=== PATIENT | male | born 1950 | race Caucasian/White ===

== ENCOUNTER → 2019-09-05 10:44 | Outpatient (BNVA) | payer MEDICARE, MEDICAID, SELFPAY | PROVIDERS: Family Provider Family Medicine; PCP Family Medicine; Visit Provider Nurse Practitioner Psychiatric/Mental Health | DX: F41.1 Generalized anxiety disorder (principal); F12.20 Cannabis dependence, uncomplicated; F10.21 Alcohol dependence, in remission | CPT/HCPCS: 99213 ==

== ENCOUNTER → 2019-12-17 07:39 | Outpatient (BNVA) | payer MEDICARE, MEDICAID, SELFPAY | PROVIDERS: Family Provider Family Medicine; PCP Family Medicine; Visit Provider Nurse Practitioner Psychiatric/Mental Health | DX: F41.1 Generalized anxiety disorder (principal); F12.20 Cannabis dependence, uncomplicated; F10.21 Alcohol dependence, in remission | CPT/HCPCS: 99214 ==

== ENCOUNTER 2019-12-26 13:06 | Outpatient (CLI) | payer MEDICARE, MEDICAID, SELFPAY ==
--- NOTE | 2019-12-26 13:15 | US_ITS ---
WS: [id number] SCROTAL ULTRASOUND REASON FOR EXAM: PAIN, SWELLING COMPARISON: None available. TECHNIQUE: Grayscale and duplex color Doppler ultrasound examination of the scrotum. FINDINGS: RIGHT: Right testes measures 4.5 cm x 2.7 cm x 3.4 cm. Large hydrocele is seen on the right side. Right epididymis measures shows inflammatory changes. Increased blood flow in the right epididymis is seen. Dizziness measured 3.04 x 1.76 m. LEFT: Left testes measures 4.6 cm x 2.7 cm x 2.8 cm. Large hydrocele is seen. Left epididymis measures 1.7 cm normal appearance otherwise of the left epididymis. Small epididymal cysts. IMPRESSION: Bilateral hydroceles. Epididymitis on the right Epididymal cyst on the left.
== END 2019-12-26 13:07 | disposition home or self-care (01) ==
LOC: RAD 13:11
PROVIDERS: Visit Provider Nurse Practitioner Family
DX: N50.89 Other specified disorders of the male genital organs (principal); N43.2 Other hydrocele; N45.1 Epididymitis; N50.3 Cyst of epididymis
CPT/HCPCS: 76870

== ENCOUNTER → 2020-01-14 07:40 | Outpatient (BNVA) | payer MEDICARE, MEDICAID, SELFPAY | PROVIDERS: Visit Provider Nurse Practitioner Psychiatric/Mental Health | DX: F41.1 Generalized anxiety disorder (principal); F12.20 Cannabis dependence, uncomplicated; F10.21 Alcohol dependence, in remission | CPT/HCPCS: 99214 ==

== ENCOUNTER → 2020-02-11 07:30 | Outpatient (BNVA) | payer MEDICARE, MEDICAID, SELFPAY | PROVIDERS: Visit Provider Nurse Practitioner Psychiatric/Mental Health | DX: F41.1 Generalized anxiety disorder (principal); F12.20 Cannabis dependence, uncomplicated; F10.21 Alcohol dependence, in remission; F33.1 Major depressive disorder, recurrent, moderate | CPT/HCPCS: 99214 ==

== ENCOUNTER → 2020-03-10 07:40 | Outpatient (BNVA) | payer MEDICARE, MEDICAID, SELFPAY | PROVIDERS: Visit Provider Nurse Practitioner Psychiatric/Mental Health | DX: F41.1 Generalized anxiety disorder (principal); F12.20 Cannabis dependence, uncomplicated; F10.21 Alcohol dependence, in remission | CPT/HCPCS: 99214 ==

== ENCOUNTER → 2020-03-18 10:57 | Outpatient (BNVA) | payer OTHER, SELFPAY | PROVIDERS: Visit Provider Dermatology | DX: F41.1 Generalized anxiety disorder (principal) | CPT/HCPCS: 80061; 83036 ==

== ENCOUNTER → 2020-04-15 07:43 | Outpatient (BNVA) | payer OTHER, SELFPAY ==
[2020-03-19 12:54] VITALS: BP 152/79; BMI 44.8
== END ==
PROVIDERS: Visit Provider Nurse Practitioner Psychiatric/Mental Health
DX: F41.1 Generalized anxiety disorder (principal); F12.20 Cannabis dependence, uncomplicated; F10.21 Alcohol dependence, in remission
CPT/HCPCS: 99213

== ENCOUNTER → 2020-05-19 07:52 | Outpatient (BNVA) | payer MEDICARE, MEDICAID, OTHER, SELFPAY ==
[2020-03-19 12:54] VITALS: BP 152/79; BMI 44.8
== END ==
PROVIDERS: Visit Provider Nurse Practitioner Psychiatric/Mental Health
DX: F41.1 Generalized anxiety disorder (principal); F12.20 Cannabis dependence, uncomplicated; F10.21 Alcohol dependence, in remission
CPT/HCPCS: 99213

== ENCOUNTER → 2020-07-07 08:14 | Outpatient (BNVA) | payer MEDICARE, MEDICAID, SELFPAY ==
[2020-03-19 12:54] VITALS: BP 152/79; BMI 44.8
== END ==
PROVIDERS: Visit Provider Nurse Practitioner Psychiatric/Mental Health
DX: F41.1 Generalized anxiety disorder (principal); F12.20 Cannabis dependence, uncomplicated; F10.21 Alcohol dependence, in remission
CPT/HCPCS: 99213

== ENCOUNTER → 2020-09-10 10:36 | Outpatient (BNVA) | payer MEDICARE, MEDICAID, SELFPAY ==
[2020-03-19 12:54] VITALS: BP 152/79; BMI 44.8
== END ==
PROVIDERS: Visit Provider Nurse Practitioner Psychiatric/Mental Health
DX: F41.1 Generalized anxiety disorder (principal); F12.20 Cannabis dependence, uncomplicated; F10.21 Alcohol dependence, in remission
CPT/HCPCS: 99214

== ENCOUNTER → 2021-01-05 08:34 | Outpatient (BNVA) | payer OTHER, MEDICAID, SELFPAY ==
[2020-03-19 12:54] VITALS: BP 152/79; BMI 44.8
== END ==
PROVIDERS: Visit Provider Nurse Practitioner Psychiatric/Mental Health
DX: F41.1 Generalized anxiety disorder (principal); F12.20 Cannabis dependence, uncomplicated; F10.21 Alcohol dependence, in remission
CPT/HCPCS: 99214

== ENCOUNTER → 2021-02-23 07:57 | Outpatient (BNVA) | payer MEDICARE, MEDICAID, SELFPAY ==
[2020-03-19 12:54] VITALS: BP 152/79; BMI 44.8
== END ==
PROVIDERS: Visit Provider Nurse Practitioner Psychiatric/Mental Health
DX: F41.1 Generalized anxiety disorder (principal); F12.20 Cannabis dependence, uncomplicated; F10.21 Alcohol dependence, in remission
CPT/HCPCS: 99214

== ENCOUNTER → 2021-04-19 07:46 | Outpatient (BNVA) | payer MEDICARE, MEDICAID, SELFPAY ==
[2020-03-19 12:54] VITALS: BP 152/79; BMI 44.8
== END ==
PROVIDERS: Visit Provider Nurse Practitioner Psychiatric/Mental Health
DX: F41.1 Generalized anxiety disorder (principal); F12.20 Cannabis dependence, uncomplicated; F10.21 Alcohol dependence, in remission
CPT/HCPCS: 99214

== ENCOUNTER → 2021-05-13 13:45 | Outpatient (BNVA) | payer OTHER, SELFPAY ==
[2020-03-19 12:54] VITALS: BP 152/79; BMI 44.8
== END ==
PROVIDERS: Visit Provider Nurse Practitioner Psychiatric/Mental Health
DX: F41.1 Generalized anxiety disorder (principal)
CPT/HCPCS: 80061; 83036

== ENCOUNTER → 2021-06-08 09:43 | Outpatient (BNVA) | payer MEDICARE, MEDICAID, SELFPAY ==
[2021-05-17 13:24] VITALS: BP 161/66; BMI 44.2
== END ==
PROVIDERS: Visit Provider Nurse Practitioner Psychiatric/Mental Health
DX: F41.1 Generalized anxiety disorder (principal); F12.20 Cannabis dependence, uncomplicated; F10.21 Alcohol dependence, in remission
CPT/HCPCS: 99214

== ENCOUNTER → 2021-08-10 14:42 | Outpatient (BNVA) | payer MEDICARE, MEDICAID, SELFPAY ==
[2021-05-17 13:24] VITALS: BP 161/66; BMI 44.2
== END ==
PROVIDERS: Visit Provider Nurse Practitioner Psychiatric/Mental Health
DX: F41.1 Generalized anxiety disorder (principal); F12.20 Cannabis dependence, uncomplicated; F10.21 Alcohol dependence, in remission
CPT/HCPCS: 99214

== ENCOUNTER → 2021-09-21 11:00 | Outpatient (BNVA) | payer MEDICARE, MEDICAID, SELFPAY ==
[2021-05-17 13:24] VITALS: BP 161/66; BMI 44.2
== END ==
PROVIDERS: Visit Provider Social Worker
DX: F41.1 Generalized anxiety disorder (principal)
CPT/HCPCS: 90834

== ENCOUNTER → 2021-10-20 14:00 | Outpatient (BNVA) | payer MEDICARE, MEDICAID, SELFPAY ==
[2021-05-17 13:24] VITALS: BP 161/66; BMI 44.2
== END ==
PROVIDERS: Visit Provider Social Worker
DX: F41.1 Generalized anxiety disorder (principal)
CPT/HCPCS: 90834

== ENCOUNTER → 2021-10-27 10:48 | Outpatient (BNVA) | payer MEDICARE, MEDICAID, SELFPAY ==
[2021-05-17 13:24] VITALS: BP 161/66; BMI 44.2
== END ==
PROVIDERS: Visit Provider Social Worker
DX: F41.1 Generalized anxiety disorder (principal)
CPT/HCPCS: 90834

== ENCOUNTER → 2021-11-03 10:46 | Outpatient (BNVA) | payer MEDICARE, MEDICAID, SELFPAY ==
[2021-05-17 13:24] VITALS: BP 161/66; BMI 44.2
== END ==
PROVIDERS: Visit Provider Social Worker
DX: F41.1 Generalized anxiety disorder (principal)
CPT/HCPCS: 90834

== ENCOUNTER → 2021-11-11 09:45 | Outpatient (BNVA) | payer MEDICARE, MEDICAID, SELFPAY ==
[2021-05-17 13:24] VITALS: BP 161/66; BMI 44.2
== END ==
PROVIDERS: Visit Provider Social Worker
DX: F41.1 Generalized anxiety disorder (principal)
CPT/HCPCS: 90834

== ENCOUNTER → 2021-11-17 09:49 | Outpatient (BNVA) | payer MEDICARE, MEDICAID, SELFPAY ==
[2021-05-17 13:24] VITALS: BP 161/66; BMI 44.2
== END ==
PROVIDERS: Visit Provider Social Worker
DX: F41.1 Generalized anxiety disorder (principal)
CPT/HCPCS: 90834

== ENCOUNTER → 2021-11-23 09:48 | Outpatient (BNVA) | payer MEDICARE, MEDICAID, SELFPAY ==
[2021-05-17 13:24] VITALS: BP 161/66; BMI 44.2
== END ==
PROVIDERS: Visit Provider Social Worker
DX: F41.1 Generalized anxiety disorder (principal)
CPT/HCPCS: 90834

== ENCOUNTER → 2021-11-30 09:45 | Outpatient (BNVA) | payer MEDICARE, MEDICAID, SELFPAY ==
[2021-05-17 13:24] VITALS: BP 161/66; BMI 44.2
== END ==
PROVIDERS: Visit Provider Social Worker
DX: F41.1 Generalized anxiety disorder (principal)
CPT/HCPCS: 90834

== ENCOUNTER → 2021-12-07 09:47 | Outpatient (BNVA) | payer MEDICARE, MEDICAID, SELFPAY ==
[2021-05-17 13:24] VITALS: BP 161/66; BMI 44.2
== END ==
PROVIDERS: Visit Provider Social Worker
DX: F41.1 Generalized anxiety disorder (principal)
CPT/HCPCS: 90834

== ENCOUNTER → 2021-12-14 10:46 | Outpatient (BNVA) | payer MEDICARE, MEDICAID, SELFPAY ==
[2021-05-17 13:24] VITALS: BP 161/66; BMI 44.2
== END ==
PROVIDERS: Visit Provider Social Worker
DX: F41.1 Generalized anxiety disorder (principal)
CPT/HCPCS: 90834

== ENCOUNTER → 2021-12-21 09:49 | Outpatient (BNVA) | payer MEDICARE, MEDICAID, SELFPAY ==
[2021-05-17 13:24] VITALS: BP 161/66; BMI 44.2
== END ==
PROVIDERS: Visit Provider Social Worker
DX: F41.1 Generalized anxiety disorder (principal)
CPT/HCPCS: 90834

== ENCOUNTER 2022-01-02 12:56 | Inpatient (IN) | payer MEDICARE, MEDICAID, SELFPAY ==
[2021-05-17 13:24] VITALS: BP 161/66; BMI 44.2
[2022-01-02] VITALS (9 sets, daily range): BP systolic 88–128; BP diastolic 51–77; PULSE 61–70; RESP 16–20; TEMP 36.6–36.8; O2SAT 94–95; BMI 44.6; BMI 40.8
--- NOTE | 2022-01-02 13:05 | ECG_ITS ---
[facility] Test Date: 2022-01-02 Pat Name: Franki Read Department: Room: 106 Gender: Male Biochemistry Technologist: : 1950 Requested By: Getachew Roberts Order Number: [id number] Driver MD: Jenni Hsu M.D. Measurements Intervals [place] Rate: 62 P: 66 MA: 219 QRS: 64 QRSD: 146 T: 38 QT: 377 QTc: 384 Interpretive Statements SINUS RHYTHM WITH FIRST DEGREE AV BLOCK RIGHT BUNDLE BRANCH BLOCK [120+ ms QRS DURATION, UPRIGHT V1, 40+ ms S IN I/aVL/V4/V5/V6] Compared to ECG 01/04/2018 08:41:25 First degree AV block now present Ventricular premature complex(es) no longer present Indeterminate axis no longer present Electronically Signed On 01-03-2022 17:39:16 CDT by Jenni Hsu M.D. [email or web address].[email or web address]/store/OM/[id number]
--- NOTE | 2022-01-02 13:08 | W.ED.WEAKNES ---
HPI - Weakness General: Chief complaint: Altered Mental Status Stated complaint: WEAKNESS; HYPERGLYCEMIA Time Seen by Provider: 01/02/22 12:58 History of Present Illness: 71-year-old presents due to generalized weakness. Denies any focal numbness weakness or tingling. Denies any pain. He has history of diabetes. Denies any recent changes in medications and denies taking too many of his medications however on EMS arrival he had a blood sugar in the 40s. Improved to the 80s after dextrose. He reports significant improvement in symptoms now. Review of Systems Narrative: - CONSTITUTIONAL: Denies weight loss, fever and chills. - HEENT: Denies changes in vision and hearing. - RESPIRATORY: Denies SOB and cough. - CV: Denies palpitations and CP. - GI: Denies abdominal pain, nausea, vomiting and diarrhea. - : Denies dysuria and urinary frequency. - MSK: Denies myalgia and joint pain. - SKIN: Denies rash and pruritus. - NEUROLOGICAL: As above - PSYCHIATRIC: Denies suicidal ideation PFSH ED PFSH: Medical History Alcohol use disorder, moderate, in sustained remission Arthritis Cannabis dependence, continuous -History of 51 years of daily use -recently obtained marijuana card Cannabis dependence, episodic use Diabetes mellitus Generalized anxiety disorder History of fibromyalgia History of gastroesophageal reflux (GERD) History of hypertension Hyperlipidemia Psychiatric care Sleep apnea Surgical History History of colonoscopy Hx of brain surgery Family History Other Cancer Diabetes Hypertension Social History (Updated 05/13/21 @ 12:20 by Precious Lopez LPN) Smoking and tobacco status: former smoker Quit status (tobacco): has quit using tobacco Year quit tobacco: 2004 Second hand smoke exposure: No Alcohol intake: current Alcohol intake frequency: holidays/special occasions only Alcohol type: beer Desire information about alcohol rehabilitation?: No Desire information about substance/drug rehabilitation?: No Adopted: No Caregiver/support person: No Lives independently: Yes Household members: none Housing: Manufactured/Mobile home Marital status: Number of children: 1 Number of grandchildren: 1 Highest education level completed: 11th Grade service: No Current occupational status: retired Current occupational exposures/hazards: No 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 No acute distress. Well-nourished. - EYES: EOMI. Anicteric. - HENT: Atraumatic, no C-spine tenderness. Moist mucous membranes. No scleral icterus. No cervical lymphadenopathy. - LUNGS: Clear to auscultation bilaterally. No accessory muscle use. Equal lung sounds bilaterally. No respiratory distress. - CARDIOVASCULAR: Regular rate and rhythm. No murmur. No JVD. - ABDOMEN: Soft, non-tender and non-distended. Negative CVA tenderness bilaterally, no rebound or guarding, negative Gonzalez sign. No palpable masses. - EXTREMITIES: No edema. Non-tender. - SKIN: No rashes or lesions. Warm. - NEUROLOGIC: No meningismus or focal neurological deficits. CN II-XII grossly intact. - PSYCHIATRIC: Cooperative. Appropriate mood and affect. Course Vital Signs: Vital signs: Vital Signs Temperature 98.0 F 01/02/22 13:22 Pulse Rate 65 01/02/22 13:22 Respiratory Rate 16 01/02/22 13:22 Blood Pressure 128/51 01/02/22 13:22 Pulse Oximetry 95 01/02/22 13:22 MDM - Weakness Medical Decision Making 71-year-old presents due to lightheadedness and generalized weakness. Reportedly had hypoglycemia at the scene improved glucose. Nonfocal neurologic exam. Denies any falls or head injury. However lab work does reveal hyperkalemia with potassium of 5.9 and ROXANN with creatinine to 3.3. No EKG changes. Calcium Kayexalate and fluids provided. Remainder of lab work and imaging reviewed. Discussed with hospitalist and they agreed patient would benefit from admission. Patient admitted in stable condition. Further evaluation management per hospitalist team. Lab Data : 01/02/22 13:32 01/02/22 13:32 Laboratory Results WBC 12.6 10^3/uL (4.0-10.0) H 01/02/22 13: RBC 4.32 10^6/uL (4.1-5.3) 01/02/22 13: Hgb 12.5 g/dL (11.7-16.6) 01/02/22 13: Hct 40.8 % (42.0-52.0) L 01/02/22 13: MCV 94.4 fl (80-94) H 01/02/22 13: MCH 28.9 pg (28.0-34.0) 01/02/22 13: MCHC 30.6 g/dL (30.0-36.0) 01/02/22: RDW 15.2 % (12.1-15.1) H 01/02/22: Plt Count 269 10^3/cmm (130-400) 01/02/22 13: MPV 10.6 fL (7.4-10.4) H 01/02/22 13: Neut % (Auto) 70.9 % 01/02/22 13:32 Lymph % (Auto) 15.4 % 01/02/22 13:32 [place] % (Auto) 10.4 % 01/02/22 13: Eos % (Auto) 1.1 % 01/02/22: Baso % (Auto) 0.7 % 01/02/22: Neut # (Auto) 8.90 10^3/uL (1.8-7.7) H 01/02/22 13: Lymph # (Auto) 1.9 10^3/uL (0.8-4.8) 01/02/22 13:32 [place] # (Auto) 1.3 10^3/uL (0.2-0.9) H 01/02/22: Eos # (Auto) 0.1 10^3/uL (0.0-0.8) 01/02/22: Baso # (Auto) 0.1 10^3/uL (0.0-0.1) 01/02/22: Nucleated RBC % (auto) 0 % 01/02/22: Nucleated RBCs # 0.0 /100WBC 01/02/22 13:32 Sodium 136 mmol/L (136-145) 01/02/22 13:32 Potassium 5.9 mmol/L (3.5-5.1) H 01/02/22 13:32 Chloride 102 mmol/L (98-107) 01/02/22 13:32 Carbon Dioxide 20 mmol/L (22-29) L 01/02/22 13:32 Anion Gap 19.9 (5-19) H 01/02/22 13:32 BUN 65 mg/dL (8-23) H 01/02/22 13:32 Creatinine 3.3 mg/dL (0.7-1.2) H 01/02/22 13:32 GFR Calculation Not Reportable 01/02/22 13:32 Glucose 50 mg/dL (65-115) L 01/02/22 13:32 Calculated Osmolality 298 mOsm/kg (285-295) H 01/02/22 13:32 Calcium 9.8 mg/dL (8.5-10.5) 01/02/22 13:32 Total Bilirubin 0.3 mg/dL (0.15-1.2) 01/02/22 13:32 AST 27 U/L (0-40) 01/02/22 13:32 ALT 33 U/L (0-41) 01/02/22 13:32 Alkaline Phosphatase 73 IU/L (40-130) 01/02/22 13:32 Total Protein 7.4 g/dL (6.6-8.7) 01/02/22 13:32 Albumin 4.2 g/dL (3.5-5.2) 01/02/22 13:32 Globulin 3.2 g/dL (1.3-4.6) 01/02/22 13:32 Urine Color Yellow (Yellow) 01/02/22 14:35 Urine Appearance Clear (CLEAR) 01/02/22 14:35 Urine pH 5 (5-7) 01/02/22 14:35 Ur Specific [place] 1.010 (1.005-1.030) 01/02/22 14:35 Urine Protein Neg (Negative) 01/02/22 14:35 Urine Glucose (UA) 2+ (Normal) H 01/02/22 14:35 Urine Ketones Negative (Negative) 01/02/22 14:35 Urine Blood Neg (Negative) 01/02/22 14:35 Urine Nitrate Negative (Negative) 01/02/22 14:35 Urine Bilirubin Neg (Negative) 01/02/22 14:35 Urine Urobilinogen Norm mg/dL (Negative) 01/02/22 14:35 Ur Leukocyte Esterase Negative (Negative) 01/02/22 14:35 Urine RBC None /hpf (0-2) 01/02/22 14:35 Urine WBC None /hpf (0-5) 01/02/22 14:35 Ur Squamous Epith Cells Rare /hpf (0-5) 01/02/22 14:35 Amorphous Sediment Not Reportable 01/02/22 14:35 Urine Bacteria None /hpf (NONE) 01/02/22 14:35 Urine Mucus Trace /hpf 01/02/22 14:35 EKG Data EKG 1: Other EKG comments: Normal sinus rhythm with first-degree AV block, right bundle branch block is present. No sign of acute ischemia or other acute abnormality. Discharge Plan Discharge Condition: Stable Prescriptions: No Action spironolactone 25 mg/5 mL suspension 25 mg PO DAILY 0RF glipizide 10 mg tablet extended release 24hr 10 mg PO DAILY 0RF metoprolol succinate 25 mg capsule,sprinkle,ER 24hr 25 mg PO DAILY 0RF aspirin [Ericka Chewable Aspirin] 81 mg tablet,chewable 81 mg PO DAILY 0RF prenat.vits,sharon,ydf-vyih-mnasp Tablet 1 tab PO DAILY 0RF omega-3 fatty acids [Fish Oil Concentrate] 1,000 mg capsule 1,000 mg PO DAILY 0RF furosemide 20 mg tablet 20 mg PO DAILY 0RF potassium chloride 10 mEq tablet extended release 10 meq PO DAILY 0RF baclofen 20 mg tablet 20 mg PO QID 0RF omeprazole 20 mg capsule,delayed release(DR/EC) 20 mg PO BID 0RF memantine 10 mg tablet 10 mg PO DAILY 0RF tamsulosin 0.4 mg capsule 0.4 mg PO DAILY 0RF donepezil 5 mg tablet 5 mg PO DAILY 0RF amlodipine 5 mg Tablet 5 mg PO DAILY 0RF colchicine 0.6 mg Tablet 0.6 mg PO BID 0RF irbesartan 300 mg Tablet 300 mg PO DAILY 0RF Crestor 40 mg Tablet 40 mg PO DAILY 0RF Jardiance 10 mg Tablet 10 mg PO DAILY 0RF trazodone 50 mg tablet 50 mg PO BEDTIME PRN (Reason: sleep) 0RF Rx Instructions: Take half to one tablet one hour prior to bedtime as needed gabapentin 300 mg capsule 300 mg PO BEDTIME 0RF Rx Instructions: Take one capsule at bedtime Coding Level of Care Code ED Correctional Cook for Stepan Noel
[2022-01-02 13:48] LABS: Basophils # 0.1 10^3/uL (0.0-0.1); Basophils % 0.7 %; Eosinophils # 0.1 10^3/uL (0.0-0.8); Eosinophils % 1.1 %; Hematocrit 40.8 % (42.0-52.0); Hemoglobin 12.5 g/dL (11.7-16.6); Lymphocytes # 1.9 10^3/uL (0.8-4.8); Lymphocytes % 15.4 %; Mean Corpuscular HGB Conc 30.6 g/dL (30.0-36.0); Mean Corpuscular Hemoglobin 28.9 pg (28.0-34.0); Mean Corpuscular Volume 94.4 fl (80-94); Mean Platelet Volume 10.6 fL (7.4-10.4); Monocytes # 1.3 10^3/uL (0.2-0.9); Monocytes % 10.4 %; Neutrophils % 70.9 %; Nucleated Red Blood Cells % 0 %; Platelet Count 269 10^3/cmm (130-400); Red Blood Count 4.32 10^6/uL (4.1-5.3); Red Cell Distribution Width 15.2 % (12.1-15.1); White Blood Count 12.6 10^3/uL (4.0-10.0)
[2022-01-02 14:05] LABS: Alanine Aminotransferase 33 U/L (0-41); Albumin Level 4.2 g/dL (3.5-5.2); Alkaline Phosphatase 73 IU/L (40-130); Anion Gap 19.9 (5-19); Aspartate Amino Transferase 27 U/L (0-40); Blood Urea Nitrogen 65 mg/dL (8-23); Calcium 9.8 mg/dL (8.5-10.5); Carbon Dioxide 20 mmol/L (22-29); Chloride 102 mmol/L (98-107); Globulin 3.2 g/dL (1.3-4.6); Glucose 50 mg/dL (65-115); Osmolality Calculated 298 mOsm/kg (285-295); Potassium 5.9 mmol/L (3.5-5.1); Sodium 136 mmol/L (136-145); Total Bilirubin 0.3 mg/dL (0.15-1.2); Total Protein 7.4 g/dL (6.6-8.7)
[2022-01-02 15:09] LABS: Protein Urine Neg (Negative); Urine Appearance Clear (CLEAR); Urine Color Yellow (Yellow); pH Urine 5 (5-7)
[2022-01-02 15:10] LABS: Bilirubin Urine Neg (Negative); Blood Urine Neg (Negative); Glucose Urine UA 2+ (Normal); Ketones Urine Negative (Negative); Leukocyte Esterase Urine Negative (Negative); Nitrate Urine Negative (Negative); Urobilinogen Urine Norm (Negative)
[2022-01-02 15:11] LABS: Mucus Urine TRACE /hpf; Squamous Epithelial Cell Urine RARE /hpf (0-5)
[2022-01-02 15:12] LABS: Add Urine Culture? No
--- NOTE | 2022-01-02 15:34 | ECG_ITS ---
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 Measurements Intervals [place] Rate: 60 P: 90 VT: 207 QRS: 80 QRSD: 141 T: 45 QT: 390 QTc: 391 Interpretive Statements SINUS RHYTHM RIGHT BUNDLE BRANCH BLOCK [120+ ms QRS DURATION, UPRIGHT V1, 40+ ms S IN I/aVL/V4/V5/V6] Compared to ECG 01/02/2022 16:19:54 First degree AV block no longer present Electronically Signed On 01-03-2022 17:43:51 CDT by Jenni Hsu M.D. [email or web address]/[id number]
--- NOTE | 2022-01-02 15:44 | PM.HP ---
Providers/Chief Complaint Chief Complaint: WEAKNESS; HYPERGLYCEMIA History of Present Illness Franki Read is a 71 year old male with past medical history of alcohol use disorder in remission, arthritis, marijuana dependence, diabetes mellitus, anxiety, hypertension, GERD, hyperlipidemia, sleep apnea presented to the hospital today via EMS for complaints of not feeling well. He states he has been feeling unwell for the last couple of days and has not been eating very much either. He also states he has been drinking a lot of water. He usually goes to the bathroom every day but has not gone for the last few days for bowel movement. He does not report urinating less than usual. Patient does seem slightly confused when being asked all his questions. He is a poor historian. He states he has been having a cough but other than that has no other complaints. Review of systems asked very extensively and negative for all except that he said he is feeling hot in his room and would like to be assigned a bed soon. He is a former smoker but quit years ago. He states he does not drink alcohol at this time. He says he has been taking his medications as directed. Denies any chest pain, shortness of breath at this time. Denies being on any inhalers at home. ED course: Blood pressure on arrival 128/51, pulse 65, temperature 98, respiratory 16, pulse ox 95% on room air. Patient's blood sugar glucose on arrival was 40s and he received dextrose with repeat blood sugar in 80s as per ER physician. Labs revealed hyperkalemia potassium 5.9, ROXANN with creatinine 3.3. No EKG changes. Calcium gluconate, Kayexalate and fluids given. X-ray ordered. Hospitalist called for admission. Medications/Allergies Home Medications Medication Instructions Recorded Confirmed Last Taken Type baclofen 20 mg tablet 20 mg PO QID 08/26/19 01/02/22 01/02/22 History memantine 10 mg tablet 10 mg PO DAILY 08/26/19 01/02/22 01/02/22 History omeprazole 20 mg capsule,delayed 20 mg PO BID 08/26/19 01/02/22 01/02/22 History release tamsulosin 0.4 mg capsule 0.4 mg PO DAILY 08/26/19 01/02/22 01/02/22 History donepezil 5 mg tablet 5 mg PO DAILY 09/05/19 01/02/22 01/02/22 History aspirin 81 mg chewable tablet 81 mg PO DAILY 04/21/20 01/02/22 01/02/22 History (Ericka Chewable Low Dose Aspirin) furosemide 20 mg tablet 20 mg PO DAILY 04/21/20 01/02/22 01/02/22 History glipizide 10 mg tablet, extended 10 mg PO DAILY 04/21/20 01/02/22 01/02/22 History release 24 hr metoprolol succinate 25 mg capsule 25 mg PO DAILY 04/21/20 01/02/22 01/02/22 History sprinkle, ext. release 24 hr omega-3 fatty acids 1,000 mg 1,000 mg PO DAILY 04/21/20 01/02/22 01/02/22 History capsule (Fish Oil Concentrate) potassium chloride 10 mEq 10 meq PO DAILY 04/21/20 01/02/22 01/02/22 History tablet,extended release prenat.vits,sharon,tas-mdkx-mrzbf 1 tab PO DAILY 04/21/20 01/02/22 01/02/22 History spironolactone 25 mg/5 mL oral 25 mg PO DAILY 04/21/20 01/02/22 01/02/22 History suspension amlodipine 5 mg tablet 5 mg PO DAILY 01/02/22 01/02/22 01/02/22 History colchicine 0.6 mg tablet 0.6 mg PO BID 01/02/22 01/02/22 01/02/22 History empagliflozin 10 mg tablet 10 mg PO DAILY 01/02/22 01/02/22 01/02/22 History (Jardiance) gabapentin 300 mg capsule 300 mg PO BEDTIME 01/02/22 01/02/22 01/01/22 History irbesartan 300 mg tablet 300 mg PO DAILY 01/02/22 01/02/22 01/02/22 History rosuvastatin 40 mg tablet (Crestor) 40 mg PO DAILY 01/02/22 01/02/22 01/02/22 History trazodone 50 mg tablet 50 mg PO BEDTIME PRN 01/02/22 01/02/22 Unknown History Allergies Allergy/AdvReac Type Severity Reaction Status Date / Time No Known Allergies Allergy Verified 01/02/22 13:00 PFSH Acute PFSH: Medical History Alcohol use disorder, moderate, in sustained remission Arthritis Cannabis dependence, continuous -History of 51 years of daily use -recently obtained marijuana card Cannabis dependence, episodic use Diabetes mellitus Generalized anxiety disorder History of fibromyalgia History of gastroesophageal reflux (GERD) History of hypertension Hyperlipidemia Psychiatric care Sleep apnea Surgical History History of colonoscopy Hx of brain surgery Family History Other Cancer Diabetes Hypertension Social History (Updated 05/13/21 @ 12:20 by Precious Lopez LPN) Smoking and tobacco status: former smoker Quit status (tobacco): has quit using tobacco Year quit tobacco: 2004 Second hand smoke exposure: No Alcohol intake: current Alcohol intake frequency: holidays/special occasions only Alcohol type: beer Desire information about alcohol rehabilitation?: No Desire information about substance/drug rehabilitation?: No Adopted: No Caregiver/support person: No Lives independently: Yes Household members: none Housing: Manufactured/Mobile home Marital status: Number of children: 1 Number of grandchildren: 1 Highest education level completed: 11th Grade service: No Current occupational status: retired Current occupational exposures/hazards: No 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 Pets and animals: Yes Pets & animals: cat(s) and dog(s) History of recent travel: No Leisure activites: art and other Leisure activities details: 4 ruffin riding Sexually active: No Current gender identity: Male Teresa/Sabianist: None Special teresa needs: No Agree to transfusion: Yes Vitals/I&O/Wt Last Vital Signs Temp 98.0 F 01/02/22 13:22 Pulse 61 01/02/22 15:20 Resp 16 01/02/22 15:20 BP 120/77 01/02/22 15:20 Pulse Ox 95 01/02/22 15:20 Weight last 48 hrs Weight 117.934 kg Physical Exam Narrative: General: Alert oriented x3, patient seen sitting up in bed stating that it is hot and his room. He also wanted his bed to be adjusted so he could set up. No acute distress, normal respiratory effort. HEENT: Normocephalic, atraumatic, EOMI, breathing room air, large neck Cardio: Regular rate rhythm, normal S1-S2, no murmurs Respiratory: Gross expiratory rhonchi and diminished bilateral air entry present bilateral lung wolfe, no crackles. GI: Abdomen soft, nontender, obese rounded abdomen,, bowel sounds + Behavior: Appropriate and cooperative, however does appear slightly confused but is alert oriented x3. Extremities: no edema, no cyanosis, slight pedal edema noted. Data : 01/02/22 13:32 01/02/22 13:32 A&P Assessment and plan (1) ROXANN (acute kidney injury): Status: Acute (2) Hyperkalemia: Status: Acute (3) Hypoglycemia: Status: Acute (4) COPD (chronic obstructive pulmonary disease): Status: Acute (5) CARMEN (obstructive sleep apnea): Status: Acute (6) Dehydration: Status: Acute (7) Hypertension: Status: Acute (8) Marijuana dependence: Status: Acute (9) Dementia: Status: Acute Plan #Acute kidney injury, baseline unknown. Creatinine 3.3 today #Hyperkalemia 5.9 #COPD exacerbation #Diabetes mellitus type 2 #Hypertension #Marijuana use #History of alcohol abuse in remission. #Obstructive sleep apnea #Dementia ? Hold nephrotoxic medications. Hold irbesartan, spironolactone, Lasix at this time. Hold gabapentin ? Hold glipizide, Jardiance ? Continue memantine and donepezil ? Glucose checks before meals and bedtime. I will hold off on adding sliding scale at this time. Will monitor blood sugar before starting him on low-dose sliding scale insulin. -Kayexalate and calcium gluconate given in ER. I will recheck blood sugar and potassium. If still high will treat with insulin and dextrose ? There were no EKG changes present ? Continue metoprolol 25 twice daily ? Hold amlodipine ? Continue aspirin and atorvastatin ? Check CPK. Check urine lites and ct abd for hydronephrosis. Possibly patient is dehydrated. ? We will place Baxter catheter for accurate output ? Respiratory therapy to order CPAP at night ? DuoNeb every 4 hours as needed ? Prednisone 40 daily. Azithromycin daily for 5 days - Lacutlose for constipation Full code If patient unable to make his medical decisions he wants us to call his daughter Christina. He said he does not have her phone number at this time. Attestations Medical Necessity Statement*: Patient will most likely cross 2 midnights due to management of acute kidney injury, hyperkalemia. Coding Level of Care Code Acute Pharmacy Technician Trainee for Chg Fwd Diagnoses ROXANN (acute kidney injury) N17.9 Hyperkalemia E87.5 Hypoglycemia E16.2 COPD (chronic obstructive pulmonary disease) J44.9 CARMEN (obstructive sleep apnea) G47.33 Dehydration E86.0 Hypertension I10 Marijuana dependence F12.20 Dementia F03.90
[2022-01-02] MEDS: sodium chloride 0.9% 1,000 ML 999 ML IV (15:53)
[2022-01-02] MEDS: heparin 5,000 unit/mL INJ 1 mL 5000 UNIT SUBCUT (15:55)
[2022-01-02] MEDS: sodium polystyrene sulfonate 15 gm/60 mL Btl PO (15:57)
--- NOTE | 2022-01-02 16:18 | CTR_ITS ---
PROCEDURE INFORMATION: Exam: CT Abdomen And Pelvis Without Contrast Exam date and time: 01/02/2022 4:47 PM Age: 71 years old Clinical indication: Abnormal findings; Abnormal lab test; Abnormal kidney function lab tests; Patient HX: Elev bun/creat; Hydronephrosis? TECHNIQUE: Imaging protocol: Computed tomography of the abdomen and pelvis without contrast. Radiation optimization: All CT scans at this facility use at least one of these dose optimization techniques: automated exposure control; mA and/or kV adjustment per patient size (includes targeted exams where dose is matched to clinical indication); or iterative reconstruction. COMPARISON: US scrotum [id number] 12/26/2019 1:26 PM RADIATION DOSE METRICS: Total DLP (mGy-cm): 1763.37 FINDINGS: Liver: Normal. No mass. Gallbladder and bile ducts: Normal. No calcified stones. No ductal dilation. Pancreas: Normal. No ductal dilation. Spleen: Normal. No splenomegaly. Adrenal glands: Normal. No mass. Kidneys and ureters: There is a 16 mm exophytic hyperdense lesion off the anterior aspect of the right kidney measuring 28 Hounsfield units in density. Stomach and bowel: Unremarkable. No obstruction. No mucosal thickening. Appendix: A normal appendix is identified. Intraperitoneal space: Unremarkable. No free air. No significant fluid collection. Vasculature: Multi-vessel atherosclerotic disease. Lymph nodes: Unremarkable. No enlarged lymph nodes. Urinary bladder: Unremarkable as visualized. Reproductive: Unremarkable as visualized. Bones/joints: There are degenerative changes in the visualized spine. Chronic defects are present through the bilateral L5 pars interarticularis with resultant grade 1 spondylolisthesis at L5-S1. There is severe bilateral neural foraminal narrowing at L5-S1 with probable compression of the exiting nerve roots. Soft tissues: Unremarkable. CT/CT kidney stone [id number] IMPRESSION: 1. There is a 16 mm lesion of the anterior aspect of the right kidney measuring 28 Hounsfield units in density. This cannot be further characterized without IV contrast. Consider CT scan of the abdomen/pelvis with pre and postcontrast images, renal protocol, on a nonemergent basis for further evaluation as clinically warranted. 2. Chronic defects are present through the bilateral L5 pars interarticularis with resultant grade 1 spondylolisthesis at L5-S1. There is severe bilateral neural foraminal narrowing at L5-S1 with probable compression of the exiting nerve roots. COMMENTS: Consistent with the [employer]'s Incidental Findings Committee white paper (J Am Matthew Radiol 2018): Any incidental renal lesion less than 1 cm or classified as too small to characterize, or any incidental cystic renal lesion characterized as simple-appearing, is likely benign. No follow-up imaging is recommended for these lesions per consensus recommendations based on imaging criteria.
[2022-01-02 16:33] LABS: Phosphorus 4.8 mg/dL (2.5-4.5)
[2022-01-02 17:02] LABS: Estmated Average Glucose 140; Hemoglobin A1C 6.5 % (4.0-6.0)
[2022-01-02] MEDS: sodium chloride 0.9% 1,000 ML 75 ML IV (17:17)
[2022-01-02 17:21] LABS: Glucose Point of Care 84 mg/dL (70-110)
[2022-01-02 18:10] LABS: Anion Gap 19.5 (5-19); Blood Urea Nitrogen 61 mg/dL (8-23); Calcium 8.8 mg/dL (8.5-10.5); Carbon Dioxide 21 mmol/L (22-29); Chloride 102 mmol/L (98-107); Glucose 67 mg/dL (65-115); Osmolality Calculated 300 mOsm/kg (285-295); Potassium 5.5 mmol/L (3.5-5.1); Sodium 137 mmol/L (136-145)
--- NOTE | 2022-01-02 18:42 | PC.NURSE ---
received into room 106 at 1705 from er.report received.pt is alert and awake.oriented to room environment.sr on monitor.accu check upon arrival is 84.pt refused christopher cath placement.refused lactulose..states i just took some in the er ..and refused cpap.dr bill notified.instructed to notify staff for any sob,dizziness,cp,or for any concerns at all.also instructed to not get up with-out assist.pt vrb understanding of instructions.
--- NOTE | 2022-01-02 20:01 | PC.NURSE ---
Dr. Vaz notified of med rec being in, but patient does not have home medications ordered. Patient is specifically asking for Trazodone, Gabapentin, Bacolfen, and Omeprazole.
--- NOTE | 2022-01-02 20:18 | PC.NURSE ---
Patient refused christopher catheter for me as well as day shift nurse.
[2022-01-02] MEDS: trazodone 50 mg Tablet PO (20:36)
[2022-01-02] MEDS: baclofen 10 mg Tablet 20 MG PO (20:36)
[2022-01-02] MEDS: gabapentin 300 mg Capsule PO (20:36)
[2022-01-02 21:22] LABS: Potassium, Radom Urine 18 mmol/L; Urine Random Chloride 40 mmol/L; Urine Random Sodium 52 mmol/L
[2022-01-02 21:26] LABS: Glucose Point of Care 91 mg/dL (70-110)
--- NOTE | 2022-01-02 21:48 | PC.NURSE ---
Patient alert and oriented x3 at this time. Per patient's chart, patient has a history of dementia. Bed alarm is set. Patient educated to not get up without assistance and educated how to use call light. Patient verbalized understanding. Rounding will be done frequent and education will be reinforced upon rounds.
[2022-01-02] MEDS: calcium gluconate 0.9% NaCL 1 GM/50 ML PREMIX IV ×2 (22:03→22:06)
[2022-01-02 23:24] LABS: Glucose Point of Care 83 mg/dL (70-110)
[2022-01-03] VITALS (13 sets, daily range): BP systolic 89–125; BP diastolic 43–81; PULSE 58–75; RESP 16–23; TEMP 36.6–37.3; O2SAT 92–94
[2022-01-03] MEDS: heparin 5,000 unit/mL INJ 1 mL 5000 UNIT SUBCUT ×2 (03:27→14:51)
[2022-01-03 05:09] LABS: Basophils # 0.1 10^3/uL (0.0-0.1); Basophils % 0.8 %; Eosinophils # 0.2 10^3/uL (0.0-0.8); Eosinophils % 1.6 %; Hemoglobin 11.8 g/dL (11.7-16.6); Lymphocytes % 24.4 %; Mean Corpuscular HGB Conc 31.1 g/dL (30.0-36.0); Mean Corpuscular Hemoglobin 28.6 pg (28.0-34.0); Mean Platelet Volume 10.5 fL (7.4-10.4); Monocytes # 1.4 10^3/uL (0.2-0.9); Monocytes % 11.2 %; Neutrophils # 7.35 10^3/uL (1.8-7.7); Neutrophils % 60.4 %; Nucleated Red Blood Cells % 0 %; Platelet Count 243 10^3/cmm (130-400); Red Blood Count 4.13 10^6/uL (4.1-5.3); Red Cell Distribution Width 14.8 % (12.1-15.1); White Blood Count 12.2 10^3/uL (4.0-10.0)
[2022-01-03 05:26] LABS: Anion Gap 17.4 (5-19); Blood Urea Nitrogen 55 mg/dL (8-23); Calcium 8.7 mg/dL (8.5-10.5); Carbon Dioxide 21 mmol/L (22-29); Chloride 102 mmol/L (98-107); Glucose 91 mg/dL (65-115); Magnesium 2.2 mg/dL (1.7-2.3); Osmolality Calculated 295 mOsm/kg (285-295); Potassium 5.4 mmol/L (3.5-5.1); Sodium 135 mmol/L (136-145)
[2022-01-03 06:28] LABS: Glucose Point of Care 114 mg/dL (70-110)
--- NOTE | 2022-01-03 09:09 | USCV_ITS ---
Jacek Franki Age: 71 Gender: M : 1950 Exam Date: 01/03/2022 09:35 Ordering Phys: Lissy Chand MD Technologist: ZAHIDA Exam Location: [facility] [place] Indication: BLE PAIN AND SWELLING HISTORY: Lower extremity swelling. Lower extremity pain. PROCEDURES: Venous duplex imaging was performed in bilateral lower extremities. The following venous structures were evaluated: common femoral vein, profunda vein, proximal portion of the greater saphenous vein, superficial femoral vein, and the popliteal vein. In addition, the posterior tibial and peroneal trunk were evaluated. Serial compression, augmentation maneuvers, and spectral Doppler flow evaluation were performed. FINDINGS: No evidence of DVT seen in any vessel visualized at this time. CONCLUSIONS No evidence of right lower extremity DVT. No evidence of left lower extremity DVT. Barrie Negron MD (Electronically Signed) Final Date: 03 Jan 2022 09:58 S
[2022-01-03] MEDS: tamsulosin 0.4 mg Capsule PO (10:24)
[2022-01-03] MEDS: memantine 5 mg tablet 10 MG PO (10:24)
[2022-01-03] MEDS: pantoprazole DR 40 mg Tablet PO (10:24)
[2022-01-03] MEDS: atorvastatin 40 mg Tablet 80 MG PO (10:24)
[2022-01-03] MEDS: omega-3 fatty acids 1,000 mg Capsule 1000 MG PO (10:24)
[2022-01-03] MEDS: azithromycin 250 mg Tablet 500 MG PO (10:25)
[2022-01-03] MEDS: donepezil 5 MG Tablet PO (10:25)
[2022-01-03] MEDS: metoprolol succinate ER (24 HR) 25 mg Tablet PO (10:25)
[2022-01-03] MEDS: baclofen 10 mg Tablet 20 MG PO ×3 (10:26→18:36)
[2022-01-03] MEDS: aspirin 81 mg Chew Tablet PO (10:26)
[2022-01-03] MEDS: lactulose oral liq 20 gm/30 mL UDC PO (10:27)
[2022-01-03] MEDS: sodium polystyrene sulfonate 15 gm/60 mL Btl PO (10:27)
[2022-01-03 11:12] LABS: Glucose Point of Care 207 mg/dL (70-110)
--- NOTE | 2022-01-03 11:27 | P.PN_ITS ---
Subjective Subjective: Seen this morning. Patient feels a lot better compared to yesterday however is complaining of pain in his left toe. He does have a history of gout and says he was on colchicine at home which was not helping. Vitals/I&O/Wt Last Vital Signs Temp 98.2 F 01/03/22 11:05 Pulse 67 01/03/22 11:05 Resp 16 01/03/22 11:05 BP 121/44 01/03/22 11:05 Pulse Ox 93 01/03/22 11:05 01/02/22 01/03/22 01/03/22 22:59 06:59 14:59 Intake Total 1053.333 / 1053.333 400 / 1453.333 120 / 120 Output Total 880 / 880 600 / 1480 Balance 173.333 / 173.333 -200 / -26.667 120 / 120 Weight last 48 hrs Weight 108.097 kg Weight 117.934 kg Physical Exam Narrative: General: Alert oriented x3, patient seen sitting up in recliner appearing happy. HEENT: Normocephalic, atraumatic, EOMI, breathing room air, large neck Cardio: Regular rate rhythm, normal S1-S2, no murmurs Respiratory: Clear to auscultation bilaterally no wheezes no rhonchi appreciated. GI: Abdomen soft, nontender, obese rounded abdomen,, bowel sounds + Behavior: Appropriate and cooperative no longer confused. Extremities: no edema, no cyanosis, slight pedal edema noted. Left first and second toe appears erythematous and quite painful upon light touch. Right leg larger than left leg. Data : 01/03/22 04:41 01/03/22 04:41 Micro: Microbiology 01/03/22 03:30 Gram Stain - Final Sputum - Expectorated Sputum A&P Assessment and plan (1) Dementia: Status: Acute (2) Marijuana dependence: Status: Acute (3) Hypertension: Status: Acute (4) Dehydration: Status: Acute (5) CARMEN (obstructive sleep apnea): Status: Acute (6) COPD (chronic obstructive pulmonary disease): Status: Acute (7) Hyperkalemia: Status: Acute (8) ROXANN (acute kidney injury): Status: Acute (9) Generalized anxiety disorder: Status: Chronic Plan #Acute kidney injury, baseline unknown.? Creatinine 3.3 on admission. #Dehydration #Hyperkalemia 5.9 at admission #COPD exacerbation #Gout flareup #Diabetes mellitus type 2 #Hypertension #Marijuana use #History of alcohol abuse in remission. #Obstructive sleep apnea #Dementia ? Hold nephrotoxic medications.? Hold irbesartan, spironolactone, Lasix at this time.? ? Hold glipizide, Jardiance, amlodipine. ? Continue memantine and donepezil ? Continue metoprolol 25 twice daily ? Hold amlodipine ? CT abdomen ruled out hydronephrosis. ? Continue aspirin and atorvastatin ? Check CPK.? ? CPAP at night ? DuoNeb every 4 hours as needed ? Prednisone 40 daily.? Azithromycin daily for 5 days - Lacutlose for constipation - Steroid will help with gout flareup as well. We will hold off on colchicine. -Creatinine 2.6 today. We will continue IV fluids for today. Potassium 5.4. Will give another dose of Kayexalate. He got 1 dose yesterday. ? Bilateral Dopplers lower extremity to rule out DVT. ? Patient's baseline creatinine is unknown. Full code Daughter, Christina updated at bedside. Attestations Medical Necessity Statement*: Patient needs continued IV hydration and i npatient management of hyperkalemia and ROXANN. There is possibility of discharge in next 24 to 48 hours depending on clinical course and improvement. Coding Level of Care Code Acute Environmental Health Officer for g Fwd Diagnoses Dementia F03.90 Marijuana dependence F12.20 Hypertension I10 Dehydration E86.0 CARMEN (obstructive sleep apnea) G47.33 COPD (chronic obstructive pulmonary disease) J44.9 Hyperkalemia E87.5 ROXANN (acute kidney injury) N17.9 Generalized anxiety disorder F41.1
[2022-01-03] MEDS: sodium chloride 0.9% 1,000 ML 75 ML IV ×2 (11:37→23:07)
[2022-01-03 11:55] LABS: Creatine Phosphokinase 254 U/L (39-308)
[2022-01-03] MEDS: insulin lispro 100 unit/1 mL SUBCUT ×3 (12:33→21:09)
[2022-01-03] MEDS: trazodone 50 mg Tablet PO (18:37)
[2022-01-03] MEDS: gabapentin 300 mg Capsule PO (18:37)
[2022-01-03 18:42] LABS: Glucose Point of Care 334 mg/dL (70-110)
[2022-01-03 21:07] LABS: Glucose Point of Care 234 mg/dL (70-110)
[2022-01-04] VITALS (12 sets, daily range): BP systolic 120–162; BP diastolic 37–65; PULSE 58–79; RESP 16–23; TEMP 36.8–37.4; O2SAT 92–96
[2022-01-04] MEDS: heparin 5,000 unit/mL INJ 1 mL 5000 UNIT SUBCUT ×2 (03:19→15:31)
[2022-01-04 04:08] LABS: Basophils % 0.3 %; Eosinophils % 0.1 %; Hematocrit 35.7 % (42.0-52.0); Hemoglobin 10.9 g/dL (11.7-16.6); Lymphocytes # 1.9 10^3/uL (0.8-4.8); Lymphocytes % 15.3 %; Mean Corpuscular HGB Conc 30.5 g/dL (30.0-36.0); Mean Corpuscular Hemoglobin 28.3 pg (28.0-34.0); Mean Corpuscular Volume 92.7 fl (80-94); Mean Platelet Volume 10.6 fL (7.4-10.4); Monocytes # 1.2 10^3/uL (0.2-0.9); Monocytes % 9.7 %; Neutrophils # 9.14 10^3/uL (1.8-7.7); Neutrophils % 73.6 %; Nucleated Red Blood Cells % 0 %; Platelet Count 246 10^3/cmm (130-400); Red Blood Count 3.85 10^6/uL (4.1-5.3); Red Cell Distribution Width 14.9 % (12.1-15.1); White Blood Count 12.4 10^3/uL (4.0-10.0)
[2022-01-04 04:16] LABS: Anion Gap 15.9 (5-19); Blood Urea Nitrogen 42 mg/dL (8-23); Calcium 9.3 mg/dL (8.5-10.5); Carbon Dioxide 22 mmol/L (22-29); Chloride 106 mmol/L (98-107); Glucose 98 mg/dL (65-115); Magnesium 2.2 mg/dL (1.7-2.3); Osmolality Calculated 298 mOsm/kg (285-295); Potassium 4.9 mmol/L (3.5-5.1); Sodium 139 mmol/L (136-145)
[2022-01-04 06:23] LABS: Glucose Point of Care 106 mg/dL (70-110)
--- NOTE | 2022-01-04 07:59 | CT_ITS ---
WS: [id number] CT HEAD TECHNIQUE: Noncontrast CT of the head obtained from the skullbase to the vertex. CLINICAL INFORMATION: altered mental status COMPARISON: CT 5 17,018 DLP: 847.[address] scans at [facility] use at least one of these dose optimization techniques: automated e xposure control; mA and/or kV adjustment per patient size (includes targeted exams where dose is matc hed to clinical indication); or iterative reconstruction. FINDINGS: No evidence of intracranial hemorrhage or mass effect. Ventricular system and basal cisterns are arenas nt. Moderate small vessel changes with moderate parenchymal volume loss. Prior postoperative changes right parietal craniotomy with underlying encephalomalacia right parietal lobe near the vertex. Encep halomalacia in the right parietal lobe and parasagittal left parietal lobe. Paranasal sinuses and mastoid air cells are well aerated. .Normal visualized soft tissues. CT/CT head wo con* [id number] IMPRESSION: 1. No evidence of intracranial hemorrhage or mass effect. 2. Moderate small vessel changes. Moderate parenchymal volume loss. 3. Prior postoperative changes RIGHT parietal craniotomy with resection cavity in the RIGHT parietal lobe near the vertex. Chronic underlying encephalomalaci a unchanged. 4. No acute intracranial findings.
[2022-01-04] MEDS: baclofen 10 mg Tablet 20 MG PO ×4 (09:59→20:47)
[2022-01-04] MEDS: aspirin 81 mg Chew Tablet PO (09:59)
[2022-01-04] MEDS: donepezil 5 MG Tablet PO (09:59)
[2022-01-04] MEDS: memantine 5 mg tablet 10 MG PO (09:59)
[2022-01-04] MEDS: tamsulosin 0.4 mg Capsule PO (09:59)
[2022-01-04] MEDS: omega-3 fatty acids 1,000 mg Capsule 1000 MG PO (09:59)
[2022-01-04] MEDS: azithromycin 250 mg Tablet 500 MG PO (09:59)
[2022-01-04] MEDS: atorvastatin 40 mg Tablet 80 MG PO (09:59)
[2022-01-04] MEDS: pantoprazole DR 40 mg Tablet PO (09:59)
[2022-01-04] MEDS: metoprolol succinate ER (24 HR) 25 mg Tablet PO (10:00)
[2022-01-04 11:14] LABS: Glucose Point of Care 224 mg/dL (70-110)
--- NOTE | 2022-01-04 12:02 | PM.PN ---
Subjective Subjective: Seen this AM. He appears well today. He states he does not have any chest pain or shortness of breath. Patient also says his toes also feel better after he was given the medication yesterday. He says he can now move his leg and also does not hurt anymore when the sheets rubs against it. He says he would not like to go to a custodial. He has also signed a power of hand crocheter paperwork. When asked where he was he stated he was not sure and when I asked him who the president was he said it is Obama. And it is the year 2019. After reorienting him he said that I was trying to confuse him and that he knows where he is and he knows what is going on. He also states he does not drive anymore however the daughter told me he does drive and he also told the director of casework that he still drives. This morning I spoke to his daughter in quite detail and she is worried about him and his living conditions. She states she does not believe he is safe at home. She states he does not eat healthy and also he used to check his blood sugar and blood pressure very regularly but now the glucometer and the blood pressure cuff is nowhere to be found in the house. She states his medication organizer was also empty and she could not even find it at 1 point. She states there is food in the house which has a lot of mold on it and he does not eat at home anymore and goes out at times. She is not sure if he was even eating. She is also questioning whether he is telling the truth when we talk to him. She states that she was unaware that he was on medication for dementia and is unsure who prescribed to him. Patient is on donepezil 5 mg daily and memantine 10 mg daily. She stated that she would like him to go to a custodial. She says the living conditions are not good at his house. 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 However now the patient has signed another power of hand crocheter and her name which is not notarized yet. At admission the patient did tell me that he would like us to speak to his daughter for any medical decisions that are needed. Patient also wears CPAP at night for which he is noncompliant. Patient also said that he does not wear it because he cannot fall asleep with it. Labs reviewed: WBC 12.4, hemoglobin 10.9. Creatinine 1.9 today. Urine output 1150 overnight. Vitals/I&O/Wt Last Vital Signs Temp 99.3 F 01/04/22 11:30 Pulse 74 01/04/22 11:30 Resp 18 01/04/22 11:30 BP 120/65 01/04/22 11:30 Pulse Ox 94 01/04/22 11:30 01/03/22 01/04/22 01/04/22 22:59 06:59 14:59 Intake Total 1260 / 1440 862.5 / 2302.5 1018.75 / 1018.75 Output Total 450 / 450 700 / 1150 Balance 810 / 990 162.5 / 1152.5 1018.75 / 1018.75 Weight last 48 hrs Weight 108.097 kg Weight 117.934 kg Physical Exam Narrative: General: Alert orientedx1 and at times x3 patient seen sitting up in bed today appearing well no acute distress. HEENT: Normocephalic, atraumatic, EOMI, breathing room air, large neck Cardio: Regular rate rhythm, normal S1-S2, no murmurs Respiratory: Clear to auscultation bilaterally no wheezes no rhonchi appreciated. GI: Abdomen soft, nontender, obese rounded abdomen,, bowel sounds + Behavior: Appropriate and cooperative Extremities: no edema, no cyanosis,1+ pedal edema noted.? Left first and second toe appears erythematous and is tender to palpation but improved compared to yesterday. Right leg larger than left leg. Data : 01/04/22 03:15 01/04/22 03:15 Micro: Microbiology 01/03/22 03:30 Gram Stain - Final Sputum - Expectorated Sputum Sputum Culture - Preliminary 01/02/22 14:35 Urine Culture - Preliminary Urine,Voided A&P Assessment and plan (1) Dementia: Status: Acute (2) Marijuana dependence: Status: Acute (3) Hypertension: Status: Acute (4) Dehydration: Status: Acute (5) CARMEN (obstructive sleep apnea): Status: Acute (6) COPD (chronic obstructive pulmonary disease): Status: Acute (7) Hypoglycemia: Status: Acute (8) Hyperkalemia: Status: Acute (9) ROXANN (acute kidney injury): Status: Acute (10) Cannabis dependence, continuous: Status: Chronic (11) Alcohol use disorder, moderate, in sustained remission: Status: Chronic (12) Generalized anxiety disorder: Status: Chronic Plan #Acute kidney injury, baseline unknown.? Creatinine 3.3 on admission. #Dehydration?improving #Hyperkalemia 5.9 at admission?resolved #COPD exacerbation #Gout flareup #Diabetes mellitus type 2 #Hypertension #Marijuana use #History of alcohol abuse in remission. #Obstructive sleep apnea #Dementia ? Hold nephrotoxic medications.? Hold irbesartan, spironolactone, Lasix at this time.? ? Hold glipizide, Jardiance, amlodipine. ? Continue memantine and donepezil ? Continue metoprolol 25 twice daily ? Hold amlodipine ? CT abdomen ruled out hydronephrosis. ? Continue aspirin and atorvastatin ? CPK normal.? ? CPAP at night ? DuoNeb every 4 hours as needed ? Prednisone 40 daily.? Azithromycin daily for 5 days - Lacutlose for constipation - Steroid will help with gout flareup as well.? We will hold off on colchicine. -Creatinine 1.9 today.? We will continue IV fluids for today.? Potassium 4.9.? He is status post two doses of Kayexalate. ? Bilateral Dopplers lower extremity to rule out DVT. ? Patient's baseline creatinine is unknown. -Patient's daughter has concerns of him not being safe at home. She states his living conditions are very poor. Patient refuses to go to a custodial but daughter wants him to go there. I did talk to him today and I agree that he was confused at first but later was able to have a conversation with me. He does have issues with memory. Once his labs have normalized we will need to assess if he has capacity. So far from the time I have seen him I believe he possibly has capacity to make decisions. We may need to have another physician assess him as well. Full code Daughter, Christina updated over the phone. Attestations Medical Necessity Statement*: Creatinine still high. He will need to stay in the hospital for his acute kidney injury for another 24 hours. Possible discharge tomorrow home versus custodial. Placement to be decided after discussion with family. Coding Level of Care Code Acute Stud Dairy Cattle Farmer for g Fwd Diagnoses Dementia F03.90 Marijuana dependence F12.20 Hypertension I10 Dehydration E86.0 CARMEN (obstructive sleep apnea) G47.33 COPD (chronic obstructive pulmonary disease) J44.9 Hypoglycemia E16.2 Hyperkalemia E87.5 ROXANN (acute kidney injury) N17.9 Cannabis dependence, continuous F12.20 Alcohol use disorder, moderate, in sustained remission F10.21 Generalized anxiety disorder F41.1
[2022-01-04] MEDS: insulin lispro 100 unit/1 mL SUBCUT ×3 (13:06→20:47)
[2022-01-04] MEDS: sodium chloride 0.9% 1,000 ML 75 ML IV (15:32)
[2022-01-04 16:21] LABS: Glucose Point of Care 169 mg/dL (70-110)
[2022-01-04] MEDS: gabapentin 300 mg Capsule PO (20:47)
[2022-01-04] MEDS: trazodone 50 mg Tablet PO (20:47)
[2022-01-04 20:51] LABS: Glucose Point of Care 210 mg/dL (70-110)
[2022-01-05] VITALS (10 sets, daily range): BP systolic 108–148; BP diastolic 41–77; PULSE 57–76; RESP 16–25; TEMP 36.9–37.3; O2SAT 92–95
[2022-01-05] MEDS: sodium chloride 0.9% 1,000 ML 75 ML IV ×2 (03:01→16:57)
[2022-01-05] MEDS: heparin 5,000 unit/mL INJ 1 mL 5000 UNIT SUBCUT ×3 (03:02→17:37)
[2022-01-05 04:34] LABS: Anion Gap 15.7 (5-19); Blood Urea Nitrogen 29 mg/dL (8-23); Calcium 8.3 mg/dL (8.5-10.5); Carbon Dioxide 20 mmol/L (22-29); Chloride 111 mmol/L (98-107); Glucose 113 mg/dL (65-115); Magnesium 1.9 mg/dL (1.7-2.3); Osmolality Calculated 301 mOsm/kg (285-295); Potassium 4.7 mmol/L (3.5-5.1); Sodium 142 mmol/L (136-145)
[2022-01-05 07:26] LABS: Glucose Point of Care 106 mg/dL (70-110)
[2022-01-05] MEDS: aspirin 81 mg Chew Tablet PO (08:13)
[2022-01-05] MEDS: baclofen 10 mg Tablet 20 MG PO (08:13)
[2022-01-05] MEDS: memantine 5 mg tablet 10 MG PO (08:13)
[2022-01-05] MEDS: donepezil 5 MG Tablet PO (08:14)
[2022-01-05] MEDS: atorvastatin 40 mg Tablet 80 MG PO (08:14)
[2022-01-05] MEDS: tamsulosin 0.4 mg Capsule PO (08:14)
[2022-01-05] MEDS: azithromycin 250 mg Tablet 500 MG PO (08:14)
[2022-01-05] MEDS: metoprolol succinate ER (24 HR) 25 mg Tablet PO (08:14)
[2022-01-05] MEDS: omega-3 fatty acids 1,000 mg Capsule 1000 MG PO (08:14)
[2022-01-05] MEDS: pantoprazole DR 40 mg Tablet PO (08:15)
--- NOTE | 2022-01-05 09:19 | PC.SOCIAL ---
Pg 2 IMM Explained to pt Pg 2 IMM. No questions voiced. Provided pt a copy. Initialed, dated, & timed a copy & placed in chart.
--- NOTE | 2022-01-05 10:09 | USCV_ITS ---
Franki Read Age: 71 Gender: M : 1950 Exam Date: 01/05/2022 10:38 Ordering Phys: David Ashraf MD Technologist: GHISLAINE Exam Location: [facility] [place] Indication: c/o SOB x 1 week per patient. However, patient uses CPAP at home. No hx cardiac intervention per patient. BP: 138 / 77 HR: 70 Rhythm: Sinus Technical Quality: Adequate MEASUREMENTS (Male / Female) Normal Values 2D ECHO LV Diastolic Diameter PLAX 4.7 cm 4.2 - 5.9 / 3.9 - 5.3 cm LV Systolic Diameter PLAX 2.5 cm IVS Diastolic Thickness 1.2 cm 0.6 - 1.0 / 0.6 - 0.9 cm IVS Systolic Thickness 2.2 cm LVPW Diastolic Thickness 1.1 cm 0.6 - 1.0 / 0.6 - 0.9 cm LVPW Systolic Thickness 1.5 cm LVOT Diameter 2.0 cm LV Ejection Fraction 2D Teich 77.0 % LV Ejection Fraction MOD 2C 60.0 % LV Ejection Fraction 2C AL 58.9 % LA Diameter 3.9 cm LA Width 3.6 cm LA Height 5.1 cm RA Width 3.3 cm RA Height 4.7 cm Aorta at Sinotubular Diameter 2.8 cm IVC Diameter 2.0 cm M-MODE Aortic Annulus Diameter 3.3 cm LA Ao Ratio MM 1.2 MV E Point Septal Separation 0.2 cm DOPPLER AV Peak Velocity 154.0 cm/s LVOT Peak Velocity 98.0 cm/s AV Area Cont Eq vti 2.1 cm squared AV Area Cont Eq pk 2.0 cm squared MV Peak Velocity 139.0 cm/s MV Area PHT 4.3 cm squared Mitral E to A Ratio 1.4 MV E' Velocity 61.0 cm/s Mitral E to MV E' Ratio 8.7 Mitral E to LV E' Lateral Ratio 8.4 Mitral E to LV E' Septal Ratio 8.9 TR Peak Velocity 300.0 cm/s TR Peak Gradient 36.0 mmHg TV Peak E Velocity 34.0 cm/s Right Atrial Pressure 5.0 mmHg Pulmonary Artery Systolic Pressu 41.0 mmHg PV Peak Velocity 123.0 cm/s FINDINGS Left Ventricle Normal left ventricular size. LV systolic function is normal with EF of 55-60%. No regional wall motion abnormalities. Diastolic function is normal Right Ventricle The right ventricle is normal in size and function. Right Atrium The right atrium is normal in size. Left Atrium The left atrium is normal in size. Mitral Valve Structurally normal mitral valve without significant stenosis or prolapse. There is trace mitral regurgitation. Aortic Valve Structurally normal aortic valve without significant sclerosis or stenosis. There is no aortic regurgitation. Tricuspid Valve Structurally normal tricuspid valve without significant stenosis. Trace tricuspid regurgitation. Insufficient TR jet to calculate RVSP Pulmonic Valve Structurally normal pulmonic valve without significant stenosis. There is mild pulmonic regurgitation. Pericardium Normal pericardium without effusion. Aorta Normal ascending aorta dimension. IVC CONCLUSIONS LV systolic function is normal with EF of 55-60% Diastolic function is normal Trace mitral regurgitation Trace tricuspid regurgitation Mild pulmonic regurgitation No comparison studies are available Praveen Perla MD (Electronically Signed) Final Date: 05 Jan 2022 12:28 S
[2022-01-05] MEDS: amlodipine 5 mg Tablet PO (10:32)
[2022-01-05] MEDS: predniSONE 20 mg Tablet 40 MG PO (10:32)
[2022-01-05 11:59] LABS: Thyroid Stimulating Hormone 2.75 uIU/mL (0.27-4.20)
[2022-01-05 12:03] LABS: Glucose Point of Care 118 mg/dL (70-110)
[2022-01-05 12:13] LABS: Iron 99 ug/dL (59-158); Percent Saturation 41.2 % (20-50); Total Iron Binding Capacity 240 mcg/dl; Unsaturated Iron Binding 141 ug/dL (112-347)
[2022-01-05] MEDS: baclofen 10 mg Tablet PO ×3 (13:20→20:35)
--- NOTE | 2022-01-05 14:11 | PM.PN ---
Subjective Subjective: Hospital course, labs appreciated. On examination patient lying comfortably in bed. Alert and oriented. Denies any nausea, vomiting, headache. States feeling a lot better. Today he states he would want to go to halfway to get stronger if possible. Patient worked well with physical therapy today. Continues to remain on room air. Blood pressure slightly elevated Vitals/I&O/Wt Last Vital Signs Temp 99.1 F 01/05/22 12:00 Pulse 70 01/05/22 12:00 Resp 18 01/05/22 12:00 BP 108/41 01/05/22 12:00 Pulse Ox 95 01/05/22 12:00 01/04/22 01/05/22 01/05/22 22:59 06:59 14:59 Intake Total 442.5 / 1682.50 580 / 2262.50 298 / 298 Output Total 500 / 500 950 / 1450 600 / 600 Balance -57.5 / 1182.50 -370 / 812.50 -302 / -302 Physical Exam Narrative: General: Alert orientedx1 and at times x3 patient seen sitting up in bed today appearing well no acute distress. HEENT: Normocephalic, atraumatic, EOMI, breathing room air, large neck Cardio: Regular rate rhythm, normal S1-S2, no murmurs Respiratory: Clear to auscultation bilaterally no wheezes no rhonchi appreciated. GI: Abdomen soft, nontender, obese rounded abdomen,, bowel sounds + Behavior: Appropriate and cooperative Extremities: no edema, no cyanosis,1+ pedal edema noted.? Left first and second toe appears erythematous and tender to touch. Right leg larger than left leg. Data : 01/04/22 03:15 01/05/22 03:45 Micro: Microbiology 01/03/22 03:30 Gram Stain - Final Sputum - Expectorated Sputum Sputum Culture - Preliminary 01/02/22 14:35 Urine Culture - Final Urine,Voided A&P Assessment and plan (1) ROXANN (acute kidney injury): Medical reconciliation done for nephrotoxic drugs. At home patient is on irbesartan, spironolactone, Lasix. Continues to improve. Coming down from 3.3 on admission to 1.3 today. Baseline creatinine as high as 1.7-2.3 in 2018. Monitor urine output. Status: Acute (2) Dehydration: Resolved. Status: Acute (3) Dementia: At baseline. Continue with home oral dose of Namenda, trazodone, Aricept. Decrease dose of baclofen to 10 mg 4 times daily from 20 mg 4 times daily. Status: Acute (4) Hypertension: Goal blood pressure less than 140/90 mmHg. Blood pressure slightly elevated. Restart home dose of amlodipine. If needed will restart low-dose MARV/ARB. Status: Acute (5) CARMEN (obstructive sleep apnea): We will restart home dose auto CPAP. Status: Acute (6) COPD (chronic obstructive pulmonary disease): Currently not in acute exacerbation. Patient is on withheld Solu-Medrol for gout flareup. We will switch over to oral prednisone 40 mg oral daily. Status: Acute (7) Hypoglycemia: Resolved. A1c 6.5. Patient is on multiple oral hypoglycemics including glipizide. Most likely will continue home dose of Jardiance and decrease glipizide on discharge. Insulin sliding scale currently. Status: Acute (8) Hyperkalemia: Resolved. Monitor daily. Status: Acute (9) Cannabis dependence, continuous: Status: Chronic (10) Alcohol use disorder, moderate, in sustained remission: Status: Chronic (11) Generalized anxiety disorder: Status: Chronic (12) Marijuana dependence: Status: Acute Plan Full code. Heparin 5000 every 8 hourly for DVT prophylaxis. Protonix for PUD prophylaxis. Cardiac carb consistent diet. Discharge planning: SNF versus home health. Patient today agreeable for placement to SNF. As per previous conversation with the physician patient's daughter was concerned about safety at home and wanted him to be placed at SNF. Case management is alerted. As per physical therapy evaluation patient will be discharged from physical therapy on home exercise program. Given improvement in physical therapy evaluation patient might not qualify for SNF placement anymore. We will follow-up with patient's daughter. Attestations Medical Necessity Statement*: Requires further hospitalization for management of acute kidney injury while safe discharge planning is sought. Time Spent in Patient Care: Greater than 35 minutes Coding Level of Care Code Acute Telephone Order Supervisor for [place] Fwd Diagnoses Dementia F03.90 Marijuana dependence F12.20 Hypertension I10 Dehydration E86.0 CARMEN (obstructive sleep apnea) G47.33 COPD (chronic obstructive pulmonary disease) J44.9 Hypoglycemia E16.2 Hyperkalemia E87.5 ROXANN (acute kidney injury) N17.9 Cannabis dependence, continuous F12.20 Alcohol use disorder, moderate, in sustained remission F10.21 Generalized anxiety disorder F41.1
[2022-01-05 16:48] LABS: Glucose Point of Care 228 mg/dL (70-110)
[2022-01-05] MEDS: insulin lispro 100 unit/1 mL SUBCUT ×2 (17:23→20:35)
[2022-01-05] MEDS: colchicine 0.6 mg Tablet PO (17:23)
[2022-01-05] MEDS: ferrous gluconate 324 mg Tablet PO (17:23)
[2022-01-05 19:53] LABS: Glucose Point of Care 194 mg/dL (70-110)
[2022-01-05] MEDS: gabapentin 300 mg Capsule PO (20:35)
[2022-01-05] MEDS: trazodone 50 mg Tablet PO (20:35)
--- NOTE | 2022-01-05 20:54 | PC.NURSE ---
Patient states I have fibromyalgia and sciatica. I am always hurting.
--- NOTE | 2022-01-05 21:00 | PC.NURSE ---
Patient offered to be turned repositioned. Patient states I can move around in the bed okay by myself. Patient educated and encouraged to reposition/turn often to prevent/heal bed sores.
[2022-01-06] VITALS (7 sets, daily range): BP systolic 147–168; BP diastolic 64–85; PULSE 64–84; RESP 15–18; TEMP 36.7–37.4; O2SAT 92–94
[2022-01-06] MEDS: sodium chloride 0.9% 1,000 ML 75 ML IV (03:08)
[2022-01-06] MEDS: heparin 5,000 unit/mL INJ 1 mL 5000 UNIT SUBCUT (03:08)
[2022-01-06 05:01] LABS: Basophils # 0.1 10^3/uL (0.0-0.1); Basophils % 0.4 %; Eosinophils # 0.1 10^3/uL (0.0-0.8); Eosinophils % 0.4 %; Hematocrit 38.1 % (42.0-52.0); Hemoglobin 11.6 g/dL (11.7-16.6); Lymphocytes # 3.2 10^3/uL (0.8-4.8); Lymphocytes % 24.4 %; Mean Corpuscular HGB Conc 30.4 g/dL (30.0-36.0); Mean Corpuscular Hemoglobin 28.8 pg (28.0-34.0); Mean Corpuscular Volume 94.5 fl (80-94); Monocytes # 1.2 10^3/uL (0.2-0.9); Monocytes % 9.3 %; Neutrophils # 8.43 10^3/uL (1.8-7.7); Neutrophils % 64.6 %; Nucleated Red Blood Cells % 0 %; Platelet Count 254 10^3/cmm (130-400); Red Blood Count 4.03 10^6/uL (4.1-5.3); Red Cell Distribution Width 14.6 % (12.1-15.1); White Blood Count 13.1 10^3/uL (4.0-10.0)
[2022-01-06 05:27] LABS: Alanine Aminotransferase 30 U/L (0-41); Albumin Level 3.6 g/dL (3.5-5.2); Alkaline Phosphatase 68 IU/L (40-130); Anion Gap 16.3 (5-19); Aspartate Amino Transferase 21 U/L (0-40); Blood Urea Nitrogen 25 mg/dL (8-23); Calcium 8.7 mg/dL (8.5-10.5); Carbon Dioxide 20 mmol/L (22-29); Chloride 110 mmol/L (98-107); Chol HDL Ratio 2.58 mg/dL (1.0-5.00); Cholesterol 103 mg/dL (0-200); Glucose 107 mg/dL (65-115); HDL Cholesterol 40 mg/dL (60-100); LDL Cholesterol Calculated 43 mg/dL (50-129); Osmolality Calculated 299 mOsm/kg (285-295); Potassium 4.3 mmol/L (3.5-5.1); Sodium 142 mmol/L (136-145); Total Bilirubin 0.3 mg/dL (0.15-1.2); Total Protein 6.6 g/dL (6.6-8.7); Triglycerides 98 mg/dL (0-150); VLDL Cholestrol Calculation 20 mg/dL (0-30)
[2022-01-06 06:23] LABS: Glucose Point of Care 115 mg/dL (70-110)
[2022-01-06] MEDS: atorvastatin 40 mg Tablet 80 MG PO (08:00)
[2022-01-06] MEDS: memantine 5 mg tablet 10 MG PO (08:00)
[2022-01-06] MEDS: donepezil 5 MG Tablet PO (08:01)
[2022-01-06] MEDS: baclofen 10 mg Tablet PO ×2 (08:01→13:20)
[2022-01-06] MEDS: azithromycin 250 mg Tablet 500 MG PO (08:02)
[2022-01-06] MEDS: amlodipine 5 mg Tablet PO (08:02)
[2022-01-06] MEDS: aspirin 81 mg Chew Tablet PO (08:02)
[2022-01-06] MEDS: pantoprazole DR 40 mg Tablet PO (08:03)
[2022-01-06] MEDS: predniSONE 20 mg Tablet 40 MG PO (08:03)
[2022-01-06] MEDS: tamsulosin 0.4 mg Capsule PO (08:04)
[2022-01-06] MEDS: ferrous gluconate 324 mg Tablet PO (08:04)
[2022-01-06] MEDS: metoprolol succinate ER (24 HR) 25 mg Tablet PO (08:04)
[2022-01-06] MEDS: omega-3 fatty acids 1,000 mg Capsule 1000 MG PO (08:04)
[2022-01-06] MEDS: colchicine 0.6 mg Tablet PO (08:08)
[2022-01-06 11:39] LABS: Glucose Point of Care 183 mg/dL (70-110)
--- NOTE | 2022-01-06 11:48 | P.DS_ITS ---
Discharge Providers Date of Admission: 01/02/22 15:20 Date of Discharge: January 06, 2022 Attending Provider at Admission: Lissy Chand MD Attending Provider at Discharge: David Ashraf MD Diagnoses at Discharge Discharge Diagnosis (1) ROXANN (acute kidney injury): Status: Acute (2) Dehydration: Status: Acute (3) Dementia: Status: Acute (4) Hypertension: Status: Acute (5) CARMEN (obstructive sleep apnea): Status: Acute (6) COPD (chronic obstructive pulmonary disease): Status: Acute (7) Hypoglycemia: Status: Acute (8) Hyperkalemia: Status: Acute (9) Cannabis dependence, continuous: Status: Chronic Permanent problem details: Has marijuana card for glaucoma and back pain (10) Alcohol use disorder, moderate, in sustained remission: Status: Chronic (11) Generalized anxiety disorder: Status: Chronic (12) Marijuana dependence: Status: Acute Reason for Visit Reason for Visit: WEAKNESS; HYPERGLYCEMIA Brief History: History as per HPI: Franki Read is a 71 year old male with past medical history of alcohol use disorder in remission, arthritis, marijuana dependence, diabetes mellitus, anxiety, hypertension, GERD, hyperlipidemia, sleep apnea presented to the hospital today via EMS for complaints of not feeling well.? He states he has been feeling unwell for the last couple of days and has not been eating very much either.? He also states he has been drinking a lot of water.? He usually goes to the bathroom every day but has not gone for the last few days for bowel movement.? He does not report urinating less than usual.? Patient does seem slightly confused when being asked all his questions.? He is a poor historian.? He states he has been having a cough but other than that has no other complaints.? Review of systems asked very extensively and negative for all except that he said he is feeling hot in his room and would like to be assigned a bed soon.? He is a former smoker but quit years ago.? He states he does not drink alcohol at this time.? He says he has been taking his medications as directed.? Denies any chest pain, shortness of breath at this time.? Denies being on any inhalers at home. ED course: Blood pressure on arrival 128/51, pulse 65, temperature 98, respiratory 16, pulse ox 95% on room air.? Patient's blood sugar glucose on arrival was 40s and he received dextrose with repeat blood sugar in 80s as per ER physician.? Labs revealed hyperkalemia potassium 5.9, ROXANN with creatinine 3.3.? No EKG changes.? Calcium gluconate, Kayexalate and fluids given.? X-ray ordered.? Hospitalist called for admission. Hospital Course Hospital Course Patient was admitted to hospital for further evaluation and management of dehydration leading to acute kidney injury, hyperkalemia. He was treated with IV hydration. Medical reconciliation was performed and multiple medications which can cause acute kidney injury were discontinued. He responded well to the treatment and his renal functions improved back to baseline. His kidney function the day of discharge is 1.2. Some of his home medications were gradually restarted as per his blood pressures. On admission patient was also found to be hypoglycemic which was managed as per hypoglycemic protocols. Patient did not have any further episodes of hypoglycemia during hospitalization. On admission patient was found to have physical deconditioning for which physic al therapy evaluation was done and he continued to improve gradually with regular physical therapy. Safe discharge planning were discussed in detail with patient and patient's family. Initially patient was not agreeable to placement at SNF for further rehabitation but later he agreed. By the time discharge planning was finalized patient deconditioning improved significantly and has been discharged as per physical therapy evaluation. Due to significant improvement in physical deconditioning patient is no longer a candidate for placement to SNF hence is being discharged home with home health. Multiple medication changes have been done as per his creatinine clearance and vitals. Going forward he is to take amlodipine 5 mg daily, irbesartan 150 mg oral daily. He is not to take glipizide anymore. Spironolactone has been discontinued as well. Patient has been counseled in detail regarding abstinence of alcohol use. Physical Exam Narrative: General: Alert orientedx1 and at times x3 patient seen sitting up in bed today appearing well no acute distress. HEENT: Normocephalic, atraumatic, EOMI, breathing room air, large neck Cardio: Regular rate rhythm, normal S1-S2, no murmurs Respiratory: Clear to auscultation bilaterally no wheezes no rhonchi appreciated. GI: Abdomen soft, nontender, obese rounded abdomen,, bowel sounds + Behavior: Appropriate and cooperative Extremities: no edema, no cyanosis,1+ pedal edema noted.? Left first and second toe appears erythematous and tender to touch. Right leg larger than left leg. Discharge Data Studies Completed and Pending Completed Studies During Hospitalization Category Date Time Status CT head wo con* [id number] Routine Cat Scan 01/04/22 07:[address] kidney stone [id number] Routine Cat Scan 01/02/22 16:18 [place] [id number] Routine Ultrasound 01/03/22 09:09 Completed CV. echo complete* [id number] Routine Ultrasound 01/05/22 10:09 Completed Pending at discharge Category Date Time Status Sputum Culture and Gram Stain Stat Lab 01/02/22 16:19 Results Radiology Impressions Abdomen/Pelvis CT 01/02/22 16:18 IMPRESSION: 1. There is a 16 mm lesion of the anterior aspect of the right kidney measuring 28 Hounsfield units in density. This cannot be further characterized without IV contrast. Consider CT scan of the abdomen/pelvis with pre and postcontrast images, renal protocol, on a nonemergent basis for further evaluation as clinically warranted. 2. Chronic defects are present through the bilateral L5 pars interarticularis with resultant grade 1 spondylolisthesis at L5-S1. There is severe bilateral neural foraminal narrowing at L5-S1 with probable compression of the exiting nerve roots. COMMENTS: Consistent with the [employer]'s Incidental Findings Committee white paper (J Am Matthew Radiol 2018): Any incidental renal lesion less than 1 cm or classified as too small to characterize, or any incidental cystic renal lesion characterized as simple-appearing, is likely benign. No follow-up imaging is recommended for these lesions per consensus recommendations based on imaging criteria. Head CT 01/04/22 07:59 IMPRESSION: 1. No evidence of intracranial hemorrhage or mass effect. 2. Moderate small vessel changes. Moderate parenchymal volume loss. 3. Prior postoperative changes RIGHT parietal craniotomy with resection cavity in the RIGHT parietal lobe near the vertex. Chronic underlying encephalomalacia unchanged. 4. No acute intracranial findings. Echocardiogram: ?CONCLUSIONS ?LV systolic function is normal with EF of 55-60% ?Diastolic function is normal ?Trace mitral regurgitation ?Trace tricuspid regurgitation ?Mild pulmonic regurgitation ?No comparison studies are available ?Praveen Perla MD ?(Electronically Signed) ?Final Date:? ? ? 05 Jan 2022 12:28 S Laboratory Results WBC 13.1 10^3/uL (4.0-10.0) H 01/06/22 04:19 RBC 4.03 10^6/uL (4.1-5.3) L 01/06/22 04:19 Hgb 11.6 g/dL (11.7-16.6) L 01/06/22 04:19 Hct 38.1 % (42.0-52.0) L 01/06/22 04:19 MCV 94.5 fl (80-94) H 01/06/22 04:19 MCH 28.8 pg (28.0-34.0) 01/06/22 04:19 MCHC 30.4 g/dL (30.0-36.0) 01/06/22 04:19 RDW 14.6 % (12.1-15.1) 01/06/22 04:19 Plt Count 254 10^3/cmm (130-400) 01/06/22 04:19 MPV 10.0 fL (7.4-10.4) 01/06/22 04:19 Neut % (Auto) 64.6 % 01/06/22 04:19 Lymph % (Auto) 24.4 % 01/06/22 04:19 Tillman % (Auto) 9.3 % 01/06/22 04:19 Eos % (Auto) 0.4 % 01/06/22 04:19 Baso % (Auto) 0.4 % 01/06/22 04:19 Neut # (Auto) 8.43 10^3/uL (1.8-7.7) H 01/06/22 04:19 Lymph # (Auto) 3.2 10^3/uL (0.8-4.8) 01/06/22 04:19 Tillman # (Auto) 1.2 10^3/uL (0.2-0.9) H 01/06/22 04:19 Eos # (Auto) 0.1 10^3/uL (0.0-0.8) 01/06/22 04:19 Baso # (Auto) 0.1 10^3/uL (0.0-0.1) 01/06/22 04:19 Nucleated RBC % (auto) 0 % 01/06/22 04:19 Nucleated RBCs # 0.0 /100WBC 01/06/22 04:19 Sodium 142 mmol/L (136-145) 01/06/22 04:19 Potassium 4.3 mmol/L (3.5-5.1) 01/06/22 04:19 Chloride 110 mmol/L (98-107) H 01/06/22 04:19 Carbon Dioxide 20 mmol/L (22-29) L 01/06/22 04:19 Anion Gap 16.3 (5-19) 01/06/22 04:19 BUN 25 mg/dL (8-23) H 01/06/22 04:19 Creatinine 1.2 mg/dL (0.7-1.2) 01/06/22 04:19 GFR Calculation Not Reportable 01/06/22 04:19 Glucose 107 mg/dL (65-115) 01/06/22 04:19 POC Glucose 183 mg/dL (70-110) H 01/06/22 11:32 Estimat Average Glucose 140 01/02/22 13:32 Hemoglobin A1c 6.5 % (4.0-6.0) H 01/02/22 13:32 Calculated Osmolality 299 mOsm/kg (285-295) H 01/06/22 04:19 Calcium 8.7 mg/dL (8.5-10.5) 01/06/22 04:19 Phosphorus 4.8 mg/dL (2.5-4.5) H 01/02/22 13:32 Magnesium 2.0 mg/dL (1.7-2.3) 01/06/22 04:19 Iron 99 ug/dL (59-158) 01/05/22 03:45 TIBC 240 mcg/dl 01/05/22 03:45 % Saturation 41.2 % (20-50) 01/05/22 03:45 Unsat Iron Binding 141 ug/dL (112-347) 01/05/22 03:45 Total Bilirubin 0.3 mg/dL (0.15-1.2) 01/06/22 04:19 AST 21 U/L (0-40) 01/06/22 04:19 ALT 30 U/L (0-41) 01/06/22 04:19 Alkaline Phosphatase 68 IU/L (40-130) 01/06/22 04:19 Creatine Kinase 254 U/L (39-308) 01/03/22 04:41 Total Protein 6.6 g/dL (6.6-8.7) 01/06/22 04:19 Albumin 3.6 g/dL (3.5-5.2) 01/06/22 04:19 Globulin 3.0 g/dL (1.3-4.6) 01/06/22 04:19 Triglycerides 98 mg/dL (0-150) 01/06/22 04:19 Cholesterol 103 mg/dL (0-200) 01/06/22 04:19 LDL Cholesterol, Calc 43 mg/dL (50-129) L 01/06/22 04:19 Total VLDL Cholesterol 20 mg/dL (0-30) 01/06/22 04:19 HDL Cholesterol 40 mg/dL (60-100) L 01/06/22 04:19 Cholesterol/HDL Ratio 2.58 mg/dL (1.0-5.00) 01/06/22 04:19 TSH 2.75 uIU/mL (0.27-4.20) 01/05/22 03:45 Urine Color Yellow (Yellow) 01/02/22 14:35 Urine Appearance Clear (CLEAR) 01/02/22 14:35 Urine pH 5 (5-7) 01/02/22 14:35 Ur Specific Hurley 1.010 (1.005-1.030) 01/02/22 14:35 Urine Protein Neg (Negative) 01/02/22 14:35 Urine Glucose (UA) 2+ (Normal) H 01/02/22 14:35 Urine Ketones Negative (Negative) 01/02/22 14:35 Urine Blood Neg (Negative) 01/02/22 14:35 Urine Nitrate Negative (Negative) 01/02/22 14:35 Urine Bilirubin Neg (Negative) 01/02/22 14:35 Urine Urobilinogen Norm mg/dL (Negative) 01/02/22 14:35 Ur Leukocyte Esterase Negative (Negative) 01/02/22 14:35 Urine RBC None /hpf (0-2) 01/02/22 14:35 Urine WBC None /hpf (0-5) 01/02/22 14:35 Ur Squamous Epith Cells Rare /hpf (0-5) 01/02/22 14:35 Amorphous Sediment Not Reportable 01/02/22 14:35 Urine Bacteria None /hpf (NONE) 01/02/22 14:35 Urine Mucus Trace /hpf 01/02/22 14:35 Ur Random Sodium 52 mmol/L 01/02/22 14:35 Ur Random Potassium 18 mmol/L 01/02/22 14:35 Ur Random Chloride 40 mmol/L 01/02/22 14:35 Vitals Last Vital Signs Temp 99.3 F 01/06/22 07:24 Pulse 68 01/06/22 07:24 Resp 15 01/06/22 07:24 BP 149/64 01/06/22 07:24 Pulse Ox 93 01/06/22 07:24 Discharge Plan Discharge Patient Disposition: Home Health Service Condition: Stable Prescriptions: New irbesartan 150 mg tablet 150 mg PO DAILY Qty: 30 0RF prednisone 20 mg Tablet 40 mg PO DAILY Qty: 5 0RF ferrous gluconate 324 mg (37.5 mg iron) Tablet 324 mg PO BIDWM Qty: 60 0RF Januvia 100 mg tablet 100 mg PO DAILY Qty: 30 0RF Continued metoprolol succinate 25 mg capsule,sprinkle,ER 24hr 25 mg PO DAILY 0RF aspirin [Ericka Chewable Aspirin] 81 mg tablet,chewable 81 mg PO DAILY 0RF prenat.vits,sharon,bmj-onhz-yjkbx Tablet 1 tab PO DAILY 0RF omega-3 fatty acids [Fish Oil Concentrate] 1,000 mg capsule 1,000 mg PO DAILY 0RF furosemide 20 mg tablet 20 mg PO DAILY 0RF potassium chloride 10 mEq tablet extended release 10 meq PO DAILY 0RF omeprazole 20 mg capsule,delayed release(DR/EC) 20 mg PO BID 0RF memantine 10 mg tablet 10 mg PO DAILY 0RF tamsulosin 0.4 mg capsule 0.4 mg PO DAILY 0RF donepezil 5 mg tablet 5 mg PO DAILY 0RF amlodipine 5 mg Tablet 5 mg PO DAILY 0RF colchicine 0.6 mg Tablet 0.6 mg PO BID 0RF Crestor 40 mg Tablet 40 mg PO DAILY 0RF Jardiance 10 mg Tablet 10 mg PO DAILY 0RF trazodone 50 mg tablet 50 mg PO BEDTIME PRN (Reason: sleep) 0RF Rx Instructions: Take half to one tablet one hour prior to bedtime as needed gabapentin 300 mg capsule 300 mg PO BEDTIME 0RF Rx Instructions: Take one capsule at bedtime Changed baclofen 20 mg tablet 10 mg PO QID Qty: 0 0RF Discontinued spironolactone 25 mg/5 mL suspension 25 mg PO DAILY 0RF glipizide 10 mg tablet extended release 24hr 10 mg PO DAILY 0RF irbesartan 300 mg Tablet 300 mg PO DAILY 0RF Discharge Orders: Discharge Order (Routine); Ordered 01/06/22 Ordered By: David Ashraf Referrals: [facility] Setup [Other] (Call this number to get In Home Services setup. They will ask you questions & base off your answers, you are given points. You have to have so many points to qualify for In Home services. ) Discharge Diet: Cardiac and Diabetic Discharge Activity: Resume usual activity and Increase activity as tolerated Patient Instructions: Opioid Safety Activity Restrictions/Additional Instructions: Multiple medication changes have been done. Do not take glipizide, spironolactone anymore. Irbesartan dose has been changed from 300 mg to 150 mg daily. Continue taking amlodipine and metoprolol as before. Prednisone is a steroid you need to be on for next 5 days. Please follow-up with your primary care provider within next 1 week for repeat BMP. Discharge Attestations Time Spent in Discharge Care*: greater than 30 min Specific Discharge Activities: educating patient, educating and/or supporting family/caregiver, discussing with family service caseworker/social workers/dc planners, documenting/other paperwork and evaluating patient/reviewing data Status at Discharge: Cognitive status at discharge: cognitively intact , Behavioral status at discharge: cooperative , Functional status at discharge: independent ambulation , Overall status at discharge: patient is back to baseline Quality Metrics Clinical Quality Measures [ No reported AMI, CVA or VTE this stay] Coding Level of Care Code Acute Chg FW DC note Diagnoses ROXANN (acute kidney injury) N17.9 Dehydration E86.0 Dementia F03.90 Hypertension I10 CARMEN (obstructive sleep apnea) G47.33 COPD (chronic obstructive pulmonary disease) J44.9 Hypoglycemia E16.2 Hyperkalemia E87.5 Cannabis dependence, continuous F12.20 Alcohol use disorder, moderate, in sustained remission F10.21 Generalized anxiety disorder F41.1 Marijuana dependence F12.20
[2022-01-06] MEDS: insulin lispro 100 unit/1 mL SUBCUT (13:21)
== END 2022-01-06 14:15 | disposition home health service (06) | DRG 683 ==
LOC: ER 15:55 → CSU 16:15
PROVIDERS: Admitting Provider Internal Medicine; Emergency Provider Emergency Medicine; Visit Provider Student in an Organized Health Care Education/Training Program
DX: N17.9 Acute kidney failure, unspecified (principal); J44.1 Chronic obstructive pulmonary disease with (acute) exacerbation; E87.5 Hyperkalemia; F12.20 Cannabis dependence, uncomplicated; E11.649 Type 2 diabetes mellitus with hypoglycemia without coma; F41.1 Generalized anxiety disorder; I10 Essential (primary) hypertension; E78.5 Hyperlipidemia, unspecified; Z87.891 Personal history of nicotine dependence; F10.11 Alcohol abuse, in remission; M19.90 Unspecified osteoarthritis, unspecified site; G47.33 Obstructive sleep apnea (adult) (pediatric); M79.7 Fibromyalgia; E86.0 Dehydration; Z79.84 Long term (current) use of oral hypoglycemic drugs; Z79.82 Long term (current) use of aspirin; Z91.19 Patient's noncompliance with other medical treatment and regimen; M10.9 Gout, unspecified; F03.90 Unspecified dementia, unspecified severity, without behavioral disturbance, psychotic disturbance, mood disturbance, and anxiety
CPT/HCPCS: 36415; 36416; 70450; 74176; 80048; 80053; 80061; 81001; 82436; 82550; 82962; 83036; 83540; 83550; 83735; 84100; 84133; 84300; 84443; 85025; 87070; 87077; 87086; 87205; 93005; 93306; 93970; 96365; 96372; 97110; 97116; 97161; 97165; 97530; 99285; A9281; J0610; J1644; J1815; J2920; J7030; J7512; Q0144

== ENCOUNTER → 2022-01-31 07:20 | Outpatient (BNVA) | payer MEDICARE, MEDICAID, SELFPAY ==
[2021-05-17 13:24] VITALS: BP 161/66; BMI 44.2
== END ==
PROVIDERS: Visit Provider Nurse Practitioner Psychiatric/Mental Health
DX: F41.1 Generalized anxiety disorder (principal); F12.20 Cannabis dependence, uncomplicated; F10.21 Alcohol dependence, in remission
CPT/HCPCS: 99214

== ENCOUNTER → 2022-02-07 13:47 | Outpatient (BNVA) | payer MEDICARE, MEDICAID, SELFPAY ==
[2021-05-17 13:24] VITALS: BP 161/66; BMI 44.2
== END ==
PROVIDERS: Visit Provider Social Worker
DX: F41.1 Generalized anxiety disorder (principal)
CPT/HCPCS: 90834

== ENCOUNTER 2022-04-01 10:53 | Outpatient (CLI) | payer MEDICARE, MEDICAID, SELFPAY ==
[2022-02-28 10:18] VITALS: BP 161/66; BMI 44.2
--- NOTE | 2022-04-01 11:08 | XR_ITS ---
WS: [id number] XR knee LT 3V* [id number] REASON FOR EXAM: LEFT KNEE JOINT PAIN FINDINGS: No fracture or focal bone lesion. Mild narrowing of the medial knee joint space with subchondral sclerosis. Mild narrowing of the lateral knee joint space with mild subchondral sclerosis. Mild narrowing of the patellofemoral joint space with subchondral sclerosis and small marginal osteop hytes of the patella. XR/XR knee LT 3V* [id number] IMPRESSION: No acute abnormality. Mild osteoarthritis of the left knee as above.
== END 2022-04-01 10:54 | disposition home or self-care (01) ==
PROVIDERS: Visit Provider Family Medicine
DX: M17.12 Unilateral primary osteoarthritis, left knee (principal)
CPT/HCPCS: 73562

== ENCOUNTER → 2022-05-18 11:00 | Outpatient (BNVA) | payer MEDICARE, MEDICAID, OTHER, SELFPAY ==
[2022-02-28 10:18] VITALS: BP 161/66; BMI 44.2
== END ==
PROVIDERS: Visit Provider Nurse Practitioner Psychiatric/Mental Health
DX: F41.1 Generalized anxiety disorder (principal); Z79.899 Other long term (current) drug therapy
CPT/HCPCS: 80061; 83036

== ENCOUNTER 2022-05-25 06:00 | Outpatient (RCR) | payer MEDICARE, MEDICAID, SELFPAY ==
[2022-02-28 10:18] VITALS: BP 161/66; BMI 44.2
== END 2022-06-20 23:59 | disposition home or self-care (01) ==
LOC: SPT 06:00
PROVIDERS: Visit Provider Family Medicine
DX: M25.562 Pain in left knee (principal)
CPT/HCPCS: 97110; 97161

== ENCOUNTER 2022-06-21 06:00 | Outpatient (RCR) | payer MEDICARE, MEDICAID, SELFPAY ==
[2022-05-27 16:42] VITALS: BP 133/65; BMI 35.1
== END 2022-07-20 23:59 | disposition home or self-care (01) ==
LOC: SPT 06:00
PROVIDERS: Visit Provider Family Medicine
DX: M25.562 Pain in left knee (principal)
CPT/HCPCS: 97110

== ENCOUNTER 2022-07-21 06:00 | Outpatient (RCR) | payer MEDICARE, MEDICAID, SELFPAY ==
[2022-05-27 16:42] VITALS: BP 133/65; BMI 35.1
== END 2022-08-18 16:09 | disposition home or self-care (01) ==
LOC: SPT 06:00
PROVIDERS: Visit Provider Family Medicine
DX: M25.562 Pain in left knee (principal)
CPT/HCPCS: 97110

== ENCOUNTER 2022-08-26 08:02 | Outpatient (CLI) | payer MEDICARE, MEDICAID, SELFPAY ==
[2022-07-25 10:03] VITALS: BP 133/65; BMI 35.1
--- NOTE | 2022-08-26 08:15 | MR_ITS ---
WS: [id number] MRI LEFT KNEE NONCONTRAST TECHNIQUE: Axial PD, coronal PD fat sat, coronal PD, sagittal PD, and sagittal PD fat-sat images obta ined. CLINICAL INFORMATION: LEFT KNEE JOINT PAIN COMPARISON: None. FINDINGS: Limited examination due to patient motion. Distal quadriceps and patella tendons are intact. Normal ACL and PCL. Hypertrophic patella. Small cristel nt effusion. Chronic thinning of the medial and lateral meniscus worse involving the medial meniscus. No acute appearing meniscal tears. Moderate joint space narrowing involving the medial and lateral j oint compartments worse in the medial joint compartment. Moderate chondromalacia. Normal medial and l ateral collateral ligaments. Grade III to IV chondromalacia patella with a small amount of subchondral edema. Normal medial and la teral patellar retinaculum. Normal popliteal fossa. Normal medial and lateral collateral ligaments. MR/MR knee LT wo con* [id number] IMPRESSION: Limited examination due to patient motion. 1. Normal ACL and PCL. 2. Chronic thinning of the medial and lateral meniscus. No acute appearing men iscal tears. 3. Joint space narrowing worse medial joint compartment with grade III chondro malacia. 4. Grade 3-4 chondromalacia patella with subchondral edema. 5. Small suprapatellar effusion. 6. Hypertrophic patella. Outbridge grading: grade IV: full-thickness cartilage loss with underlying bone reactive changes
== END 2022-08-26 08:03 | disposition home or self-care (01) ==
LOC: RAD 08:03
PROVIDERS: Visit Provider Family Medicine
DX: M25.462 Effusion, left knee (principal); M22.42 Chondromalacia patellae, left knee; R60.0 Localized edema
CPT/HCPCS: 73721

== ENCOUNTER → 2023-01-17 09:44 | Outpatient (BNVA) | payer MEDICARE, MEDICAID, SELFPAY ==
[2022-07-25 10:03] VITALS: BP 133/65; BMI 35.1
== END ==
PROVIDERS: Referring Provider Family Medicine; Visit Provider Orthopaedic Surgery
DX: M17.12 Unilateral primary osteoarthritis, left knee (principal)
CPT/HCPCS: 99203

== ENCOUNTER → 2023-02-14 09:15 | Outpatient (BNVA) | payer MEDICARE, MEDICAID, SELFPAY ==
[2023-01-18 07:10] VITALS: BP 133/65; BMI 35.1
== END ==
PROVIDERS: Visit Provider Nurse Practitioner Family
DX: M17.12 Unilateral primary osteoarthritis, left knee (principal)
CPT/HCPCS: 99213

== ENCOUNTER 2023-02-14 14:44 | Outpatient (CLI) | payer MEDICARE, SELFPAY ==
[2023-02-14 10:45] VITALS: BP 133/65; BMI 35.1
== END 2023-02-14 14:45 | disposition home or self-care (01) ==
LOC: SPT 14:44
PROVIDERS: Visit Provider Nurse Practitioner Family
DX: M17.12 Unilateral primary osteoarthritis, left knee (principal)
CPT/HCPCS: 97760; L1812

== ENCOUNTER 2023-05-05 06:36 | Emergency (ER) | payer MEDICARE, MEDICAID, SELFPAY ==
[2023-05-05 06:48] VITALS: BP 148/76; PULSE 70; RESP 18; TEMP 36.9; O2SAT 96; BMI 34.3
--- NOTE | 2023-05-05 06:53 | ECG_ITS ---
[facility] Test Date: 2023-05-05 Pat Name: Franki Read Department: Room: Gender: Male Manager Commercial: : [id number] Requested By: Laurita Brennan Order Number: [id number] Driver MD: Jenni Hsu M.D. Measurements Intervals [place] Rate: 69 P: 89 TN: 223 QRS: 78 QRSD: 161 T: 17 QT: 403 QTc: 434 Interpretive Statements SINUS RHYTHM WITH FIRST DEGREE AV BLOCK WITH OCCASIONAL VENTRICULAR PREMATURE COMPLEXES RIGHT BUNDLE BRANCH BLOCK [120+ ms QRS DURATION, UPRIGHT V1, 40+ ms S IN I/aVL/V4/V5/V6] Compared to ECG 01/02/2022 16:52:19 First degree AV block now present Electronically Signed On 05-05-2023 18:59:13 CDT by Jenni Hsu M.D. [id number]
--- NOTE | 2023-05-05 06:53 | XRR_ITS ---
PROCEDURE INFORMATION: Exam: XR Chest Exam date and time: 05/05/2023 7:13 AM Age: 73 years old Clinical indication: Shortness of breath; Additional info: SOB TECHNIQUE: Imaging protocol: Radiologic exam of the chest. Views: 1 view. COMPARISON: 1. CT chest wo con [id number] 03/15/2018 3:20 PM 2. CR XR chest 2V* [id number] 01/04/2018 12:13 PM FINDINGS: Lungs: No consolidation. Stable calcific sequela of old granulomatous disease. Pleural spaces: Unremarkable. No pleural effusion. No pneumothorax. Heart/Mediastinum: No cardiomegaly. Stable calcific sequela of old granulomatous disease. Vasculature: Aortic arch atherosclerotic calcification. Bones/joints: Degenerative changes along the spine and shoulders. XR/XR chest 1V portable [id number] IMPRESSION: No acute findings.
--- NOTE | 2023-05-05 07:18 | ED_ITS ---
HPI - General Adult General: Chief complaint: General Medical Stated complaint: dizzy,sob Time Seen by Provider: 05/05/23 06:45 Source: patient Mode of arrival: ambulatory Limitations: no limitations History of Present Illness: 73-year-old male who states that he has been having difficulty sleeping. States he has sleep apnea and he supposed to wear CPAP at night states he has not been wearing it and he states he takes it off throughout the night. States he is feeling foggy and very tired. He states that he wants something to help him sleep. Denies any chest pain denies any fevers has no other complaints at this time. Associated symptoms: Reports malaise; Deny chest pain, dyspnea, headache(s), nausea, rash or vomiting Review of Systems Const: Reports: fatigue and malaise; Denies: fever(s), chills, body aches or change in appetite ENMT: Denies: throat pain or dental pain Card: Denies: chest pain Resp: Denies: dyspnea GI: Denies: abdominal pain, nausea, vomiting or diarrhea : Denies: dysuria Musc: Denies: neck pain or back pain Skin/Breast: Denies: rash Neuro: Denies: headache(s) PFSH ED PFSH: Medical History Alcohol use disorder, moderate, in sustained remission Arthritis Cannabis dependence, continuous Has marijuana card for glaucoma and back pain Cannabis dependence, episodic use COPD (chronic obstructive pulmonary disease) Dementia Diabetes mellitus Generalized anxiety disorder History of fibromyalgia History of gastroesophageal reflux (GERD) History of hypertension Hyperlipidemia Hypertension Marijuana dependence CARMEN (obstructive sleep apnea) Psychiatric care Sleep apnea Sprain of collateral ligament of left knee Surgical History History of colonoscopy Hx of brain surgery Family History Other Cancer Diabetes Hypertension Social History Smoking and tobacco status: former smoker Quit status (tobacco): has quit using tobacco Year quit tobacco: 2004 Second hand smoke exposure: No Alcohol intake: current Alcohol intake frequency: holidays/special occasions only Alcohol type: beer Desire information about alcohol rehabilitation?: No Substance/Drug Use: current Substance/Drug use frequency: daily Other substance/drug use details: helps with sleep, glaucoma, fibromyagia, back pain Desire information about substance/drug rehabilitation?: No Adopted: No Caregiver/support person: No Lives independently: Yes Household members: none Housing: Manufactured/Mobile home Marital status: Number of children: 1 Number of grandchildren: 1 Highest education level completed: 11th Grade service: No Current occupational status: retired Current occupational exposures/hazards: No 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 Pets and animals: Yes Pets & animals: cat(s) and dog(s) Leisure activites: art and other Leisure activities details: visiting with friends Sexually active: No Do you think of yourself as: Straight/Heterosexual Current gender identity: Male Teresa/Mandaeism: None Special teresa needs: No Agree to transfusion: Yes Financial difficulty paying for basics: Not Very Hard Physical Exam Const: COMMON NORMALS: no acute distress, patient oriented x3 and healthy appearing HENMT: COMMON NORMALS: normocephalic and atraumatic HEAD & SCALP: normocephalic and atraumatic Neck/C-Spine: COMMON NORMALS: full ROM and supple Chest: COMMONS NORMALS: normal inspection of the chest and normal palpation of entire chest wall Resp: COMMON NORMALS: normal respiratory effort, No retractions, No use of accessory muscles and clear to auscultation bilaterally AUSCULTATION: clear to auscultation bilaterally Cardio: COMMON NORMALS: regular rate, regular rhythm and No murmurs present (Cardio) RATE: regular rate RHYTHM: regular rhythm GI: COMMON NORMALS: Normal to inspection, nondistended, normoactive bowel sounds present, Soft to palpation, non-tender and no masses PALPATION: Yes Soft to palpation Extremity: COMMON NORMALS: normal to inspection and full ROM Neuro: COMMON NORMALS: patient oriented x3, moves all extremities and no focal motor deficits Psych: COMMON NORMALS: mental status grossly normal, Normal thought process present and cooperative THOUGHT PROCESS: Normal thought process present Skin: COMMON NORMALS: no rashes or lesions noted and no wounds GENERAL SKIN EXAM: no rashes or lesions noted Course Vital Signs: Vital signs: Vital Signs Temperature 98.4 F 05/05/23 06:48 Pulse Rate 66 05/05/23 07:52 Respiratory Rate 18 05/05/23 07:52 Blood Pressure 148/76 05/05/23 07:52 Pulse Oximetry 97 05/05/23 07:52 Oxygen Delivery Me thod Room Air 05/05/23 07:52 MDM - General Adult Medical Decision Making Patient presents here with insomnia we will prescribe him hydralazine informed patrick stack really needs to follow-up with his PCP that he needs to wear his CPAP at night blood work x-ray EKG here are all normal he has a little elevated creatinine but he has had that in the past as well. He is stable for discharge. Medical Records I reviewed the patient's medical records. Lab Data I reviewed the patient's lab results. 05/05/23 07:04 05/05/23 07:04 Laboratory Results WBC 8.79 10^3/uL (3.29-11.43) 05/05/23 07:04 RBC 5.16 10^6/uL (3.85-5.65) 05/05/23 07:04 Hgb 15.10 g/dL (11.27-16.99) 05/05/23 07:04 Hct 46.9 % (37-53) 05/05/23 07:04 MCV 90.9 fl (82-101) 05/05/23 07:04 MCH 29.3 pg (27-33) 05/05/23 07:04 MCHC 32.2 g/dL (30-55) 05/05/23 07:04 RDW 14.8 % (12.1-15.1) 05/05/23 07:04 Plt Count 173 10^3/cmm (157-399) 05/05/23 07:04 MPV 11.7 fL (7.4-10.4) H 05/05/23 07:04 Neut % (Auto) 78.9 % 05/05/23 07:04 Lymph % (Auto) 11.9 % 05/05/23 07:04 [place] % (Auto) 6.9 % 05/05/23 07:04 Eos % (Auto) 0.6 % 05/05/23 07:04 Baso % (Auto) 0.6 % 05/05/23 07:04 Neut # (Auto) 6.93 10^3/uL (1.8-7.7) 05/05/23 07:04 Lymph # (Auto) 1.1 10^3/uL (0.8-4.8) 05/05/23 07:04 [place] # (Auto) 0.6 10^3/uL (0.2-0.9) 05/05/23 07:04 Eos # (Auto) 0.1 10^3/uL (0.0-0.8) 05/05/23 07:04 Baso # (Auto) 0.1 10^3/uL (0.0-0.1) 05/05/23 07:04 Nucleated RBC % (auto) 0 % 05/05/23 07:04 Nucleated RBCs # 0.0 /100WBC 05/05/23 07:04 Sodium 135 mmol/L (136-145) L 05/05/23 07:04 Potassium 4.1 mmol/L (3.5-5.1) 05/05/23 07:04 Chloride 99 mmol/L (98-107) 05/05/23 07:04 Carbon Dioxide 22 mmol/L (22-29) 05/05/23 07:04 Anion Gap 18.1 (5-19) 05/05/23 07:04 BUN 61 mg/dL (8-23) H 05/05/23 07:04 Creatinine 2.2 mg/dL (0.7-1.2) H 05/05/23 07:04 GFR Calculation Not Reportable 05/05/23 07:04 Glucose 213 mg/dL (65-115) H 05/05/23 07:04 Calculated Osmolality 304 mOsm/kg (285-295) H 05/05/23 07:04 Calcium 9.0 mg/dL (8.5-10.5) 05/05/23 07:04 Total Bilirubin 0.5 mg/dL (0.15-1.2) 05/05/23 07:04 AST 22 U/L (0-40) 05/05/23 07:04 ALT 31 U/L (0-41) 05/05/23 07:04 Alkaline Phosphatase 90 U/L (40-130) 05/05/23 07:04 Total Protein 7.1 g/dL (6.6-8.7) 05/05/23 07:04 Albumin 4.6 g/dL (3.5-5.2) 05/05/23 07:04 Globulin 2.5 g/dL (1.3-4.6) 05/05/23 07:04 XR interpretation done by ED provider, pending radiology final review EKG Data EKG 1: I personally reviewed and interpreted this EKG as follows: EKG interpretation date: 05/05/23 EKG interpretation time: 06:52 Interpretation: nsr hr [address] elevation rbbb qrs 161 qtc 422 Discharge Plan Discharge Patient Disposition: Home Clinical Impression: Insomnia Condition: Stable Prescriptions: New hydralazine 25 mg tablet 25 mg PO .qhs Qty: 20 0RF No Action metoprolol succinate 25 mg capsule,sprinkle,ER 24hr 25 mg PO DAILY aspirin [Ericka Chewable Aspirin] 81 mg tablet,chewable 81 mg PO DAILY prenat.vits,sharon,swm-tsvn-pvjsr Tablet 1 tab PO DAILY omega-3 fatty acids [Fish Oil Concentrate] 1,000 mg capsule 1,000 mg PO DAILY furosemide 20 mg tablet 20 mg PO DAILY potassium chloride 10 mEq tablet extended release 10 meq PO DAILY (DME) hinged knee brace See Rx Instructions .Route .MEDSUPPLY Qty: 1 0RF Rx Instructions: As directed gabapentin 300 mg capsule 300 mg PO TID Rx Instructions: Three times per day meloxicam 15 mg tablet 15 mg PO DAILY Qty: 30 0RF omeprazole 20 mg capsule,delayed release(DR/EC) 20 mg PO BID memantine 10 mg tablet 10 mg PO DAILY tamsulosin 0.4 mg capsule 0.4 mg PO DAILY donepezil 5 mg tablet 5 mg PO DAILY amlodipine 5 mg Tablet 5 mg PO DAILY colchicine (gout) 0.6 mg Tablet 0.6 mg PO BID Crestor 40 mg Tablet 40 mg PO DAILY Jardiance 10 mg Tablet 10 mg PO DAILY irbesartan 150 mg tablet 150 mg PO DAILY Qty: 30 0RF ferrous gluconate 324 mg (37.5 mg iron) Tablet 324 mg PO BIDWM Qty: 60 0RF Januvia 100 mg tablet 100 mg PO DAILY Qty: 30 0RF baclofen 20 mg tablet 10 mg PO QID Qty: 0 0RF Discharge Orders: Discharge ED (Routine); Ordered 05/05/23 Ordered By: Laurita Brennan Referrals: Moody Moralez MD [Primary Care Provider] - 1-3 days Discharge Diet: Advance as tolerated Discharge Activity: Resume usual activity Patient Instructions: Insomnia (ED) Coding Level of Care Code ED Mixer Wet Pour for Stepan Noel
[2023-05-05 07:24] LABS: Basophils # 0.1 10^3/uL (0.0-0.1); Basophils % 0.6 %; Eosinophils # 0.1 10^3/uL (0.0-0.8); Eosinophils % 0.6 %; Hematocrit 46.9 % (37-53); Lymphocytes # 1.1 10^3/uL (0.8-4.8); Lymphocytes % 11.9 %; Mean Corpuscular HGB Conc 32.2 g/dL (30-55); Mean Corpuscular Hemoglobin 29.3 pg (27-33); Mean Corpuscular Volume 90.9 fl (82-101); Mean Platelet Volume 11.7 fL (7.4-10.4); Monocytes # 0.6 10^3/uL (0.2-0.9); Monocytes % 6.9 %; Neutrophils # 6.93 10^3/uL (1.8-7.7); Neutrophils % 78.9 %; Nucleated Red Blood Cells % 0 %; Platelet Count 173 10^3/cmm (157-399); Red Blood Count 5.16 10^6/uL (3.85-5.65); Red Cell Distribution Width 14.8 % (12.1-15.1); White Blood Count 8.79 10^3/uL (3.29-11.43)
[2023-05-05 07:40] LABS: Alanine Aminotransferase 31 U/L (0-41); Albumin Level 4.6 g/dL (3.5-5.2); Alkaline Phosphatase 90 U/L (40-130); Anion Gap 18.1 (5-19); Aspartate Amino Transferase 22 U/L (0-40); Blood Urea Nitrogen 61 mg/dL (8-23); Carbon Dioxide 22 mmol/L (22-29); Chloride 99 mmol/L (98-107); Globulin 2.5 g/dL (1.3-4.6); Glucose 213 mg/dL (65-115); Osmolality Calculated 304 mOsm/kg (285-295); Potassium 4.1 mmol/L (3.5-5.1); Sodium 135 mmol/L (136-145); Total Bilirubin 0.5 mg/dL (0.15-1.2); Total Protein 7.1 g/dL (6.6-8.7)
[2023-05-05 07:52] VITALS: BP 148/76; PULSE 66; RESP 18; O2SAT 97
== END 2023-05-05 08:17 | disposition home or self-care (01) ==
PROVIDERS: Emergency Provider Emergency Medicine; PCP Family Medicine
DX: G47.00 Insomnia, unspecified (principal); Z79.82 Long term (current) use of aspirin; Z87.891 Personal history of nicotine dependence; J44.9 Chronic obstructive pulmonary disease, unspecified; F03.90 Unspecified dementia, unspecified severity, without behavioral disturbance, psychotic disturbance, mood disturbance, and anxiety; E11.9 Type 2 diabetes mellitus without complications; I10 Essential (primary) hypertension; E78.5 Hyperlipidemia, unspecified
CPT/HCPCS: 36415; 71045; 80053; 85025; 93005; 99285

== ENCOUNTER → 2023-06-22 15:48 | Outpatient (BNVA) | payer MEDICAID, SELFPAY | PROVIDERS: PCP Family Medicine; Referring Provider Family Medicine; Visit Provider Specialist | DX: G57.93 Unspecified mononeuropathy of bilateral lower limbs (principal); M79.604 Pain in right leg; M79.605 Pain in left leg; R20.0 Anesthesia of skin; R20.2 Paresthesia of skin; G62.89 Other specified polyneuropathies | CPT/HCPCS: 95908; 95911 ==

== ENCOUNTER 2023-08-11 16:22 | Observation (INO) | payer MEDICARE, MEDICAID, SELFPAY ==
[2023-08-11] VITALS (9 sets, daily range): BP systolic 91–133; BP diastolic 37–72; PULSE 62–67; RESP 13–18; TEMP 36.8; O2SAT 94–100
--- NOTE | 2023-08-11 16:40 | XRR_ITS ---
PROCEDURE INFORMATION: Exam: XR Chest Exam date and time: 08/11/2023 5:05 PM Age: 73 years old Clinical indication: Cough and dyspnea; Additional info: Dyspnea/cough TECHNIQUE: Imaging protocol: Radiologic exam of the chest. Views: 1 view. COMPARISON: CR XR chest 1V portable [id number] 05/05/2023 7:13 AM FINDINGS: Lungs: Lungs are clear bilaterally. Pleural spaces: No pleural effusion. No pneumothorax. Heart/Mediastinum: Stable moderate enlargement of the cardiac silhouette. Mediastinal contours are unremarkable. Vasculature: Stable vascular calcifications in the aorta. Bones/joints: Unremarkable for age. XR/XR chest 1V portable [id number] IMPRESSION: 1. No acute cardiopulmonary process. 2. Incidental/nonacute findings are listed in the report.
--- NOTE | 2023-08-11 16:40 | ECG_ITS ---
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 Measurements Intervals [place] Rate: 63 P: 70 NV: 234 QRS: -16 QRSD: 146 T: 6 QT: 398 QTc: 409 Interpretive Statements SINUS RHYTHM WITH FIRST DEGREE AV BLOCK INDETERMINATE AXIS RIGHT BUNDLE BRANCH BLOCK [120+ ms QRS DURATION, UPRIGHT V1, 40+ ms S IN I/aVL/V4/V5/V6] Compared to ECG 05/05/2023 06:52:47 Indeterminate axis now present Electronically Signed On 08-11-2023 19:23:48 SENIOR POLICY ADVISOR by Faisal Ascencio M.D. [id number]
--- NOTE | 2023-08-11 17:00 | ED_ITS ---
Documented by User: Emmanuel Dick DO 08/14/23 06:25 HPI - GI Bleed 2 General: Chief complaint: GI Bleed Stated complaint: rectal bleed Time Seen by Provider: 08/11/23 16:39 Source: patient History of Present Illness: 73 yo male present to the ER with compla ints of rectal bleeding. He has had this for the last couple of days. Denies vomitting. no abdominal pain. He is not on any blood thinners. He has had colonoscopy in the past 5 yrss He states they had found some polyps - but did not require any interventions. MD complaint: gross hematochezia Onset (ago): day(s) Pain Consistency: intermittent Severity: mild Relieving factors: none Exacerbating factors: none Associated symptoms: Denies abdominal pain, chills, easy bruising, epistaxis, fever(s), headache(s), malaise, nausea, other bleeding, poor appetite, rash, syncope, vomiting or weakness Review of Systems 2 Const: Denies: fever(s), chills or malaise ENMT: Denies: epistaxis Card: Denies: chest pain or syncope Resp: Denies: dyspnea GI: Denies: abdominal pain, nausea or vomiting : Denies: dysuria, urinary frequency or urinary urgency Musc: Denies: neck pain or back pain Skin/Breast: Denies: rash Neuro: Denies: headache(s) Dante/Lymph: Denies: easy bruising PFSH ED 2 PFSH: Medical History Sprain of collateral ligament of left knee Dementia Hypertension COPD (chronic obstructive pulmonary disease) Psychiatric care History of hypertension Hyperlipidemia History of gastroesophageal reflux (GERD) Sleep apnea Arthritis Diabetes mellitus History of fibromyalgia Generalized anxiety disorder Surgical History History of colonoscopy Hx of brain surgery Family History Other Cancer Diabetes Hypertension Social History Smoking and tobacco/nicotine status: former use of tobacco/nicotine Quit status (tobacco/nicotine): has quit using Year quit tobacco: 2004 Second hand smoke exposure: No Alcohol intake: former Substance/Drug Use: former Date of last use: 2022 Adopted: No Caregiver/support person: No Lives independently: Yes Household members: none Housing: Manufactured/Mobile home Marital status: Number of children: 1 Number of grandchildren: 1 Highest education level completed: 11th Grade service: No Current occupational status: retired Current occupational exposures/hazards: No 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 Pets and animals: Yes (4) Pets & animals: cat(s) Leisure activites: art and other Leisure activities details: visiting with friends, work in shop Sexually active: No Do you think of yourself as: Straight/Heterosexual Current gender identity: Male Teresa/Holiness: None Special teresa needs: No Agree to transfusion: Yes Physical Exam 2 Const: GENERAL APPEARANCE: cooperative and comfortable O RIENTATION/CONSCIOUSNESS: Yes awake, Yes oriented to person, Yes oriented to place and Yes oriented to time HENMT: COMMON NORMALS: normocephalic, atraumatic and hearing grossly normal bilaterally HEAD & SCALP: normocephalic and atraumatic Resp: COMMON NORMALS: normal respiratory effort, No retractions, No use of accessory muscles and clear to auscultation bilaterally AUSCULTATION: clear to auscultation bilaterally Cardio: COMMON NORMALS: regular rate, regular rhythm and No murmurs present (Cardio) RATE: regular rate RHYTHM: regular rhythm GI: COMMON NORMALS: Soft to palpation and No hepatosplenomegaly present A USCULTATION: Yes normoactive bowel sounds PALPATION: Yes Soft to palpation, No Tenderness to palpation present (GI), No Guarding due to palpation present (GI) and Yes No hepatosplenomegaly present Extremity: COMMON NORMALS: normal to inspection, capillary refill normal and no calf tenderness GENERAL: Yes edema Neuro: SENSORIUM/ORIENTATION: Yes oriented to person, Yes oriented to place and Yes oriented to time Skin: COMMON NORMALS: no rashes or lesions noted GENERAL SKIN EXAM: no rashes or lesions noted Course 2 Vital Signs: Vital signs: Vital Signs Temperature 97.4 F L 08/13/23 12:36 Pulse Rate 79 08/13/23 12:36 Respiratory Rate 16 08/13/23 12:36 Blood Pressure 162/68 08/13/23 12:36 Pulse Oximetry 93 08/13/23 12:36 Oxygen Delivery Me thod Room Air 12/24/23 08:00 Oxygen Flow Rate 2 08/11/23 16:56 MDM - GI Bleed Medical Decision Making Care signed out to Dr. Eduardo at change of shift. See final notes for diagnosis and disposition. Medical Records I reviewed the patient's medical records. Lab Data I reviewed the patient's lab results. 08/13/23 04:15 08/13/23 04:15 Radiology Impressions Chest X-Ray 08/11/23 16:40 IMPRESSION: 1. No acute cardiopulmonary process. 2. Incidental/nonacute findings are listed in the report. Abdomen/Pelvis CT 08/11/23 17:38 IMPRESSION: 1. No acute abnormality in the abdomen or pelvis. 2. Stable indeterminate hyperdense focus in the right kidney. This could represent a hemorrhagic/proteinaceous cyst. 3. Stable moderate to severe atherosclerotic calcifications in the visualized arteries. Findings are most pronounced in the right and left common iliac arteries with greater than 90% stenosis bilaterally. 4. Incidental/nonacute findings are listed in the report. COMMENTS: Consistent with the [employer]'s Incidental Findings Committee white paper (J Am Matthew Radiol 2018): Any incidental renal lesion less than 1 cm or classified as too small to characterize, or any incidental cystic renal lesion characterized as simple-appearing, is likely benign. No follow-up imaging is recommended for these lesions per consensus recommendations based on imaging criteria. Venous Duplex 08/12/23 16:29 IMPRESSION: No evidence of deep vein thrombosis. Laboratory Results WBC 7.24 10^3/uL (3.29-11.43) 08/11/23 17:46 RBC 3.89 10^6/uL (3.85-5.65) 08/11/23 17:46 Hgb 11.70 g/dL (11.27-16.99) 08/11/23 17:46 Hct 37.1 % (37-53) 08/11/23 17:46 MCV 95.4 fl (82-101) 08/11/23 17:46 MCH 30.1 pg (27-33) 08/11/23 17:46 MCHC 31.5 g/dL (30-55) 08/11/23 17:46 RDW 14.7 % (12.1-15.1) 08/11/23 17:46 Plt Count 144 10^3/cmm (157-399) L 08/11/23 17:46 MPV 12.4 fL (7.4-10.4) H 08/11/23 17:46 Neut % (Auto) 62.2 % 08/11/23 17:46 Lymph % (Auto) 21.7 % 08/11/23 17:46 [place] % (Auto) 11.2 % 08/11/23 17:46 Eos % (Auto) 2.8 % 08/11/23 17:46 Baso % (Auto) 0.7 % 08/11/23 17:46 Neut # (Auto) 4.51 10^3/uL (1.8-7.7) 08/11/23 17:46 Lymph # (Auto) 1.6 10^3/uL (0.8-4.8) 08/11/23 17:46 [place] # (Auto) 0.8 10^3/uL (0.2-0.9) 08/11/23 17:46 Eos # (Auto) 0.2 10^3/uL (0.0-0.8) 08/11/23 17:46 Baso # (Auto) 0.1 10^3/uL (0.0-0.1) 08/11/23 17:46 Nucleated RBC % (auto) 0 % 08/11/23 17:46 Nucleated RBCs # 0.0 /100WBC 08/11/23 17:46 PT 12.60 SECONDS (12.1-14.9) 08/11/23 17:46 INR 0.92 (0.8-1.2) 08/11/23 17:46 APTT 30.3 SECONDS (23.9-36.7) 08/11/23 17:46 Sodium 138 mmol/L (136-145) 08/11/23 17:46 Potassium 5.0 mmol/L (3.5-5.1) 08/11/23 17:46 Chloride 106 mmol/L (98-107) 08/11/23 17:46 Carbon Dioxide 21 mmol/L (22-29) L 08/11/23 17:46 Anion Gap 16.0 (5-19) 08/11/23 17:46 BUN 103 mg/dL (8-23) H* D 08/11/23 17:46 Creatinine 3.1 mg/dL (0.7-1.2) H 08/11/23 17:46 GFR Calculation Not Reportable 08/11/23 17:46 Glucose 114 mg/dL (65-115) 08/11/23 17:46 Calculated Osmolality 319 mOsm/kg (285-295) H 08/11/23 17:46 Calcium 8.9 mg/dL (8.5-10.5) 08/11/23 17:46 Total Bilirubin 0.3 mg/dL (0.15-1.2) 08/11/23 17:46 AST 20 U/L (0-40) 08/11/23 17:46 ALT 23 U/L (0-41) 08/11/23 17:46 Alkaline Phosphatase 108 U/L (40-130) 08/11/23 17:46 Total Protein 6.6 g/dL (6.6-8.7) 08/11/23 17:46 Albumin 4.1 g/dL (3.5-5.2) 08/11/23 17:46 Globulin 2.5 g/dL (1.3-4.6) 08/11/23 17:46 Vitamin B12 479 pg/mL (232-1245) 08/11/23 17:46 TSH 4.81 uIU/mL (0.27-4.20) H 08/11/23 17:46 Urine Color Yellow (Yellow) 08/11/23 20:20 Urine Appearance Clear (CLEAR) 08/11/23 20:20 Urine pH 5 (5-7) 08/11/23 20:20 Ur Specific [place] 1.010 (1.005-1.030) 08/11/23 20:20 Urine Protein Neg (Negative) 08/11/23 20:20 Urine Glucose (UA) 2+ (Normal) H 08/11/23 20:20 Urine Ketones Negative (Negative) 08/11/23 20:20 Urine Blood Neg (Negative) 08/11/23 20:20 Urine Nitrate Negative (Negative) 08/11/23 20:20 Urine Bilirubin Neg (Negative) 08/11/23 20:20 Urine Urobilinogen Norm mg/dL (Negative) 08/11/23 20:20 Ur Leukocyte Esterase Negative (Negative) 08/11/23 20:20 Ur Random Microalbumin 2 ug/dL (0-20) 08/11/23 20:20 Ur Random Sodium 71 mmol/L 08/11/23 20:20 Urine Creatinine 41 mg/dL (39-259) 08/11/23 20:20 Microalb/Creat Ratio 49 mg/dL (0-20) H 08/11/23 20:20 Discharge Plan Discharge Patient Disposition: Admitted As Inpatient Admit Provider: Palmer Jimenes Clinical Impression: ROXANN (acute kidney injury), Acute GI bleeding Condition: Stable Discharge Diet: Cardiac and Diabetic Discharge Activity: Resume usual activity Coding Level of Care Code ED Marketing Support Specialist for Chg Fwd Documented by User: Vickey Eduardo DO 08/11/23 20:31 HPI - GI Bleed 2 General: Chief complaint: GI Bleed Stated complaint: rectal bleed Time Seen by Provider: 08/11/23 16:39 PFSH ED 2 PFSH: Medical History Sprain of collateral ligament of left knee Dementia Hypertension COPD (chronic obstructive pulmonary disease) Psychiatric care History of hypertension Hyperlipidemia History of gastroesophageal reflux (GERD) Sleep apnea Arthritis Diabetes mellitus History of fibromyalgia Generalized anxiety disorder Surgical History History of colonoscopy Hx of brain surgery Family History Other Cancer Diabetes Hypertension Social History Smoking and tobacco/nicotine status: former use of tobacco/nicotine Quit status (tobacco/nicotine): has quit using Year quit tobacco: 2004 Second hand smoke exposure: No Alcohol intake: former Substance/Drug Use: former Date of last use: 2022 Adopted: No Caregiver/support person: No Lives independently: Yes Household members: none Housing: Manufactured/Mobile home Marital status: Number of children: 1 Number of grandchildren: 1 Highest education level completed: 11th Grade service: No Current occupational status: retired Current occupational exposures/hazards: No 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 Pets and animals: Yes (4) Pets & animals: cat(s) Leisure activites: art and other Leisure activities details: visiting with friends, work in shop Sexually active: No Do you think of yourself as: Straight/Heterosexual Current gender identity: Male Teresa/Holiness: None Special teresa needs: No Agree to transfusion: Yes Course 2 Vital Signs: Vital signs: Vital Signs Temperature 97.4 F L 08/13/23 12:36 Pulse Rate 79 08/13/23 12:36 Respiratory Rate 16 08/13/23 12:36 Blood Pressure 162/68 08/13/23 12:36 Pulse Oximetry 93 08/13/23 12:36 Oxygen Delivery De thod Room Air 08/13/23 08:00 Oxygen Flow Rate 2 08/11/23 16:56 MDM - GI Bleed Medical Decision Making Care signed out to Dr. Eduardo at change of shift. See final notes for diagnosis and disposition. 73-year-old patient signed out to me at shift change. This patient had complained of rectal bleeding. His hemoglobin is 11.7. It was 15 in April. His blood pressure was initially mildly soft, but now improved. His BUN is significantly elevated at 103. Creatinine is 3. He does have a history of chronic kidney disease, but this renal function appears much worse. With critical BUN, significant ROXANN, he will be admitted. CT does not reveal a cause of his rectal bleeding. Will continue to check blood counts. It is concerning giving the elevation of his BUN and that it could be coming from an upper source. Lab Data 08/13/23 04:15 08/13/23 04:15 Radiology Impressions Chest X-Ray 08/11/23 16:40 IMPRESSION: 1. No acute cardiopulmonary process. 2. Incidental/nonacute findings are listed in the report. Abdomen/Pelvis CT 08/11/23 17:38 IMPRESSION: 1. No acute abnormality in the abdomen or pelvis. 2. Stable indeterminate hyperdense focus in the right kidney. This could represent a hemorrhagic/proteinaceous cyst. 3. Stable moderate to severe atherosclerotic calcifications in the visualized arteries. Findings are most pronounced in the right and left common iliac arteries with greater than 90% stenosis bilaterally. 4. Incidental/nonacute findings are listed in the report. COMMENTS: Consistent with the [employer]'s Incidental Findings Committee white paper (J Am Matthew Radiol 2018): Any incidental renal lesion less than 1 cm or classified as too small to characterize, or any incidental cystic renal lesion characterized as simple-appearing, is likely benign. No follow-up imaging is recommended for these lesions per consensus recommendations based on imaging criteria. Venous Duplex 08/12/23 16:29 IMPRESSION: No evidence of deep vein thrombosis. Laboratory Results WBC 7.24 10^3/uL (3.29-11.43) 08/11/23 17:46 RBC 3.89 10^6/uL (3.85-5.65) 08/11/23 17:46 Hgb 11.70 g/dL (11.27-16.99) 08/11/23 17:46 Hct 37.1 % (37-53) 08/11/23 17:46 MCV 95.4 fl (82-101) 08/11/23 17:46 MCH 30.1 pg (27-33) 08/11/23 17:46 MCHC 31.5 g/dL (30-55) 08/11/23 17:46 RDW 14.7 % (12.1-15.1) 08/11/23 17:46 Plt Count 144 10^3/cmm (157-399) L 08/11/23 17:46 MPV 12.4 fL (7.4-10.4) H 08/11/23 17:46 Neut % (Auto) 62.2 % 08/11/23 17:46 Lymph % (Auto) 21.7 % 08/11/23 17:46 [place] % (Auto) 11.2 % 08/11/23 17:46 Eos % (Auto) 2.8 % 08/11/23 17:46 Baso % (Auto) 0.7 % 08/11/23 17:46 Neut # (Auto) 4.51 10^3/uL (1.8-7.7) 08/11/23 17:46 Lymph # (Auto) 1.6 10^3/uL (0.8-4.8) 08/11/23 17:46 [place] # (Auto) 0.8 10^3/uL (0.2-0.9) 08/11/23 17:46 Eos # (Auto) 0.2 10^3/uL (0.0-0.8) 08/11/23 17:46 Baso # (Auto) 0.1 10^3/uL (0.0-0.1) 08/11/23 17:46 Nucleated RBC % (auto) 0 % 08/11/23 17:46 Nucleated RBCs # 0.0 /100WBC 08/11/23 17:46 PT 12.60 SECONDS (12.1-14.9) 08/11/23 17:46 INR 0.92 (0.8-1.2) 08/11/23 17:46 APTT 30.3 SECONDS (23.9-36.7) 08/11/23 17:46 Sodium 138 mmol/L (136-145) 08/11/23 17:46 Potassium 5.0 mmol/L (3.5-5.1) 08/11/23 17:46 Chloride 106 mmol/L (98-107) 08/11/23 17:46 Carbon Dioxide 21 mmol/L (22-29) L 08/11/23 17:46 Anion Gap 16.0 (5-19) 08/11/23 17:46 BUN 103 mg/dL (8-23) H* D 08/11/23 17:46 Creatinine 3.1 mg/dL (0.7-1.2) H 08/11/23 17:46 GFR Calculation Not Reportable 08/11/23 17:46 Glucose 114 mg/dL (65-115) 08/11/23 17:46 Calculated Osmolality 319 mOsm/kg (285-295) H 08/11/23 17:46 Calcium 8.9 mg/dL (8.5-10.5) 08/11/23 17:46 Total Bilirubin 0.3 mg/dL (0.15-1.2) 08/11/23 17:46 AST 20 U/L (0-40) 08/11/23 17:46 ALT 23 U/L (0-41) 08/11/23 17:46 Alkaline Phosphatase 108 U/L (40-130) 08/11/23 17:46 Total Protein 6.6 g/dL (6.6-8.7) 08/11/23 17:46 Albumin 4.1 g/dL (3.5-5.2) 08/11/23 17:46 Globulin 2.5 g/dL (1.3-4.6) 08/11/23 17:46 Vitamin B12 479 pg/mL (232-1245) 08/11/23 17:46 TSH 4.81 uIU/mL (0.27-4.20) H 08/11/23 17:46 Urine Color Yellow (Yellow) 08/11/23 20:20 Urine Appearance Clear (CLEAR) 08/11/23 20:20 Urine pH 5 (5-7) 08/11/23 20:20 Ur Specific [place] 1.010 (1.005-1.030) 08/11/23 20:20 Urine Protein Neg (Negative) 08/11/23 20:20 Urine Glucose (UA) 2+ (Normal) H 08/11/23 20:20 Urine Ketones Negative (Negative) 08/11/23 20:20 Urine Blood Neg (Negative) 08/11/23 20:20 Urine Nitrate Negative (Negative) 08/11/23 20:20 Urine Bilirubin Neg (Negative) 08/11/23 20:20 Urine Urobilinogen Norm mg/dL (Negative) 08/11/23 20:20 Ur Leukocyte Esterase Negative (Negative) 08/11/23 20:20 Ur Random Microalbumin 2 ug/dL (0-20) 08/11/23 20:20 Ur Random Sodium 71 mmol/L 08/11/23 20:20 Urine Creatinine 41 mg/dL (39-259) 08/11/23 20:20 Microalb/Creat Ratio 49 mg/dL (0-20) H 08/11/23 20:20 All radiology interpretation(s) finalized by discharge Discharge Plan Discharge Patient Disposition: Admitted As Inpatient Admit Provider: Palmer Jimenes Clinical Impression: ROXANN (acute kidney injury), Acute GI bleeding Condition: Stable Discharge Diet: Cardiac and Diabetic Discharge Activity: Resume usual activity Coding Level of Care Code ED Marketing Support Specialist for Stepan Noel
--- NOTE | 2023-08-11 17:38 | CTR_ITS ---
PROCEDURE INFORMATION: Exam: CT Abdomen And Pelvis With Contrast Exam date and time: 08/11/2023 6:50 PM Age: 73 years old Clinical indication: Abdominal pain; Generalized; Patient HX: C/O diffuse abd pain with rectal bleeding starting yesterday. ; Additional info: Abd pain/lower gi bleed TECHNIQUE: Imaging protocol: Computed tomography of the abdomen and pelvis with contrast. Radiation optimization: All CT scans at this facility use at least one of these dose optimization techniques: automated exposure control; mA and/or kV adjustment per patient size (includes targeted exams where dose is matched to clinical indication); or iterative reconstruction. Contrast material: OMNI 350; Contrast volume: 75 ml; Contrast route: INTRAVENOUS (IV); REPORTING DATA: Count of CT and Cardiac NM exams in prior 12 months: This patient has received 0 known CTs and 0 known cardiac nuclear medicine studies in the 12 months prior to the current study. COMPARISON: CT kidney stone [id number] 01/02/2022 4:47 PM RADIATION DOSE METRICS: Total DLP (mGy-cm): 936.2 FINDINGS: Lungs: Visualized lungs are clear. Pleural spaces: No pleural effusion. Heart: Stable moderate enlargement of the visualized portions of the heart. Coronary arteries: Mild atherosclerotic calcification in the visualized coronary arteries. Liver: The liver is unremarkable. Gallbladder and bile ducts: The gallbladder is unremarkable. No biliary ductal dilatation. Pancreas: The pancreas is unremarkable. No pancreatic ductal dilatation. Spleen: The spleen is unremarkable. Adrenal glands: The right and left adrenal glands are unremarkable. Kidneys and ureters: Stable indeterminate hyperdense focus in the right kidney. Hounsfield units show density greater than expected for simple fluid. This measures 1.8 x 1.9 cm (series 3, image 40). Subcentimeter hypodense foci in both right and left kidneys that are too small to characterize, however likely represent small cysts. Simple cyst in the left kidney measuring 1.8 cm. The right and left ureters are unremarkable. Stomach and bowel: No obstruction. No mucosal thickening. Appendix: The appendix is visualized and is unremarkable. No findings to suggest acute appendicitis. Intraperitoneal space: No free intraperitoneal air. No ascites. No loculated fluid collections to suggest an abscess. Vasculature: Stable moderate to severe atherosclerotic calcifications in the visualized arteries. Findings are most pronounced in the right and left common iliac arteries with greater than 90% stenosis bilaterally. No evidence for aortic aneurysm or aortic dissection. Hepatic veins, portal veins, splenic vein, and SMV are patent. Lymph nodes: No lymphadenopathy. Urinary bladder: The bladder is unremarkable. Reproductive: Unremarkable as visualized. 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 Degenerative changes in the spine, sacroiliac joints, and hips. Soft tissues: No acute abnormality in the extra-abdominal soft tissues. CT/CT abdomen pelvis w con* [id number] IMPRESSION: 1. No acute abnormality in the abdomen or pelvis. 2. Stable indeterminate hyperdense focus in the right kidney. This could represent a hemorrhagic/proteinaceous cyst. 3. Stable moderate to severe atherosclerotic calcifications in the visualized arteries. Findings are most pronounced in the right and left common iliac arteries with greater than 90% stenosis bilaterally. 4. Incidental/nonacute findings are listed in the report. COMMENTS: Consistent with the [employer]'s Incidental Findings Committee white paper (J Am Matthew Radiol 2018): Any incidental renal lesion less than 1 cm or classified as too small to characterize, or any incidental cystic renal lesion characterized as simple-appearing, is likely benign. No follow-up imaging is recommended for these lesions per consensus recommendations based on imaging criteria.
[2023-08-11 18:08] LABS: Basophils # 0.1 10^3/uL (0.0-0.1); Basophils % 0.7 %; Eosinophils # 0.2 10^3/uL (0.0-0.8); Eosinophils % 2.8 %; Hematocrit 37.1 % (37-53); Lymphocytes # 1.6 10^3/uL (0.8-4.8); Lymphocytes % 21.7 %; Mean Corpuscular HGB Conc 31.5 g/dL (30-55); Mean Corpuscular Hemoglobin 30.1 pg (27-33); Mean Corpuscular Volume 95.4 fl (82-101); Mean Platelet Volume 12.4 fL (7.4-10.4); Monocytes # 0.8 10^3/uL (0.2-0.9); Monocytes % 11.2 %; Neutrophils # 4.51 10^3/uL (1.8-7.7); Neutrophils % 62.2 %; Nucleated Red Blood Cells % 0 %; Platelet Count 144 10^3/cmm (157-399); Red Blood Count 3.89 10^6/uL (3.85-5.65); Red Cell Distribution Width 14.7 % (12.1-15.1); White Blood Count 7.24 10^3/uL (3.29-11.43)
[2023-08-11 18:16] LABS: INR 0.92 (0.8-1.2)
[2023-08-11 18:17] LABS: Partial Thromboplastin Time 30.3 SECONDS (23.9-36.7)
[2023-08-11 18:24] LABS: Alanine Aminotransferase 23 U/L (0-41); Albumin Level 4.1 g/dL (3.5-5.2); Alkaline Phosphatase 108 U/L (40-130); Aspartate Amino Transferase 20 U/L (0-40); Calcium 8.9 mg/dL (8.5-10.5); Carbon Dioxide 21 mmol/L (22-29); Chloride 106 mmol/L (98-107); Globulin 2.5 g/dL (1.3-4.6); Glucose 114 mg/dL (65-115); Osmolality Calculated 319 mOsm/kg (285-295); Sodium 138 mmol/L (136-145); Total Bilirubin 0.3 mg/dL (0.15-1.2); Total Protein 6.6 g/dL (6.6-8.7)
[2023-08-11 18:26] LABS: Blood Urea Nitrogen 103 mg/dL (8-23)
[2023-08-11] MEDS: iohexol 350 mg/mL 500 mL Btl (per mL) IV (18:53)
--- NOTE | 2023-08-11 19:55 | P.HP_ITS ---
Providers/Chief Complaint 2 Primary Care Provider: Moody Moralez MD Chief Complaint: rectal bleed History of Present Illness Franki Read is a 73 year old male with history of diabetes, chronic kidney disease, cognitive impairment, hypertension, history of hemorrhoids, neuropathy presenting with chief complaint of bright bleed per rectum. Patient stating that he started noticing bright bleed per rectum in last 2 days which made him anxious, he has been noticing bleeding especially when he wipes himself he has not noticed gush of blood, low blood pressure, shortness of breath or chest pain. Patient has had colonoscopies which were positive for hemorrhoids no history of malignancy. In the ER he was diagnosed with acute on chronic kidney disease, high BUN, patient is on room air hemodynamically stable hemoglobin is 11 Patient is stating that he does not smoke or drink anymore, he lives alone, he has not seen a wellness coordinator yet patient is stating that his PCP has not changed his medications he takes multiple nephrotoxic agents including colchicine, irbesartan, meloxicam, Review of Systems 2 Const: Denies: fever(s) Eyes: Denies: change in vision ENMT: Denies: throat pain Card: Denies: chest pain Resp: Denies: dyspnea GI: Denies: abdominal pain : Denies: flank pain Musc: Denies: neck pain Skin/Breast: Denies: rash Neuro: Denies: headache(s) Psych: Reports: anxiety Endo: Denies: polyuria Medications/Allergies Home Medications Medication Instructions Recorded Confirmed Last Taken Type memantine 10 mg tablet 10 mg PO DAILY 08/26/19 07/19/23 01/02/22 History omeprazole 20 mg capsule,delayed 20 mg PO BID 08/26/19 07/19/23 01/02/22 History release tamsulosin 0.4 mg capsule 0.4 mg PO DAILY 08/26/19 07/19/23 01/02/22 History donepezil 5 mg tablet 5 mg PO DAILY 09/05/19 07/19/23 01/02/22 History aspirin 81 mg chewable tablet 81 mg PO DAILY 04/21/20 07/19/23 01/02/22 History (Ericka Chewable Low Dose Aspirin) furosemide 20 mg tablet 20 mg PO DAILY 04/21/20 07/19/23 01/02/22 History metoprolol succinate 25 mg capsule 25 mg PO DAILY 04/21/20 07/19/23 01/02/22 History sprinkle, ext. release 24 hr omega-3 fatty acids 1,000 mg 1,000 mg PO DAILY 04/21/20 07/19/23 01/02/22 History capsule (Fish Oil Concentrate) potassium chloride 10 mEq 10 meq PO DAILY 04/21/20 07/19/23 01/02/22 History tablet,extended release prenat.vits,sharon,bdo-srun-xgusq 1 tab PO DAILY 04/21/20 07/19/23 01/02/22 History amlodipine 5 mg tablet 5 mg PO DAILY 01/02/22 07/19/23 01/02/22 History colchicine 0.6 mg tablet 0.6 mg PO BID 01/02/22 07/19/23 01/02/22 History empagliflozin 10 mg tablet 10 mg PO DAILY 01/02/22 07/19/23 01/02/22 History (Jardiance) rosuvastatin 40 mg tablet (Crestor) 40 mg PO DAILY 01/02/22 07/19/23 01/02/22 History baclofen 20 mg tablet 10 mg (1/2 x 20 mg) PO QID #0 tabs 01/06/22 07/19/23 01/02/22 Rx ferrous gluconate 324 mg (37.5 mg 324 mg PO BIDWM #60 tabs 01/06/22 07/19/23 Unknown Rx iron) tablet irbesartan 150 mg tablet 150 mg PO DAILY #30 tabs 01/06/22 07/19/23 Unknown Rx sitagliptin phosphate 100 mg 100 mg PO DAILY #30 tabs 01/06/22 07/19/23 Unknown Rx tablet (Januvia) meloxicam 15 mg tablet 15 mg PO DAILY #30 tabs 01/17/23 07/19/23 Unknown Rx gabapentin 300 mg capsule 300 mg PO TID 02/06/23 07/19/23 Unknown History hinged knee brace #1 ea 02/14/23 07/19/23 Unknown Rx hydralazine 25 mg tablet 25 mg PO .qhs #20 tabs 05/05/23 07/19/23 Unknown Rx Allergies Allergy/AdvReac Type Severity Reaction Status Date / Time No Known Allergies Allergy Verified 07/19/23 11:01 PFSH Acute 2 PFSH: Medical History Sprain of collateral ligament of left knee Dementia Hypertension COPD (chronic obstructive pulmonary disease) Psychiatric care History of hypertension Hyperlipidemia History of gastroesophageal reflux (GERD) Sleep apnea Arthritis Diabetes mellitus History of fibromyalgia Generalized anxiety disorder Surgical History History of colonoscopy Hx of brain surgery Family History Other Cancer Diabetes Hypertension Social History Smoking and tobacco/nicotine status: former use of tobacco/nicotine Quit status (tobacco/nicotine): has quit using Year quit tobacco: 2004 Second hand smoke exposure: No Alcohol intake: former Substance/Drug Use: former Date of last use: 2022 Adopted: No Caregiver/support person: No Lives independently: Yes Household members: none Housing: Manufactured/Mobile home Marital status: Number of children: 1 Number of grandchildren: 1 Highest education level completed: 11th Grade service: No Current occupational status: retired Current occupational exposures/hazards: No 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 Pets and animals: Yes (4) Pets & animals: cat(s) Leisure activites: art and other Leisure activities details: visiting with friends, work in shop Sexually active: No Do you think of yourself as: Straight/Heterosexual Current gender identity: Male Etresa/Orthodox: None Special teresa needs: No Agree to transfusion: Yes Vitals/I&O/Wt Last Vital Signs Temp 98.3 F 08/11/23 16:50 Pulse 63 08/11/23 18:34 Resp 18 08/11/23 18:34 BP 91/47 08/11/23 18:34 Pulse Ox 95 08/11/23 18:34 O2 Del Method Room Air 08/11/23 18:34 O2 Flow Rate 2 08/11/23 16:56 Physical Exam 2 Narrative: Patient is hemodynamically stable Awake and alert Signs of fluid overload GCS 15 Currently on room air Pleasant and cooperative Appears stated age Nonfocal neuroexam No active bleeding Abdomen soft however distended Data 08/11/23 17:46 08/11/23 17:46 A&P Assessment and plan (1) Acute GI bleeding: (2) ROXANN (acute kidney injury): (3) History of fibromyalgia: (4) Dementia: (5) Sleep apnea: (6) Acute kidney injury superimposed on chronic kidney disease: Plan Bright bleed per rectum History of hemorrhoids No hemodynamic instability H&H stable I will discontinue aspirin Avoid DVT prophylaxis with anticoagulating agent If endoscopy is needed patient can get it done outpatient because he is stable at this point Acute on chronic kidney disease Worsening BUN without active signs of uremia Creatinine is worsening currently 3.1 Patient has not seen a wellness coordinator Patient multiple nephrotoxic agents I will discontinue irbesartan, meloxicam, Lives alone, history of dementia continue donepezil BPH continue tamsulosin Clinically patient looks fluid overloaded Acute diastolic heart failure I will give him IV Lasix monitor output correlate with creatinine Consistent carb diet DVT prophylaxis SCDs Attestations 2 Medical Necessity Statement*: Anticipating discharge within 48 hours Diagnoses Acute GI bleeding K92.2 ROXANN (acute kidney injury) N17.9 History of fibromyalgia Z87.39 Dementia F03.90 Sleep apnea G47.30 Acute kidney injury superimposed on chronic kidney disease N17.9; N18.9
[2023-08-11] MEDS: sodium chloride 0.9% 1,000 ML 999 ML IV (20:05)
[2023-08-11 20:35] LABS: Add Urine Microscopic? NO; Charge for UA Resulting for Rev
[2023-08-11 20:40] LABS: Bilirubin Urine Neg (Negative); Blood Urine Neg (Negative); Glucose Urine UA 2+ (Normal); Ketones Urine Negative (Negative); Leukocyte Esterase Urine Negative (Negative); Nitrate Urine Negative (Negative); Protein Urine Neg (Negative); Urine Appearance Clear (CLEAR); Urine Color Yellow (Yellow); Urobilinogen Urine Norm (Negative); pH Urine 5 (5-7)
[2023-08-11 20:58] LABS: Thyroid Stimulating Hormone 4.81 uIU/mL (0.27-4.20); Vitamin B12 479 pg/mL (232-1245)
[2023-08-11 21:22] LABS: Urine Random Sodium 71 mmol/L
[2023-08-11 21:27] LABS: Creatinine Urine, Random 41 mg/dL (39-259); Microalbumin Random Urine 2 ug/dL (0-20)
[2023-08-11 21:28] LABS: Microalbum Creatinine Ratio Ur 49 mg/dL (0-20)
[2023-08-11 21:42] LABS: Glucose Point of Care 93 mg/dL (70-110)
[2023-08-11] MEDS: FUROsemide 10 mg/mL SDV 2mL 20 MG IVP (21:57)
[2023-08-12] VITALS (7 sets, daily range): BP systolic 118–159; BP diastolic 52–78; PULSE 61–94; RESP 16–18; TEMP 36.4–37.3; O2SAT 90–97
[2023-08-12 05:47] LABS: Basophils # 0.1 10^3/uL (0.0-0.1); Basophils % 0.7 %; Eosinophils # 0.3 10^3/uL (0.0-0.8); Eosinophils % 3.5 %; Hematocrit 36.5 % (37-53); Lymphocytes # 1.8 10^3/uL (0.8-4.8); Lymphocytes % 22.1 %; Mean Corpuscular HGB Conc 31.8 g/dL (30-55); Mean Corpuscular Hemoglobin 30.1 pg (27-33); Mean Corpuscular Volume 94.6 fl (82-101); Mean Platelet Volume 12.1 fL (7.4-10.4); Monocytes # 0.9 10^3/uL (0.2-0.9); Monocytes % 11.6 %; Neutrophils % 61.2 %; Nucleated Red Blood Cells % 0 %; Platelet Count 164 10^3/cmm (157-399); Red Blood Count 3.86 10^6/uL (3.85-5.65); Red Cell Distribution Width 14.7 % (12.1-15.1); White Blood Count 8.01 10^3/uL (3.29-11.43)
[2023-08-12 06:08] LABS: Anion Gap 18.5 (5-19); Calcium 8.5 mg/dL (8.5-10.5); Carbon Dioxide 20 mmol/L (22-29); Chloride 106 mmol/L (98-107); Glucose 116 mg/dL (65-115); Magnesium 2.5 mg/dL (1.7-2.3); Osmolality Calculated 320 mOsm/kg (285-295); Phosphorus 5.2 mg/dL (2.5-4.5); Potassium 4.5 mmol/L (3.5-5.1); Sodium 140 mmol/L (136-145)
[2023-08-12 06:19] LABS: Blood Urea Nitrogen 94 mg/dL (8-23)
[2023-08-12 06:25] LABS: Glucose Point of Care 108 mg/dL (70-110)
--- NOTE | 2023-08-12 08:25 | P.PN_ITS ---
Subjective 2 Subjective: seen today he states he is missing most of his meds and i explained to him that its due to his kidney function otherwise he feels ok, no complaints Vitals/I&O/Wt Last Vital Signs Temp 97.5 F L 08/12/23 07:54 Pulse 61 08/12/23 07:54 Resp 17 08/12/23 07:54 BP 124/52 08/12/23 07:54 Pulse Ox 93 08/12/23 07:54 O2 Del Method Room Air 08/12/23 07:54 O2 Flow Rate 2 08/11/23 16:56 08/11/23 08/12/23 08/12/23 22:59 06:59 14:59 Intake Total 1000 / 1000 Balance 1000 / 1000 Physical Exam 2 Narrative: Patient is hemodynamically stable Awake and alert GCS 15 Currently on room air Pleasant and cooperative Appears stated age Nonfocal neuroexam No active bleeding Abdomen soft however distended Data 08/12/23 05:01 08/12/23 05:01 A&P Assessment and plan (1) Acute GI bleeding: (2) ROXANN (acute kidney injury): (3) History of fibromyalgia: (4) Dementia: (5) Sleep apnea: (6) Acute kidney injury superimposed on chronic kidney disease: Plan Bright bleed per rectum History of hemorrhoids No hemodynamic instability H&H stable I will discontinue aspirin Avoid DVT prophylaxis with anticoagulating agent If endoscopy is needed patient can get it done outpatient because he is stable at this point - continue to monitor. probably this is a hemmorhoidal bleed Acute on chronic kidney disease Worsening BUN without active signs of uremia Creatinine is worsening currently 3.1 Patient has not seen a speed operator Patient multiple nephrotoxic agents I will discontinue irbesartan, meloxicam, consult nephrology. patient would like to see. Lives alone, history of dementia continue donepezil BPH continue tamsulosin Clinically patient looks fluid overloaded Acute diastolic heart failure Continue Lasix monitor output correlate with creatinine Consistent carb diet DVT prophylaxis SCDs Attestations 2 Medical Necessity Statement*: Requires hospitalization for ROXANN Diagnoses Acute GI bleeding K92.2 ROXANN (acute kidney injury) N17.9 History of fibromyalgia Z87.39 Dementia F03.90 Sleep apnea G47.30 Acute kidney injury superimposed on chronic kidney disease N17.9; N18.9
[2023-08-12] MEDS: donepezil 5 MG Tablet PO (08:33)
[2023-08-12] MEDS: tamsulosin 0.4 mg Capsule PO (08:33)
[2023-08-12] MEDS: amlodipine 5 mg Tablet PO (08:33)
[2023-08-12] MEDS: colchicine 0.6 mg Tablet PO (10:09)
--- NOTE | 2023-08-12 13:00 | P.CONIM_ITS ---
Providers/Reason For Consult 2 Consulting Physician/Specialty*: Sheila Chilel D.O. Reason for Consult*: Acute kidney injury. Attending Physician: Lissy Chand MD Primary Care Provider: Moody Moralez MD History of Present Illness History of Present Illness Franki Read is a 73 year old male presented to ER for evaluation. Reports BRBPR for a couple of days. Not feeling well for a few days: weakness, dizziness. Reports neuropathy and fibromyalgia. Has not had gout in at least 10 months. Does not check blood sugar at home. Does not know when jardiance was started. Review of Systems 2 Card: Denies: chest pain Resp: Denies: dyspnea GI: Reports: hematochezia; Denies: abdominal pain : Denies: difficulty urinating Medications/Allergies Home Medications Medication Instructions Recorded Confirmed Last Taken Type memantine 10 mg tablet 10 mg PO DAILY 08/26/19 08/12/23 01/02/22 History omeprazole 20 mg capsule,delayed 20 mg PO BID 08/26/19 08/12/23 01/02/22 History release tamsulosin 0.4 mg capsule 0.4 mg PO DAILY 08/26/19 08/12/23 01/02/22 History aspirin 81 mg chewable tablet 81 mg PO DAILY 04/21/20 08/12/23 01/02/22 History (Ericka Chewable Low Dose Aspirin) furosemide 20 mg tablet 20 mg PO DAILY 04/21/20 08/12/23 01/02/22 History metoprolol succinate 25 mg capsule 25 mg PO DAILY 04/21/20 08/12/23 01/02/22 History sprinkle, ext. release 24 hr potassium chloride 10 mEq 10 meq PO DAILY 04/21/20 08/12/23 01/02/22 History tablet,extended release amlodipine 5 mg tablet 5 mg PO DAILY 01/02/22 08/12/23 01/02/22 History colchicine 0.6 mg tablet 0.6 mg PO BID 01/02/22 08/12/23 01/02/22 History empagliflozin 10 mg tablet 10 mg PO DAILY 01/02/22 08/12/23 01/02/22 History (Jardiance) baclofen 20 mg tablet 10 mg (1/2 x 20 mg) PO QID #0 tabs 01/06/22 08/12/23 01/02/22 Rx sitagliptin phosphate 100 mg 100 mg PO DAILY #30 tabs 01/06/22 08/12/23 Unknown Rx tablet (Januvia) gabapentin 300 mg capsule 300 mg PO TID 02/06/23 08/12/23 Unknown History hinged knee brace #1 ea 02/14/23 08/12/23 Unknown Rx hydralazine 25 mg tablet 25 mg PO .qhs #20 tabs 05/05/23 08/12/23 Unknown Rx allopurinol 100 mg tablet 200 mg PO DAILY 08/12/23 08/12/23 Unknown History levofloxacin 500 mg tablet 500 mg PO DAILY 08/12/23 08/12/23 Unknown History lisinopril 2.5 mg tablet 2.5 mg PO DAILY 08/12/23 08/12/23 Unknown History omega 3-vgu-cbr-fish oil 1,000 mg 1 cap PO DAILY 08/12/23 08/12/23 Unknown History (120 mg-180 mg) capsule (Fish Oil) prazosin 1 mg capsule 1 mg PO BEDTIME 08/12/23 08/12/23 Unknown History pregabalin 75 mg capsule 75 mg PO TID 08/12/23 08/12/23 Unknown History rosuvastatin 40 mg tablet 40 mg PO DAILY 08/12/23 08/12/23 Unknown History spironolactone 50 mg tablet 50 mg PO DAILY 08/12/23 08/12/23 Unknown History topiramate 25 mg tablet 25 mg PO BID 08/12/23 08/12/23 Unknown History Allergies Allergy/AdvReac Type Severity Reaction Status Date / Time No Known Allergies Allergy Verified 08/12/23 08:58 Current Medications Generic Name Dose Route Start Last Admin Trade Name Sumeet PRN Reason Stop Dose Admin Amlodipine Besylate 5 mg 08/12/23 09:00 08/12/23 08:33 Amlodipine 5 Mg Tablet PO 5 mg DAILY COSTA Administration Colchicine 0.6 mg 08/12/23 09:00 08/12/23 10:09 Colchicine 0.6 Mg Tablet PO 0.6 mg BID COSTA Administration Donepezil HCl 5 mg 08/12/23 09:00 08/12/23 08:33 Donepezil 5 Mg Tablet PO 5 mg DAILY COSTA Administration Enoxaparin Sodium 30 mg 08/12/23 09:00 08/12/23 08:35 Enoxaparin 30 Mg/0.3 Ml Syringe SUBCUT Not Given Q24H [facility]STA Furosemide 20 mg 08/11/23 21:00 08/11/23 21:57 Furosemide 10 Mg/Ml Sdv 2ml IVP 20 mg Q24H COSTA Administration Insulin Human Lispro 0 unit 08/12/23 08:00 08/12/23 08:01 Insulin Lispro 100 Unit/1 Ml SUBCUT Not Given TIDWM [facility] Protocol Non-Formulary Medication 10 mg 08/12/23 09:00 08/12/23 08:35 Memantine PO Not Given DAILY COSTA Pantoprazole Sodium 40 mg 08/12/23 09:00 08/12/23 08:36 Pantoprazole 40 Mg Sdv IVP Not Given BID COSTA Tamsulosin HCl 0.4 mg 08/12/23 09:00 08/12/23 08:33 Tamsulosin 0.4 Mg Capsule PO 0.4 mg DAILY COSTA Administration PFSH Acute 2 PFSH: Medical History Sprain of collateral ligament of left knee Dementia Hypertension COPD (chronic obstructive pulmonary disease) Psychiatric care History of hypertension Hyperlipidemia History of gastroesophageal reflux (GERD) Sleep apnea Arthritis Diabetes mellitus History of fibromyalgia Generalized anxiety disorder Surgical History History of colonoscopy Hx of brain surgery Family History Other Cancer Diabetes Hypertension Social History Smoking and tobacco/nicotine status: former use of tobacco/nicotine Quit status (tobacco/nicotine): has quit using Year quit tobacco: 2004 Second hand smoke exposure: No Alcohol intake: former Substance/Drug Use: former Date of last use: 2022 Adopted: No Caregiver/support person: No Lives independently: Yes Household members: none Housing: Manufactured/Mobile home Marital status: Number of children: 1 Number of grandchildren: 1 Highest education level completed: 11th Grade service: No Current occupational status: retired Current occupational exposures/hazards: No 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 Pets and animals: Yes (4) Pets & animals: cat(s) Leisure activites: art and other Leisure activities details: visiting with friends, work in shop Sexually active: No Do you think of yourself as: Straight/Heterosexual Current gender identity: Male Teresa/Latter Day: None Special teresa needs: No Agree to transfusion: Yes Vitals/I&O/Wt Last Vital Signs Temp 97.8 F 08/12/23 11:38 Pulse 87 08/12/23 11:38 Resp 16 08/12/23 11:38 BP 159/66 08/12/23 11:38 Pulse Ox 97 08/12/23 11:38 O2 Del Method Room Air 08/12/23 11:38 O2 Flow Rate 2 08/11/23 16:56 08/11/23 08/12/23 08/12/23 22:59 06:59 14:59 Intake Total 1000 / 1000 Balance 1000 / 1000 Physical Exam 2 Const: COMMON NORMALS: no acute distress and alert Extremity: NARRATIVE EXTREMITY EXAM: 1+ right leg swelling, trace left Neuro: SENSORIUM/ORIENTATION: Yes alert Data 08/12/23 05:01 08/12/23 05:01 Other Labs: Ca 8.5, Phos 5.2, Mg 2.5 urine Na 71 (on loop diuretic) urine albumin/Cr ratio 49 urinalysis 2+ glucose, otherwise normal Serum Cr 2.[address] Abd/Pel: Radiologist's impression: Adrenal glands: The right and left adrenal glands are unremarkable. Kidneys and ureters: Stable indeterminate hyperdense focus in the right kidney. Hounsfield units show density greater than expected for simple fluid. This measures 1.8 x 1.9 cm (series 3, image 40). Subcentimeter hypodense foci in both right and left kidneys that are too small to characterize, however likely represent small cysts. Simple cyst in the left kidney measuring 1.8 cm. The right and left ureters are unremarkable. CXR: Radiologist's impression: Lungs: Lungs are clear bilaterally. Pleural spaces: No pleural effusion. No pneumothorax. Heart/Mediastinum: Stable moderate enlargement of the cardiac silhouette. Mediastinal contours are unremarkable. Vasculature: Stable vascular calcifications in the aorta. Bones/joints: Unremarkable for age. Echo: Radiologist's impression: 2021: LV systolic function is normal with EF of 55-60% Diastolic function is normal Trace mitral regurgitation Trace tricuspid regurgitation Mild pulmonic regurgitation Other data: seen via telemedicine with assistance of RN at bedside verbal consent obtained for telemedicine consult from Franki Read A&P Assessment and plan (1) Acute kidney injury superimposed on chronic kidney disease: Plan 1. Acute kidney injury, nonoliguric. Likely due to volume depletion and effects of ARB, SGLT2i, loop diuretic, COXi. 2. Chronic kidney disease 3. Hypertension 4. Asymmetric lower extremity edema, rule-out DVT 5. DM Recommend: discontinue furosemide, meloxicam, irbesartan, jardiance, colchicine. Venous doppler right lower extremity. Check CK, uric acid, K/L, SPEP. Consult Attestations 2 Medical Necessity Statement: see above Time Spent in Patient Care: 16 - 35 minutes Coding Level of Care Code Acute Code for Chg Fwd Diagnoses Acute kidney injury superimposed on chronic kidney disease N17.9; N18.9
[2023-08-12 14:05] LABS: Phosphorus 5.2 mg/dL (2.5-4.5); Uric Acid 5.9 mg/dL (3.4-7.0)
[2023-08-12 14:10] LABS: Creatine Phosphokinase 399 U/L (39-308)
[2023-08-12 14:49] LABS: CKMB 6.8 ng/mL (0-10.4); CKMB Relative Index 1.7 % (0.0-5.3)
--- NOTE | 2023-08-12 16:29 | USR_ITS ---
PROCEDURE INFORMATION: Exam: US Duplex Lower Extremity Veins, Bilateral Exam date and time: 08/12/2023 5:05 PM Age: 73 years old Clinical indication: Screening exam; Additional info: R/O dvt TECHNIQUE: Imaging protocol: Real-time duplex ultrasound of the bilateral extremities with 2-D huntley scale, color Doppler flow and spectral waveform analysis including responses to compression and other maneuvers (when performed) with image documentation. Complete exam focused on the lower extremity veins. COMPARISON: MR knee LT wo con* [id number] 08/26/2022 8:53 AM FINDINGS: Veins: patent without thrombus. Normal Doppler waveforms. Normal compressibility and/or augmentation response. US/[place] [id number] IMPRESSION: No evidence of deep vein thrombosis.
[2023-08-12 22:01] LABS: Glucose Point of Care 151 mg/dL (70-110)
[2023-08-13 04:00] VITALS: BP 150/73; PULSE 77; RESP 17; TEMP 37.8; O2SAT 92
[2023-08-13 04:42] LABS: Basophils % 0.6 %; Eosinophils # 0.1 10^3/uL (0.0-0.8); Eosinophils % 1.3 %; Hematocrit 38.3 % (37-53); Lymphocytes # 0.5 10^3/uL (0.8-4.8); Lymphocytes % 6.8 %; Mean Corpuscular HGB Conc 31.9 g/dL (30-55); Mean Corpuscular Hemoglobin 30.1 pg (27-33); Mean Corpuscular Volume 94.6 fl (82-101); Mean Platelet Volume 12.3 fL (7.4-10.4); Monocytes % 14.5 %; Neutrophils # 5.31 10^3/uL (1.8-7.7); Neutrophils % 76.2 %; Nucleated Red Blood Cells % 0 %; Platelet Count 143 10^3/cmm (157-399); Red Blood Count 4.05 10^6/uL (3.85-5.65); Red Cell Distribution Width 14.7 % (12.1-15.1); White Blood Count 6.96 10^3/uL (3.29-11.43)
[2023-08-13 05:03] LABS: Anion Gap 17.4 (5-19); Blood Urea Nitrogen 63 mg/dL (8-23); Calcium 8.9 mg/dL (8.5-10.5); Carbon Dioxide 22 mmol/L (22-29); Chloride 107 mmol/L (98-107); Glucose 120 mg/dL (65-115); Magnesium 2.2 mg/dL (1.7-2.3); Osmolality Calculated 313 mOsm/kg (285-295); Potassium 4.4 mmol/L (3.5-5.1); Sodium 142 mmol/L (136-145)
[2023-08-13 06:00] VITALS: BMI 37.5
[2023-08-13 07:15] LABS: Glucose Point of Care 117 mg/dL (70-110)
[2023-08-13 08:00] VITALS: BP 162/68; PULSE 79; PULSE 85; RESP 16; TEMP 36.3; O2SAT 93; O2SAT 94
[2023-08-13] MEDS: amlodipine 5 mg Tablet PO (08:13)
[2023-08-13] MEDS: donepezil 5 MG Tablet PO (08:13)
[2023-08-13] MEDS: tamsulosin 0.4 mg Capsule PO (08:13)
--- NOTE | 2023-08-13 09:08 | P.PN_ITS ---
Subjective 2 Subjective: wants to go home feels OK Medications: Reviewed: Yes Vitals/I&O/Wt Last Vital Signs Temp 97.4 F L 08/13/23 08:00 Pulse 79 08/13/23 08:00 Resp 16 08/13/23 08:00 BP 162/68 08/13/23 08:00 Pulse Ox 93 08/13/23 08:00 O2 Del Method Room Air 08/13/23 08:00 O2 Flow Rate 2 08/11/23 16:56 08/12/23 08/13/23 08/13/23 22:59 06:59 14:59 Intake Total 480 / 720 Output Total 800 / 800 Balance -320 / -80 Weight last 48 hrs Weight 99.155 kg Physical Exam 2 Const: COMMON NORMALS: no acute distress and alert Extremity: NARRATIVE EXTREMITY EXAM: 1+ right leg swelling, trace left Neuro: SENSORIUM/ORIENTATION: Yes alert Data 08/13/23 04:15 08/13/23 04:15 A&P Assessment and plan (1) Acute kidney injury superimposed on chronic kidney disease: Plan 1. Acute kidney injury, nonoliguric. Likely due to volume depletion and effects of ARB, SGLT2i, loop diuretic, COXi. 2. Chronic kidney disease 3. Hypertension 4. Asymmetric lower extremity edema, ruled out DVT 5. DM Recommed : arrange out pt Nephrology and Hematology f/u ( has elevated [place] levels ) can DC home , arrange follow up labs in 1 week Do not restart ACEI, Jardiance fUROSEMINDE ,Colchicine Attestations 2 Medical Necessity Statement*: per medicine Coding Level of Care Code Acute Code for Chg Fwd Diagnoses Acute kidney injury superimposed on chronic kidney disease N17.9; N18.9
--- NOTE | 2023-08-13 11:46 | PM.DCS ---
Discharge Providers Date of Admission: 08/11/23 20:38 Date of Discharge: August 13, 2023 Attending Provider at Admission: Palmer Jimenes MD Attending Provider at Discharge: Lissy Chand MD Primary Care Provider: Moody Moralez MD Diagnoses at Discharge Discharge Diagnosis (1) Acute kidney injury superimposed on chronic kidney disease: Status: Acute Reason for Visit Reason for Visit: rectal bleed Brief History: As per Dr. Jimenes Franki Read is a 73 year old male with history of diabetes, chronic kidney disease, cognitive impairment, hypertension, history of hemorrhoids, neuropathy presenting with chief complaint of bright bleed per rectum. Patient stating that he started noticing bright bleed per rectum in last 2 days which made him anxious, he has been noticing bleeding especially when he wipes himself he has not noticed gush of blood, low blood pressure, shortness of breath or chest pain. Patient has had colonoscopies which were positive for hemorrhoids no history of malignancy. In the ER he was diagnosed with acute on chronic kidney disease, high BUN, patient is on room air hemodynamically stable hemoglobin is 11 Patient is stating that he does not smoke or drink anymore, he lives alone, he has not seen a store team member yet patient is stating that his PCP has not changed his medications he takes multiple nephrotoxic agents including colchicine, irbesartan, meloxicam, Hospital Course Hospital Course Patient admitted for acute on chronic CKD. Nephrotoxic agents were held. Kidney function started to improve. He was also seen by store team member during hospital stay. Patient also experienced bright red blood per rectum. Has a history of hemorrhoids. Hemoglobin remained stable. Patient discharged home in stable condition. He does live alone and has a history of dementia. Continue donepezil. Patient says he would like to go home. Will follow-up with primary care physician. Physical Exam Narrative: Patient is hemodynamically stable Awake and alert GCS 15 Currently on room air Pleasant and cooperative Appears stated age Nonfocal neuroexam No active bleeding Abdomen soft however distended Discharge Data Studies Completed and Pending Completed Studies During Hospitalization Category Date Time Status CT abdomen pelvis w con* [id number] Stat Cat Scan 08/11/23 17:38 Completed XR chest 1V portable [id number] Stat Exams 08/11/23 16:40 Completed US venous duplex lower extremity bilat [CV venous Ultrasound 08/12/23 16:29 [place] [id number]] Routine Pending at discharge Category Date Time Status KAPPA/LAMBDA Light Free Serum Routine Lab 08/12/23 05:01 Received Total Protein Electrophoresis Routine Lab 08/12/23 05:01 Received Radiology Impressions Chest X-Ray 08/11/23 16:40 IMPRESSION: 1. No acute cardiopulmonary process. 2. Incidental/nonacute findings are listed in the report. Abdomen/Pelvis CT 08/11/23 17:38 IMPRESSION: 1. No acute abnormality in the abdomen or pelvis. 2. Stable indeterminate hyperdense focus in the right kidney. This could represent a hemorrhagic/proteinaceous cyst. 3. Stable moderate to severe atherosclerotic calcifications in the visualized arteries. Findings are most pronounced in the right and left common iliac arteries with greater than 90% stenosis bilaterally. 4. Incidental/nonacute findings are listed in the report. COMMENTS: Consistent with the [employer]'s Incidental Findings Committee white paper (J Am Matthew Radiol 2018): Any incidental renal lesion less than 1 cm or classified as too small to characterize, or any incidental cystic renal lesion characterized as simple-appearing, is likely benign. No follow-up imaging is recommended for these lesions per consensus recommendations based on imaging criteria. Venous Duplex 08/12/23 16:29 IMPRESSION: No evidence of deep vein thrombosis. Laboratory Results WBC 6.96 10^3/uL (3.29-11.43) 08/13/23 04:15 RBC 4.05 10^6/uL (3.85-5.65) 08/13/23 04:15 Hgb 12.20 g/dL (11.27-16.99) 08/13/23 04:15 Hct 38.3 % (37-53) 08/13/23 04:15 MCV 94.6 fl (82-101) 08/13/23 04:15 MCH 30.1 pg (27-33) 08/13/23 04:15 MCHC 31.9 g/dL (30-55) 08/13/23 04:15 RDW 14.7 % (12.1-15.1) 08/13/23 04:15 Plt Count 143 10^3/cmm (157-399) L 08/13/23 04:15 MPV 12.3 fL (7.4-10.4) H 08/13/23 04:15 Neut % (Auto) 76.2 % 08/13/23 04:15 Lymph % (Auto) 6.8 % 08/13/23 04:15 [place] % (Auto) 14.5 % 08/13/23 04:15 Eos % (Auto) 1.3 % 08/13/23 04:15 Baso % (Auto) 0.6 % 08/13/23 04:15 Neut # (Auto) 5.31 10^3/uL (1.8-7.7) 08/13/23 04:15 Lymph # (Auto) 0.5 10^3/uL (0.8-4.8) L 08/13/23 04:15 [place] # (Auto) 1.0 10^3/uL (0.2-0.9) H 08/13/23 04:15 Eos # (Auto) 0.1 10^3/uL (0.0-0.8) 08/13/23 04:15 Baso # (Auto) 0.0 10^3/uL (0.0-0.1) 08/13/23 04:15 Nucleated RBC % (auto) 0 % 08/13/23 04:15 Nucleated RBCs # 0.0 /100WBC 08/13/23 04:15 PT 12.60 SECONDS (12.1-14.9) 08/11/23 17:46 INR 0.92 (0.8-1.2) 08/11/23 17:46 APTT 30.3 SECONDS (23.9-36.7) 08/11/23 17:46 Sodium 142 mmol/L (136-145) 08/13/23 04:15 Potassium 4.4 mmol/L (3.5-5.1) 08/13/23 04:15 Chloride 107 mmol/L (98-107) 08/13/23 04:15 Carbon Dioxide 22 mmol/L (22-29) 08/13/23 04:15 Anion Gap 17.4 (5-19) 08/13/23 04:15 BUN 63 mg/dL (8-23) H 08/13/23 04:15 Creatinine 2.1 mg/dL (0.7-1.2) H 08/13/23 04:15 GFR Calculation Not Reportable 08/13/23 04:15 Glucose 120 mg/dL (65-115) H 08/13/23 04:15 POC Glucose 117 mg/dL (70-110) H 08/13/23 06:52 Calculated Osmolality 313 mOsm/kg (285-295) H 08/13/23 04:15 Uric Acid 5.9 mg/dL (3.4-7.0) 08/12/23 05:01 Calcium 8.9 mg/dL (8.5-10.5) 08/13/23 04:15 Phosphorus 5.2 mg/dL (2.5-4.5) H 08/12/23 05:01 Phosphorus 5.2 mg/dL (2.5-4.5) H 08/12/23 05:01 Magnesium 2.2 mg/dL (1.7-2.3) 08/13/23 04:15 Total Bilirubin 0.3 mg/dL (0.15-1.2) 08/11/23 17:46 AST 20 U/L (0-40) 08/11/23 17:46 ALT 23 U/L (0-41) 08/11/23 17:46 Alkaline Phosphatase 108 U/L (40-130) 08/11/23 17:46 Creatine Kinase 399 U/L (39-308) H* 08/12/23 05:01 CK-MB (CK-2) 6.8 ng/mL (0-10.4) 08/12/23 05:01 CK-MB (CK-2) Rel Index 1.7 % (0.0-5.3) 08/12/23 05:01 Total Protein 6.6 g/dL (6.6-8.7) 08/11/23 17:46 Albumin 4.1 g/dL (3.5-5.2) 08/11/23 17:46 Globulin 2.5 g/dL (1.3-4.6) 08/11/23 17:46 Vitamin B12 479 pg/mL (232-1245) 08/11/23 17:46 TSH 4.81 uIU/mL (0.27-4.20) H 08/11/23 17:46 Urine Color Yellow (Yellow) 08/11/23 20:20 Urine Appearance Clear (CLEAR) 08/11/23 20:20 Urine pH 5 (5-7) 08/11/23 20:20 Ur Specific [place] 1.010 (1.005-1.030) 08/11/23 20:20 Urine Protein Neg (Negative) 08/11/23 20:20 Urine Glucose (UA) 2+ (Normal) H 08/11/23 20:20 Urine Ketones Negative (Negative) 08/11/23 20:20 Urine Blood Neg (Negative) 08/11/23 20:20 Urine Nitrate Negative (Negative) 08/11/23 20:20 Urine Bilirubin Neg (Negative) 08/11/23 20:20 Urine Urobilinogen Norm mg/dL (Negative) 08/11/23 20:20 Ur Leukocyte Esterase Negative (Negative) 08/11/23 20:20 Ur Random Microalbumin 2 ug/dL (0-20) 08/11/23 20:20 Ur Random Sodium 71 mmol/L 08/11/23 20:20 Urine Creatinine 41 mg/dL (39-259) 08/11/23 20:20 Microalb/Creat Ratio 49 mg/dL (0-20) H 08/11/23 20:20 Vitals Last Vital Signs Temp 97.4 F L 08/13/23 08:00 Pulse 79 08/13/23 08:00 Resp 16 08/13/23 08:00 BP 162/68 08/13/23 08:00 Pulse Ox 93 08/13/23 08:00 O2 Del Method Room Air 08/13/23 08:00 O2 Flow Rate 2 08/11/23 16:56 Discharge Plan Discharge Patient Disposition: Home Condition: Stable Prescriptions: Continued metoprolol succinate 25 mg capsule,sprinkle,ER 24hr 25 mg PO DAILY aspirin [Ericka Chewable Aspirin] 81 mg tablet,chewable 81 mg PO DAILY (DME) hinged knee brace See Rx Instructions .Route .MEDSUPPLY Qty: 1 0RF Rx Instructions: As directed omeprazole 20 mg capsule,delayed release(DR/EC) 20 mg PO BID memantine 10 mg tablet 10 mg PO DAILY tamsulosin 0.4 mg capsule 0.4 mg PO DAILY baclofen 20 mg tablet 10 mg PO QID Qty: 0 0RF omega 2-lrg-wpp-fish oil [Fish Oil] 1,000 mg (120 mg-180 mg) Capsule 1 cap PO DAILY prazosin 1 mg capsule 1 mg PO BEDTIME topiramate 25 mg tablet 25 mg PO BID allopurinol 100 mg tablet 200 mg PO DAILY levofloxacin 500 mg tablet 500 mg PO DAILY rosuvastatin 40 mg tablet 40 mg PO DAILY pregabalin 75 mg capsule 75 mg PO TID Changed amlodipine 5 mg Tablet 10 mg PO DAILY Qty: 30 0RF Discontinued furosemide 20 mg tablet 20 mg PO DAILY potassium chloride 10 mEq tablet extended release 10 meq PO DAILY colchicine 0.6 mg Tablet 0.6 mg PO BID Jardiance 10 mg Tablet 10 mg PO DAILY hydralazine 25 mg tablet 25 mg PO .qhs Qty: 20 0RF lisinopril 2.5 mg tablet 2.5 mg PO DAILY spironolactone 50 mg tablet 50 mg PO DAILY No Action Anusol-HC 25 mg suppository 25 mg FL TID 28 Days Qty: 100 0RF colchicine 0.6 mg tablet 0.6 mg PO BID PRN (Reason: GOUT) lisinopril 2.5 mg tablet 2.5 mg PO DAILY spironolactone 50 mg tablet 25 mg PO DAILY Jardiance 25 mg tablet 25 mg PO DAILY Discharge Orders: Discharge Order (Routine); Ordered 08/13/23 Ordered By: Lissy Chand Other Ambulatory Orders: Basic Metabolic Panel (Q7D) Timeframe: 20230820 Facility: [facility] - Location: Lab - Main Lab Ordered By: Lissy Jagruti Basic Metabolic Panel (Q7D) Timeframe: 20230827 Facility: [facility] - Location: Lab - Main Lab Ordered By: Lissy Jagruti Basic Metabolic Panel (Q7D) Timeframe: 20230903 Facility: [facility] - Location: Lab - Main Lab Ordered By: Lissy Chand Referrals: Moody Moralez MD [Primary Care Provider] - 1-3 days (Please follow up within a week with . You will need to call [phone] Monday to set this appointment up. ) Yandel Flores MD [Hospitalist] - 7-10 days (Please call [phone] Monday to set up an appointment to see Dr Flores. Elevated kappa light chains) Discharge Diet: Cardiac and Diabetic Discharge Activity: Resume usual activity Patient Instructions: Gastrointestinal Bleeding (DC), Acute Kidney Injury (DC), Opioid Safety Activity Restrictions/Additional Instructions: Please recheck your blood pressure twice a day and see primary care physician as soon as possible for optimization of blood pressure medications and diabetes medications. You need to have your blood drawn again in 3 days and then again in one week. Discharge Attestations Time Spent in Discharge Care*: greater than 30 min Status at Discharge: Cognitive status at discharge: cognitively intact, Behavioral status at discharge: cooperative, Quality Metrics Clinical Quality Measures [ No reported AMI, CVA or VTE this stay] Coding Level of Care Code Acute Code for Chg Fwd Diagnoses Acute kidney injury superimposed on chronic kidney disease N17.9; N18.9
[2023-08-13 12:22] LABS: Estmated Average Glucose 131; Hemoglobin A1C 6.2 % (4.0-6.0)
[2023-08-13 12:36] VITALS: BP 162/68; PULSE 79; RESP 16; TEMP 36.3; O2SAT 93
[2023-08-15 14:54] LABS: KAPPA LIGHT CHAIN, FREE, SERUM 57.4 mg/L (3.3-19.4); KAPPA/LAMBDA LIGHT CHAINS FREE 2.02 (0.26-1.65); LAMBDA LIGHT CHAIN, FREE, SERU 28.4 mg/L (5.7-26.3)
[2023-08-15 16:23] LABS: PROTEIN, TOTAL 5.9 g/dL (6.1-8.1)
[2023-08-16 09:55] LABS: ALBUMIN 3.7 g/dL (3.8-4.8); ALPHA 1 GLOBULIN 0.2 g/dL (0.2-0.3); ALPHA 2 GLOBULIN 0.6 g/dL (0.5-0.9); BETA 1 GLOBULIN 0.4 g/dL (0.4-0.6); BETA 2 GLOBULIN 0.3 g/dL (0.2-0.5); GAMMA GLOBULIN 0.7 g/dL (0.8-1.7)
== END 2023-08-13 12:38 | disposition home or self-care (01) ==
LOC: ER 20:37 → MEDSURG 20:39
PROVIDERS: Family Medicine; Internal Medicine; Admitting Provider Internal Medicine; Emergency Provider Emergency Medicine; PCP Family Medicine; Visit Provider Internal Medicine
DX: N17.9 Acute kidney failure, unspecified (principal); E11.22 Type 2 diabetes mellitus with diabetic chronic kidney disease; I12.9 Hypertensive chronic kidney disease with stage 1 through stage 4 chronic kidney disease, or unspecified chronic kidney disease; N18.9 Chronic kidney disease, unspecified; K62.5 Hemorrhage of anus and rectum; R60.0 Localized edema; Z79.82 Long term (current) use of aspirin; J44.9 Chronic obstructive pulmonary disease, unspecified; M79.7 Fibromyalgia; F41.1 Generalized anxiety disorder; G47.30 Sleep apnea, unspecified; Z87.891 Personal history of nicotine dependence; F17.210 Nicotine dependence, cigarettes, uncomplicated; U07.1 COVID-19; R53.1 Weakness; E11.42 Type 2 diabetes mellitus with diabetic polyneuropathy; F12.20 Cannabis dependence, uncomplicated; F41.9 Anxiety disorder, unspecified; K21.9 Gastro-esophageal reflux disease without esophagitis; E78.5 Hyperlipidemia, unspecified
CPT/HCPCS: 36415; 36416; 71045; 74177; 80048; 80053; 81001; 81003; 82044; 82550; 82553; 82607; 82962; 83036; 83690; 83735; 83883; 84100; 84155; 84165; 84300; 84443; 84550; 85007; 85025; 85610; 85730; 86140; 87426; 87804; 93005; 93970; 94660; 96361; 96365; 96372; 96374; 96375; 97110; 97116; 97161; 97162; 97530; 99285; G0378; J0248; J1650; J1815; J1940; J2405; J7030; Q3014; Q9967

== ENCOUNTER 2023-08-14 15:03 | Observation (INO) | payer MEDICARE, MEDICAID, SELFPAY ==
[2023-08-14] VITALS (8 sets, daily range): BP systolic 122–169; BP diastolic 56–97; PULSE 64–116; RESP 16–18; TEMP 36.8–37.1; O2SAT 92–97; BMI 37.4; BMI 36.6
--- NOTE | 2023-08-14 15:52 | ED_ITS ---
HPI - GI Bleed 2 General: Chief complaint: GI Bleed Stated complaint: bleeding in stool,weakness,dizzy Time Seen by Provider: 08/14/23 15:39 Source: patient Mode of arrival: ambulatory History of Present Illness: 73-year-old male was seen 3 days ago adm itted for acute kidney injury and GI bleed. He was discharged home yesterday with a hemoglobin of 12.2. At the time of admission his hemoglobin was 11.7. Comes in today he is accompanied by a friend he states he has been more altered and is continue to have blood in the stool. Also reports feeling very weak and unable to get up and get around. Patient smells strongly of marijuana. MD complaint: gross hematochezia Onset (ago): day(s) Relieving factors: none Exacerbating factors: none Context: history of GI bleed Associated symptoms: Denies abdominal pain, chills, fever(s) or rash Review of Systems 2 Const: Denies: fever(s) or chills Card: Denies: chest pain Resp: Denies: dyspnea GI: Denies: abdominal pain : Denies: dysuria, urinary frequency or urinary urgency Musc: Denies: neck pain or back pain Skin/Breast: Denies: rash PFSH ED 2 PFSH: Medical History Sprain of collateral ligament of left knee Dementia Hypertension COPD (chronic obstructive pulmonary disease) Psychiatric care History of hypertension Hyperlipidemia History of gastroesophageal reflux (GERD) Sleep apnea Arthritis Diabetes mellitus History of fibromyalgia Generalized anxiety disorder Surgical History History of colonoscopy Hx of brain surgery Family History Other Cancer Diabetes Hypertension Social History Smoking and tobacco/nicotine status: former use of tobacco/nicotine Quit status (tobacco/nicotine): has quit using Year quit tobacco: 2004 Second hand smoke exposure: No Alcohol intake: former Substance/Drug Use: former Date of last use: 2022 Adopted: No Caregiver/support person: No Lives independently: Yes Household members: none Housing: Manufactured/Mobile home Marital status: Number of children: 1 Number of grandchildren: 1 Highest education level completed: 11th Grade service: No Current occupational status: retired Current occupational exposures/hazards: No 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 Pets and animals: Yes (4) Pets & animals: cat(s) Leisure activites: art and other Leisure activities details: visiting with friends, work in shop Sexually active: No Do you think of yourself as: Straight/Heterosexual Current gender identity: Male Teresa/Faith: None Special teresa needs: No Agree to transfusion: Yes Physical Exam 2 Const: COMMON NORMALS: no acute distress GENERAL APPEARANCE: cooperative and comfortable ORIENTATION/CONSCIOUSNESS: Yes awake, Yes oriented to person, Yes oriented to place and Yes oriented to time HENMT: COMMON NORMALS: normocephalic, atraumatic and hearing grossly normal bilaterally HEAD & SCALP: normocephalic and atraumatic Resp: COMMON NORMALS: normal respiratory effort, No retractions, No use of accessory muscles and clear to auscultation bilaterally AUSCULTATION: clear to auscultation bilaterally Cardio: COMMON NORMALS: regular rate, regular rhythm and No murmurs present (Cardio) RATE: regular rate RHYTHM: regular rhythm GI: COMMON NORMALS: Soft to palpation and No hepatosplenomegaly present A USCULTATION: Yes normoactive bowel sounds PALPATION: Yes Soft to palpation, No Tenderness to palpation present (GI), No Guarding due to palpation present (GI) and Yes No hepatosplenomegaly present Extremity: COMMON NORMALS: normal to inspection, capillary refill normal, no clubbing, cyanosis or edema, no calf tenderness and no pedal edema Neuro: SENSORIUM/ORIENTATION: Yes oriented to person, Yes oriented to place and Yes oriented to time Skin: COMMON NORMALS: no rashes or lesions noted GENERAL SKIN EXAM: no rashes or lesions noted Course 2 Vital Signs: Vital signs: Vital Signs Temperature 99.2 F 08/16/23 12:00 Pulse Rate 62 08/16/23 12:00 Respiratory Rate 16 08/16/23 12:00 Blood Pressure 113/60 08/16/23 12:00 Pulse Oximetry 93 08/16/23 12:00 Oxygen Delivery Me thod Room Air 08/16/23 08:00 MDM - GI Bleed Medical Decision Making Discussed with Dr. Chand with seen him in inpatient discharge him yesterday. His hemoglobin is stable. When he was admitted 3 days ago he had a mild acute on chronic kidney injury. His creatinine is stable today. He states he generally feels weak and feels weak. He has a history of bilateral peripheral neuropathy to lower extremities. He has no other symptoms that he is complaining of at this time. He states he wants to be admitted to the hospital. At this point I do not have a acute diagnosis. His hemoglobin has remained stable and his neuropathy is a chronic problem is rectal bleeding is likely from hemorrhoids source. Discussed possibility of long-term rehab placement as the patient states he is just generally been declining for some time now. Patient states he would not consider pursuing that course. Discharge home return if he has further problems. Follow-up with primary care Discharge had been planned at the end of my shift. When he returned the following day was told by Dr. Eduardo who had relieved me at the end of my shift that the patient changed his mind and stated he now would go to the residential. He was placed in observation by Dr. Lane Medical Records I reviewed the patient's medical records. Lab Data I reviewed the patient's lab results. 08/16/23 04:20 08/16/23 04:20 Radiology Impressions Chest X-Ray 08/15/23 06:51 IMPRESSION: No lobar consolidation is appreciated.No interval acute cardiopulmonary changes are appreciated. Laboratory Results WBC 8.44 10^3/uL (3.29-11.43) 08/14/23 10:05 RBC 3.94 10^6/uL (3.85-5.65) 08/14/23 10:05 Hgb 12.10 g/dL (11.27-16.99) 08/14/23 10:05 Hct 37.1 % (37-53) 08/14/23 10:05 MCV 94.2 fl (82-101) 08/14/23 10:05 MCH 30.7 pg (27-33) 08/14/23 10:05 MCHC 32.6 g/dL (30-55) 08/14/23 10:05 RDW 14.7 % (12.1-15.1) 08/14/23 10:05 Plt Count 132 10^3/cmm (157-399) L 08/14/23 10:05 MPV 11.6 fL (7.4-10.4) H 08/14/23 10:05 Neut % (Auto) 74.2 % 08/14/23 10:05 Lymph % (Auto) 8.6 % 08/14/23 10:05 [place] % (Auto) 16.2 % 08/14/23 10:05 Eos % (Auto) 0.0 % 08/14/23 10:05 Baso % (Auto) 0.4 % 08/14/23 10:05 Neut # (Auto) 6.26 10^3/uL (1.8-7.7) 08/14/23 10:05 Lymph # (Auto) 0.7 10^3/uL (0.8-4.8) L 08/14/23 10:05 [place] # (Auto) 1.4 10^3/uL (0.2-0.9) H 08/14/23 10:05 Eos # (Auto) 0.0 10^3/uL (0.0-0.8) 08/14/23 10:05 Baso # (Auto) 0.0 10^3/uL (0.0-0.1) 08/14/23 10:05 Nucleated RBC % (auto) 0 % 08/14/23 10:05 Nucleated RBCs # 0.0 /100WBC 08/14/23 10:05 Sodium 133 mmol/L (136-145) L 08/14/23 10:05 Potassium 4.7 mmol/L (3.5-5.1) 08/14/23 10:05 Chloride 101 mmol/L (98-107) 08/14/23 10:05 Carbon Dioxide 20 mmol/L (22-29) L 08/14/23 10:05 Anion Gap 16.7 (5-19) 08/14/23 10:05 BUN 38 mg/dL (8-23) H 08/14/23 10:05 Creatinine 1.5 mg/dL (0.7-1.2) H 08/14/23 10:05 GFR Calculation Not Reportable 08/14/23 10:05 Glucose 96 mg/dL (65-115) 08/14/23 10:05 Calculated Osmolality 285 mOsm/kg (285-295) 08/14/23 10:05 Calcium 8.8 mg/dL (8.5-10.5) 08/14/23 10:05 Magnesium 2.1 mg/dL (1.7-2.3) 08/14/23 10:05 Total Bilirubin 0.3 mg/dL (0.15-1.2) 08/14/23 10:05 AST 49 U/L (0-40) H 08/14/23 10:05 ALT 24 U/L (0-41) 08/14/23 10:05 Alkaline Phosphatase 64 U/L (40-130) 08/14/23 10:05 Total Protein 6.6 g/dL (6.6-8.7) 08/14/23 10:05 Albumin 3.9 g/dL (3.5-5.2) 08/14/23 10:05 Globulin 2.7 g/dL (1.3-4.6) 08/14/23 10:05 Lipase 33 U/L (13-60) 08/14/23 10:05 No radiology studies performed this visit Discharge Plan Discharge Patient Disposition: Placed in Observation Admit Provider: David Ashraf Clinical Impression: Hematochezia, Chronic kidney disease (CKD) Discharge Diet: Usual diet Discharge Activity: Increase activity as tolerated Coding Level of Care Code ED Floor Covering Printer Assistant for Stepan Noel
[2023-08-14] MEDS: sodium chloride 0.9% 1,000 ML 999 ML IV (16:02)
[2023-08-14] MEDS: ondansetron 2 mg/ML SDV 2 mL 4 MG IVP (16:02)
--- NOTE | 2023-08-14 16:03 | ECG_ITS ---
[facility] Test Date: 2023-08-14 Pat Name: Franki Read Department: Room: Gender: Male Registry Np: : 1950 Requested By: Emmanuel Juares Order Number: [id number] Villa MD: Praveen Perla M.D. Measurements Intervals [place] Rate: 70 P: 90 NM: 211 QRS: 107 QRSD: 149 T: 34 QT: 393 QTc: 425 Interpretive Statements SINUS RHYTHM WITH FIRST DEGREE AV BLOCK RIGHT AXIS DEVIATION [QRS AXIS > 100] RIGHT BUNDLE BRANCH BLOCK [120+ ms QRS DURATION, UPRIGHT V1, 40+ ms S IN I/aVL/V4/V5/V6] Compared to ECG 08/11/2023 05:01:03 Right-axis deviation now present Indeterminate axis no longer present Electronically Signed On 08-14-2023 22:59:18 DISPOSAL WORKER by Praveen Perla M.D. [email or web address]
[2023-08-14 16:15] LABS: Basophils % 0.4 %; Hematocrit 37.1 % (37-53); Lymphocytes # 0.7 10^3/uL (0.8-4.8); Lymphocytes % 8.6 %; Mean Corpuscular HGB Conc 32.6 g/dL (30-55); Mean Corpuscular Hemoglobin 30.7 pg (27-33); Mean Corpuscular Volume 94.2 fl (82-101); Mean Platelet Volume 11.6 fL (7.4-10.4); Monocytes # 1.4 10^3/uL (0.2-0.9); Monocytes % 16.2 %; Neutrophils # 6.26 10^3/uL (1.8-7.7); Neutrophils % 74.2 %; Nucleated Red Blood Cells % 0 %; Platelet Count 132 10^3/cmm (157-399); Red Blood Count 3.94 10^6/uL (3.85-5.65); Red Cell Distribution Width 14.7 % (12.1-15.1); White Blood Count 8.44 10^3/uL (3.29-11.43)
[2023-08-14 16:27] LABS: Alanine Aminotransferase 24 U/L (0-41); Albumin Level 3.9 g/dL (3.5-5.2); Alkaline Phosphatase 64 U/L (40-130); Aspartate Amino Transferase 49 U/L (0-40); Blood Urea Nitrogen 38 mg/dL (8-23); Calcium 8.8 mg/dL (8.5-10.5); Carbon Dioxide 20 mmol/L (22-29); Chloride 101 mmol/L (98-107); Globulin 2.7 g/dL (1.3-4.6); Glucose 96 mg/dL (65-115); Lipase 33 U/L (13-60); Magnesium 2.1 mg/dL (1.7-2.3); Osmolality Calculated 285 mOsm/kg (285-295); Sodium 133 mmol/L (136-145); Total Bilirubin 0.3 mg/dL (0.15-1.2); Total Protein 6.6 g/dL (6.6-8.7)
[2023-08-14 16:37] LABS: Anion Gap 16.7 (5-19); Potassium 4.7 mmol/L (3.5-5.1)
--- NOTE | 2023-08-14 19:04 | PC.NURSE ---
PT VISITOR WISHING TO SPEAK TO PHYSICIAN REGARDING CONTINUING PT CARE. DIRECTOR NICU AND ED PHYSICIAN NOTIFIED.
[2023-08-14] MEDS: sodium chloride 0.9% 1,000 ML 75 ML IV (21:36)
[2023-08-15] VITALS (10 sets, daily range): BP systolic 102–159; BP diastolic 63–79; PULSE 63–82; RESP 16–18; TEMP 36.6–38.2; O2SAT 92–94
--- NOTE | 2023-08-15 01:06 | P.HP_ITS ---
Providers/Chief Complaint 2 Admitting Physician: David Ashraf MD Primary Care Provider: Moody Moralez MD Chief Complaint: bleeding in stool,weakness,dizzy History of Present Illness Franki Read is a 73 year old male with past medical history of alcohol use disorder in remission, arthritis, peripheral neuropathy, marijuana dependence, diabetes mellitus, anxiety, hypertension, GERD, hyperlipidemia, sleep apnea. He was recently admitted here between 08/11-08/13 for BRBPR which appeared to be related to hemorrhoids. His H&H remained stable during admission, CT abdomen/ pelvis was without any obvious source of bleeding.He had ROXANN on CKD for which he received IV hydration with improvement in his renal function. He used to be on multiple medications that could have led up to the ROXANN including MARV/ARB which was discontinued. He was requested to be assessed by physical therapy , however he did not agree to be seen on 08/13. Patient was discharged home on 1223, however returned today, brought in by his neighbor stating that patient is unable to care for self. Patient himself states that he has continued to feel extremely weak, has bilateral lower extremity pain due to his neuropathy, not able to walk very well and he has continued to have spotting rectal bleeding. States that he sees blood mixed with bowel movements. No blood noted on underwear. No abdominal pain. Medications/Allergies Home Medications Medication Instructions Recorded Confirmed Last Taken Type memantine 10 mg tablet 10 mg PO DAILY 08/26/19 08/12/23 01/02/22 History omeprazole 20 mg capsule,delayed 20 mg PO BID 08/26/19 08/12/23 01/02/22 History release tamsulosin 0.4 mg capsule 0.4 mg PO DAILY 08/26/19 08/12/23 01/02/22 History aspirin 81 mg chewable tablet 81 mg PO DAILY 04/21/20 08/12/23 01/02/22 History (Ericka Chewable Low Dose Aspirin) metoprolol succinate 25 mg capsule 25 mg PO DAILY 04/21/20 08/12/23 01/02/22 History sprinkle, ext. release 24 hr baclofen 20 mg tablet 10 mg (1/2 x 20 mg) PO QID #0 tabs 01/06/22 08/12/23 01/02/22 Rx sitagliptin phosphate 100 mg 100 mg PO DAILY #30 tabs 01/06/22 08/12/23 Unknown Rx tablet (Januvia) gabapentin 300 mg capsule 300 mg PO TID 02/06/23 08/12/23 Unknown History hinged knee brace #1 ea 02/14/23 08/12/23 Unknown Rx allopurinol 100 mg tablet 200 mg PO DAILY 08/12/23 08/12/23 Unknown History levofloxacin 500 mg tablet 500 mg PO DAILY 08/12/23 08/12/23 Unknown History omega 9-mrb-tex-fish oil 1,000 mg 1 cap PO DAILY 08/12/23 08/12/23 Unknown History (120 mg-180 mg) capsule (Fish Oil) prazosin 1 mg capsule 1 mg PO BEDTIME 08/12/23 08/12/23 Unknown History pregabalin 75 mg capsule 75 mg PO TID 08/12/23 08/12/23 Unknown History rosuvastatin 40 mg tablet 40 mg PO DAILY 08/12/23 08/12/23 Unknown History topiramate 25 mg tablet 25 mg PO BID 08/12/23 08/12/23 Unknown History amlodipine 5 mg tablet 10 mg (2 x 5 mg) PO DAILY #30 tabs 08/13/23 08/12/23 01/02/22 Rx hydrocortisone acetate 25 mg 25 mg FL TID 4 weeks #100 ea 08/14/23 Unknown Rx rectal suppository (Anusol-HC) Allergies Allergy/AdvReac Type Severity Reaction Status Date / Time No Known Allergies Allergy Verified 08/14/23 15:20 PFSH Acute 2 PFSH: Medical History Sprain of collateral ligament of left knee Dementia Hypertension COPD (chronic obstructive pulmonary disease) Psychiatric care History of hypertension Hyperlipidemia History of gastroesophageal reflux (GERD) Sleep apnea Arthritis Diabetes mellitus History of fibromyalgia Generalized anxiety disorder Surgical History History of colonoscopy Hx of brain surgery Family History Other Cancer Diabetes Hypertension Social History Smoking and tobacco/nicotine status: former use of tobacco/nicotine Quit status (tobacco/nicotine): has quit using Year quit tobacco: 2004 Second hand smoke exposure: No Alcohol intake: former Substance/Drug Use: former Date of last use: 2022 Adopted: No Caregiver/support person: No Lives independently: Yes Household members: none Housing: Manufactured/Mobile home Marital status: Number of children: 1 Number of grandchildren: 1 Highest education level completed: 11th Grade service: No Current occupational status: retired Current occupational exposures/hazards: No 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 Pets and animals: Yes (4) Pets & animals: cat(s) Leisure activites: art and other Leisure activities details: visiting with friends, work in shop Sexually active: No Do you think of yourself as: Straight/Heterosexual Current gender identity: Male Teresa/Congregation: None Special teresa needs: No Agree to transfusion: Yes Vitals/I&O/Wt Last Vital Signs Temp 98.8 F 08/15/23 00:00 Pulse 66 08/15/23 00:00 Resp 17 08/15/23 00:00 BP 102/63 08/15/23 00:00 Pulse Ox 93 08/15/23 00:00 O2 Del Method Room Air 08/14/23 20:54 08/14/23 08/14/23 08/15/23 14:59 22:59 06:59 Intake Total 1480 / 1480 Balance 1480 / 1480 Weight last 48 hrs Weight 96.615 kg Weight 98.883 kg Physical Exam 2 Narrative: General: No acute distress, AO x3 HEENT: PERRLA, pupils bilaterally equal and reactive, pallors not present Chest: Scattered B/L crepts to asucultation CVS: S1-S2 regular, no murmurs, no tachycardia, no gallops, no rubs Abdomen: Soft, nontender, no organomegaly, bowel sounds present Neuro: No focal deficits, no facial deformity, AO x3, power 5/5 in all limbs Extremities: RLE more swollen compared to left, recently assessed Data 08/15/23 04:37 08/15/23 04:37 A&P Assessment and plan (1) Bleeding per rectum: (2) Generalized weakness: Plan 73-year-old male with recent history as above discharged on 08/13/2023 after being evaluated for bright red bleeding per rectum mixed with stool. Patient returns today complaining of persisting intermittent bleeding mixed with stools and generalized weakness. Also complaining of pain in bilateral legs from his known neuropathy. Patient's neighbor who has brought in the patient today states that he has been unable to care for himself at home, does not feel living situation is conducive to living alone. Patient's hemoglobin is currently stable at 12.1. CT of the abdomen and pelvis performed recently on 08/11/2023 had shown no acute abnormalities in the abdomen or pelvis, extensive atherosclerotic disease Trend hemoglobin with a.m. labs. If remains stable, will likely need colonoscopy as outpatient. Continue local application of hydrocortisone ointment, possibly hemorrhoidal source of bleeding. Check orthostatics Noted to have low-grade fever on day of discharge. Intermittent wheezing on exam today. Check COVID antigen and chest x-ray Continue pregabalin for peripheral neuropathy. Recently completed nerve conduction studies as outpatient with neurology Creatinine is at current baseline of 1.5, discontinue IV fluids PT/OT eval DVT ppx: Low risk as anticipated short hospital stay , recent venous Duplex without DVT Full code Attestations 2 Medical Necessity Statement*: less than 2 midnight stay anticipiated for weakness, PT assessment, disposition planning Coding Level of Care Code Acute Code for Chg Fwd Diagnoses Bleeding per rectum K62.5 Generalized weakness R53.1
[2023-08-15] MEDS: FUROsemide 10 mg/mL SDV 2mL 20 MG IVP (01:47)
[2023-08-15] MEDS: acetaminophen 325 mg Tablet 650 MG PO (01:51)
[2023-08-15 02:10] LABS: Influenza A by IFA negative (Negative); Influenza B by IFA negative (Negative)
[2023-08-15 02:14] LABS: SARS Covid-2 Antigen positive (Negative)
[2023-08-15 03:02] LABS: Add Urine Microscopic? YES; Bilirubin Urine Neg (Negative); Blood Urine 2+ (Negative); Glucose Urine UA 1+ (Normal); Ketones Urine 1+ (Negative); Leukocyte Esterase Urine Negative (Negative); Nitrate Urine Negative (Negative); Protein Urine Trace (Negative); Specific Gravity, Urine 1.015 (1.005-1.030); Urine Appearance Clear (CLEAR); Urine Color Light yellow (Yellow); Urobilinogen Urine Neg (Negative); pH Urine 5 (5-7)
[2023-08-15 03:03] LABS: Add Urine Culture? No; Amorphous Sediment Urine 1+ /hpf; Bacteria Urine TRACE /hpf; Mucus Urine 1+ /hpf; RBC Urine 0-4 /hpf (0-2); WBC Urine 0-4 /hpf (0-5)
[2023-08-15 06:05] LABS: Basophils % 0.4 %; Eosinophils % 0.1 %; Hematocrit 37.1 % (37-53); Lymphocytes # 0.9 10^3/uL (0.8-4.8); Lymphocytes % 13.9 %; Mean Corpuscular HGB Conc 31.3 g/dL (30-55); Mean Corpuscular Hemoglobin 30.1 pg (27-33); Mean Corpuscular Volume 96.4 fl (82-101); Mean Platelet Volume 12.3 fL (7.4-10.4); Monocytes # 1.2 10^3/uL (0.2-0.9); Monocytes % 17.3 %; Neutrophils # 4.56 10^3/uL (1.8-7.7); Neutrophils % 67.7 %; Nucleated Red Blood Cells % 0 %; Platelet Count 124 10^3/cmm (157-399); Red Blood Count 3.85 10^6/uL (3.85-5.65); Red Cell Distribution Width 14.7 % (12.1-15.1); White Blood Count 6.75 10^3/uL (3.29-11.43)
[2023-08-15 06:19] LABS: Alanine Aminotransferase 25 U/L (0-41); Albumin Level 3.6 g/dL (3.5-5.2); Alkaline Phosphatase 60 U/L (40-130); Anion Gap 17.9 (5-19); Aspartate Amino Transferase 47 U/L (0-40); Blood Urea Nitrogen 36 mg/dL (8-23); Calcium 8.3 mg/dL (8.5-10.5); Carbon Dioxide 19 mmol/L (22-29); Chloride 102 mmol/L (98-107); Globulin 2.5 g/dL (1.3-4.6); Glucose 78 mg/dL (65-115); Osmolality Calculated 287 mOsm/kg (285-295); Potassium 3.9 mmol/L (3.5-5.1); Sodium 135 mmol/L (136-145); Total Bilirubin 0.4 mg/dL (0.15-1.2); Total Protein 6.1 g/dL (6.6-8.7)
[2023-08-15 06:39] LABS: Glucose Point of Care 82 mg/dL (70-110)
--- NOTE | 2023-08-15 06:51 | XRR_ITS ---
PROCEDURE INFORMATION: Exam: XR Chest Exam date and time: 08/15/2023 9:04 AM Age: 73 years old Clinical indication: Other: Covid.No history of trauma or recent surgery is provided. TECHNIQUE: Imaging protocol: Radiologic exam of the chest. 1image(s) are provided. Views: 1 view. COMPARISON: 1. CR XR chest 1V portable [id number] 08/11/2023 5:05 PM 2. CR XR chest 1V portable [id number] 05/05/2023 7:[address] abdomen pelvis w con* [id number] 08/11/2023 6:50 PM FINDINGS: Lungs: There is some subsegmental atelectasis versus post inflammatory scarring demonstrated.No lobar consolidation is appreciated. Pleural spaces: No pneumothorax or significant pleural effusion is appreciated. Heart/Mediastinum: The cardiomediastinal silhouette is upper normal in size.This can be seen with central averaging as well as claire enlargement.No cardiac decompensation is appreciated. Diaphragm: The hemidiaphragms are symmetric. Bones/joints: Osseous alignment is maintained.No interval displaced fracture or dislocation is appreciated. There are chronic appearing degenerative changes of the shoulders. Soft tissues: No radiopaque foreign body or subcutaneous emphysema is appreciated. Other findings: No other significant interval changes are appreciated. XR/XR chest 1V portable [id number] IMPRESSION: No lobar consolidation is appreciated.No interval acute cardiopulmonary changes are appreciated.
[2023-08-15 07:29] LABS: C Reactive Protein 79.2 mg/L (0.0-4.9)
[2023-08-15] MEDS: metoprolol succinate ER (24 HR) 25 mg Tablet PO (08:18)
[2023-08-15] MEDS: pantoprazole DR 40 mg Tablet PO (08:18)
[2023-08-15] MEDS: gabapentin 300 mg Capsule PO ×3 (08:18→20:21)
--- NOTE | 2023-08-15 08:50 | PC.CHAP ---
Pastoral Care Encounter/Spiritual Assessment Type of Contact [] Declined wordpress developer visit [] Patient/Family/Request visit [] Outpatient visit [] Follow-up visit [] Physician referral [] Code/Alert [] Routine visit [] Staff referral [] Actively dying [] Patient sleeping [] Family support [] [] Out of room [] Palliative care [] [] Receiving care in room [] Pre-surgical visit [] Trauma [] Long length of stay [] ICU visit [x] Other:Covid precautions. No visit. Relational/Emotional Strength [] Patient feels connected with others/family/visitors/staff [] Distress [] Loneliness/isolation [] Abandonment Spirituality of Patient [] Person of Teresa [] Attends Adventist of their Teresa [] Believes in Prayer [] Reads Bible or Church materials [] There are Spiritual issues to be addressed Pecan Picker Interventions [] Prayer [] Active listening [] Non-anxious presence [] Spiritual/emotional support [] Crisis/trauma care [] Spiritual counseling [] Bereavement support [] Provided bereavement packet [] Provided Bible/devotional materials [] Provided toy/stuffed animal, coloring book to patient or family member [] Provided Communion [] Anointing/Vader [] Salvation [] Completed spiritual assessment [] Other: Impact on Illness or Injury [] Angry [] Fearful [] Anxious [] Often cries [] Exhaustion [] Unable to work [] Unable to attend mu-ism [] Unable to walk/stand [] Unable to read [] Unable to drive [] Unable to eat/drink [] Unable to sleep [] Unable to be with family [] Patient intubated [] Other: Summary Time spent with patient
--- NOTE | 2023-08-15 10:52 | PC.NURSE ---
patient refused remdesivir at this time, stating he does not feel bad. explain that the medication can help to prevent any symptoms from progressing. patient stated that he is wary of this I explained that he has the right to refuse medications.. patient decided to decline this medication at this time. Dr. Gallo notified.
[2023-08-15 11:21] LABS: Glucose Point of Care 122 mg/dL (70-110)
--- NOTE | 2023-08-15 13:44 | P.PN_ITS ---
Subjective 2 Subjective: Patient was seen this morning, examined laying with physical therapy, he is able to get up out of bed with physical therapy, denies any fevers, no cough Vitals/I&O/Wt Last Vital Signs Temp 98.2 F 08/15/23 12:33 Pulse 66 08/15/23 12:33 Resp 18 08/15/23 12:33 BP 143/79 08/15/23 12:33 Pulse Ox 94 08/15/23 12:33 O2 Del Method Room Air 08/15/23 12:33 08/14/23 08/15/23 08/15/23 22:59 06:59 14:59 Intake Total 1480 / 1480 330 / 1810 920 / 920 Output Total 750 / 750 550 / 550 Balance 1480 / 1480 -420 / 1060 370 / 370 Weight last 48 hrs Weight 94.937 kg Weight 96.615 kg Weight 98.883 kg Physical Exam 2 Const: COMMON NORMALS: no acute distress Resp: COMMON NORMALS: normal respiratory effort, No retractions, No use of accessory muscles and clear to auscultation bilaterally AUSCULTATION: clear to auscultation bilaterally Cardio: COMMON NORMALS: regular rate, regular rhythm, S1 normal heart sound present and S2 normal heart sound present RATE: regular rate RHYTHM: r egular rhythm HEART SOUNDS: S1 normal heart sound present and S2 normal heart sound present GI: COMMON NORMALS: Normal to inspection, nondistended, normoactive bowel sounds present and non-tender Extremity: COMMON NORMALS: no pedal edema Data 08/15/23 04:37 08/15/23 04:37 A&P Assessment and plan (1) Bleeding per rectum: (2) Generalized weakness: (3) SARS-CoV-2 positive: Plan 73-year-old male with recent history as above discharged on 08/13/2023 after being evaluated for bright red bleeding per rectum mixed with stool. Patient returns today complaining of persisting intermittent bleeding mixed with stools and generalized weakness. Also complaining of pain in bilateral legs from his known neuropathy. Patient's neighbor who has brought in the patient today states that he has been unable to care for himself at home, does not feel living situation is conducive to living alone. Plan ? Currently denies any rectal bleeding -Patient's hemoglobin is currently stable at 12.1. -CT of the abdomen and pelvis performed recently on 08/11/2023 had shown no acute abnormalities in the abdomen or pelvis, extensive atherosclerotic disease -Trend hemoglobin with a.m. labs. If remains stable, will likely need colonoscopy as outpatient. -Continue local application of hydrocortisone ointment, possibly hemorrhoidal source of bleeding. -Check orthostatics Noted to have low-grade fever on day of discharge. Intermittent wheezing on exam today. COVID-19 positive, started on remdesivir Continue pregabalin for peripheral neuropathy. Recently completed nerve conduction studies as outpatient with neurology Creatinine is at current baseline of 1.5, discontinue IV fluids PT/OT eval DVT ppx: recent venous Duplex without DVT, relative contraindication due to concerns of bloody stools, SCDs Full code Attestations 2 Medical Necessity Statement*: Patient requires hospitalization for generalized weakness, bloody stools, COVID- 19 positive Diagnoses Bleeding per rectum K62.5 Generalized weakness R53.1 SARS-CoV-2 positive U07.1
[2023-08-15] MEDS: remdesivir 100 MG in sodium chloride 0.9% (100 ml) 100 ML IV (13:47)
[2023-08-15 17:07] LABS: Glucose Point of Care 99 mg/dL (70-110)
[2023-08-16] VITALS: BP 159/77; PULSE 72; RESP 17; TEMP 37.6; O2SAT 97
[2023-08-16 04:00] VITALS: BP 131/75; PULSE 82; RESP 17; TEMP 36.6; O2SAT 95
[2023-08-16 05:09] LABS: Basophils % 0.3 %; Eosinophils % 0.2 %; Hematocrit 39.7 % (37-53); Lymphocytes # 1.1 10^3/uL (0.8-4.8); Mean Corpuscular HGB Conc 31.5 g/dL (30-55); Mean Corpuscular Hemoglobin 29.9 pg (27-33); Mean Platelet Volume 12.2 fL (7.4-10.4); Monocytes # 0.9 10^3/uL (0.2-0.9); Monocytes % 14.1 %; Neutrophils # 4.18 10^3/uL (1.8-7.7); Neutrophils % 67.8 %; Nucleated Red Blood Cells % 0 %; Platelet Count 128 10^3/cmm (157-399); Red Blood Count 4.18 10^6/uL (3.85-5.65); Red Cell Distribution Width 14.5 % (12.1-15.1); White Blood Count 6.17 10^3/uL (3.29-11.43)
[2023-08-16 05:36] LABS: Anion Gap 18.1 (5-19); Blood Urea Nitrogen 33 mg/dL (8-23); Calcium 8.1 mg/dL (8.5-10.5); Carbon Dioxide 20 mmol/L (22-29); Chloride 102 mmol/L (98-107); Glucose 90 mg/dL (65-115); Osmolality Calculated 289 mOsm/kg (285-295); Potassium 4.1 mmol/L (3.5-5.1); Sodium 136 mmol/L (136-145)
[2023-08-16 06:37] LABS: Glucose Point of Care 93 mg/dL (70-110)
[2023-08-16 07:18] VITALS: BP 136/70; PULSE 59; RESP 16; TEMP 36.9; O2SAT 92
[2023-08-16] MEDS: pantoprazole DR 40 mg Tablet PO (09:58)
[2023-08-16] MEDS: gabapentin 300 mg Capsule PO (09:58)
[2023-08-16] MEDS: metoprolol succinate ER (24 HR) 25 mg Tablet PO (09:58)
[2023-08-16 10:56] LABS: Glucose Point of Care 111 mg/dL (70-110)
--- NOTE | 2023-08-16 11:17 | P.PN_ITS ---
Subjective 2 Subjective: Patient was seen this morning, continues to complain of generalized weakness, he tells me he can ambulate, no fevers overnight, no chills, yesterday afternoon he refuses remdesivir for COVID-19, this morning is more agreeable, does report shortness of breath with exertion and is on room air afebrile Vitals/I&O/Wt Last Vital Signs Temp 98.5 F 08/16/23 07:18 Pulse 59 L 08/16/23 07:18 Resp 16 08/16/23 07:18 BP 136/70 08/16/23 07:18 Pulse Ox 92 08/16/23 07:18 O2 Del Method Room Air 08/16/23 08:00 08/15/23 08/16/23 08/16/23 22:59 06:59 14:59 Intake Total 820 / 1740 240 / 240 Output Total 1200 / 1750 400 / 2150 Balance -380 / -10 -400 / -410 240 / 240 Weight last 48 hrs Weight 95.799 kg Weight 94.937 kg Weight 96.615 kg Weight 98.883 kg Physical Exam 2 Const: COMMON NORMALS: no acute distress and patient oriented x3 Neck/C-Spine: COMMON NORMALS: no JVD Resp: COMMON NORMALS: normal respiratory effort, No retractions, No use of accessory muscles and clear to auscultation bilaterally AUSCULTATION: clear to auscultation bilaterally Cardio: COMMON NORMALS: no JVD, regular rate, regular rhythm, S1 normal heart sound present and S2 normal heart sound present RATE: regular rate RHYTHM: regular rhythm HEART SOUNDS: S1 normal heart sound present and S2 normal heart sound present GI: COMMON NORMALS: Normal to inspection, nondistended, normoactive bowel sounds present and non-tender Extremity: COMMON NORMALS: no pedal edema Neuro: COMMON NORMALS: patient oriented x3 Data 08/16/23 04:20 08/16/23 04:20 A&P Assessment and plan (1) Bleeding per rectum: (2) Generalized weakness: (3) SARS-CoV-2 positive: Plan 73-year-old male with recent history as above discharged on 08/13/2023 after being evaluated for bright red bleeding per rectum mixed with stool. Patient returns today complaining of persisting intermittent bleeding mixed with stools and generalized weakness. Also complaining of pain in bilateral legs from his known neuropathy. Patient's neighbor who has brought in the patient today states that he has been unable to care for himself at home, does not feel living situation is conducive to living alone. Plan ? Currently denies any rectal bleeding -Patient's hemoglobin is currently stable at 12.5 -CT of the abdomen and pelvis performed recently on 08/11/2023 had shown no acute abnormalities in the abdomen or pelvis, extensive atherosclerotic disease -Trend hemoglobin with a.m. labs. If remains stable, will likely need colonoscopy as outpatient. -Continue local application of hydrocortisone ointment, possibly hemorrhoidal source of bleeding. -Check orthostatics Noted to have low-grade fever on day of discharge. Intermittent wheezing on exam today. COVID-19 positive, started on remdesivir, agreeable to discharge today Continue pregabalin for peripheral neuropathy. Recently completed nerve conduction studies as outpatient with neurology Creatinine is at current baseline of 1.5, discontinue IV fluids ? Resume home medications, ? Resume home Lyrica, Topamax, She was on gabapentin, which is not his home medication which Istopped, switch over to Lyrica to avoid withdrawals as this is his home medication PT/OT eval DVT ppx: recent venous Duplex without DVT, relative contraindication due to concerns of bloody stools, SCDs Full code Attestations 2 Medical Necessity Statement*: Patient requires hospitalization for generalized weakness, COVID-19, Diagnoses Bleeding per rectum K62.5 Generalized weakness R53.1 SARS-CoV-2 positive U07.1
[2023-08-16] MEDS: remdesivir 100 MG in sodium chloride 0.9% (100 ml) 100 ML IV (11:30)
[2023-08-16 12:00] VITALS: BP 113/60; PULSE 62; RESP 16; TEMP 37.3; O2SAT 93
[2023-08-16] MEDS: pregabalin 50 mg Capsule PO ×2 (14:50→20:09)
[2023-08-16 16:29] VITALS: BP 128/79; PULSE 49; RESP 17; TEMP 36.9; O2SAT 95
[2023-08-16 17:19] LABS: Glucose Point of Care 108 mg/dL (70-110)
[2023-08-16] MEDS: topiramate 25 mg Tablet PO (17:29)
[2023-08-16 20:00] VITALS: BP 128/72; PULSE 53; PULSE 58; RESP 16; RESP 18; TEMP 36.9; O2SAT 93; O2SAT 94
[2023-08-16] MEDS: atorvastatin 40 mg Tablet PO (20:09)
[2023-08-16] MEDS: prazosin 1 mg Capsule PO (20:09)
[2023-08-16 21:43] LABS: Glucose Point of Care 114 mg/dL (70-110)
[2023-08-17] VITALS (9 sets, daily range): BP systolic 111–128; BP diastolic 55–73; PULSE 58–67; RESP 16–18; TEMP 36.4–37.5; O2SAT 91–93; BMI 36.6
[2023-08-17 05:09] LABS: Basophils % 0.3 %; Eosinophils # 0.1 10^3/uL (0.0-0.8); Eosinophils % 0.9 %; Hematocrit 38.3 % (37-53); Lymphocytes # 1.1 10^3/uL (0.8-4.8); Lymphocytes % 18.6 %; Mean Corpuscular HGB Conc 31.6 g/dL (30-55); Mean Corpuscular Volume 94.8 fl (82-101); Mean Platelet Volume 11.9 fL (7.4-10.4); Monocytes # 0.7 10^3/uL (0.2-0.9); Monocytes % 12.3 %; Neutrophils # 3.85 10^3/uL (1.8-7.7); Nucleated Red Blood Cells % 0 %; Platelet Count 137 10^3/cmm (157-399); Red Blood Count 4.04 10^6/uL (3.85-5.65); Red Cell Distribution Width 14.5 % (12.1-15.1); White Blood Count 5.75 10^3/uL (3.29-11.43)
[2023-08-17 05:25] LABS: Anion Gap 17.3 (5-19); Blood Urea Nitrogen 32 mg/dL (8-23); Calcium 8.4 mg/dL (8.5-10.5); Carbon Dioxide 20 mmol/L (22-29); Chloride 103 mmol/L (98-107); Glucose 104 mg/dL (65-115); Osmolality Calculated 289 mOsm/kg (285-295); Potassium 4.3 mmol/L (3.5-5.1); Sodium 136 mmol/L (136-145)
[2023-08-17 07:21] LABS: Glucose Point of Care 130 mg/dL (70-110)
[2023-08-17] MEDS: allopurinol 100 mg Tablet 200 MG PO (08:43)
[2023-08-17] MEDS: remdesivir 100 MG in sodium chloride 0.9% (100 ml) 100 ML IV (08:43)
[2023-08-17] MEDS: spironolactone 25 mg Tablet PO (08:43)
[2023-08-17] MEDS: memantine 5 mg tablet 10 MG PO (08:43)
[2023-08-17] MEDS: pregabalin 50 mg Capsule PO ×3 (08:43→20:43)
[2023-08-17] MEDS: tamsulosin 0.4 mg Capsule PO (08:43)
[2023-08-17] MEDS: amlodipine 5 mg Tablet 10 MG PO (08:43)
[2023-08-17] MEDS: metoprolol succinate ER (24 HR) 25 mg Tablet PO (08:44)
[2023-08-17] MEDS: lisinopril 2.5 mg Tablet PO (08:44)
[2023-08-17] MEDS: aspirin 81 mg Chew Tablet PO (08:44)
[2023-08-17] MEDS: pantoprazole DR 40 mg Tablet PO (08:44)
[2023-08-17] MEDS: topiramate 25 mg Tablet PO ×2 (08:44→16:55)
[2023-08-17 10:44] LABS: Glucose Point of Care 119 mg/dL (70-110)
--- NOTE | 2023-08-17 11:27 | P.PN_ITS ---
Subjective 2 Subjective: Patient was seen this morning, his only complaint is diarrhea, no fevers, chills, no cough does report generalized weakness Vitals/I&O/Wt Last Vital Signs Temp 98.0 F 08/17/23 08:02 Pulse 59 L 08/17/23 08:04 Resp 18 08/17/23 08:04 BP 111/55 08/17/23 08:02 Pulse Ox 92 08/17/23 08:04 O2 Del Method Room Air 08/17/23 08:04 08/16/23 08/17/23 08/17/23 22:59 06:59 14:59 Intake Total 240 / 580 220 / 220 Output Total 1000 / 1000 500 / 1500 Balance -760 / -420 -500 / -920 220 / 220 Weight last 48 hrs Weight 96.751 kg Weight 95.799 kg Physical Exam 2 Const: COMMON NORMALS: no acute distress and patient oriented x3 Resp: COMMON NORMALS: normal respiratory effort, No retractions, No use of accessory muscles and clear to auscultation bilaterally AUSCULTATION: clear to auscultation bilaterally Cardio: COMMON NORMALS: regular rate, regular rhythm, S1 normal heart sound present and S2 normal heart sound present RATE: regular rate RHYTHM: r egular rhythm HEART SOUNDS: S1 normal heart sound present and S2 normal heart sound present GI: COMMON NORMALS: Normal to inspection, nondistended, normoactive bowel sounds present and non-tender Extremity: COMMON NORMALS: no pedal edema Neuro: COMMON NORMALS: patient oriented x3 Psych: COMMON NORMALS: mental status grossly normal Data 08/17/23 04:11 08/17/23 04:11 A&P Assessment and plan (1) Bleeding per rectum: (2) Generalized weakness: (3) SARS-CoV-2 positive: Plan 73-year-old male with recent history as above discharged on 08/13/2023 after being evaluated for bright red bleeding per rectum mixed with stool. Patient returns today complaining of persisting intermittent bleeding mixed with stools and generalized weakness. Also complaining of pain in bilateral legs from his known neuropathy. Patient's neighbor who has brought in the patient today states that he has been unable to care for himself at home, does not feel living situation is conducive to living alone. Plan ? Currently denies any rectal bleeding -Patient's hemoglobin is currently stable at 12.5 -CT of the abdomen and pelvis performed recently on 08/11/2023 had shown no acute abnormalities in the abdomen or pelvis, extensive atherosclerotic disease -Trend hemoglobin with a.m. labs. If remains stable, will likely need colonoscopy as outpatient. -Continue local application of hydrocortisone ointment, possibly hemorrhoidal source of bleeding. -Check orthostatics Noted to have low-grade fever on day of discharge. Intermittent wheezing on exam today. COVID-19 positive, started on remdesivir, agreeable to discharge today Continue pregabalin for peripheral neuropathy. Recently completed nerve conduction studies as outpatient with neurology Creatinine is at current baseline of 1.5, discontinue IV fluids ? Resume home medications, ? Resume home Lyrica, Topamax, She was on gabapentin, which is not his home medication which Istopped, switch over to Lyrica to avoid withdrawals as this is his home medication PT/OT eval DVT ppx: recent venous Duplex without DVT, relative contraindication due to concerns of bloody stools, SCDs Full code Will obtain a cdiff Attestations 2 Medical Necessity Statement*: Patient requires hospitalization for COVID-19, generalized weakness Diagnoses Bleeding per rectum K62.5 Generalized weakness R53.1 SARS-CoV-2 positive U07.1
[2023-08-17 16:43] LABS: Glucose Point of Care 101 mg/dL (70-110)
[2023-08-17] MEDS: prazosin 1 mg Capsule PO (20:43)
[2023-08-17] MEDS: atorvastatin 40 mg Tablet PO (20:43)
[2023-08-17 20:44] LABS: Glucose Point of Care 110 mg/dL (70-110)
--- NOTE | 2023-08-17 23:22 | PC.NURSE ---
Pt keeps taking his bipap off and has been educated numerous times on the reason for keeping it on. Pt verbalized understanding.
[2023-08-18] VITALS (8 sets, daily range): BP systolic 120–143; BP diastolic 61–79; PULSE 65–81; RESP 17–20; TEMP 36.4–37.1; O2SAT 90–94; BMI 35.7
[2023-08-18 06:33] LABS: Basophils % 0.4 %; Eosinophils # 0.1 10^3/uL (0.0-0.8); Eosinophils % 1.7 %; Hematocrit 37.1 % (37-53); Lymphocytes # 1.2 10^3/uL (0.8-4.8); Mean Corpuscular HGB Conc 32.3 g/dL (30-55); Mean Corpuscular Hemoglobin 29.8 pg (27-33); Mean Corpuscular Volume 92.1 fl (82-101); Mean Platelet Volume 11.5 fL (7.4-10.4); Monocytes # 0.6 10^3/uL (0.2-0.9); Monocytes % 10.5 %; Neutrophils # 3.37 10^3/uL (1.8-7.7); Neutrophils % 64.6 %; Nucleated Red Blood Cells % 0 %; Platelet Count 155 10^3/cmm (157-399); Red Blood Count 4.03 10^6/uL (3.85-5.65); Red Cell Distribution Width 14.2 % (12.1-15.1); White Blood Count 5.22 10^3/uL (3.29-11.43)
[2023-08-18 06:58] LABS: Anion Gap 17.1 (5-19); Blood Urea Nitrogen 32 mg/dL (8-23); Calcium 8.4 mg/dL (8.5-10.5); Carbon Dioxide 19 mmol/L (22-29); Chloride 102 mmol/L (98-107); Glucose 100 mg/dL (65-115); Osmolality Calculated 285 mOsm/kg (285-295); Potassium 4.1 mmol/L (3.5-5.1); Sodium 134 mmol/L (136-145)
[2023-08-18 07:16] LABS: Glucose Point of Care 97 mg/dL (70-110)
[2023-08-18] MEDS: allopurinol 100 mg Tablet 200 MG PO (08:04)
[2023-08-18] MEDS: amlodipine 5 mg Tablet 10 MG PO (08:04)
[2023-08-18] MEDS: topiramate 25 mg Tablet PO ×2 (08:04→17:10)
[2023-08-18] MEDS: tamsulosin 0.4 mg Capsule PO (08:04)
[2023-08-18] MEDS: metoprolol succinate ER (24 HR) 25 mg Tablet PO (08:04)
[2023-08-18] MEDS: pregabalin 50 mg Capsule PO ×3 (08:04→20:09)
[2023-08-18] MEDS: memantine 5 mg tablet 10 MG PO (08:04)
[2023-08-18] MEDS: pantoprazole DR 40 mg Tablet PO (08:04)
[2023-08-18] MEDS: lisinopril 2.5 mg Tablet PO (08:05)
[2023-08-18] MEDS: spironolactone 25 mg Tablet PO (08:05)
[2023-08-18] MEDS: aspirin 81 mg Chew Tablet PO (08:05)
--- NOTE | 2023-08-18 11:48 | P.PN_ITS ---
Subjective 2 Subjective: Patient was seen this morning, he has no complaints, no fevers, chills, cough, no abdominal pain, his diarrhea seems to be resolved, he is COVID-19 positive, last ambulatory, he does complain of right leg and calf swelling, will order venous ultrasound Vitals/I&O/Wt Last Vital Signs Temp 97.5 F L 08/18/23 07:32 Pulse 81 08/18/23 08:38 Resp 20 H 08/18/23 08:38 BP 120/67 08/18/23 07:32 Pulse Ox 92 08/18/23 08:38 O2 Del Method Room Air 08/18/23 08:38 FiO2 21 08/17/23 21:39 08/17/23 08/18/23 08/18/23 22:59 06:59 14:59 Intake Total 240 / 520 Output Total 600 / 600 Balance 240 / 520 -600 / -80 Weight last 48 hrs Weight 94.438 kg Weight 94.438 kg Weight 96.751 kg Physical Exam 2 Const: COMMON NORMALS: no acute distress and patient oriented x3 Resp: COMMON NORMALS: normal respiratory effort, No retractions, No use of accessory muscles and clear to auscultation bilaterally AUSCULTATION: clear to auscultation bilaterally Cardio: COMMON NORMALS: regular rate, regular rhythm, S1 normal heart sound present and S2 normal heart sound present RATE: regular rate RHYTHM: r egular rhythm HEART SOUNDS: S1 normal heart sound present and S2 normal heart sound present GI: COMMON NORMALS: Normal to inspection, nondistended, normoactive bowel sounds present and non-tender Extremity: COMMON NORMALS: no pedal edema Neuro: COMMON NORMALS: patient oriented x3 Psych: COMMON NORMALS: mental status grossly normal Data 08/18/23 05:53 08/18/23 05:53 A&P Assessment and plan (1) Bleeding per rectum: (2) Generalized weakness: (3) SARS-CoV-2 positive: Plan 73-year-old male with recent history as above discharged on 08/13/2023 after being evaluated for bright red bleeding per rectum mixed with stool. Patient returns today complaining of persisting intermittent bleeding mixed with stools and generalized weakness. Also complaining of pain in bilateral legs from his known neuropathy. Patient's neighbor who has brought in the patient today states that he has been unable to care for himself at home, does not feel living situation is conducive to living alone. Plan ? Currently denies any rectal bleeding -Patient's hemoglobin is currently stable at 12.5 -CT of the abdomen and pelvis performed recently on 08/11/2023 had shown no acute abnormalities in the abdomen or pelvis, extensive atherosclerotic disease -Trend hemoglobin with a.m. labs. If remains stable, will likely need colonoscopy as outpatient. -Continue local application of hydrocortisone ointment, possibly hemorrhoidal source of bleeding. -Check orthostatics Noted to have low-grade fever on day of discharge. Intermittent wheezing on exam today. COVID-19 positive, started on remdesivir, agreeable to discharge today Continue pregabalin for peripheral neuropathy. Recently completed nerve conduction studies as outpatient with neurology Creatinine is at current baseline of 1.5, discontinue IV fluids ? Resume home medications, ? Resume home Lyrica, Topamax, She was on gabapentin, which is not his home medication which Istopped, switch over to Lyrica to avoid withdrawals as this is his home medication PT/OT eval DVT ppx: recent venous Duplex without DVT, relative contraindication due to concerns of bloody stools, Full code He does have right calf swelling, pain, will order a venous ultrasound, start him on DVT prophylaxis Lovenox, no bloody stools,, hemoglobin stable Attestations 2 Medical Necessity Statement*: Patient requires hospitalization for COVID-19, now with calf pain is probably chronic ultrasound, Diagnoses Bleeding per rectum K62.5 Generalized weakness R53.1 SARS-CoV-2 positive U07.1
--- NOTE | 2023-08-18 11:49 | USCV_ITS ---
Franki Read Age: 73 Gender: M : 1950 Exam Date: 08/18/2023 13:34 Ordering Phys: Per Gallo MD Technologist: Jaxon Barton [place] [facility] [place]: bilat edema PROCEDURES: The venous duplex Doppler examination of both lower extremities was performed in the standard fashion. The following venous structures were evaluated: common femoral vein, profunda vein, proximal portion of the greater saphenous vein, superficial femoral vein, and the popliteal vein. In addition, the posterior tibial and peroneal trunk were evaluated. FINDINGS: Normal 2-D Doppler and augmentation and compressibility throughout the lower extremity venous structures. Additional imaging through the proximal calf veins also reveals no thrombus. Limited evaluation of the greater saphenous vein is patent with no thrombus. CONCLUSIONS No evidence of right lower extremity DVT. No evidence of left lower extremity DVT. Barrie Negron MD (Electronically Signed) Final Date: 18 August 2023 16:36 S
[2023-08-18 12:19] LABS: Glucose Point of Care 105 mg/dL (70-110)
[2023-08-18] MEDS: enoxaparin 40 mg/0.4 mL Syringe SUBCUT (13:09)
[2023-08-18 16:34] LABS: Glucose Point of Care 109 mg/dL (70-110)
[2023-08-18 20:09] LABS: Glucose Point of Care 100 mg/dL (70-110)
[2023-08-18] MEDS: atorvastatin 40 mg Tablet PO (20:09)
[2023-08-18] MEDS: prazosin 1 mg Capsule PO (20:09)
[2023-08-18] MEDS: baclofen 10 mg Tablet PO (20:15)
[2023-08-19] VITALS (7 sets, daily range): BP systolic 77–162; BP diastolic 56–75; PULSE 59–99; RESP 14–18; TEMP 36.5–37; O2SAT 92–100
[2023-08-19 04:56] LABS: Basophils % 0.4 %; Eosinophils # 0.2 10^3/uL (0.0-0.8); Eosinophils % 3.3 %; Lymphocytes # 1.5 10^3/uL (0.8-4.8); Lymphocytes % 28.2 %; Mean Corpuscular HGB Conc 32.2 g/dL (30-55); Mean Corpuscular Hemoglobin 30.2 pg (27-33); Mean Corpuscular Volume 93.9 fl (82-101); Mean Platelet Volume 11.2 fL (7.4-10.4); Monocytes # 0.6 10^3/uL (0.2-0.9); Monocytes % 11.7 %; Neutrophils # 2.81 10^3/uL (1.8-7.7); Neutrophils % 54.6 %; Nucleated Red Blood Cells % 0 %; Platelet Count 185 10^3/cmm (157-399); Red Blood Count 3.94 10^6/uL (3.85-5.65); Red Cell Distribution Width 14.2 % (12.1-15.1); White Blood Count 5.14 10^3/uL (3.29-11.43)
[2023-08-19 05:21] LABS: Anion Gap 20.2 (5-19); Blood Urea Nitrogen 36 mg/dL (8-23); Calcium 8.2 mg/dL (8.5-10.5); Carbon Dioxide 18 mmol/L (22-29); Chloride 104 mmol/L (98-107); Glucose 89 mg/dL (65-115); Osmolality Calculated 294 mOsm/kg (285-295); Potassium 4.2 mmol/L (3.5-5.1); Sodium 138 mmol/L (136-145)
[2023-08-19 05:24] LABS: Magnesium 2.1 mg/dL (1.7-2.3); Phosphorus 3.6 mg/dL (2.5-4.5)
[2023-08-19 06:24] LABS: Glucose Point of Care 99 mg/dL (70-110)
[2023-08-19 07:52] LABS: Glucose Point of Care 88 mg/dL (70-110)
[2023-08-19] MEDS: pregabalin 50 mg Capsule PO ×3 (08:54→22:12)
[2023-08-19] MEDS: pantoprazole DR 40 mg Tablet PO (08:54)
[2023-08-19] MEDS: allopurinol 100 mg Tablet 200 MG PO (08:55)
[2023-08-19] MEDS: memantine 5 mg tablet 10 MG PO (08:55)
[2023-08-19] MEDS: tamsulosin 0.4 mg Capsule PO (08:55)
[2023-08-19] MEDS: amlodipine 5 mg Tablet 10 MG PO (08:55)
[2023-08-19] MEDS: lisinopril 2.5 mg Tablet PO (08:55)
[2023-08-19] MEDS: topiramate 25 mg Tablet PO ×2 (08:55→18:16)
[2023-08-19] MEDS: metoprolol succinate ER (24 HR) 25 mg Tablet PO (08:55)
[2023-08-19] MEDS: spironolactone 25 mg Tablet PO (08:55)
[2023-08-19] MEDS: aspirin 81 mg Chew Tablet PO (08:55)
[2023-08-19 11:52] LABS: Glucose Point of Care 116 mg/dL (70-110)
[2023-08-19] MEDS: enoxaparin 40 mg/0.4 mL Syringe SUBCUT (12:47)
--- NOTE | 2023-08-19 13:59 | P.PN_ITS ---
Subjective 2 Subjective: Patient was seen this morning, he has no complaints, no fevers, no chills, no cough Vitals/I&O/Wt Last Vital Signs Temp 97.9 F 08/19/23 12:00 Pulse 99 08/19/23 12:00 Resp 14 08/19/23 12:00 BP 77/56 08/19/23 12:00 Pulse Ox 100 08/19/23 12:00 O2 Del Method Room Air 08/19/23 12:00 FiO2 21 08/17/23 21:39 08/18/23 08/19/23 08/19/23 22:59 06:59 14:59 Intake Total 960 / 960 240 / 1200 480 / 480 Output Total 1100 / 1100 300 / 1400 Balance -140 / -140 -60 / -200 480 / 480 Weight last 48 hrs Weight 94.438 kg Weight 94.438 kg Weight 94.438 kg Physical Exam 2 Const: COMMON NORMALS: no acute distress and patient oriented x3 Resp: COMMON NORMALS: normal respiratory effort, No retractions, No use of accessory muscles and clear to auscultation bilaterally AUSCULTATION: clear to auscultation bilaterally Cardio: COMMON NORMALS: regular rate, regular rhythm, S1 normal heart sound present and S2 normal heart sound present RATE: regular rate RHYTHM: r egular rhythm HEART SOUNDS: S1 normal heart sound present and S2 normal heart sound present GI: COMMON NORMALS: Normal to inspection, nondistended, normoactive bowel sounds present and non-tender Extremity: COMMON NORMALS: no pedal edema Neuro: COMMON NORMALS: patient oriented x3 Psych: COMMON NORMALS: mental status grossly normal Data 08/19/23 04:11 08/19/23 04:11 A&P Assessment and plan (1) Bleeding per rectum: (2) Generalized weakness: (3) SARS-CoV-2 positive: Plan 73-year-old male with recent history as above discharged on 08/13/2023 after being evaluated for bright red bleeding per rectum mixed with stool. Patient returns today complaining of persisting intermittent bleeding mixed with stools and generalized weakness. Also complaining of pain in bilateral legs from his known neuropathy. Patient's neighbor who has brought in the patient today states that he has been unable to care for himself at home, does not feel living situation is conducive to living alone. Plan ? Currently denies any rectal bleeding -Patient's hemoglobin is currently stable at 12.5 -CT of the abdomen and pelvis performed recently on 08/11/2023 had shown no acute abnormalities in the abdomen or pelvis, extensive atherosclerotic disease - If remains stable, will likely need colonoscopy as outpatient. -Continue local application of hydrocortisone ointment, possibly hemorrhoidal source of bleeding. Noted to have low-grade fever on day of discharge. Intermittent wheezing on exam today. COVID-19 positive, started on remdesivir, completed treatment as inpatient Continue pregabalin for peripheral neuropathy. Recently completed nerve conduction studies as outpatient with neurology Creatinine is at current baseline of 1.8, discontinue IV fluids ? Resume home medications, ? Resume home Lyrica, Topamax, She was on gabapentin, which is not his home medication which I stopped, switch over to Lyrica to avoid withdrawals as this is his home medication PT/OT eval DVT ppx: recent venous Duplex without DVT, start Lovenox for DVT prophylaxis Attestations 2 Medical Necessity Statement*: Patient requires hospitalization due to generalized weakness Diagnoses Bleeding per rectum K62.5 Generalized weakness R53.1 SARS-CoV-2 positive U07.1
[2023-08-19 17:26] LABS: Glucose Point of Care 117 mg/dL (70-110)
[2023-08-19 20:38] LABS: Glucose Point of Care 110 mg/dL (70-110)
[2023-08-19] MEDS: prazosin 1 mg Capsule PO (22:12)
[2023-08-19] MEDS: atorvastatin 40 mg Tablet PO (22:13)
[2023-08-20] VITALS (10 sets, daily range): BP systolic 104–130; BP diastolic 55–66; PULSE 48–76; RESP 16–21; TEMP 36.4–37.3; O2SAT 92–98
[2023-08-20 02:53] LABS: Basophils % 0.5 %; Eosinophils # 0.2 10^3/uL (0.0-0.8); Hematocrit 34.1 % (37-53); Lymphocytes % 35.6 %; Mean Corpuscular HGB Conc 33.1 g/dL (30-55); Mean Corpuscular Hemoglobin 30.5 pg (27-33); Mean Corpuscular Volume 92.2 fl (82-101); Mean Platelet Volume 10.8 fL (7.4-10.4); Monocytes # 0.6 10^3/uL (0.2-0.9); Monocytes % 11.2 %; Neutrophils # 2.55 10^3/uL (1.8-7.7); Neutrophils % 45.8 %; Nucleated Red Blood Cells % 0 %; Platelet Count 206 10^3/cmm (157-399); Red Cell Distribution Width 14.1 % (12.1-15.1); White Blood Count 5.56 10^3/uL (3.29-11.43)
[2023-08-20 03:13] LABS: Anion Gap 16.2 (5-19); Blood Urea Nitrogen 37 mg/dL (8-23); Calcium 8.2 mg/dL (8.5-10.5); Carbon Dioxide 19 mmol/L (22-29); Chloride 104 mmol/L (98-107); Glucose 104 mg/dL (65-115); Osmolality Calculated 289 mOsm/kg (285-295); Potassium 4.2 mmol/L (3.5-5.1); Sodium 135 mmol/L (136-145)
[2023-08-20 03:20] LABS: Magnesium 2.1 mg/dL (1.7-2.3); Phosphorus 3.3 mg/dL (2.5-4.5)
[2023-08-20 08:27] LABS: Glucose Point of Care 166 mg/dL (70-110)
[2023-08-20] MEDS: insulin lispro 100 unit/1 mL SUBCUT (09:20)
[2023-08-20] MEDS: topiramate 25 mg Tablet PO ×2 (09:20→17:05)
[2023-08-20] MEDS: memantine 5 mg tablet 10 MG PO (09:20)
[2023-08-20] MEDS: tamsulosin 0.4 mg Capsule PO (09:20)
[2023-08-20] MEDS: allopurinol 100 mg Tablet 200 MG PO (09:21)
[2023-08-20] MEDS: amlodipine 5 mg Tablet 10 MG PO (09:21)
[2023-08-20] MEDS: pregabalin 50 mg Capsule PO ×3 (09:21→21:30)
[2023-08-20] MEDS: pantoprazole DR 40 mg Tablet PO (09:21)
[2023-08-20] MEDS: lisinopril 2.5 mg Tablet PO (09:21)
[2023-08-20] MEDS: aspirin 81 mg Chew Tablet PO (09:21)
[2023-08-20] MEDS: metoprolol succinate ER (24 HR) 25 mg Tablet PO (09:21)
[2023-08-20] MEDS: spironolactone 25 mg Tablet PO (09:22)
[2023-08-20 11:28] LABS: Glucose Point of Care 91 mg/dL (70-110)
[2023-08-20] MEDS: enoxaparin 40 mg/0.4 mL Syringe SUBCUT (12:24)
--- NOTE | 2023-08-20 13:08 | P.PN_ITS ---
Subjective 2 Subjective: Patient was seen this morning, he has no complaints, no fevers, chills, no cough, no abdominal pain, no bloody or black stools Vitals/I&O/Wt Last Vital Signs Temp 99.2 F 08/20/23 11:55 Pulse 73 08/20/23 11:55 Resp 18 08/20/23 11:55 BP 110/55 08/20/23 11:55 Pulse Ox 93 08/20/23 11:55 O2 Del Method Room Air 08/20/23 11:55 FiO2 21 08/17/23 21:39 08/19/23 08/20/23 08/20/23 22:59 06:59 14:59 Intake Total 480 / 960 240 / 1200 480 / 480 Output Total 1275 / 1275 800 / 2075 Balance -795 / -315 -560 / -875 480 / 480 Weight last 48 hrs Weight 94.438 kg Weight 94.438 kg Physical Exam 2 Const: COMMON NORMALS: no acute distress and patient oriented x3 Resp: COMMON NORMALS: normal respiratory effort, No retractions, No use of accessory muscles and clear to auscultation bilaterally AUSCULTATION: clear to auscultation bilaterally Cardio: COMMON NORMALS: regular rate, regular rhythm, S1 normal heart sound present and S2 normal heart sound present RATE: regular rate RHYTHM: r egular rhythm HEART SOUNDS: S1 normal heart sound present and S2 normal heart sound present GI: COMMON NORMALS: Normal to inspection, nondistended, normoactive bowel sounds present and non-tender Extremity: COMMON NORMALS: no pedal edema Neuro: COMMON NORMALS: patient oriented x3 Psych: COMMON NORMALS: mental status grossly normal Data 08/20/23 02:12 08/20/23 02:12 A&P Assessment and plan (1) Bleeding per rectum: (2) Generalized weakness: (3) SARS-CoV-2 positive: Plan 73-year-old male with recent history as above discharged on 08/13/2023 after being evaluated for bright red bleeding per rectum mixed with stool. Patient returns today complaining of persisting intermittent bleeding mixed with stools and generalized weakness. Also complaining of pain in bilateral legs from his known neuropathy. Patient's neighbor who has brought in the patient today states that he has been unable to care for himself at home, does not feel living situation is conducive to living alone. Plan ? Currently denies any rectal bleeding -Patient's hemoglobin is currently stable at 12.5 -CT of the abdomen and pelvis performed recently on 08/11/2023 had shown no acute abnormalities in the abdomen or pelvis, extensive atherosclerotic disease - If remains stable, will likely need colonoscopy as outpatient. -Continue local application of hydrocortisone ointment, possibly hemorrhoidal source of bleeding. Noted to have low-grade fever on day of discharge. Intermittent wheezing on exam today. COVID-19 positive, started on remdesivir, completed treatment as inpatient Continue pregabalin for peripheral neuropathy. Recently completed nerve conduction studies as outpatient with neurology Creatinine is at current baseline of 1.8, discontinue IV fluids ? Resume home medications, ? Resume home Lyrica, Topamax, She was on gabapentin, which is not his home medication which I stopped, switch over to Lyrica to avoid withdrawals as this is his home medication PT/OT eval DVT ppx: recent venous Duplex without DVT, start Lovenox for DVT prophylaxis Attestations 2 Medical Necessity Statement*: Patient requires hospitalization for generalized weakness, Diagnoses Bleeding per rectum K62.5 Generalized weakness R53.1 SARS-CoV-2 positive U07.1
[2023-08-20 16:21] LABS: Glucose Point of Care 112 mg/dL (70-110)
[2023-08-20] MEDS: prazosin 1 mg Capsule PO (21:30)
[2023-08-20] MEDS: atorvastatin 40 mg Tablet PO (21:30)
[2023-08-20 22:13] LABS: Glucose Point of Care 107 mg/dL (70-110)
[2023-08-21] VITALS (9 sets, daily range): BP systolic 97–121; BP diastolic 54–69; PULSE 46–60; RESP 14–20; TEMP 36.4–36.8; O2SAT 90–98; BMI 35.7
[2023-08-21 04:03] LABS: Basophils % 0.6 %; Eosinophils # 0.2 10^3/uL (0.0-0.8); Eosinophils % 3.2 %; Hematocrit 36.7 % (37-53); Lymphocytes # 2.2 10^3/uL (0.8-4.8); Lymphocytes % 34.5 %; Mean Corpuscular HGB Conc 31.6 g/dL (30-55); Mean Corpuscular Hemoglobin 29.4 pg (27-33); Mean Corpuscular Volume 93.1 fl (82-101); Mean Platelet Volume 10.5 fL (7.4-10.4); Monocytes # 0.8 10^3/uL (0.2-0.9); Monocytes % 12.8 %; Neutrophils # 2.83 10^3/uL (1.8-7.7); Neutrophils % 44.8 %; Nucleated Red Blood Cells % 0 %; Platelet Count 234 10^3/cmm (157-399); Red Blood Count 3.94 10^6/uL (3.85-5.65); Red Cell Distribution Width 14.1 % (12.1-15.1); White Blood Count 6.32 10^3/uL (3.29-11.43)
[2023-08-21 04:12] LABS: Magnesium 2.1 mg/dL (1.7-2.3); Phosphorus 3.1 mg/dL (2.5-4.5)
[2023-08-21 04:26] LABS: Anion Gap 16.3 (5-19); Blood Urea Nitrogen 39 mg/dL (8-23); Calcium 8.2 mg/dL (8.5-10.5); Carbon Dioxide 19 mmol/L (22-29); Chloride 106 mmol/L (98-107); Glucose 105 mg/dL (65-115); Osmolality Calculated 294 mOsm/kg (285-295); Potassium 4.3 mmol/L (3.5-5.1); Sodium 137 mmol/L (136-145)
[2023-08-21 07:07] LABS: Glucose Point of Care 120 mg/dL (70-110)
[2023-08-21] MEDS: pregabalin 50 mg Capsule PO ×3 (10:11→20:15)
[2023-08-21] MEDS: allopurinol 100 mg Tablet 200 MG PO (10:11)
[2023-08-21] MEDS: aspirin 81 mg Chew Tablet PO (10:11)
[2023-08-21] MEDS: amlodipine 5 mg Tablet 10 MG PO (10:11)
[2023-08-21] MEDS: pantoprazole DR 40 mg Tablet PO (10:11)
[2023-08-21] MEDS: tamsulosin 0.4 mg Capsule PO (10:11)
[2023-08-21] MEDS: metoprolol succinate ER (24 HR) 25 mg Tablet PO (10:11)
[2023-08-21] MEDS: memantine 5 mg tablet 10 MG PO (10:12)
[2023-08-21] MEDS: spironolactone 25 mg Tablet PO (10:12)
[2023-08-21] MEDS: topiramate 25 mg Tablet PO ×2 (10:12→17:32)
[2023-08-21] MEDS: lisinopril 2.5 mg Tablet PO (10:12)
[2023-08-21 11:35] LABS: Glucose Point of Care 132 mg/dL (70-110)
[2023-08-21] MEDS: enoxaparin 40 mg/0.4 mL Syringe SUBCUT (12:56)
--- NOTE | 2023-08-21 13:30 | P.PN_ITS ---
Subjective 2 Subjective: Patient was seen this morning, denies any fevers, no chills, no cough Vitals/I&O/Wt Last Vital Signs Temp 97.9 F 08/21/23 11:59 Pulse 60 08/21/23 11:59 Resp 16 08/21/23 11:59 BP 97/54 08/21/23 11:59 Pulse Ox 90 08/21/23 11:59 O2 Del Method Room Air 08/21/23 11:59 FiO2 21 08/21/23 04:00 08/20/23 08/21/23 08/21/23 22:59 06:59 14:59 Intake Total 120 / 1280 960 / 960 Output Total 400 / 400 Balance 120 / 1080 560 / 560 Weight last 48 hrs Weight 94.438 kg Weight 94.438 kg Physical Exam 2 Const: COMMON NORMALS: no acute distress and patient oriented x3 Resp: COMMON NORMALS: normal respiratory effort, No retractions, No use of accessory muscles and clear to auscultation bilaterally AUSCULTATION: clear to auscultation bilaterally Cardio: COMMON NORMALS: regular rate, regular rhythm, S1 normal heart sound present and S2 normal heart sound present RATE: regular rate RHYTHM: r egular rhythm HEART SOUNDS: S1 normal heart sound present and S2 normal heart sound present GI: COMMON NORMALS: Normal to inspection, nondistended, normoactive bowel sounds present and non-tender Extremity: COMMON NORMALS: no pedal edema Neuro: COMMON NORMALS: patient oriented x3 Psych: COMMON NORMALS: mental status grossly normal Data 08/21/23 02:06 08/21/23 02:06 A&P Assessment and plan (1) Bleeding per rectum: (2) Generalized weakness: (3) SARS-CoV-2 positive: Plan 73-year-old male with recent history as above discharged on 08/13/2023 after being evaluated for bright red bleeding per rectum mixed with stool. Patient returns today complaining of persisting intermittent bleeding mixed with stools and generalized weakness. Also complaining of pain in bilateral legs from his known neuropathy. Patient's neighbor who has brought in the patient today states that he has been unable to care for himself at home, does not feel living situation is conducive to living alone. Plan ? Currently denies any rectal bleeding -Patient's hemoglobin is currently stable at 12.5 -CT of the abdomen and pelvis performed recently on 08/11/2023 had shown no acute abnormalities in the abdomen or pelvis, extensive atherosclerotic disease - If remains stable, will likely need colonoscopy as outpatient. -Continue local application of hydrocortisone ointment, possibly hemorrhoidal source of bleeding. Noted to have low-grade fever on day of discharge. Intermittent wheezing on exam today. COVID-19 positive, started on remdesivir, completed treatment as inpatient Continue pregabalin for peripheral neuropathy. Recently completed nerve conduction studies as outpatient with neurology Creatinine is at current baseline of 1.8, discontinue IV fluids ? Resume home medications, ? Resume home Lyrica, Topamax, She was on gabapentin, which is not his home medication which I stopped, switch over to Lyrica to avoid withdrawals as this is his home medication PT/OT eval DVT ppx: recent venous Duplex without DVT, Lovenox for DVT prophylaxis Attestations 2 Medical Necessity Statement*: Patient requires hospitalization for generalized weakness Diagnoses Bleeding per rectum K62.5 Generalized weakness R53.1 SARS-CoV-2 positive U07.1
[2023-08-21 16:48] LABS: Glucose Point of Care 106 mg/dL (70-110)
[2023-08-21] MEDS: atorvastatin 40 mg Tablet PO (20:15)
[2023-08-21] MEDS: prazosin 1 mg Capsule PO (20:15)
[2023-08-21 21:49] LABS: Glucose Point of Care 133 mg/dL (70-110)
[2023-08-22 03:53] VITALS: BP 101/62; PULSE 47; RESP 18; TEMP 36.5; O2SAT 94
[2023-08-22 05:41] LABS: Basophils % 0.4 %; Eosinophils # 0.3 10^3/uL (0.0-0.8); Eosinophils % 2.8 %; Hematocrit 36.3 % (37-53); Lymphocytes % 22.2 %; Mean Corpuscular HGB Conc 31.7 g/dL (30-55); Mean Corpuscular Hemoglobin 29.9 pg (27-33); Mean Corpuscular Volume 94.3 fl (82-101); Mean Platelet Volume 10.5 fL (7.4-10.4); Monocytes # 1.1 10^3/uL (0.2-0.9); Neutrophils # 5.22 10^3/uL (1.8-7.7); Neutrophils % 56.9 %; Nucleated Red Blood Cells % 0 %; Platelet Count 291 10^3/cmm (157-399); Red Blood Count 3.85 10^6/uL (3.85-5.65); Red Cell Distribution Width 14.3 % (12.1-15.1); White Blood Count 9.18 10^3/uL (3.29-11.43)
[2023-08-22 06:00] LABS: Alanine Aminotransferase 29 U/L (0-41); Albumin Level 3.5 g/dL (3.5-5.2); Alkaline Phosphatase 74 U/L (40-130); Anion Gap 13.7 (5-19); Aspartate Amino Transferase 30 U/L (0-40); Blood Urea Nitrogen 43 mg/dL (8-23); Calcium 8.4 mg/dL (8.5-10.5); Carbon Dioxide 21 mmol/L (22-29); Chloride 107 mmol/L (98-107); Globulin 2.1 g/dL (1.3-4.6); Glucose 110 mg/dL (65-115); Osmolality Calculated 295 mOsm/kg (285-295); Potassium 4.7 mmol/L (3.5-5.1); Sodium 137 mmol/L (136-145); Total Bilirubin 0.4 mg/dL (0.15-1.2); Total Protein 5.6 g/dL (6.6-8.7)
[2023-08-22 06:07] VITALS: BMI 35.7
[2023-08-22 06:19] LABS: Slide Review Slide Review Perform
[2023-08-22 08:00] VITALS: BP 117/66; PULSE 60; RESP 16; RESP 18; TEMP 36.9; O2SAT 93; O2SAT 99
[2023-08-22 08:22] LABS: Glucose Point of Care 125 mg/dL (70-110)
[2023-08-22] MEDS: amlodipine 5 mg Tablet 10 MG PO (10:09)
[2023-08-22] MEDS: memantine 5 mg tablet 10 MG PO (10:09)
[2023-08-22] MEDS: spironolactone 25 mg Tablet PO (10:09)
[2023-08-22] MEDS: allopurinol 100 mg Tablet 200 MG PO (10:09)
[2023-08-22] MEDS: metoprolol succinate ER (24 HR) 25 mg Tablet PO (10:09)
[2023-08-22] MEDS: lisinopril 2.5 mg Tablet PO (10:09)
[2023-08-22] MEDS: pregabalin 50 mg Capsule PO ×3 (10:10→20:25)
[2023-08-22] MEDS: topiramate 25 mg Tablet PO ×2 (10:10→18:31)
[2023-08-22] MEDS: aspirin 81 mg Chew Tablet PO (10:10)
[2023-08-22] MEDS: tamsulosin 0.4 mg Capsule PO (10:11)
[2023-08-22] MEDS: pantoprazole DR 40 mg Tablet PO (10:11)
[2023-08-22 12:00] VITALS: BP 118/70; PULSE 56; RESP 16; TEMP 36.5; O2SAT 95
[2023-08-22] MEDS: enoxaparin 40 mg/0.4 mL Syringe SUBCUT (12:54)
[2023-08-22 13:04] LABS: Glucose Point of Care 116 mg/dL (70-110)
--- NOTE | 2023-08-22 14:55 | P.PN_ITS ---
Subjective 2 Subjective: Patient was seen this morning, has no complaints this morning, Vitals/I&O/Wt Last Vital Signs Temp 97.7 F 08/22/23 12:00 Pulse 56 L 08/22/23 12:00 Resp 16 08/22/23 12:00 BP 118/70 08/22/23 12:00 Pulse Ox 95 08/22/23 12:00 O2 Del Method Nasal Cannula 08/22/23 12:00 FiO2 21 08/21/23 04:00 08/21/23 08/22/23 08/22/23 22:59 06:59 14:59 Intake Total 680 / 1640 30 / 1670 720 / 720 Output Total 800 / 1200 350 / 350 Balance -120 / 440 30 / 470 370 / 370 Weight last 48 hrs Weight 94.438 kg Weight 94.438 kg Physical Exam 2 Const: COMMON NORMALS: no acute distress and patient oriented x3 Resp: COMMON NORMALS: normal respiratory effort, No retractions, No use of accessory muscles and clear to auscultation bilaterally AUSCULTATION: clear to auscultation bilaterally Cardio: COMMON NORMALS: regular rate, regular rhythm, S1 normal heart sound present and S2 normal heart sound present RATE: regular rate RHYTHM: r egular rhythm HEART SOUNDS: S1 normal heart sound present and S2 normal heart sound present GI: COMMON NORMALS: Normal to inspection, nondistended, normoactive bowel sounds present and non-tender Extremity: COMMON NORMALS: no pedal edema Neuro: COMMON NORMALS: patient oriented x3 Psych: COMMON NORMALS: mental status grossly normal Data 08/22/23 05:09 08/22/23 05:09 A&P Assessment and plan (1) Bleeding per rectum: (2) Generalized weakness: (3) SARS-CoV-2 positive: Plan 73-year-old male with recent history as above discharged on 08/13/2023 after being evaluated for bright red bleeding per rectum mixed with stool. Patient returns today complaining of persisting intermittent bleeding mixed with stools and generalized weakness. Also complaining of pain in bilateral legs from his known neuropathy. Patient's neighbor who has brought in the patient today states that he has been unable to care for himself at home, does not feel living situation is conducive to living alone. Plan ? Currently denies any rectal bleeding -Patient's hemoglobin is currently stable at 12.5 -CT of the abdomen and pelvis performed recently on 08/11/2023 had shown no acute abnormalities in the abdomen or pelvis, extensive atherosclerotic disease - If remains stable, will likely need colonoscopy as outpatient. -Continue local application of hydrocortisone ointment, possibly hemorrhoidal source of bleeding. Noted to have low-grade fever on day of discharge. Intermittent wheezing on exam today. COVID-19 positive, started on remdesivir, completed treatment as inpatient Continue pregabalin for peripheral neuropathy. Recently completed nerve conduction studies as outpatient with neurology Creatinine is at current baseline of 1.8, discontinue IV fluids ? Resume home medications, ? Resume home Lyrica, Topamax, She was on gabapentin, which is not his home medication which I stopped, switch over to Lyrica to avoid withdrawals as this is his home medication PT/OT eval DVT ppx: recent venous Duplex without DVT, Lovenox for DVT prophylaxis Attestations 2 Medical Necessity Statement*: Patient requires hospitalization for generalized weakness Diagnoses Bleeding per rectum K62.5 Generalized weakness R53.1 SARS-CoV-2 positive U07.1
[2023-08-22 16:00] VITALS: BP 109/65; PULSE 52; RESP 18; TEMP 36.8; O2SAT 95
[2023-08-22 19:05] LABS: Glucose Point of Care 143 mg/dL (70-110)
[2023-08-22 20:00] VITALS: RESP 16
[2023-08-22 20:20] VITALS: BP 112/65; PULSE 53; RESP 15; TEMP 36.8; O2SAT 96
[2023-08-22] MEDS: prazosin 1 mg Capsule PO (20:25)
[2023-08-22] MEDS: atorvastatin 40 mg Tablet PO (20:25)
[2023-08-22 20:53] LABS: Glucose Point of Care 124 mg/dL (70-110)
[2023-08-22] MEDS: acetaminophen 325 mg Tablet 650 MG PO (21:44)
[2023-08-23 04:00] VITALS: BP 104/57; PULSE 54; RESP 14; TEMP 36.6; O2SAT 94
[2023-08-23 05:10] LABS: Hematocrit 36.4 % (37-53); Mean Corpuscular HGB Conc 31.6 g/dL (30-55); Mean Corpuscular Hemoglobin 30.3 pg (27-33); Mean Corpuscular Volume 95.8 fl (82-101); Mean Platelet Volume 10.6 fL (7.4-10.4); Platelet Count 300 10^3/cmm (157-399); Red Cell Distribution Width 14.4 % (12.1-15.1); White Blood Count 11.13 10^3/uL (3.29-11.43)
[2023-08-23 05:35] LABS: Alanine Aminotransferase 34 U/L (0-41); Albumin Level 3.6 g/dL (3.5-5.2); Alkaline Phosphatase 81 U/L (40-130); Anion Gap 13.8 (5-19); Aspartate Amino Transferase 30 U/L (0-40); Blood Urea Nitrogen 40 mg/dL (8-23); Calcium 8.6 mg/dL (8.5-10.5); Carbon Dioxide 20 mmol/L (22-29); Chloride 109 mmol/L (98-107); Creatinine Clr Calc Pharmacy 42.5082; Globulin 2.1 g/dL (1.3-4.6); Glucose 107 mg/dL (65-115); Osmolality Calculated 296 mOsm/kg (285-295); Potassium 4.8 mmol/L (3.5-5.1); Sodium 138 mmol/L (136-145); Total Bilirubin 0.4 mg/dL (0.15-1.2); Total Protein 5.7 g/dL (6.6-8.7)
[2023-08-23 05:49] LABS: Slide Review Slide Review Perform
[2023-08-23 05:50] LABS: Absolute Eosinophils 0.4 10^3/cmm (0.0-0.7); Absolute Segmented Neutrophil 6.7 10/cmm (1.6-7.1); Eosinophils 4 %; Giant Platelets 1+; Lymphocytes 21 %; Monocytes Absolute 1.3 10^3/cmm (0.1-0.6); Platelet Estimate Normal (Normal); Segmented Neutrophils 60 %; Total Cells Counted 100 (0-100)
[2023-08-23 06:22] LABS: Glucose Point of Care 112 mg/dL (70-110)
[2023-08-23 08:00] VITALS: BP 120/69; PULSE 55; PULSE 65; RESP 16; TEMP 37.2; O2SAT 93; O2SAT 94
[2023-08-23] MEDS: spironolactone 25 mg Tablet PO (10:14)
[2023-08-23] MEDS: memantine 5 mg tablet 10 MG PO (10:14)
[2023-08-23] MEDS: pantoprazole DR 40 mg Tablet PO (10:14)
[2023-08-23] MEDS: topiramate 25 mg Tablet PO ×2 (10:14→18:42)
[2023-08-23] MEDS: pregabalin 50 mg Capsule PO (10:15)
[2023-08-23] MEDS: lisinopril 2.5 mg Tablet PO (10:15)
[2023-08-23] MEDS: aspirin 81 mg Chew Tablet PO (10:15)
[2023-08-23] MEDS: allopurinol 100 mg Tablet 200 MG PO (10:15)
[2023-08-23] MEDS: amlodipine 5 mg Tablet 10 MG PO (10:15)
[2023-08-23] MEDS: tamsulosin 0.4 mg Capsule PO (10:15)
[2023-08-23] MEDS: metoprolol succinate ER (24 HR) 25 mg Tablet PO (10:15)
[2023-08-23] MEDS: acetaminophen 325 mg Tablet 650 MG PO ×2 (10:18→18:42)
[2023-08-23] MEDS: baclofen 10 mg Tablet PO ×2 (10:18→18:42)
[2023-08-23 11:55] LABS: Glucose Point of Care 109 mg/dL (70-110)
[2023-08-23 12:00] VITALS: BP 115/51; PULSE 58; RESP 16; TEMP 36.4; O2SAT 98
--- NOTE | 2023-08-23 12:26 | P.PN_ITS ---
Subjective 2 Subjective: Patient was seen this morning, examined waiting to the bathroom, has no complaints Vitals/I&O/Wt Last Vital Signs Temp 99.0 F 08/23/23 08:00 Pulse 65 08/23/23 08:00 Resp 16 08/23/23 08:00 BP 120/69 08/23/23 08:00 Pulse Ox 94 08/23/23 08:00 O2 Del Method Room Air 08/23/23 08:00 FiO2 21 08/21/23 04:00 08/22/23 08/23/23 08/23/23 22:59 06:59 14:59 Intake Total 600 / 1320 400 / 1720 480 / 480 Output Total 1200 / 1550 Balance -600 / -230 400 / 170 480 / 480 Weight last 48 hrs Weight 93.922 kg Weight 94.438 kg Physical Exam 2 Const: COMMON NORMALS: no acute distress and patient oriented x3 Resp: COMMON NORMALS: normal respiratory effort, No retractions, No use of accessory muscles and clear to auscultation bilaterally AUSCULTATION: clear to auscultation bilaterally Cardio: COMMON NORMALS: regular rate, regular rhythm, S1 normal heart sound present and S2 normal heart sound present RATE: regular rate RHYTHM: r egular rhythm HEART SOUNDS: S1 normal heart sound present and S2 normal heart sound present GI: COMMON NORMALS: Normal to inspection, nondistended, normoactive bowel sounds present and non-tender Extremity: COMMON NORMALS: no pedal edema Neuro: COMMON NORMALS: patient oriented x3 Psych: COMMON NORMALS: mental status grossly normal Data 08/23/23 04:15 08/23/23 04:15 A&P Assessment and plan (1) Bleeding per rectum: (2) Generalized weakness: (3) SARS-CoV-2 positive: Plan 73-year-old male with recent history as above discharged on 08/13/2023 after being evaluated for bright red bleeding per rectum mixed with stool. Patient returns today complaining of persisting intermittent bleeding mixed with stools and generalized weakness. Also complaining of pain in bilateral legs from his known neuropathy. Patient's neighbor who has brought in the patient today states that he has been unable to care for himself at home, does not feel living situation is conducive to living alone. Plan ? Currently denies any rectal bleeding -Patient's hemoglobin is currently stable at 12.5 -CT of the abdomen and pelvis performed recently on 08/11/2023 had shown no acute abnormalities in the abdomen or pelvis, extensive atherosclerotic disease - If remains stable, will likely need colonoscopy as outpatient. -Continue local application of hydrocortisone ointment, possibly hemorrhoidal source of bleeding. Noted to have low-grade fever on day of discharge. Intermittent wheezing on exam today. COVID-19 positive, started on remdesivir, completed treatment as inpatient Continue pregabalin for peripheral neuropathy. Recently completed nerve conduction studies as outpatient with neurology Creatinine is at current baseline of 1.8, discontinue IV fluids ? Resume home medications, ? Resume home Lyrica, Topamax, She was on gabapentin, which is not his home medication which I stopped, switch over to Lyrica to avoid withdrawals as this is his home medication PT/OT eval DVT ppx: recent venous Duplex without DVT, Lovenox for DVT prophylaxis Attestations 2 Medical Necessity Statement*: Patient requires hospitalization for generalized weakness, Diagnoses Bleeding per rectum K62.5 Generalized weakness R53.1 SARS-CoV-2 positive U07.1
[2023-08-23] MEDS: enoxaparin 40 mg/0.4 mL Syringe SUBCUT (13:16)
[2023-08-23 16:00] VITALS: BP 123/67; PULSE 59; RESP 16; TEMP 36.9; O2SAT 94
[2023-08-23 17:43] LABS: Glucose Point of Care 111 mg/dL (70-110)
[2023-08-23 18:42] VITALS: PULSE 58; RESP 16; O2SAT 94
[2023-08-23 19:50] VITALS: BP 114/68; PULSE 60; RESP 18; TEMP 36.8; O2SAT 95
[2023-08-23] MEDS: prazosin 1 mg Capsule PO (20:13)
[2023-08-23] MEDS: atorvastatin 40 mg Tablet PO (20:13)
[2023-08-23 21:03] LABS: Glucose Point of Care 127 mg/dL (70-110)
[2023-08-24] VITALS (8 sets, daily range): BP systolic 101–134; BP diastolic 54–65; PULSE 56–76; RESP 16–18; TEMP 36.3–36.8; O2SAT 95–98
[2023-08-24 05:13] LABS: Basophils # 0.1 10^3/uL (0.0-0.1); Basophils % 0.5 %; Eosinophils # 0.3 10^3/uL (0.0-0.8); Eosinophils % 2.8 %; Hematocrit 35.3 % (37-53); Lymphocytes % 19.4 %; Mean Corpuscular HGB Conc 31.4 g/dL (30-55); Mean Corpuscular Hemoglobin 29.8 pg (27-33); Mean Corpuscular Volume 94.6 fl (82-101); Mean Platelet Volume 10.7 fL (7.4-10.4); Monocytes # 1.5 10^3/uL (0.2-0.9); Monocytes % 14.6 %; Neutrophils # 5.81 10^3/uL (1.8-7.7); Neutrophils % 56.7 %; Nucleated Red Blood Cells % 0 %; Platelet Count 304 10^3/cmm (157-399); Red Blood Count 3.73 10^6/uL (3.85-5.65); Red Cell Distribution Width 14.5 % (12.1-15.1); White Blood Count 10.23 10^3/uL (3.29-11.43)
[2023-08-24 05:33] LABS: Alanine Aminotransferase 26 U/L (0-41); Albumin Level 3.5 g/dL (3.5-5.2); Alkaline Phosphatase 83 U/L (40-130); Anion Gap 15.6 (5-19); Aspartate Amino Transferase 19 U/L (0-40); Blood Urea Nitrogen 40 mg/dL (8-23); Calcium 8.5 mg/dL (8.5-10.5); Carbon Dioxide 20 mmol/L (22-29); Chloride 108 mmol/L (98-107); Globulin 2.2 g/dL (1.3-4.6); Glucose 108 mg/dL (65-115); Osmolality Calculated 298 mOsm/kg (285-295); Potassium 4.6 mmol/L (3.5-5.1); Sodium 139 mmol/L (136-145); Total Bilirubin 0.3 mg/dL (0.15-1.2); Total Protein 5.7 g/dL (6.6-8.7)
[2023-08-24 05:55] LABS: Slide Review Slide Review Perform
[2023-08-24 06:47] LABS: Glucose Point of Care 113 mg/dL (70-110)
[2023-08-24] MEDS: spironolactone 25 mg Tablet PO (09:51)
[2023-08-24] MEDS: allopurinol 100 mg Tablet 200 MG PO (09:51)
[2023-08-24] MEDS: aspirin 81 mg Chew Tablet PO (09:51)
[2023-08-24] MEDS: pantoprazole DR 40 mg Tablet PO (09:51)
[2023-08-24] MEDS: amlodipine 5 mg Tablet 10 MG PO (09:51)
[2023-08-24] MEDS: baclofen 10 mg Tablet PO ×2 (09:51→17:22)
[2023-08-24] MEDS: lisinopril 2.5 mg Tablet PO (09:51)
[2023-08-24] MEDS: metoprolol succinate ER (24 HR) 25 mg Tablet PO (09:51)
[2023-08-24] MEDS: memantine 5 mg tablet 10 MG PO (09:51)
[2023-08-24] MEDS: topiramate 25 mg Tablet PO ×2 (09:51→17:22)
[2023-08-24] MEDS: tamsulosin 0.4 mg Capsule PO (09:51)
[2023-08-24 11:21] LABS: Glucose Point of Care 135 mg/dL (70-110)
[2023-08-24] MEDS: enoxaparin 40 mg/0.4 mL Syringe SUBCUT (11:30)
[2023-08-24 16:26] LABS: Glucose Point of Care 99 mg/dL (70-110)
[2023-08-24] MEDS: acetaminophen 325 mg Tablet 650 MG PO ×2 (17:21→22:51)
--- NOTE | 2023-08-24 18:07 | P.PN_ITS ---
Subjective 2 Subjective: Patient was seen this morning, he has no complaints, Vitals/I&O/Wt Last Vital Signs Temp 98.1 F 08/24/23 16:00 Pulse 57 L 08/24/23 16:00 Resp 18 08/24/23 16:00 BP 118/65 08/24/23 16:00 Pulse Ox 97 08/24/23 16:00 O2 Del Method Room Air 08/24/23 16:00 FiO2 21 08/21/23 04:00 08/24/23 08/24/23 08/24/23 06:59 14:59 22:59 Intake Total 480 / 2400 960 / 960 480 / 1440 Output Total 650 / 650 Balance 480 / 2100 310 / 310 480 / 790 Weight last 48 hrs Weight 93.922 kg Weight 93.922 kg Physical Exam 2 Const: COMMON NORMALS: no acute distress and patient oriented x3 Resp: COMMON NORMALS: normal respiratory effort, No retractions, No use of accessory muscles and clear to auscultation bilaterally AUSCULTATION: clear to auscultation bilaterally Cardio: COMMON NORMALS: regular rate, regular rhythm, S1 normal heart sound present and S2 normal heart sound present RATE: regular rate RHYTHM: r egular rhythm HEART SOUNDS: S1 normal heart sound present and S2 normal heart sound present GI: COMMON NORMALS: Normal to inspection, nondistended, normoactive bowel sounds present and non-tender Extremity: COMMON NORMALS: no pedal edema Neuro: COMMON NORMALS: patient oriented x3 Psych: COMMON NORMALS: mental status grossly normal Data 08/24/23 04:08 08/24/23 04:08 A&P Assessment and plan (1) Bleeding per rectum: (2) Generalized weakness: (3) SARS-CoV-2 positive: Plan 73-year-old male with recent history as above discharged on 08/13/2023 after being evaluated for bright red bleeding per rectum mixed with stool. Patient returns today complaining of persisting intermittent bleeding mixed with stools and generalized weakness. Also complaining of pain in bilateral legs from his known neuropathy. Patient's neighbor who has brought in the patient today states that he has been unable to care for himself at home, does not feel living situation is conducive to living alone. Plan ? Currently denies any rectal bleeding -Patient's hemoglobin is currently stable at 12.5 -CT of the abdomen and pelvis performed recently on 08/11/2023 had shown no acute abnormalities in the abdomen or pelvis, extensive atherosclerotic disease - If remains stable, will likely need colonoscopy as outpatient. -Continue local application of hydrocortisone ointment, possibly hemorrhoidal source of bleeding. Noted to have low-grade fever on day of discharge. Intermittent wheezing on exam today. COVID-19 positive, started on remdesivir, completed treatment as inpatient Continue pregabalin for peripheral neuropathy. Recently completed nerve conduction studies as outpatient with neurology Creatinine is at current baseline of 1.8, discontinue IV fluids ? Resume home medications, ? Resume home Lyrica, Topamax, She was on gabapentin, which is not his home medication which I stopped, switch over to Lyrica to avoid withdrawals as this is his home medication PT/OT eval DVT ppx: recent venous Duplex without DVT, Lovenox for DVT prophylaxis Attestations 2 Medical Necessity Statement*: Patient requires hospitalization for generalized weakness Diagnoses Bleeding per rectum K62.5 Generalized weakness R53.1 SARS-CoV-2 positive U07.1
[2023-08-24 20:56] LABS: Glucose Point of Care 131 mg/dL (70-110)
[2023-08-24] MEDS: prazosin 1 mg Capsule PO (22:51)
[2023-08-24] MEDS: atorvastatin 40 mg Tablet PO (22:51)
[2023-08-24] MEDS: pregabalin 50 mg Capsule PO (22:51)
[2023-08-25] VITALS (8 sets, daily range): BP systolic 105–121; BP diastolic 60–75; PULSE 52–65; RESP 16–17; TEMP 36.6–36.7; O2SAT 94–99
[2023-08-25 06:42] LABS: Glucose Point of Care 125 mg/dL (70-110)
[2023-08-25] MEDS: allopurinol 100 mg Tablet 200 MG PO (08:30)
[2023-08-25] MEDS: pantoprazole DR 40 mg Tablet PO (08:30)
[2023-08-25] MEDS: amlodipine 5 mg Tablet 10 MG PO (08:30)
[2023-08-25] MEDS: aspirin 81 mg Chew Tablet PO (08:30)
[2023-08-25] MEDS: lisinopril 2.5 mg Tablet PO (08:30)
[2023-08-25] MEDS: acetaminophen 325 mg Tablet 650 MG PO (08:30)
[2023-08-25] MEDS: tamsulosin 0.4 mg Capsule PO (08:31)
[2023-08-25] MEDS: spironolactone 25 mg Tablet PO (08:31)
[2023-08-25] MEDS: baclofen 10 mg Tablet PO (08:31)
[2023-08-25] MEDS: metoprolol succinate ER (24 HR) 25 mg Tablet PO (08:31)
[2023-08-25] MEDS: topiramate 25 mg Tablet PO (08:31)
[2023-08-25] MEDS: pregabalin 50 mg Capsule PO ×2 (08:31→16:02)
[2023-08-25] MEDS: memantine 5 mg tablet 10 MG PO (08:31)
[2023-08-25 11:03] LABS: Glucose Point of Care 117 mg/dL (70-110)
--- NOTE | 2023-08-25 13:35 | P.DS_ITS ---
Discharge Providers Date of Admission: 08/14/23 19:44 Date of Discharge: August 25, 2023 Attending Provider at Admission: David Ashraf MD Attending Provider at Discharge: Per Gallo MD Primary Care Provider: Moody Moralez MD Diagnoses at Discharge Discharge Diagnosis (1) Bleeding per rectum: Status: Acute (2) Generalized weakness: Status: Acute (3) SARS-CoV-2 positive: Status: Acute Reason for Visit Reason for Visit: bleeding in stool,weakness,dizzy Hospital Course Hospital Course Franki Read is a 73 year old male with past medical history of alcohol use disorder in remission, arthritis, peripheral neuropathy, marijuana dependence, diabetes mellitus, anxiety, hypertension, GERD, hyperlipidemia, sleep apnea. He was recently admitted here between 08/11-08/13 for BRBPR which appeared to be related to hemorrhoids. His H&H remained stable during admission, CT abdomen/ pelvis was without any obvious source of bleeding.He had ROXANN on CKD for which he received IV hydration with improvement in his renal function. He used to be on multiple medications that could have led up to the ROXANN including MARV/ARB which was discontinued. He was requested to be assessed by physical therapy , however he did not agree to be seen on 08/13. Patient was discharged home on 1223, however returned today, brought in by his neighbor stating that patient is unable to care for self. Patient himself states that he has continued to feel extremely weak, has bilateral lower extremity pain due to his neuropathy, not able to walk very well and he has continued to have spotting rectal bleeding. States that he sees blood mixed with bowel movements. No blood noted on underwear. No abdominal pain. Patient presented to [facility] due to deconditioning, attempts were made to place him to a detention facility, however attempts were unsuccessful, during last physical therapy evaluation, he demonstrated independent mobility, safe with walker, demonstrating improved mobility, largely independent from supine to sit, ambulation in room with wheeled walker 80 feet No recurrent rectal bleeding during hospitalization, hemoglobin remained stable, I have ordered a outpatient follow-up with general surgery for colonoscopy, follow-up with primary care provider as outpatient, Patient did test positive for COVID-19 did require 3 days of inpatient remdesivir, remains asymptomatic, next Physical Exam Const: COMMON NORMALS: no acute distress and patient oriented x3 Resp: COMMON NORMALS: normal respiratory effort, No retractions, No use of accessory muscles and clear to auscultation bilaterally AUSCULTATION: clear to auscultation bilaterally Cardio: COMMON NORMALS: regular rate, regular rhythm, S1 normal heart sound present and S2 normal heart sound present RATE: regular rate RHYTHM: regular rhythm HEART SOUNDS: S1 normal heart sound present and S2 normal heart sound present GI: COMMON NORMALS: Normal to inspection, nondistended, normoactive bowel sounds present and non-tender Extremity: COMMON NORMALS: no pedal edema Neuro: COMMON NORMALS: patient oriented x3 Psych: COMMON NORMALS: mental status grossly normal Discharge Data Studies Completed and Pending Completed Studies During Hospitalization Category Date Time Status CXRP [XR chest 1V portable [id number]] Routine Exams 08/15/23 06:51 [place] [id number] Stat Ultrasound 08/18/23 11:49 Completed Radiology Impressions Chest X-Ray 08/15/23 06:51 IMPRESSION: No lobar consolidation is appreciated.No interval acute cardiopulmonary changes are appreciated. Laboratory Results WBC 10.23 10^3/uL (3.29-11.43) 08/24/23 04:08 RBC 3.73 10^6/uL (3.85-5.65) L 08/24/23 04:08 Hgb 11.10 g/dL (11.27-16.99) L 08/24/23 04:08 Hct 35.3 % (37-53) L 08/24/23 04:08 MCV 94.6 fl (82-101) 08/24/23 04:08 MCH 29.8 pg (27-33) 08/24/23 04:08 MCHC 31.4 g/dL (30-55) 08/24/23 04:08 RDW 14.5 % (12.1-15.1) 08/24/23 04:08 Plt Count 304 10^3/cmm (157-399) 08/24/23 04:08 MPV 10.7 fL (7.4-10.4) H 08/24/23 04:08 Neut % (Auto) 56.7 % 08/24/23 04:08 Lymph % (Auto) 19.4 % 08/24/23 04:08 [place] % (Auto) 14.6 % 08/24/23 04:08 Eos % (Auto) 2.8 % 08/24/23 04:08 Baso % (Auto) 0.5 % 08/24/23 04:08 Neut # (Auto) 5.81 10^3/uL (1.8-7.7) 08/24/23 04:08 Lymph # (Auto) 2.0 10^3/uL (0.8-4.8) 08/24/23 04:08 [place] # (Auto) 1.5 10^3/uL (0.2-0.9) H 08/24/23 04:08 Eos # (Auto) 0.3 10^3/uL (0.0-0.8) 08/24/23 04:08 Baso # (Auto) 0.1 10^3/uL (0.0-0.1) 08/24/23 04:08 Nucleated RBC % (auto) 0 % 08/24/23 04:08 Total Counted 100 (0-100) 08/23/23 04:15 Atypical Lymphs % Not Reportable 08/23/23 04:15 Segmented Neutrophils 60 % 08/23/23 04:15 Abs Segm Neuts (Man) 6.7 10/cmm (1.6-7.1) 08/23/23 04:15 Band Neutrophils Not Reportable 08/23/23 04:15 Lymphocytes (Manual) 21 % 08/23/23 04:15 Monocytes (Manual) 12.0 % 08/23/23 04:15 Absolute Monocytes 1.3 10^3/cmm (0.1-0.6) H 08/23/23 04:15 Eosinophils (Manual) 4 % 08/23/23 04:15 Absolute Eosinophils 0.4 10^3/cmm (0.0-0.7) 08/23/23 04:15 Basophils (Manual) 0.0 % 08/23/23 04:15 Absolute Basophils 0.0 10^3/cmm (0.0-0.2) 08/23/23 04:15 Myelocytes 3.0 % 08/23/23 04:15 Nucleated RBCs # 0.0 /100WBC 08/24/23 04:08 Platelet Estimate Normal (Normal) 08/23/23 04:15 Giant Platelets 1+ H 08/23/23 04:15 Sodium 139 mmol/L (136-145) 08/24/23 04:08 Potassium 4.6 mmol/L (3.5-5.1) 08/24/23 04:08 Chloride 108 mmol/L (98-107) H 08/24/23 04:08 Carbon Dioxide 20 mmol/L (22-29) L 08/24/23 04:08 Anion Gap 15.6 (5-19) 08/24/23 04:08 BUN 40 mg/dL (8-23) H 08/24/23 04:08 Creatinine 1.8 mg/dL (0.7-1.2) H 08/24/23 04:08 GFR Calculation Not Reportable 08/24/23 04:08 Glucose 108 mg/dL (65-115) 08/24/23 04:08 POC Glucose 117 mg/dL (70-110) H 08/25/23 10:50 Calculated Osmolality 298 mOsm/kg (285-295) H 08/24/23 04:08 Calcium 8.5 mg/dL (8.5-10.5) 08/24/23 04:08 Phosphorus 3.1 mg/dL (2.5-4.5) 08/21/23 02:06 Magnesium 2.1 mg/dL (1.7-2.3) 08/21/23 02:06 Total Bilirubin 0.3 mg/dL (0.15-1.2) 08/24/23 04:08 AST 19 U/L (0-40) 08/24/23 04:08 ALT 26 U/L (0-41) 08/24/23 04:08 Alkaline Phosphatase 83 U/L (40-130) 08/24/23 04:08 C-Reactive Protein 79.2 mg/L (0.0-4.9) H 08/15/23 04:37 Total Protein 5.7 g/dL (6.6-8.7) L 08/24/23 04:08 Albumin 3.5 g/dL (3.5-5.2) 08/24/23 04:08 Globulin 2.2 g/dL (1.3-4.6) 08/24/23 04:08 Lipase 33 U/L (13-60) 08/14/23 10:05 Urine Color Light yellow (Yellow) 08/15/23 02:35 Urine Appearance Clear (CLEAR) 08/15/23 02:35 Urine pH 5 (5-7) 08/15/23 02:35 Ur Specific [place] 1.015 (1.005-1.030) 08/15/23 02:35 Urine Protein Trace (Negative) 08/15/23 02:35 Urine Glucose (UA) 1+ (Normal) H 08/15/23 02:35 Urine Ketones 1+ (Negative) H 08/15/23 02:35 Urine Blood 2+ (Negative) H 08/15/23 02:35 Urine Nitrate Negative (Negative) 08/15/23 02:35 Urine Bilirubin Neg (Negative) 08/15/23 02:35 Urine Urobilinogen Neg mg/dL (Negative) 08/15/23 02:35 Ur Leukocyte Esterase Negative (Negative) 08/15/23 02:35 Urine RBC 0-4 /hpf (0-2) H 08/15/23 02:35 Urine WBC 0-4 /hpf (0-5) H 08/15/23 02:35 Ur Squamous Epith Cells None /hpf (0-5) 08/15/23 02:35 Amorphous Sediment 1+ /hpf 08/15/23 02:35 Urine Bacteria Trace /hpf (NONE) 08/15/23 02:35 Urine Mucus 1+ /hpf 08/15/23 02:35 Influenza Type A Ag negative (Negative) 08/15/23 01:32 Influenza Type B Ag negative (Negative) 08/15/23 01:32 SARS-CoV-2 Ag (Rapid) positive (Negative) H 08/15/23 01:35 Vitals Last Vital Signs Temp 97.9 F 08/25/23 11:31 Pulse 65 08/25/23 11:31 Resp 17 08/25/23 11:31 BP 105/60 08/25/23 11:31 Pulse Ox 94 08/25/23 11:31 O2 Del Method Room Air 08/25/23 11:31 FiO2 21 08/25/23 07:15 Discharge Plan Discharge Patient Disposition: Home Condition: Stable Prescriptions: New Anusol-HC 25 mg suppository 25 mg AK TID 28 Days Qty: 100 0RF Continued metoprolol succinate 25 mg capsule,sprinkle,ER 24hr 25 mg PO DAILY aspirin [Ericka Chewable Aspirin] 81 mg tablet,chewable 81 mg PO DAILY (DME) hinged knee brace See Rx Instructions .Route .MEDSUPPLY Qty: 1 0RF Rx Instructions: As directed omeprazole 20 mg capsule,delayed release(DR/EC) 20 mg PO BID memantine 10 mg tablet 10 mg PO DAILY tamsulosin 0.4 mg capsule 0.4 mg PO DAILY colchicine 0.6 mg tablet 0.6 mg PO BID PRN (Reason: GOUT) lisinopril 2.5 mg tablet 2.5 mg PO DAILY spironolactone 50 mg tablet 25 mg PO DAILY Jardiance 25 mg tablet 25 mg PO DAILY omega 5-wcs-dqh-fish oil [Fish Oil] 1,000 mg (120 mg-180 mg) Capsule 1 cap PO DAILY prazosin 1 mg capsule 1 mg PO BEDTIME topiramate 25 mg tablet 25 mg PO BID allopurinol 100 mg tablet 200 mg PO DAILY rosuvastatin 40 mg tablet 40 mg PO DAILY pregabalin 75 mg capsule 75 mg PO TID amlodipine 5 mg Tablet 10 mg PO DAILY Qty: 30 0RF Changed baclofen 20 mg tablet 10 mg PO TID PRN (Reason: spasms) Qty: 1 0RF Discontinued levofloxacin 500 mg tablet 500 mg PO DAILY Discharge Orders: Discharge Order (Routine); Ordered 08/25/23 Ordered By: Per Gallo Other Ambulatory Orders: DME: Otoniel (Order) Location: None Selected Ordered By: Per Gallo Referrals: Sanjeev Marcos MD [Physician] - 2 weeks (colonoscopy) Moody Moralez MD [Primary Care Provider] - 1-3 days (Follow-up with @[phone] in 4-7 days.) Discharge Diet: Usual diet Discharge Activity: Increase activity as tolerated Patient Instructions: Opioid Safety, Pain Management Activity Restrictions/Additional Instructions: Thank you for choosing [facility] for your healthcare needs today. Please realize this is an emergency room and that we are providing you with a medical screening exam and this may not be complete and all inclusive of all the testing and or work up that you may need to determine your ailment or severity of your illness. It is very important that you follow up as instructed or that you return to the Emergency Department should you have concerns or if your condition changes or worsens in any way. You are seen today with rectal bleeding. He is recently hospitalized for the same. Your hemoglobin is stable suspect the bleeding is secondary to hemorrhoids. During her last hospitalization he had a mild acute kidney injury that did improve and is stable today as well. Recommend you follow-up with your primary care doctor regarding the complaints of generalized weakness if your symptoms do not improve they may need to have you evaluated for rehabilitation. Discharge Attestations Time Spent in Discharge Care*: greater than 30 min Status at Discharge: Cognitive status at discharge: cognitively intact , Behavioral status at discharge: cooperative , Quality Metrics Clinical Quality Measures [ No reported AMI, CVA or VTE this stay] Coding Level of Care Code 72850 Total time (in minutes) for Discharge: 45 Diagnoses Bleeding per rectum K62.5 Generalized weakness R53.1 SARS-CoV-2 positive U07.1
--- NOTE | 2023-08-25 16:03 | PC.NURSE ---
Discharge Note Patient discharged to home via private vehicle accompanied by friend. Discharge instructions reviewed with patient and/or admissions representative. Mobile pharmacy medications and/or prescriptions provided. Belongings/home medications returned.
== END 2023-08-25 17:21 | disposition home or self-care (01) ==
LOC: ER 19:48 → MEDSURG 20:00
PROVIDERS: Family Medicine; Student in an Organized Health Care Education/Training Program; Admitting Provider Student in an Organized Health Care Education/Training Program; Emergency Provider Emergency Medicine; PCP Family Medicine; Visit Provider Family Medicine
DX: U07.1 COVID-19 (principal); K62.5 Hemorrhage of anus and rectum; R53.1 Weakness; E11.42 Type 2 diabetes mellitus with diabetic polyneuropathy; F12.20 Cannabis dependence, uncomplicated; F41.9 Anxiety disorder, unspecified; K21.9 Gastro-esophageal reflux disease without esophagitis; E78.5 Hyperlipidemia, unspecified; G47.30 Sleep apnea, unspecified; N17.9 Acute kidney failure, unspecified; E11.22 Type 2 diabetes mellitus with diabetic chronic kidney disease; I12.9 Hypertensive chronic kidney disease with stage 1 through stage 4 chronic kidney disease, or unspecified chronic kidney disease; N18.9 Chronic kidney disease, unspecified; J44.9 Chronic obstructive pulmonary disease, unspecified
CPT/HCPCS: 36415; 36416; 71045; 80048; 80053; 81001; 82962; 83690; 83735; 84100; 85007; 85025; 86140; 87426; 87804; 93005; 93970; 94660; 96365; 96372; 96375; 97110; 97116; 97162; 97530; 99285; G0378; J0248; J1650; J1815; J1940; J2405; J7030

== ENCOUNTER 2023-09-13 10:51 | Emergency (ER) | payer MEDICARE, MEDICAID, SELFPAY ==
[2023-09-13 10:59] VITALS: BP 117/69; PULSE 64; RESP 15; TEMP 36.6; O2SAT 97; BMI 37.4
--- NOTE | 2023-09-13 11:19 | XR_ITS ---
WS: [id number] XR knee RT 3V* [id number] REASON FOR EXAM: pain FINDINGS: Moderate knee joint effusion. No focal bone abnormality. The joint spaces of the knee joint are intact and relatively well preserved for age. There is mild jiang bchondral sclerosis in both the medial and lateral knee joint spaces. There is mild marginal osteophy tosis in the lateral knee joint space. IMPRESSION: Joint effusion with relatively mild osteoarthropathic change.
--- NOTE | 2023-09-13 11:19 | USCV_ITS ---
Franki Read Age: 73 Gender: M : 1950 Exam Date: 09/13/2023 11:38 Ordering Phys: Laurita Brennan MD Technologist: SANKET Exam Location: [facility] [place] Indication: RLE PAIN AND SWELLING HISTORY: Lower extremity swelling. Lower extremity pain. PROCEDURES: Venous duplex imaging was performed in only the right lower extremity. The following venous structures were evaluated: common femoral vein, profunda vein, proximal portion of the greater saphenous vein, superficial femoral vein, and the popliteal vein. In addition, the posterior tibial and peroneal trunk were evaluated. Serial compression, augmentation maneuvers, and spectral Doppler flow evaluation were performed. FINDINGS: No evidence of DVT seen in any vessel visualized at this time. CONCLUSIONS No evidence of right lower extremity DVT. Barrie Negron MD (Electronically Signed) Final Date: 13 September 2023 14:16 S
--- NOTE | 2023-09-13 11:28 | ED_ITS ---
HPI - Extremity Problem 2 General: Chief complaint: Extremity Problem,Nontraumatic Stated complaint: dr keita, right knee pain Time Seen by Provider: 09/13/23 11:16 Source: patient Mode of arrival: ambulatory Limitations: no limitations History of Present Illness: 73-year-old male states he had some righ t knee pain and swelling over the last 5 days. States the pain is a 5 out of 10 states his PCP had sent him here for rule out DVT due to some leg swelling as well denies any injuries denies any fever. Associated symptoms: Deny chest pain, fever(s) or rash Review of Systems 2 Const: Denies: fever(s), chills, body aches or change in appetite Eyes: Denies: blurry vision or eye discomfort ENMT: Denies: throat pain or dental pain Card: Denies: chest pain Resp: Denies: dyspnea GI: Denies: abdominal pain, nausea, vomiting or diarrhea Musc: Reports: extremity pain; Denies: neck pain or back pain Skin/Breast: Denies: rash Neuro: Denies: headache(s) Psych: Denies: depression PFSH ED 2 PFSH: Medical History Sprain of collateral ligament of left knee Dementia Hypertension COPD (chronic obstructive pulmonary disease) Psychiatric care History of hypertension Hyperlipidemia History of gastroesophageal reflux (GERD) Sleep apnea Arthritis Diabetes mellitus History of fibromyalgia Generalized anxiety disorder Surgical History History of colonoscopy Hx of brain surgery Family History Other Cancer Diabetes Hypertension Social History Smoking and tobacco/nicotine status: former use of tobacco/nicotine Quit status (tobacco/nicotine): has quit using Year quit tobacco: 2004 Second hand smoke exposure: No Alcohol intake: former Substance/Drug Use: former Date of last use: 2022 Adopted: No Caregiver/support person: No Lives independently: Yes Household members: none Housing: Manufactured/Mobile home Marital status: Number of children: 1 Number of grandchildren: 1 Highest education level completed: 11th Grade service: No Current occupational status: retired Current occupational exposures/hazards: No 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 Pets and animals: Yes (4) Pets & animals: cat(s) Leisure activites: art and other Leisure activities details: visiting with friends, work in shop Sexually active: No Do you think of yourself as: Straight/Heterosexual Current gender identity: Male Teresa/Mandaen: None Special teresa needs: No Agree to transfusion: Yes Physical Exam 2 Const: COMMON NORMALS: no acute distress, patient oriented x3 and healthy appearing HENMT: COMMON NORMALS: normocephalic and atraumatic HEAD & SCALP: n ormocephalic and atraumatic Eye: COMMON NORMALS: Equal, round and reactive pupils present and EOMs intact bilaterally PUPIL: Yes Equal, round and reactive pupils present Neck/C-Spine: COMMON NORMALS: full ROM and supple Chest: COMMONS NORMALS: normal inspection of the chest Resp: COMMON NORMALS: normal respiratory effort Cardio: COMMON NORMALS: regular rate, regular rhythm and No murmurs present (Cardio) RATE: regular rate RHYTHM: regular rhythm Extremity: COMMON NORMALS: full ROM NARRATIVE EXTREMITY EXAM: Swelling noted to right leg some slight tenderness over right knee no warmth to touch distal pulses intact Neuro: COMMON NORMALS: patient oriented x3, moves all extremities and no focal motor deficits Psych: COMMON NORMALS: mental status grossly normal, Normal thought process present and cooperative THOUGHT PROCESS: Normal thought process present Skin: COMMON NORMALS: no rashes or lesions noted and no wounds GENERAL SKIN EXAM: no rashes or lesions noted Course 2 Vital Signs: Vital signs: Vital Signs Temperature 97.8 F 09/13/23 10:59 Pulse Rate 58 L 09/13/23 12:19 Respiratory Rate 15 09/13/23 10:59 Blood Pressure 117/69 09/13/23 10:59 Pulse Oximetry 96 09/13/23 12:19 Oxygen Delivery Me thod Room Air 09/13/23 12:19 MDM - Extremity (Nontraumatic) Medical Decision Making Patient presents here with right knee pain ultrasound showed no DVT he does have arthritis is likely just an effusion and arthritic pain I did recommend a arthrocentesis to rule out septic joint due to his pain patient adamantly refuses informed him that I did recommend it but he states that he just wants pain meds to go home I informed if he changes her mind or has a fever he is to return for an arthrocentesis he understands agrees to plan. Medical Records I reviewed the patient's medical records. Lab Data I reviewed the patient's lab results. 09/13/23 11:35 Laboratory Results WBC 10.33 10^3/uL (3.29-11.43) 09/13/23 11:35 RBC 3.57 10^6/uL (3.85-5.65) L 09/13/23 11:35 Hgb 10.60 g/dL (11.27-16.99) L 09/13/23 11:35 Hct 33.0 % (37-53) L 09/13/23 11:35 MCV 92.4 fl (82-101) 09/13/23 11:35 MCH 29.7 pg (27-33) 09/13/23 11:35 MCHC 32.1 g/dL (30-55) 09/13/23 11:35 RDW 14.6 % (12.1-15.1) 09/13/23 11:35 Plt Count 246 10^3/cmm (157-399) 09/13/23 11:35 MPV 11.0 fL (7.4-10.4) H 09/13/23 11:35 Neut % (Auto) 65.7 % 09/13/23 11:35 Lymph % (Auto) 15.8 % 09/13/23 11:35 [place] % (Auto) 13.6 % 09/13/23 11:35 Eos % (Auto) 2.8 % 09/13/23 11:35 Baso % (Auto) 0.6 % 09/13/23 11:35 Neut # (Auto) 6.79 10^3/uL (1.8-7.7) 09/13/23 11:35 Lymph # (Auto) 1.6 10^3/uL (0.8-4.8) 09/13/23 11:35 [place] # (Auto) 1.4 10^3/uL (0.2-0.9) H 09/13/23 11:35 Eos # (Auto) 0.3 10^3/uL (0.0-0.8) 09/13/23 11:35 Baso # (Auto) 0.1 10^3/uL (0.0-0.1) 09/13/23 11:35 Nucleated RBC % (auto) 0 % 09/13/23 11:35 Nucleated RBCs # 0.0 /100WBC 09/13/23 11:35 ESR 69 mm/hr (0-10) H 09/13/23 11:35 XR interpretation done by ED provider, pending radiology final review Discharge Plan Discharge Patient Disposition: Home Clinical Impression: Knee pain, right Condition: Stable Prescriptions: New hydrocodone-acetaminophen 5-325 mg tablet 1 tab PO Q6H PRN (Reason: pain) Qty: 14 0RF No Action aspirin [Ericka Chewable Aspirin] 81 mg tablet,chewable 81 mg PO QAM (DME) hinged knee brace See Rx Instructions .Route .MEDSUPPLY Qty: 1 0RF Rx Instructions: As directed omeprazole 20 mg capsule,delayed release(DR/EC) 20 mg PO QAM memantine 10 mg tablet 10 mg PO BID tamsulosin 0.4 mg capsule 0.4 mg PO QAM colchicine 0.6 mg tablet 0.6 mg PO BID PRN (Reason: gout flares) lisinopril 2.5 mg tablet 2.5 mg PO QAM spironolactone 50 mg tablet 50 mg PO QAM Jardiance 25 mg tablet 25 mg PO QAM pregabalin 100 mg capsule 100 mg PO TID amlodipine 5 mg tablet 10 mg PO QAM baclofen 20 mg tablet 20 mg PO QID PRN (Reason: spasms) metoprolol succinate 25 mg tablet extended release 24 hr 25 mg PO QAM omega 5-amz-uov-fish oil [Fish Oil] 1,000 mg (120 mg-180 mg) Capsule 1 cap PO BID prazosin 1 mg capsule 1 mg PO BEDTIME topiramate 25 mg tablet 25 mg PO BID allopurinol 100 mg tablet 200 mg PO QAM rosuvastatin 40 mg tablet 40 mg PO DAILY Discharge Orders: Discharge ED (Routine); Ordered 09/13/23 Ordered By: Laurita Brennan Referrals: Moody Moralez MD [Primary Care Provider] - 1-3 days Discharge Diet: Advance as tolerated Discharge Activity: Resume usual activity Patient Instructions: Knee Pain (ED), Opioid Safety Coding Level of Care Code ED Critical Care Technician for Stepan Noel
[2023-09-13 11:52] LABS: Basophils # 0.1 10^3/uL (0.0-0.1); Basophils % 0.6 %; Eosinophils # 0.3 10^3/uL (0.0-0.8); Eosinophils % 2.8 %; Lymphocytes # 1.6 10^3/uL (0.8-4.8); Lymphocytes % 15.8 %; Mean Corpuscular HGB Conc 32.1 g/dL (30-55); Mean Corpuscular Hemoglobin 29.7 pg (27-33); Mean Corpuscular Volume 92.4 fl (82-101); Monocytes # 1.4 10^3/uL (0.2-0.9); Monocytes % 13.6 %; Neutrophils # 6.79 10^3/uL (1.8-7.7); Neutrophils % 65.7 %; Nucleated Red Blood Cells % 0 %; Platelet Count 246 10^3/cmm (157-399); Red Blood Count 3.57 10^6/uL (3.85-5.65); Red Cell Distribution Width 14.6 % (12.1-15.1); White Blood Count 10.33 10^3/uL (3.29-11.43)
[2023-09-13 12:06] LABS: Erythrocyte Sedimentation Rate 69 mm/hr (0-10)
[2023-09-13 12:19] VITALS: PULSE 58; O2SAT 96
[2023-09-13 14:16] VITALS: PULSE 62; O2SAT 96
== END 2023-09-13 14:17 | disposition home or self-care (01) ==
PROVIDERS: Emergency Provider Emergency Medicine; PCP Family Medicine
DX: M25.561 Pain in right knee (principal); Z79.82 Long term (current) use of aspirin; Z87.891 Personal history of nicotine dependence; F03.90 Unspecified dementia, unspecified severity, without behavioral disturbance, psychotic disturbance, mood disturbance, and anxiety; I10 Essential (primary) hypertension; J44.9 Chronic obstructive pulmonary disease, unspecified; E78.5 Hyperlipidemia, unspecified; E11.9 Type 2 diabetes mellitus without complications
CPT/HCPCS: 73562; 85025; 85651; 93971; 99284

== ENCOUNTER 2023-09-19 10:04 | Outpatient (CLI) | payer MEDICARE, MEDICAID, SELFPAY ==
--- NOTE | 2023-09-19 10:10 | US_ITS ---
WS: [id number] TESTICULAR ULTRASOUND HISTORY: TESTICULAR DISORDER/BILATERAL TESTICULAR PAIN COMPARISON: 12/26/2019 TECHNIQUE: Real-time and color Doppler imaging or utilized to perform a testicular ultrasound. Right testicle: 3.8 cm x 2.9 cm x 2.2 cm. Normal size and echogenicity. No mass or torsion. [place] albuginea cyst measures 3 x 3.4 mm. Normal color Doppler is present throughout. Systolic and diastolic velocities are both present. Small simple hydrocele. Right epididymis: Normal epididymis with no increased vascularity. Small spermatoceles. Left testicle: 4.2 cm x 3.3 cm x 2.5 cm. Normal size testicle but there is mild heterogeneity within the testicle and also increased Doppler a s compared to the RIGHT. Small hydrocele. Left epididymis: Normal vascularity with a small spermatocele. IMPRESSION: 1. Small bilateral hydroceles. 2. Small bilateral spermatoceles. 3. No testicular mass. 4. Very slight increased vascularity within the LEFT testicle as compared to the RIGHT. This may rep resent early mild changes of orchitis or be normal variant.
--- NOTE | 2023-09-19 10:10 | US_ITS ---
WS: [id number] RENAL ULTRASOUND HISTORY: ACUTE RENAL FAILURE COMPARISON: 01/04/2018 TECHNIQUE: 2-D and color Doppler imaging of the kidney submitted. Right kidney: 10.0 cm x 5.4 cm x 4.7 cm. Cortex: cm Normal echogenicity with no hydronephrosis or mass. Simple cortical cyst lower pole RIGHT kidney jo ures 1.8 x 1.8 x 1.6 cm. Left kidney: 11.1 cm x 4.6 cm x 6.2 cm. Cortex: 1.9 cm Normal echogenicity with no hydronephrosis or mass. Simple cyst mid kidney measures 2.0 x 1.6 x 1.5 c m. Aorta: Normal. Urinary Bladder: Normal distention. IMPRESSION: 1. Normal size kidneys with no hydronephrosis. 2. Bilateral simple renal cysts as above.
== END 2023-09-19 10:05 | disposition home or self-care (01) ==
LOC: RAD 10:04
PROVIDERS: PCP Family Medicine; Visit Provider Family Medicine
DX: N17.9 Acute kidney failure, unspecified (principal); N50.9 Disorder of male genital organs, unspecified; N50.812 Left testicular pain; N50.811 Right testicular pain; N43.2 Other hydrocele; N43.42 Spermatocele of epididymis, multiple; N28.1 Cyst of kidney, acquired
CPT/HCPCS: 76770; 76870

== ENCOUNTER → 2023-11-01 11:38 | Outpatient (BNVA) | payer MEDICARE, OTHER, SELFPAY ==
[2023-10-25 13:38] VITALS: BP 133/65; BMI 35.1
== END ==
PROVIDERS: PCP Family Medicine; Visit Provider Nurse Practitioner Psychiatric/Mental Health
DX: F41.1 Generalized anxiety disorder (principal); E78.2 Mixed hyperlipidemia; E11.9 Type 2 diabetes mellitus without complications
CPT/HCPCS: 80061; 83036

== ENCOUNTER → 2023-11-17 10:06 | Outpatient (BNVA) | payer MEDICARE, MEDICAID, SELFPAY ==
[2023-11-02 10:40] VITALS: BP 173/66; BMI 39.2
== END ==
PROVIDERS: PCP Family Medicine; Referring Provider Family Medicine; Visit Provider Physician Assistant
DX: M17.0 Bilateral primary osteoarthritis of knee
CPT/HCPCS: 73560; 73565; 99213

== ENCOUNTER → 2024-02-29 10:40 | Outpatient (CLI) | payer MEDICARE, MEDICAID, SELFPAY ==
[2024-01-18 07:59] VITALS: BP 173/66; BMI 39.2
--- NOTE | 2024-02-29 10:46 | MR_ITS ---
WS: [id number] MRI LUMBAR SPINE NONCONTRAST TECHNIQUE: Sagittal T1, T2 and STIR imaging. Axial T1 and T2 imaging. CLINICAL INFORMATION: CHRONIC LUMBAR BACK PAIN/PERIPHERAL NEUROPATHY,LOWER EXT COMPARISON: MRI 2014 FINDINGS: Mild lumbar curve. No acute compression. Disc space narrowing throughout the lumbar spine. Chronic sp ondylolysis L5-S1 with grade 1 anterolisthesis progressed since 2014. Disc space narrowing throughout the lumbar spine has also progressed. L1-L2: Mild facet arthropathy. Spinal canal and foramen are patent. L2-L3: Mild disc bulging with narrowing of the subarticular recess bilaterally. Mild central canal st enosis. Moderate facet arthropathy. Small bilateral foraminal protrusions with mild bilateral foramin al narrowing. L3-L4: Mild disc bulging with slight effacement of ventral thecal sac. Narrowing of the subarticular recess bilaterally. Mild central canal stenosis. Moderate facet arthropathy with ligamentum flavum hy pertrophy. Small bilateral foraminal protrusions with mild bilateral foraminal narrowing. L4-L5: Mild annular bulging. Narrowing of the subarticular recess bilaterally. Moderate facet arthrop athy. Mild LEFT greater than RIGHT foraminal narrowing. Spinal canal is patent. Incidental Schmorl's node superior endplate L4. L5-S1: Chronic spondylolysis with grade 1 anterolisthesis. Advanced facet arthropathy. Severe RIGHT a nd moderate LEFT foraminal narrowing impinges the exiting L5 nerve roots bilaterally. Visualized pelvic bony structures: Normal. Paravertebral soft tissues: Normal. Tiny LEFT renal cyst. Mild central canal stenosis on the cervical spine corn grinder imaging with disc protrusions worse at C4-5. MR/MR lumbar spine wo con* [id number] IMPRESSION: 1. Mild lumbar curve. No acute compression. Grade 1 anterolisthesis L5 on S1 w ith chronic spondylolysis. 2. Mild central canal stenosis L2-3 and L3-4 with narrowing of the subarticula r recess bilaterally. 3. Severe RIGHT and moderate LEFT L5-S1 foraminal narrowing progressed compare d to previous. 4. Moderate facet arthropathy L2-L3 L3-L4 and L4-L5. 5. Advanced facet arthropathy L5-S1. 6. Mild central canal stenosis on the cervical spine corn grinder imaging with disc p rotrusions worse at C4-5.
== END | disposition home or self-care (01) ==
PROVIDERS: PCP Family Medicine; Visit Provider Family Medicine
DX: M51.26 Other intervertebral disc displacement, lumbar region (principal); G62.9 Polyneuropathy, unspecified; M47.816 Spondylosis without myelopathy or radiculopathy, lumbar region; M51.36 Other intervertebral disc degeneration, lumbar region; M48.061 Spinal stenosis, lumbar region without neurogenic claudication; M43.07 Spondylolysis, lumbosacral region; M47.817 Spondylosis without myelopathy or radiculopathy, lumbosacral region; M48.07 Spinal stenosis, lumbosacral region; M48.02 Spinal stenosis, cervical region; M50.221 Other cervical disc displacement at C4-C5 level
CPT/HCPCS: 72148

== ENCOUNTER → 2024-03-14 10:05 | Outpatient (BNVA) | payer MEDICARE, MEDICAID, SELFPAY ==
[2024-01-18 07:59] VITALS: BP 173/66; BMI 39.2
== END ==
PROVIDERS: PCP Family Medicine; Visit Provider Orthopaedic Surgery
DX: M54.9 Dorsalgia, unspecified (principal); M47.896 Other spondylosis, lumbar region; M43.17 Spondylolisthesis, lumbosacral region
CPT/HCPCS: 72100; 99204

== ENCOUNTER 2024-10-29 11:45 | Emergency (ER) | payer MEDICARE, MEDICAID, SELFPAY ==
[2024-09-18 09:26] VITALS: BP 173/66; BMI 39.2
[2024-10-29 11:53] VITALS: BP 102/65; PULSE 68; RESP 17; TEMP 36.6; O2SAT 94; BMI 29.0
--- NOTE | 2024-10-29 12:23 | W.ED.NAVMDI ---
HPI - Nausea/Vomiting/Diarrhea General: Chief complaint: Nausea/Vomiting/Diarrhea Stated complaint: Dr. Callahan sent/ vomiting/possiable dehydration Time Seen by Provider: 10/29/24 12:20 Source: patient Mode of arrival: ambulatory Limitations: no limitations History of Present Illness: 74-year-old male who states has been having nausea vomiting since this morning. States had multiple episodes of vomitings having some slight abdominal cramping. He denies any severe pain denies any fever denies any diarrhea he is mainly concerned he is getting dehydrated Associated nausea: Yes Associated symtoms: Reports nausea; Denies chest pain or headache(s) Related Data Home Medications ?Medication ?Instructions ?Recorded ?Confirmed memantine 10 mg tablet 10 mg PO BID 08/26/19 10/29/24 omeprazole 20 mg capsule,delayed 20 mg PO QAM 08/26/19 10/29/24 release tamsulosin 0.4 mg capsule 0.4 mg PO QAM 08/26/19 10/29/24 aspirin 81 mg chewable tablet 81 mg PO QAM 04/21/20 10/29/24 (Ericka Chewable Low Dose Aspirin) allopurinol 100 mg tablet 200 mg PO QAM 08/12/23 10/29/24 omega 5-xxd-pnb-fish oil 1,000 mg 1 cap PO BID 08/12/23 10/29/24 (120 mg-180 mg) capsule (Fish Oil) rosuvastatin 40 mg tablet 40 mg PO DAILY 08/12/23 10/29/24 empagliflozin 25 mg tablet 25 mg PO QAM 08/15/23 10/29/24 (Jardiance) spironolactone 50 mg tablet 50 mg PO QAM 08/15/23 10/29/24 amlodipine 5 mg tablet 10 mg PO QAM 09/13/23 10/29/24 pregabalin 100 mg capsule 100 mg PO TID 09/13/23 10/29/24 baclofen 20 mg tablet 20 mg PO TID PRN muscle spasms 10/29/24 10/29/24 duloxetine 20 mg capsule,delayed 20 mg PO BID 10/29/24 10/29/24 release furosemide 40 mg tablet 80 mg PO BID 10/29/24 10/29/24 hydrocodone 5 mg-acetaminophen 325 1 tab PO TID 10/29/24 10/29/24 mg tablet metformin 500 mg tablet 500 mg PO ONCE 10/29/24 10/29/24 Previous Rx's ?Medication ?Instructions ?Recorded hinged knee brace #1 ea 02/14/23 ondansetron 4 mg disintegrating 4 mg PO Q6H PRN nausea and 10/29/24 tablet vomiting #14 tabs Allergies Allergy/AdvReac Type Severity Reaction Status Date / Time No Known Allergies Allergy Verified 10/29/24 09:48 Review of Systems Const: Denies: fever(s), chills, body aches or change in appetite ENMT: Denies: throat pain or dental pain Card: Denies: chest pain Resp: Denies: dyspnea GI: Reports: nausea and vomiting; Denies: abdominal pain or diarrhea Musc: Denies: neck pain or back pain Skin/Breast: Denies: rash Neuro: Denies: headache(s) PFSH ED PFSH: Medical History Sprain of collateral ligament of left knee Dementia Hypertension COPD (chronic obstructive pulmonary disease) Psychiatric care History of hypertension Hyperlipidemia History of gastroesophageal reflux (GERD) Sleep apnea Arthritis Diabetes mellitus History of fibromyalgia Generalized anxiety disorder Surgical History History of colonoscopy Hx of brain surgery Family History Other Cancer Diabetes Hypertension Social History Smoking and tobacco/nicotine status: never used tobacco/nicotine Quit status (tobacco/nicotine): has quit using Year quit tobacco: 2004 Second hand smoke exposure: No Alcohol intake: former Substance/Drug Use: current Adopted: No Caregiver/support person: No Lives independently: Yes Household members: none Housing: Manufactured/Mobile home Marital status: Number of children: 1 Number of grandchildren: 1 Highest education level completed: 11th Grade service: No Current occupational status: retired Current occupational exposures/hazards: No 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 Pets and animals: Yes (4) Pets & animals: cat(s) Leisure activites: art and other Leisure activities details: visiting with friends, work in shop Sexually active: No Do you think of yourself as: Straight/Heterosexual Current gender identity: Male Teresa/Jain: None Special teresa needs: No Agree to transfusion: Yes Physical Exam Const: COMMON NORMALS: no acute distress, patient oriented x3 and healthy appearing HENMT: COMMON NORMALS: normocephalic and atraumatic HEAD & SCALP: normocephalic and atraumatic Eye: COMMON NORMALS: conjunctivae normal CONJUNCTIVA: Yes conjunctivae normal Neck/C-Spine: COMMON NORMALS: full ROM and supple Chest: COMMONS NORMALS: normal inspection of the chest Resp: COMMON NORMALS: normal respiratory effort, No retractions, No use of accessory muscles and clear to auscultation bilaterally AUSCULTATION: clear to auscultation bilaterally Cardio: COMMON NORMALS: regular rate, regular rhythm and No murmurs present (Cardio) RATE: regular rate RHYTHM: regular rhythm GI: COMMON NORMALS: Normal to inspection, nondistended, normoactive bowel sounds present, Soft to palpation, non-tender and no masses PALPATION: Yes Soft to palpation Extremity: COMMON NORMALS: normal to inspection and full ROM Neuro: COMMON NORMALS: patient oriented x3, moves all extremities and no focal motor deficits Psych: COMMON NORMALS: mental status grossly normal, Normal thought process present and cooperative THOUGHT PROCESS: Normal thought process present Skin: COMMON NORMALS: no rashes or lesions noted and no wounds GENERAL SKIN EXAM: no rashes or lesions noted Course Vital Signs: Vital signs: Vital Signs Temperature 97.9 F 10/29/24 11:53 Pulse Rate 71 10/29/24 13:01 Respiratory Rate 16 10/29/24 13:01 Blood Pressure 160/69 10/29/24 13:01 Pulse Oximetry 96 10/29/24 13:01 Oxygen Delivery Me thod Room Air 10/29/24 13:01 MDM - Nausea/Vomiting/Diarrhea Medical Decision Making Patient presents here with nausea vomiting patient feels much improved here was able tolerate p.o. lab works normal abdominal exam is benign no signs of obstruction patient stable for discharge follow-up PCP return if worsening. Medical Records I reviewed the patient's medical records. Lab Data I reviewed the patient's lab results. 10/29/24 12:38 10/29/24 12:38 Laboratory Results WBC 9.07 10^3/uL (3.29-11.43) 10/29/24 12:38 RBC 5.24 10^6/uL (3.85-5.65) 10/29/24 12:38 Hgb 15.30 g/dL (11.27-16.99) 10/29/24 12:38 Hct 48.6 % (37-53) 10/29/24 12:38 MCV 92.7 fl (82-101) 10/29/24 12:38 MCH 29.2 pg (27-33) 10/29/24 12:38 MCHC 31.5 g/dL (30-55) 10/29/24 12:38 RDW 16.9 % (12.1-15.1) H 10/29/24 12:38 Plt Count 214 10^3/cmm (157-399) 10/29/24 12:38 MPV 10.9 fL (7.4-10.4) H 10/29/24 12:38 Neut % (Auto) 79.6 % 10/29/24 12: Lymph % (Auto) 11.1 % 10/29/24 12: [place] % (Auto) 6.7 % 10/29/24 12:38 Eos % (Auto) 0.7 % 10/29/24 12:38 Baso % (Auto) 0.4 % 10/29/24 12: Neut # (Auto) 7.21 10^3/uL (1.8-7.7) 10/29/24 12: Lymph # (Auto) 1.0 10^3/uL (0.8-4.8) 10/29/24 12: [place] # (Auto) 0.6 10^3/uL (0.2-0.9) 10/29/24 12:38 Eos # (Auto) 0.1 10^3/uL (0.0-0.8) 10/29/24 12: Baso # (Auto) 0.0 10^3/uL (0.0-0.1) 10/29/24 12: Nucleated RBC % (auto) 0 % 10/29/24 12: Nucleated RBCs # 0.0 /100WBC 10/29/24 12:38 Sodium 138 mmol/L (136-145) 10/29/24 12:38 Potassium 3.3 mmol/L (3.5-5.1) L 10/29/24 12:38 Chloride 94 mmol/L (98-107) L 10/29/24 12:38 Carbon Dioxide 21 mmol/L (22-29) L 10/29/24 12:38 Anion Gap 26.3 (5-19) H 10/29/24 12:38 BUN 21 mg/dL (8-23) 10/29/24 12:38 Creatinine 1.2 mg/dL (0.7-1.2) 10/29/24 12:38 GFR Calculation Not Reportable 10/29/24 12:38 Glucose 109 mg/dL (65-115) 10/29/24 12:38 Calculated Osmolality 290 mOsm/kg (285-295) 10/29/24 12:38 Calcium 9.0 mg/dL (8.5-10.5) 10/29/24 12:38 Magnesium 2.2 mg/dL (1.7-2.3) 10/29/24 12:38 Total Bilirubin 0.4 mg/dL (0.15-1.2) 10/29/24 12:38 AST 14 U/L (0-40) 10/29/24 12:38 ALT 12 U/L (0-41) 10/29/24 12:38 Alkaline Phosphatase 117 U/L (40-130) 10/29/24 12:38 Total Protein 7.3 g/dL (6.6-8.7) 10/29/24 12:38 Albumin 3.6 g/dL (3.5-5.2) 10/29/24 12:38 Globulin 3.7 g/dL (1.3-4.6) 10/29/24 12:38 Lipase 18 U/L (13-60) 10/29/24 12:38 No radiology studies performed this visit Discharge Plan Discharge Patient Disposition: Home Clinical Impression: Vomiting Condition: Stable Prescriptions: New ondansetron 4 mg tablet,disintegrating 4 mg PO Q6H PRN (Reason: nausea and vomiting) Qty: 14 0RF No Action aspirin [Ericka Chewable Aspirin] 81 mg tablet,chewable 81 mg PO QAM (DME) hinged knee brace See Rx Instructions .Route .MEDSUPPLY Qty: 1 0RF Rx Instructions: As directed metformin 500 mg tablet 500 mg PO ONCE furosemide 40 mg tablet 80 mg PO BID omeprazole 20 mg capsule,delayed release(DR/EC) 20 mg PO QAM memantine 10 mg tablet 10 mg PO BID tamsulosin 0.4 mg capsule 0.4 mg PO QAM spironolactone 50 mg tablet 50 mg PO QAM Jardiance 25 mg tablet 25 mg PO QAM pregabalin 100 mg capsule 100 mg PO TID amlodipine 5 mg tablet 10 mg PO QAM omega 3-ekl-upv-fish oil [Fish Oil] 1,000 mg (120 mg-180 mg) Capsule 1 cap PO BID allopurinol 100 mg tablet 200 mg PO QAM rosuvastatin 40 mg tablet 40 mg PO DAILY baclofen 20 mg tablet 20 mg PO TID PRN (Reason: muscle spasms) hydrocodone-acetaminophen 5-325 mg tablet 1 tab PO TID duloxetine 20 mg capsule,delayed release(DR/EC) 20 mg PO BID Discharge Orders: Discharge ED (Routine); Ordered 10/29/24 Ordered By: Laurita Brennan Discharge Diet: Advance as tolerated Discharge Activity: Resume usual activity Patient Instructions: Acute Nausea and Vomiting (ED) Print Language: Cambodian Coding Level of Care Code ED [place] Farmer for Stepan Noel
[2024-10-29 12:56] LABS: Basophils % 0.4 %; Eosinophils # 0.1 10^3/uL (0.0-0.8); Eosinophils % 0.7 %; Hematocrit 48.6 % (37-53); Lymphocytes % 11.1 %; Mean Corpuscular HGB Conc 31.5 g/dL (30-55); Mean Corpuscular Hemoglobin 29.2 pg (27-33); Mean Corpuscular Volume 92.7 fl (82-101); Mean Platelet Volume 10.9 fL (7.4-10.4); Monocytes # 0.6 10^3/uL (0.2-0.9); Monocytes % 6.7 %; Neutrophils # 7.21 10^3/uL (1.8-7.7); Neutrophils % 79.6 %; Nucleated Red Blood Cells % 0 %; Platelet Count 214 10^3/cmm (157-399); Red Blood Count 5.24 10^6/uL (3.85-5.65); Red Cell Distribution Width 16.9 % (12.1-15.1); White Blood Count 9.07 10^3/uL (3.29-11.43)
[2024-10-29] MEDS: sodium chloride 0.9% 1,000 ML 999 ML IV (12:58)
[2024-10-29] MEDS: ondansetron 2 mg/ML SDV 2 mL 4 MG IVP (13:00)
[2024-10-29 13:01] VITALS: BP 160/69; PULSE 71; RESP 16; O2SAT 96
--- NOTE | 2024-10-29 13:02 | PC.PHAR ---
Patient states he tookk morning meds today 10/29/24 but, threw them up not long after .
[2024-10-29 13:16] LABS: Alanine Aminotransferase 12 U/L (0-41); Albumin Level 3.6 g/dL (3.5-5.2); Alkaline Phosphatase 117 U/L (40-130); Aspartate Amino Transferase 14 U/L (0-40); Blood Urea Nitrogen 21 mg/dL (8-23); Carbon Dioxide 21 mmol/L (22-29); Chloride 94 mmol/L (98-107); Creatinine Clr Calc Pharmacy 50.5563; Globulin 3.7 g/dL (1.3-4.6); Glucose 109 mg/dL (65-115); Lipase 18 U/L (13-60); Magnesium 2.2 mg/dL (1.7-2.3); Osmolality Calculated 290 mOsm/kg (285-295); Sodium 138 mmol/L (136-145); Total Bilirubin 0.4 mg/dL (0.15-1.2); Total Protein 7.3 g/dL (6.6-8.7)
[2024-10-29 13:19] LABS: Anion Gap 26.3 (5-19); Potassium 3.3 mmol/L (3.5-5.1)
[2024-10-29 14:00] VITALS: BP 161/69; PULSE 70; O2SAT 92
[2024-10-29 14:53] VITALS: BP 146/71; PULSE 61; O2SAT 94
== END 2024-10-29 14:55 | disposition home or self-care (01) ==
PROVIDERS: Emergency Provider Emergency Medicine
DX: R11.10 Vomiting, unspecified (principal); Z79.84 Long term (current) use of oral hypoglycemic drugs; Z87.891 Personal history of nicotine dependence; J44.9 Chronic obstructive pulmonary disease, unspecified; I10 Essential (primary) hypertension; E11.9 Type 2 diabetes mellitus without complications
CPT/HCPCS: 36415; 80053; 83690; 83735; 85025; 96361; 96374; 99203; 99284; J2405; J7030

== ENCOUNTER 2024-11-18 12:31 | Outpatient (CLI) | payer MEDICARE, MEDICAID, SELFPAY ==
[2024-09-18 09:26] VITALS: BP 173/66; BMI 39.2
--- NOTE | 2024-11-18 13:00 | MR_ITS ---
WS: [id number] MRI HEAD WITH CONTRAST TECHNIQUE: Sagittal T1, T2 axial, T2 axial FLAIR, axial susceptibility weighted imaging, axial diffusion weighted images, and coronal T2 images were obtained. Pre and post-T1 axial and post T1 coronal images. ADC and FSPGR images. CLINICAL INFORMATION: F03.90 - Unspecified dementia, unspecified severity, with... COMPARISON: MRI 2012 FINDINGS: Some images significantly degraded by motion No evidence of restricted diffusion to suggest acute ischemia. Ventricular system and basilar cisterns are patent. Normal posterior fossa. Normal vascular flow voids at the skull base. Paranasal sinuses and mastoid air cells are well aerated. Prior RIGHT parietal craniotomy with encephalomalacia and gliosis in the parasagittal parietal lobes. No abnormal gadolinium enhancement considering significant motion artifact. Post gadolinium images are limited. MR/MR head wo/w con [id number] IMPRESSION: Some images significantly degraded by motion artifact 1. No evidence of restricted effusion to suggest acute ischemia. 2. Encephalomalacia with gliosis in the bilateral parasagittal parietal lobes. Prior RIGHT parietal craniotomy. 3. No abnormal gadolinium enhancement. 4. Moderate small vessel changes progressed compared to 2012 with mild parench ymal volume loss.
--- NOTE | 2024-11-18 13:45 | MR_ITS ---
WS: [email or web address] MRA CAROTID WITHOUT AND WITH GADOLINIUM ENHANCEMENT TECHNIQUE: Axial 2-D TOF and gadolinium bolus images obtained with axial images and axial, sagittal, and coronal 2-D reformatted images. CLINICAL INFORMATION: F03.90 - Unspecified dementia, unspecified severity, with... COMPARISON: None. FINDINGS: Some images significant degraded by motion. RIGHT: RIGHT common carotid artery is patent. No significant RIGHT ICA stenosis. Retropharyngeal course of the RIGHT cervical ICA. LEFT: LEFT common carotid artery is patent. No significant LEFT ICA stenosis. Retropharyngeal course of the LEFT cervical ICA. LEFT dominant vertebral artery. Both vertebrals are patent. Proximal subclavian arteries are patent. MR/MR angio neck w con* [id number] IMPRESSION: Some images significantly degraded by motion. 1. No significant cervical ICA stenosis. Both ICAs are patent to the skull bas e. 2. LEFT dominant vertebral artery. Both vertebral arteries are patent. 3. Proximal subclavian arteries appear patent.
--- NOTE | 2024-11-18 14:15 | MR_ITS ---
WS: [email or web address] MRA HEAD TECHNIQUE: Axial 3-D TOF images obtained with axial images and axial, sagittal, and coronal 2-D reformatted images. CLINICAL INFORMATION: F03.90 - Unspecified dementia, unspecified severity, with... COMPARISON: None. FINDINGS: Some images degraded by motion which limits detailed evaluation. Mild intracranial atheromatous disease. Basilar artery is patent. Anterior dominant circulation. Persistent RIGHT WEIGHT COUNT OPERATOR. Normal vascularity to the WEIGHT COUNT OPERATOR territory bilaterally. 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 Normal vascularity to the CODIE and MCA territories bilaterally. No evidence of proximal flow-limiting stenosis. MR/MR angio head wo con [id number] IMPRESSION: Some images degraded by motion. 1. Mild intracranial atheromatous disease. Mild to moderate cavernous carotid atheromatous disease. 2. 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 3. Persistent RIGHT WEIGHT COUNT OPERATOR. 4. No evidence of proximal flow-limiting stenosis.
[2024-11-18] MEDS: gadobenate dimeglumine 20 mL vial 16 ML IV (14:19)
== END 2024-11-18 12:32 | disposition home or self-care (01) ==
PROVIDERS: Visit Provider Psychiatry & Neurology Neurology
DX: F03.90 Unspecified dementia, unspecified severity, without behavioral disturbance, psychotic disturbance, mood disturbance, and anxiety (principal); R26.89 Other abnormalities of gait and mobility; I67.2 Cerebral atherosclerosis; R93.0 Abnormal findings on diagnostic imaging of skull and head, not elsewhere classified; G93.89 Other specified disorders of brain; Z98.890 Other specified postprocedural states; G31.89 Other specified degenerative diseases of nervous system
CPT/HCPCS: 70544; 70548; 70553

== ENCOUNTER 2024-12-03 07:44 | Outpatient (CLI) | payer OTHER, SELFPAY ==
[2024-09-18 09:26] VITALS: BP 173/66; BMI 39.2
[2024-12-03 08:37] LABS: Basophils # 0.1 10^3/uL (0.0-0.1); Basophils % 0.9 %; Eosinophils # 0.1 10^3/uL (0.0-0.8); Eosinophils % 1.3 %; Lymphocytes # 1.8 10^3/uL (0.8-4.8); Lymphocytes % 17.5 %; Mean Corpuscular HGB Conc 32.3 g/dL (30-55); Mean Corpuscular Hemoglobin 29.8 pg (27-33); Mean Corpuscular Volume 92.3 fl (82-101); Mean Platelet Volume 11.8 fL (7.4-10.4); Monocytes # 0.8 10^3/uL (0.2-0.9); Neutrophils # 7.26 10^3/uL (1.8-7.7); Neutrophils % 69.7 %; Nucleated Red Blood Cells % 0 %; Platelet Count 250 10^3/cmm (157-399); Red Cell Distribution Width 16.9 % (12.1-15.1); White Blood Count 10.41 10^3/uL (3.29-11.43)
[2024-12-03 08:57] LABS: Estmated Average Glucose 140; Hemoglobin A1C 6.5 % (4.0-6.0)
[2024-12-03 09:13] LABS: Alanine Aminotransferase 12 U/L (0-41); Albumin Level 4.3 g/dL (3.5-5.2); Alkaline Phosphatase 119 U/L (40-130); Anion Gap 14.5 (5-19); Aspartate Amino Transferase 15 U/L (0-40); Blood Urea Nitrogen 19 mg/dL (8-23); Calcium 9.3 mg/dL (8.5-10.5); Carbon Dioxide 31 mmol/L (22-29); Chloride 98 mmol/L (98-107); Free T4 Free Thyroxine 1.09 ng/dL (0.82-1.77); Globulin 3.2 g/dL (1.3-4.6); Glucose 119 mg/dL (65-115); Osmolality Calculated 293 mOsm/kg (285-295); Potassium 3.5 mmol/L (3.5-5.1); Sodium 140 mmol/L (136-145); T3 Free 2.3 PG/ML (2.0-4.4); Total Bilirubin 0.4 mg/dL (0.15-1.2); Total Protein 7.5 g/dL (6.6-8.7)
[2024-12-03 09:17] LABS: Folate Level 8.7 ng/mL (4.5-32.2)
[2024-12-03 10:45] LABS: 25 Hydroxy Vitamin D 20 ng/mL (30-100); Vitamin B12 412 pg/mL (232-1245)
[2024-12-04 04:25] LABS: PROTEIN, TOTAL 7.1 g/dL (6.1-8.1)
== END 2024-12-03 07:45 | disposition home or self-care (01) ==
LOC: LAB 07:49
PROVIDERS: PCP Family Medicine; Visit Provider Psychiatry & Neurology Neurology
DX: G62.89 Other specified polyneuropathies (principal); F03.90 Unspecified dementia, unspecified severity, without behavioral disturbance, psychotic disturbance, mood disturbance, and anxiety; E16.2 Hypoglycemia, unspecified; E87.5 Hyperkalemia; E55.9 Vitamin D deficiency, unspecified; E53.8 Deficiency of other specified B group vitamins
CPT/HCPCS: 36415; 80053; 82306; 82607; 82746; 83036; 83921; 84155; 84165; 84439; 84443; 84481; 85025; 86334; 86592; 95885; 95913

== ENCOUNTER 2024-12-18 07:43 | Oncology outpatient (recurring) (ONCR) | payer MEDICARE, SELFPAY ==
[2024-09-18 09:26] VITALS: BP 173/66; BMI 39.2
--- NOTE | 2024-12-18 10:30 | XR_ITS ---
WS: [email or web address] Chest 2 views, 12/18/2024 Clinical Data: polyneuropathy Comparison: Portable chest, 08/15/2023 Findings: No nodules, masses or effusions are seen. The heart is normal. The pulmonary vascularity is not increased. No pneumonia or pneumothorax is seen. The aortic arch and descending thoracic aorta show minimal calcification and tortuosity. The diaphragms are flattened. XR/XR chest 2V* [id number] Impression: Atherosclerosis and hyperinflation.
[2024-12-18 10:33] LABS: Basophils # 0.1 10^3/uL (0.0-0.1); Eosinophils # 0.1 10^3/uL (0.0-0.8); Eosinophils % 1.8 %; Hematocrit 44.8 % (37-53); Lymphocytes % 25.2 %; Mean Corpuscular HGB Conc 32.1 g/dL (30-55); Mean Corpuscular Hemoglobin 30.1 pg (27-33); Mean Corpuscular Volume 93.5 fl (82-101); Mean Platelet Volume 11.6 fL (7.4-10.4); Monocytes % 12.7 %; Neutrophils # 4.53 10^3/uL (1.8-7.7); Neutrophils % 57.2 %; Nucleated Red Blood Cells % 0 %; Platelet Count 221 10^3/cmm (157-399); Red Blood Count 4.79 10^6/uL (3.85-5.65); Red Cell Distribution Width 16.6 % (12.1-15.1); White Blood Count 7.93 10^3/uL (3.29-11.43)
[2024-12-18 10:34] LABS: Erythrocyte Sedimentation Rate 42 mm/hr (0-10)
[2024-12-18 10:52] LABS: C Reactive Protein 3.7 mg/L (0.0-4.9); Immunoglobulin IGA 183 mg/dL (70-400); Immunoglobulin IGG 817 mg/dL (700-1600); Immunoglobulin IGM 108 mg/dL (40-230); Lactate Dehydrogenase 184 U/L (135-225)
[2024-12-19 14:38] LABS: KAPPA LIGHT CHAIN, FREE, SERUM 37.2 mg/L (3.3-19.4); KAPPA/LAMBDA LIGHT CHAINS FREE 1.52 (0.26-1.65); LAMBDA LIGHT CHAIN, FREE, SERU 24.5 mg/L (5.7-26.3)
== END 2024-12-18 23:59 | disposition home or self-care (01) ==
PROVIDERS: Visit Provider Internal Medicine
DX: G62.89 Other specified polyneuropathies (principal); R77.1 Abnormality of globulin; Z87.891 Personal history of nicotine dependence
CPT/HCPCS: 36415; 71046; 82784; 83615; 83883; 85025; 85651; 86140; 99204

== ENCOUNTER → 2025-01-08 10:13 | Outpatient (BNVA) | payer MEDICARE, SELFPAY ==
[2025-01-09 18:24] VITALS: BP 173/66; BMI 39.2
== END ==
PROVIDERS: PCP Family Medicine; Visit Provider Podiatrist Foot & Ankle Surgery
DX: E11.69 Type 2 diabetes mellitus with other specified complication (principal); L60.3 Nail dystrophy; I73.9 Peripheral vascular disease, unspecified; E11.8 Type 2 diabetes mellitus with unspecified complications; Z79.84 Long term (current) use of oral hypoglycemic drugs
CPT/HCPCS: 11721; 99204

== ENCOUNTER 2025-01-15 13:10 | Oncology outpatient (recurring) (ONCR) | payer MEDICARE, SELFPAY ==
[2025-01-09 18:24] VITALS: BP 173/66; BMI 39.2
== END 2025-01-18 23:59 | disposition home or self-care (01) ==
PROVIDERS: PCP Family Medicine; Visit Provider Internal Medicine
DX: G62.89 Other specified polyneuropathies (principal); R77.1 Abnormality of globulin; Z87.891 Personal history of nicotine dependence; E78.1 Pure hyperglyceridemia
CPT/HCPCS: 99213

== ENCOUNTER 2025-01-22 08:58 | Outpatient (CLI) | payer OTHER, SELFPAY ==
[2025-01-09 18:24] VITALS: BP 173/66; BMI 39.2
--- NOTE | 2025-01-22 09:45 | US_ITS ---
WS: [email or web address] ABDOMINAL ULTRASOUND REASON FOR EXAM: polynuropathy TECHNIQUE: Grayscale and Doppler ultrasound examination of the abdomen. FINDINGS: Pancreas: No pancreatic mass, ductal dilatation, or calcification. Abdominal aorta and IVC: Normal Liver: Liver measures 17.7 cm in length. Diffuse increased echogenicity of the liver without focal lesion. Patent portal vein with normal flow. Gallbladder: Gallbladder wall thickness measures 0.2 cm. Partial septation/folded gallbladder configuration. No gallbladder calculi. Left kidney: Left kidney measures 8.7 cm x 5.3 cm x 5.2 cm. Left kidney cortex measures 0.9 cm. No calculus or hydronephrosis. 3 x 2 cm simple cyst. Right kidney: Right kidney measures 9.2 cm x 4.6 cm x 4.8 cm. Right kidney cortex measures 1.1 cm. No hydronephrosis or calculus. 2 cm simple cyst. Spleen: Spleen measures 12.2 cm x 2.8 cm x 12.0 cm. No focal lesion. No ascites. US/US abdomen complete* [id number] IMPRESSION: Prominent spleen with no focal lesions. Mildly enlarged liver with fatty infiltration. Bilateral renal cysts.
--- NOTE | 2025-01-22 10:30 | USR_ITS ---
PROCEDURE INFORMATION: Exam: US Duplex Bilateral Lower Extremity Arteries Exam date and time: 01/22/2025 10:27 AM Age: 74 years old Clinical indication: Condition or disease; Peripheral vascular disease; Additional info: I73.9 - peripheral vascular disease, unspecified TECHNIQUE: Imaging protocol: Real-time ultrasound scan of the arteries of the bilateral lower extremities with 2-D huntley scale, color Doppler flow and spectral waveform analysis. Images documented and saved. COMPARISON: MR knee LT wo con* [id number] 08/26/2022 8:53 AM FINDINGS: Right common femoral artery: No occlusion or significant stenosis. Normal waveform. Peak systolic velocity 66 cm/sec. Right superficial femoral artery: No occlusion or significant stenosis. Biphasic waveform. Peak systolic velocity 53-69 cm/sec. Right popliteal artery: No occlusion or significant stenosis. Biphasic waveform. Peak systolic velocity 37 cm/sec. Right calf/foot arteries: No occlusion or significant stenosis in the visualized arteries. Normal waveforms. Peak systolic velocity in the posterior tibial artery 83 cm/sec. Dorsalis pedis artery is patent with peak systolic velocity 63 cm/sec. Right STEWART is 1.08. Left common femoral artery: No occlusion. Monophasic waveform. Peak systolic velocity 37 cm/sec. Left superficial femoral artery: No occlusion. Monophasic waveform. Peak systolic velocity 15-39 cm/sec. Left popliteal artery: No occlusion. Monophasic waveform. Peak systolic velocity 16 cm/sec. Left calf/foot arteries: Monophasic waveforms. Peak systolic velocity in the posterior tibial artery is 12 cm/sec. Dorsalis pedis artery is patent with peak systolic velocity 15 cm/sec. Left STEWART unable to be obtained due to limited flow. US/CV arterial duplex [facility] [id number] IMPRESSION: 1. Monophasic waveforms with decreased velocities in the left lower extremity arteries, suggestive of areas of moderate to severe stenosis. 2. No significant stenosis in the right lower extremity arteries. 3. Left STEWART unable to be obtained due to limited flow in the lower extremity. 4. Right STEWART within normal limits.
== END 2025-01-22 08:59 | disposition home or self-care (01) ==
LOC: RAD 08:59
PROVIDERS: PCP Family Medicine; Visit Provider Internal Medicine
DX: I73.9 Peripheral vascular disease, unspecified (principal); G62.9 Polyneuropathy, unspecified; R93.89 Abnormal findings on diagnostic imaging of other specified body structures; R16.0 Hepatomegaly, not elsewhere classified; K76.0 Fatty (change of) liver, not elsewhere classified; N28.1 Cyst of kidney, acquired; R93.2 Abnormal findings on diagnostic imaging of liver and biliary tract; R93.3 Abnormal findings on diagnostic imaging of other parts of digestive tract
CPT/HCPCS: 76700; 93925

== ENCOUNTER 2025-02-05 12:29 | Oncology outpatient (recurring) (ONCR) | payer OTHER, MEDICAID, SELFPAY ==
[2025-01-09 18:24] VITALS: BP 173/66; BMI 39.2
== END 2025-02-17 23:59 | disposition home or self-care (01) ==
PROVIDERS: PCP Family Medicine; Visit Provider Nurse Practitioner
DX: E11.8 Type 2 diabetes mellitus with unspecified complications (principal); I73.9 Peripheral vascular disease, unspecified
CPT/HCPCS: 99214

== ENCOUNTER → 2025-02-26 09:41 | Outpatient (BNVA) | payer OTHER, MEDICAID, SELFPAY ==
[2025-02-07 08:46] VITALS: BP 173/66; BMI 39.2
== END ==
PROVIDERS: PCP Family Medicine; Referring Provider Family Medicine; Visit Provider Psychiatry & Neurology Neurology
DX: R53.1 Weakness (principal); E55.9 Vitamin D deficiency, unspecified; G62.9 Polyneuropathy, unspecified; R20.2 Paresthesia of skin; M62.50 Muscle wasting and atrophy, not elsewhere classified, unspecified site
CPT/HCPCS: 36415; 82306; 99212

== ENCOUNTER 2025-03-03 09:59 | Emergency (ER) | payer OTHER, MEDICAID, SELFPAY ==
[2025-02-07 08:46] VITALS: BP 173/66; BMI 39.2
[2025-03-03 10:10] VITALS: BP 171/72; PULSE 84; RESP 16; TEMP 37; O2SAT 97
--- NOTE | 2025-03-03 10:19 | ECG_ITS ---
Thermodynamic Process Control Test Date: 2025-03-03 Pat Name: Franki Read Department: Room: Gender: Male Security And Privacy Consultant: : 1950 Requested By: Laurita Brennan Order Number: [id number] Driver MD: Praveen Perla M.D. Measurements Intervals [place] Rate: 80 P: 85 [place]: 200 QRS: 151 QRSD: 160 T: 29 QT: 436 QTc: 506 Interpretive Statements SINUS RHYTHM WITH OCCASIONAL VENTRICULAR PREMATURE COMPLEXES INDETERMINATE AXIS RIGHT BUNDLE BRANCH BLOCK [120+ ms QRS DURATION, UPRIGHT V1, 40+ ms S IN I/aVL/V4/V5/V6] LEFT POSTERIOR FASCICULAR BLOCK [QRS AXIS > 109, INFERIOR Q] ST DEVIATION AND MARKED T-WAVE ABNORMALITY, CONSIDER ANTEROLATERAL ISCHEMIA [-0.5+ mV T-WAVE IN I/aVL/V3-V6] Compared to ECG 08/14/2023 16:03:55 Ventricular premature complex(es) now present Indeterminate axis now present First degree AV block no longer present Right-axis deviation no longer present Electronically Signed On 03-04-2025 15:03:00 CDT by Praveen Perla M.D. [email or web address]
--- OUTSIDE RECORDS SUMMARY | 2025-03-03 10:19 | XMS_ITS | Clinical Summary ---
Author Organization [employer] Address [address] Rodriguez: Epic Prelude ADT [place] [place]EL[place] [address] Care Team Providers Care Assistant Printer Floor Covering Name Role Phone Sanjeev Mercer DO Primary Care Provider [phone] Allergies No known active allergies Active Problems Problem Noted Date Diagnosed Date Anemia 09/25/2008 pneumonia community acquired 09/22/2008 Type II or unspecified type diabetes mellitus with unspecified complication, uncontrolled 09/22/2008 Overview (12/17/2020): Pt was severly hypoglycemic on admit HTN (hypertension) 09/22/2008 Overview (12/17/2020): Updating IMO/ICD9 Code and Description Mixed hyperlipidemia 09/22/2008 Depression 09/22/2008 Overview (12/17/2020): With Hx of bipolar disorder Pleural effusion Resolved Problems Problem Noted Date Diagnosed Date Resolved Date Headache(784.0) 12/08/2010 06/19/2012 Cerebral intracranial abscess 08/11/2010 06/19/2012 Encounters Date Type Department Care Team Description 02/04/2025 External Device Data [facility] Provider, Abstract 01/09/2025 External Device Data [facility] Provider, Abstract 01/09/2025 External Device Data [facility] Provider, Abstract 01/08/2025 External Device Data [facility] Provider, Abstract 01/07/2025 External Device Data [facility] Provider, Abstract 12/03/2024 External Device Data [facility] Provider, Abstract from Last 3 Months Immunizations Immunization Administration Dates Next Due Influenza Seasonal Unspecified Formulation IM Pneumococcal 7-valent conjugate vaccine IM 09/26 Family History Medical History Relation Name Comments Colon Cancer Neg Hx Social History Tobacco Use Types Packs/Day Years Used Date Smoking Tobacco: Former Cigarettes Q uit: 08/22/2003 Smokeless Tobacco: Never Alcohol Use Standard Drinks/Week Comments No 0 (1 standard drink = 0.6 oz pur e alcohol) Sex and Gender Information Value Date Recorded Sex Assigned at Not on file 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 Gender Identity Not on file Sexual Orientation Not on file Plan of Treatment Health Maintenance Due Date Last Done Comments COLORECTAL SCREENING 1968 Colorectal Cancer Screening 1968 DTAP/TDAP/TD VACCINES (1 - Tdap) 1969 FIT-DNA Q 3 years 1995 FIT/FOBT Q 1 year 1995 Flex Sig/CT Colonography Q 5 years 1995 PNEUMOCOCCAL VACCINE 50+ YEARS (1 of 1 - PCV) 04/20/20 00 09/26/2008 ZOSTER VACCINE (1 of 2) 2000 INFLUENZA VACCINE (#1) 2025 05/21/2010 RSV VACCINE (60+ or ) (1 - 1-dose 75+ series) 2025 Medical Devices Implanted Type Area Milling Machinist Device Identifier Shelf Expiration Date Model / Serial / Lot Log [id number] - Tissue Substitutes & Biologicals - 1 - Duragen Plus [id number] Implanted:Qty: 1 on 09/16/2010 Biological N/A: Cranial MycoTechnologyA PulselockerCISafetyWeb [facility] 05/21/2013 [id number] / N/A / [id number] Log [id number] - Synthes Ttnm Matrixneuro - 1 - Plate Matrixneuro Kendell Hole Cvr 023 Implanted:Qty: 1 on 09/16/2010 Plate N/A: Cranial SYNTHES-STRATEC - MAXIFACIAL .023 / LOAD: [id number] / Log [id number] - Synthes Ttnm Matrixneuro - 1 - Plate Matrixneuro Straight Implanted:Qty: 2 on 09/16/2010 Plate N/A: Cranial SYNTHES-STRATEC - MAXIFACIAL .062 / LOAD: [id number] / Log [id number] - Synthes Ttnm Matrixneuro - 1 - Screw Matrixneuro Sd .01 Implanted:Qty: 9 on 09/16/2010 Screw N/A: Cranial SYNTHES-STRATEC - MAXIFACIAL 104 .01 / LOAD: [id number] / Log [id number] - Tissue Substitutes & Biologicals - 1 - Sealant Duraseal 5ml Implanted:Qty: 1 on 09/16/2010 Sealant N/A: Cranial 12/20/2011 / N/A / [id number] Care Teams Assistant Printer Floor Covering Relationship Specialty Start Date End Date Sanjeev Mercer DO [address] [place] [address] PCP - General Family Practice 06/18/10
--- OUTSIDE RECORDS SUMMARY | 2025-03-03 10:19 | XMS_ITS | Patient Health Record ---
Author Organization [facility] Address [address] [place], [place] [id number] Care Team Providers Care Keyseating Machine Set Up Operator Name Role Phone Collins Rodriguez MD Unavailable [phone] Moody Moralez MD Unavailable Unavailable Ana Otto Unavailable [phone] Reason For Referral Reason Pain in left shoulde r; Stenosis of intervertebral foramen; Back pain, lumbar, chronic; Knee pain, right; Peripheral neuropathy, lower extremity Diagnosis 1 Pain in left shoulde r (M25.512) Diagnosis 2 Spinal stenosis, sit e unspecified (M48.00) Diagnosis 3 Other low back pain (M54.59) Diagnosis 4 Pain in right knee ( M25.561) Diagnosis 5 Polyneuropathy, unsp ecified (G62.9) Referring Provider First Name Moody Referring Provider Last Name Naomy Referred Organization [facility] Referred Provider Collins Rodriguez Referred Address [address] [facility],[place], [id number], Referred Provider Specialty Pain Managem ent General Notes Yumiko Kathleen 02/2024 01:07:41 PM >Sent for insurance verification.Beatriz Allison M 07/01/2024 02:47:26 PM >active. no copay., Yumiko Kathleen 07/03/2024 02:54:01 PM >Left message to schedule. Referral Priority Routine Social History Tobacco Use: Social History Observation Description Date Details (start date - stop date) Former Smoker NA - NA Tobacco use: Question Answer Notes : former smoker When did you stop smoking? 2004 Problems Problem Type SNOMED Code ICD Code Onset Dates Problem Status W/U Status Risk Notes Problem Pain of right knee region (finding) (716525667866456) Pain in right knee (M25.561) Active confirmed Problem Polyneuropathy (41222057) Polyneuropathy, unspecified (G62.9) Active confirmed Problem Shoulder joint pain (437646322) Pain in left shoulder (M25.512) Active confirmed Problem Spinal stenosis (45770039) Spinal stenosis, site unspecified (M48.00) Active confirmed Problem Low back pain (finding) (802158051) Other low back pain (M54.59) Active confirmed Encounters Encounter Location Date Provider Diagnosis [facility] [address] [place], [place] [id number] 09/02/2024 Ana Ha Procedure and treatment not carried out because of patient's decision for unspecified reasons Z53.20 Assessments Encounter Date Diagnosis (ICD Code) Assessment Notes Treatment Notes Treatment Clinical Notes Section Notes 09/02/2024 Procedure and treatment not carried out because of patient's decision for unspecified reasons (ICD-10 - Z53.20) PDMP checked in advance of appointment. Plan Of Treatment No Information Insurance Providers Payer Name Payer Address Payer Phone Subscriber Number Group Number Insured Name Patient Relationship to Insured Coverage Start Date Coverage End Date [employer] MED[employer]ARE ADVANTAGE PLAN [address] [place] [address] [id number] Franki Read Self - patient is the insured [place] [address] [place] [id number] Franki Read Self - patient is the insured Medical (General) History Medical History History ICD Code Pain in the left shoulder Stenosis of intervertebral foramen Back pain, lumbar, chronic Knee pain, right Peripheral neuropathy, lower extremity Anxiety and depression disorder Diabetes type 2 Hyperlipidemia Hypertension Gout Sleep apnea (on CPAP) Infection in brain post surgery Pulmonary nodule Chronic kidney disease, stage 3b Lower extremity edema, right Testicular disorder Surgical History Surgery Date(Month/Year) Brain surgery, performed at [facility] in [place], [place], 2020 Hospitalization History Reason Date(Month/Year) COVID2022
--- OUTSIDE RECORDS SUMMARY | 2025-03-03 10:19 | XMS_ITS | Clinical Summary ---
Author Organization [facility] Address [address] [facility] [place] [address] Care Team Providers Care Area Relief Pilot Name Role Phone Sanjeev Mercer DO Primary Care Provider [phone] Allergies No known active allergies Medications LISINOPRIL 40 mg Oral Tab Take 40 mg by mouth daily. Active XANAX 1 mg Oral Tab Take 1 mg by mouth 3 times daily. Active TOPAMAX 100 mg Oral Tab Take 100 mg by mouth 2 times daily. Active METFORMIN 500 mg Oral Tab Take 500 mg by mouth 2 times daily with meals. Active mirtazapine (REMERON) 30 mg Oral tablet Take 1 Tab by mouth daily at bedtime. Patient to take home prescription 1 Tab 0 0 Active famotidine (PEPCID) 40 mg Oral tablet Take 40 mg by mouth 2 times daily. Active baclofen (LIORESAL) 10 mg Oral tablet Take 10 mg by mouth 4 times daily. Active topiramate (TOPAMAX) 100 mg Oral tablet Take 100 mg by mouth 2 times daily. Active metoprolol tartrate (LOPRESSOR) 50 mg Oral tablet Take 50 mg by mouth 2 times daily. Active simvastatin (ZOCOR) 20 mg Oral tablet Take 20 mg by mouth Daily LATE. Active hydrochlorothia zide 25 mg Oral tablet Take 25 mg by mouth daily. Active HYDROcodone-barbra taminophen (VICODIN HP) 10-660 mg Oral Tab Take 1 Tab by mouth every 4 hours as needed. Active baclofen (LIORESAL) 20 mg Oral tablet Take 20 mg by mouth 3 times daily as needed. Active MULTIVITAMINS WITH FLUORIDE (MULTI-VITAMIN ORAL) Take by mouth. Activ e OMEPRAZOLE ORAL Take by mouth. Active sitaGLIPtin (JANUVIA) 50 mg Oral Tab Take 50 mg by mouth daily with breakfast. Active Active Problems Problem Noted Date Diagnosed Date Anemia 09/25/2008 pneumonia community acquired 09/22/2008 Type II or unspecified type diabetes mellitus with unspecified complication, uncontrolled 09/22/2008 Overview (09/22/2008): Pt was severly hypoglycemic on admit HTN (hypertension) 09/22/2008 Overview (09/14/2010): Updating IMO/ICD9 Code and Description Mixed hyperlipidemia 09/22/2008 Depression 09/22/2008 Overview (09/22/2008): With Hx of bipolar disorder Pleural effusion Resolved Problems Problem Noted Date Diagnosed Date Resolved Date Headache(784.0) 12/08/2010 06/19/2012 Cerebral intracranial abscess 08/11/2010 06/19/2012 Immunizations Immunization Administration Dates Next Due Influenza Seasonal Unspecified Formulation IM Pneumococcal 7-valent conjugate vaccine IM 09/26 Family History Medical History Relation Name Comments Colon Cancer Neg Hx Social History Tobacco Use Types Packs/Day Years Used Date Smoking Tobacco: Former Cigarettes 2.5 40 0 08/22/1963 - 08/22/2003 Smokeless Tobacco: Never Alcohol Use Standard Drinks/Week Comments No 0 (1 standard drink = 0.6 oz pur e alcohol) Sex and Gender Information Value Date Recorded Sex Assigned at Not on file Legal Sex Male 7:12 AM LOFTSMAN/WOMAN Gender Identity Not on file Sexual Orientation Not on file Occupation Industry Job Start Date Job End Date Not on file Not on file Not on file Not on file Last Filed Vital Signs Vital Sign Reading Time Taken Comments Blood Pressure 170/90 06/19/2012 9:24 AM CDT Pulse 62 06/19/2012 9:24 AM CDT Temperature 36.5 C (97.7 F) 06/19/2012 9:24 AM CDT Respiratory Rate 20 06/19/2012 9:24 AM CDT Oxygen Saturation 94% 06/19/2012 9:24 AM CDT Inhaled Oxygen Concentration - - Weight 101.2 kg (223 lb) 06/19/2012 9:24 AM CDT Height 167.6 cm (5' 6 ) 06/19/2012 9:24 AM CDT Body Mass Index 35.99 06/19/2012 9:24 AM CDT Plan of Treatment Health Maintenance Due Date Last Done Comments DIABETES ANNUAL FOOT EXAM 1968 DIABETES MICROALBUMIN ANNUAL SCREEN 1968 LDL CHOLESTEROL ANNUAL 1968 DTAP/TDAP/TD VACCINES (1 - Tdap) 1969 PNEUMOCOCCAL VACCINE 50+ YEA RS (1 of 2 - PCV) 1969 09/26/2008 FIT-DNA Q 3 years 1995 FIT/FOBT Q 1 year 1995 Flex Sig/CT Colonography Q 5 years 1995 ZOSTER VACCINE (1 of 2) 2000 RSV VACCINE (60+ or ) (1 - Risk 60-74 years 1-dose series) 2010 DIABETES HBA1C Q 6 MONTHS 03/15/2011 09/15/2010, 12/2008 DIABETES ANNUAL RETINAL EXAM 12/10/2011 12/09/2010 COLORECTAL SCREENING 10/18/2016 10/19/2011, 10/19/19 12 Colorectal Cancer Screening 10/18/2016 INFLUENZA VACCINE (#1) 2025 05/21/2010 Medical Devices Implanted Type Area Area Mechanic Device Identifier Shelf Expiration Date Model / Serial / Lot Log [id number] - Tissue Substitutes & Biologicals - 1 - Duragen Plus [id number] Implanted:Qty: 1 on 09/16/2010 at [facility] Biological N/A: Cranial [employer] KENYA 05/21/2013 [id number] / N/A / [id number] Log [id number] - Synthes Ttnm Matrixneuro - 1 - Plate Matrixneuro Kendell Hole Cvr 023 Implanted:Qty: 1 on 09/16/2010 at [facility] Plate N/A: Cranial SYNTHES-STRATEC - MAXIFACIAL / LOAD: [id number] / Log [id number] - Synthes Ttnm Matrixneuro - 1 - Plate Matrixneuro Straight 06 Implanted:Qty: 2 on 09/16/2010 at [facility] Plate N/A: Cranial SYNTHES-STRATEC - MAXIFACIAL / LOAD: [id number] / Log [id number] - Synthes Ttnm Matrixneuro - 1 - Screw Matrixneuro Sd 104.01 Implanted:Qty: 9 on 09/16/2010 at [facility] Screw N/A: Cranial SYNTHES-STRATEC - MAXIFACIAL 503.104 .01 / LOAD: [id number] / Log [id number] - Tissue Substitutes & Biologicals - 1 - Sealant Duraseal 5ml Implanted:Qty: 1 on 09/16/2010 at [facility] Sealant N/A: Cranial [employer] 12/20/2011 / N/A / [id number] Procedures Procedure Name Priority Date/Time Associated Diagnosis Comments HEMOGLOBIN A1C Routine 09/15/2010 4:42 PM LOFTSMAN/WOMAN from Last 3 Months or Most Recently Relevant to Health Maintenance Results * (ABNORMAL) HEMOGLOBIN A1C (09/15/2010 4:42 PM LOFTSMAN/WOMAN) HEMOGLOBIN A1C 6.1(H) 4.0 - 6.0 %A1C [facility] Blood specimen (specimen) 09/15/2010 4:42 PM LOFTSMAN/WOMAN 09/15/2010 4:46 PM LOFTSMAN/WOMAN us Frantz Peguero MD CHEMISTRY ORDERABLES Final Resul t INTERFACE SYSTEM Refer to clinic/hospital department [facility] CLIA# [id number] [address] [place] [address] from Last 3 Months or Most Recently Relevant to Health Maintenance Insurance MEDICARE PART A AND B [place]ID [place] Advance Directives For more information, please contact: [phone] Documents on File Type Date Recorded Patient Agile Scrum Master Expl anation Advance Directive POA 06/03/2010 Advanc e Directive POA * Full Code (Latest Code Status on File) Date Activated Date Inactivated Comments 10/19/2011 7:15 AM 10/19/2011 10:43 AM * Full Code Date Activated Date Inactivated Comments 12/09/2010 7:15 AM 12/18/2010 4:02 PM * Full Code Date Activated Date Inactivated Comments 12/08/2010 2:40 PM 12/09/2010 7:15 AM * Full Code Date Activated Date Inactivated Comments 09/16/2010 4:36 PM 09/20/2010 2:34 PM * Full Code Date Activated Date Inactivated Comments 09/16/2010 1:06 PM 09/16/2010 4:36 PM Care Teams Area Relief Pilot Relationship Specialty Start Date End Date Sanjeev Mercer DO [address] [place] [address] PCP - General Family Practice 06/18/10
--- OUTSIDE RECORDS SUMMARY | 2025-03-03 10:19 | XMS_ITS | Patient Health Record ---
Author Organization [facility] Address [address] [place] [address] Care Team Providers Care Cook Starch Name Role Phone Thao Martinez Primary Care Provider JarrettKelley Unavailable [phone] Juan Doan MD Unavailable Unavailable Allergies Allergen (clinical drug ingredient) Drug/Non Drug Allergy documented on EMR Reaction Allergy Type Onset Date Status buspirone BusPIRone HCl unknown Drug Allergy Act piyush Reason For Referral No Information Medications Medication SIG (Take, Route, Frequency, Duration) Notes Start Date End Date Status Irbesartan 300 MG Tablet TAKE 1 TABLET BY MOUTH EVERY DAY FOR BLOOD PRESSURE; Duration: 90 Active Memantine HCl 10 MG Tablet TAKE 1 TABLET BY MOUTH TWICE DAILY; Duration: 90 Active Diabetic Shoe - Misc. N/A N/A As Directed 06/09/2021 Active Fish Oil 1000 MG Capsule 1 capsule Orally Twice a day Active Colchicine 0.6 mg Tablet TAKE 1 TABLET BY MOUTH TWICE DAILY; Duration: 30 Active Aspirin 81 81 MG Tablet Delayed Release 1 tablet Orally Once a day Active Glucocard Shine Test - Strip USE DIRECTED TO TEST BLOOD GLUCOSE THREE TIMES DAILY; Duration: 30 Active Vitamins Tablet Take 1 tablet(s) by mouth daily Oral; Duration: 30 11/13/2013 Active Potassium Chloride ER 10 mEq Capsule Extended Release TAKE 1 CAPSULE BY MOUTH EVERY DAY WITH FOOD; Duration: 30 Active Baclofen 20 mg Tablet TAKE 1 TABLET BY MOUTH FOUR TIMES DAILY NEEDED; Duration: 30 Active Rosuvastatin Calcium 40 MG Tablet TAKE 1 TABLET BY MOUTH IN THE EVENING; Duration: 90 Active glipiZIDE ER 10 MG Tablet Extended Release 24 Hour 1 tablet Orally twice daily; Duration: 90 Active traZODone HCl 50 MG Tablet 1/2 tab Orally at bedtime; Duration: 30 day(s) Active Januvia 25 MG Tablet 1 tablet Orally Once a day; Duration: 30 days 03/17/2020 Active Metoprolol Succinate ER 25 mg Tablet Extended Release 24 Hour TAKE 1 TABLET BY MOUTH EVERY DAY; Duration: 90 Active amLODIPine Besylate 5 mg Tablet TAKE 1 TABLET BY MOUTH EVERY EVENING FOR BLOOD PRESSURE; Duration: 30 Active Lancet Devices - Miscellaneous as directed in vitro three times daily; Duration: 30 days Uncontrolled BS 01/18/2022 Active Omeprazole 20 mg Capsule Delayed Release TAKE 1 CAPSULE BY MOUTH EVERY DAY 30 MINUTES BEFORE MORNING MEAL DIRECTED; Duration: 90 Active Spironolactone 50 mg Tablet TAKE 1 TABLET BY MOUTH EVERY DAY; Duration: 30 Active Tamsulosin HCl 0.4 mg Capsule TAKE 1 CAPSULE BY MOUTH EVERY DAY; Duration: 90 Active Cane - Miscellaneous as directed daily; Duration: 30 days Regular cane 12/03/2021 Not-Taking Blood Glucose Monitor System w/Device Kit as directed in vitro daily; Duration: 30 days 01/18/2022 Active Jardiance 10 mg Tablet TAKE 1 TABLET BY MOUTH EVERY DAY; Duration: 30 Active Furosemide 40 mg Tablet TAKE TWO TABLETS BY MOUTH EVERY MORNING AND TAKE ONE TABLET AT 2PM; Duration: 30 Active Gabapentin 300 MG Capsule 1 capsule Orally twice daily; Duration: 30 days Dose increase Active Social History Tobacco Use: Social History Observation Description Date Details (start date - stop date) Former Smoker NA - NA Social History Depression Screening Social Info Question Answer Notes PHQ-9 Little interest or pleasure in doing thin gs Not at all Feeling down, depressed, or hopeless Not at all Trouble falling or staying asleep, or sleeping t oo much Not at all Feeling tired or having little energy Not at all Poor appetite or overeating Not at all Feeling bad about yourself, or that you are a failure, or have let yourself or your family down Not at all Trouble concentrating on thi ngs, such as reading the newspaper or watching television Not at all Moving or speaking so slowly that other people could have noticed. Or the opposite ? being so fidgety or restless that you have been moving around a lot more than usual Not at all Thoughts that you would be b tamera off , or of hurting yourself in some way Not at all Total Score 0 Drugs/Alcohol: Social Info Question Answer Notes Alcohol Screen (Audit-C) Did you have a drink containing alcohol in the past year? No Points 0 Interpretation Negative Drugs Have you used drugs other than those for medical reasons in the past 12 months? No Caffeine Intake: none Tobacco Use: Social Info Question Answer Notes xTobacco Use/Smoking Are you a former smoker Additional Details Category Social Info Options Details Drugs/Alcohol: Do you smoke marijuana? Admits, Recreational use zzMigrated Social History Migrated Social History Advance Directive: Current and Verified Signed on 11/13/2013 Organ Donation: Patient refuses Organ Donation Denied Portal User Patient declined portal account Occupation: Disabled (due to Fibromyalgia) Highest Level of Education High School Education (9-12) Completed 11th grade only Marital Status: Children: 1 child Hobbies/Recreation: he enjoys motorcycle riding; Mr. Read denies any current form of exercise. Section Notes: 11/08/21 11/08/21 11/08/21 11/08/21 11/08/21 11/08/21 11/08/21 Problems Problem Type SNOMED Code ICD Code Onset Dates Problem Status W/U Status Risk Notes Problem Type II diabetes mellitus without complication (515724320) Type 2 diabetes mellitus without complications (E11.9) Active confirmed Problem Dermatochalasis of right upper eyelid (417695550015849) Dermatochalasis of right upper eyelid (H02.831) Active confirmed Problem Dermatochalasis of left upper eyelid (719462733379003) Dermatochalasis of left upper eyelid (H02.834) Active confirmed Problem Localized, primary osteoarthritis of the ankle and/or foot (281378103) Primary osteoarthritis, right ankle and foot (M19.071) Active confirmed Problem Localized, primary osteoarthritis of the ankle and/or foot (452227725) Primary osteoarthritis, left ankle and foot (M19.072) Active confirmed Problem Long-term current us e of insulin (340740542) bed bug exterminator (current) use of insulin (Z79.4) Active confirmed Problem History of polyp of colon (situation) (569939258) Personal history of colonic polyps (Z86.010) Active confirmed Problem Essential hypertension (29727751) Essential hypertension (I10) Active confirmed Problem Sleep apnea (99787474) Sleep apnea in adult (G47.30) Active confirmed Problem Obstructive sleep apnea syndrome (91945246) CARMEN (obstructive sleep apnea) (G47.33) Active confirmed Problem Gout (22326580) Acute gout of right foot, unspecified cause (M10.9) Active confirmed Problem Gout (52983045) Acute gout of le ft foot, unspecified cause (M10.9) Active confirmed Problem Sciatica (51175179) Left sciatic nerve pain (M54.32) Active confirmed Problem Pure hypercholesterolemia (743963763) Pure hypercholesterolem ia (E78.00) 2015 Active confirmed [id number]- Problem Bilateral lower extremity edema (014697971) Bilateral lower extremity edema (R60.0) 2013 Active confirmed [id number]- Problem Benign enlargement o f prostate (299524496) Benign enlargement of prostate (N40.0) 2013 Active confirmed [id number]- Problem History of polyp of colon (situation) (216234674) History of colonic polyps (Z86.010) 2014 Active confirmed [id number]- Problem Essential hypertension (98622333) Essential hypertension (401.1) 2013 Active confirmed [id number]- Problem Gastroesophageal reflux disease (869980404) GERD (530.81) 2014 Active confirmed [id number]- Problem Chronic obstructive pulmonary disease (63110570) Chronic obstructive pulmonary disease (COPD) (J44.9) 2014 Active confirmed [id number]- Problem Diastolic heart failure (393895091) Diastolic heart failure (I50.30) 2013 Active confirmed [id number]- Problem Atherosclerosis of arteries of the extremities (disorder) (08049096) Atherosclerosis of tribal arteries of the extremities, unspecified (I70.209) 2016 Active confirmed [id number]- Problem Dehydration (39091864) Dehydration (276.51) 2017 Inactive confirmed [id number]- Problem Lumbago (857358550) Lumbago (724.2) 05/10 Inactive confirmed [id number]- Condition Memory loss (65128732) Memory loss (780.93) 2013 Inactive confirmed [id number]- Problem Cough (58072521) Cough (786.2) 2013 Inactive confirmed [id number]- Problem Diarrhea (42540459) Diarrhea (787.91) 2013 Inactive confirmed [id number]- Problem Slowing of urinary stream (61782121) Slowing of urinary stream (788.62) 2013 Inactive confirmed [id number]- Problem Proteinuria (92748263) Proteinuria (791.0) 2016 Inactive confirmed [id number]- Problem Screening for malignant neoplasm of prostate (755729615) Screening for prostate cancer (V76.44) 2018 Inactive confirmed [id number]- Problem Gout (40916753) Gout (M10.9) 2014 Inactive confirmed [id number]- Problem Sleep apnea (71429615) Sleep apnea (780.57) 2013 Inactive confirmed [id number]- Problem Fibromyalgia (443590650) Fibromyalgia (729.1) 2013 Inactive confirmed [id number]- Problem Low back pain (237248943) Low back pain (724.2) 2013 Inactive confirmed [id number]- Problem Fatigue (04492189) Fatigue (780.79) 11/13 Inactive confirmed [id number]- Problem Screening for malignant neoplasm of colon (905291879) Screening for cancer of colon (V76.51) 2017 Inactive confirmed [id number]- Problem Screening for colon cancer (872402529) Screening for colon cancer (V76.49) 2018 Inactive confirmed [id number]- Problem Allergic rhinitis caused by pollen (18522985) Allergies (477.0) 2018 Inactive confirmed [id number]- Problem Lymphadenopathy (83345009) Lymphadenopathy (785.6) 2016 Inactive confirmed [id number]- Problem Intermittent claudication secondary to arteriosclerosis (440.21) 2015 Inactive confirmed [id number]- Problem Foot pain (70385875) Foot pain (729.5) 2013 Inactive confirmed [id number]- Problem Insomnia (761361200) Insomnia (307.41) 2013 Inactive confirmed [id number]- Problem Screening for malignant neoplasm of colon (762402477) Screening for colorectal cancer (V76.49) 2014 Inactive confirmed [id number]- Problem Needs influenza immunization (903397881) Vaccination against other viral diseases, Influenza (V04.81) 2015 Inactive confirmed [id number]- Problem Obstructive sleep apnea (72678027) Obstructive sleep apnea (780.57) 2016 Inactive confirmed [id number]- Problem Knee pain (0589396458) Knee pain (719.46) 2014 Inactive confirmed [id number]- Problem Ankle pain (169021034) Ankle pain (719.47) 2017 Inactive confirmed [id number]- Problem Swollen lymph nodes (08655226) Swollen lymph nodes (785.6) 2018 Inactive confirmed [id number]- Problem Pedal edema (571542635) Pedal edema (782.3) 2016 Inactive confirmed [id number]- Problem Diabetes mellitus type 2 (disorder) (50963876) Type 2 diabetes (250.00) 2013 Inactive confirmed [id number]- Problem Acute diastolic hear t failure (847689341) Diastolic heart failure, acute (428.31) 2018 Inactive confirmed [id number]- Problem Right bundle branch block (47618864) Right bundle branch block (I45.10) 2013 Problem resolved confirmed [id number]- Problem Edema (256536925) Peripheral extremity edema (782.3) 2018 Problem resolved confirmed [id number]- Plan Of Treatment No Information Insurance Providers Payer Name Payer Address Payer Phone Subscriber Number Group Number Insured Name Patient Relationship to Insured Coverage Start Date Coverage End Date [facility] [address] [address] [place] [address] [id number] Franki Read Self - patient is the insured [place] Medicaid [address] [place] [address] [id number] Franki Cannon Self - patient is the insured 4 Medical (General) History Medical History History ICD Code Hypertension Diastolic heart failure Hypercholesterolemia COPD Sleep apnea GERD Type 2 diabetes Fibromyalgia Osteoarthritis Depression Iron deficiency anemia Gout Right bundle branch block Lumbago Memory loss Edema Slowing of urinary stream Diastolic heart failure, unspecified (re solved 02/10/2014) Lymphadenopathy Intermittent claudication secondary to a rteriosclerosis Foot pain Insomnia (resolved 03/12/2014) BPH History of colonic polyps Surgical History Surgery Date(Month/Year) Brain aneurysm Blephroplasty bilaterally 04/2021 Hospitalization History Reason Date(Month/Year) Hypoglycemia Brain aneurysm Dehydration, BS uncontrolled 01/09
--- NOTE | 2025-03-03 10:21 | CT_ITS ---
WS: [id number] CT ABDOMEN PELVIS TECHNIQUE: Contrast-enhanced CT of the abdomen and pelvis with coronal and sagittal reformatted images. CLINICAL INFORMATION: vomiting COMPARISON: None. DLP: 427.[address] scans at [facility] use at least one of these dose optimization techniques: automated exposure control; mA and/or kV adjustment per patient size (includes targeted exams where dose is matched to clinical indication); or iterative reconstruction. FINDINGS: Lung bases are well aerated. Fatty liver. Portal vein and splenic vein are patent. Small esophageal hiatal hernia. Air-fluid level in the stomach. Evidence of gastritis and duodenitis. Small esophageal hiatal hernia. Fatty atrophy of the pancreas. Normal caliber abdominal aorta. Dense vascular calcification. Urine distended bladder. Chronic spondylolysis L5-S1 with grade 1 anterolisthesis. Fluid distended tortuous colon with mild sigmoid fecal retention and enhancement. Tortuous colon is similar in appearance to previous. A few fluid- filled loops of small bowel in the LEFT upper quadrant. No evidence of high- grade obstruction. Slightly hydropic gallbladder. No gallbladder wall thickening or pericholecystic fluid. CT/CT abdomen pelvis w con* [id number] IMPRESSION: 1. Small esophageal heel hernia. Air-fluid level in the stomach. Evidence of g astritis and duodenitis. 2. Fluid distended colon with mild fecal retention and enhancement. Tortuous c olon is unchanged since the prior studies. Recommend correlation for mild infec tious or inflammatory colitis. 3. No fluid is slightly distended loops of small bowel in the LEFT upper quadr ant. No evidence of high-grade obstruction. 4. Marked urinary distention of the bladder.
--- NOTE | 2025-03-03 10:30 | W.ED.NAVMDI ---
HPI - Nausea/Vomiting/Diarrhea General: Chief complaint: Nausea/Vomiting/Diarrhea Stated complaint: n,v, weak x4 days Time Seen by Provider: 03/03/25 10:16 Source: patient Mode of arrival: ambulatory Limitations: no limitations History of Present Illness: 74-year-old male who states that over the last 3 to 4 days has been having nausea vomiting. States he not been able to tolerate much p.o. has been having some generalized weakness and feeling dehydrated. Has had some abdominal cramping denies any severe abdominal pain. He denies any fevers denies any previous abdominal surgeries. Associated nausea: Yes Associated symtoms: Reports nausea; Denies chest pain or headache(s) Related Data Home Medications ?Medication ?Instructions ?Recorded ?Confirmed memantine 10 mg tablet 10 mg PO BID 08/26/19 03/03/25 omeprazole 20 mg capsule,delayed 20 mg PO QAM 08/26/19 03/03/25 release tamsulosin 0.4 mg capsule 0.4 mg PO QAM 08/26/19 03/03/25 allopurinol 100 mg tablet 200 mg PO QAM 08/12/23 03/03/25 omega 5-yxv-cxu-fish oil 1,000 mg 1 cap PO BID 08/12/23 03/03/25 (120 mg-180 mg) capsule (Fish Oil) rosuvastatin 40 mg tablet 40 mg PO DAILY 08/12/23 03/03/25 empagliflozin 25 mg tablet 25 mg PO QAM 08/15/23 03/03/25 (Jardiance) spironolactone 50 mg tablet 50 mg PO QAM 08/15/23 03/03/25 pregabalin 100 mg capsule 100 mg PO TID 09/13/23 03/03/25 baclofen 20 mg tablet 20 mg PO TID PRN muscle spasms 10/29/24 03/03/25 duloxetine 20 mg capsule,delayed 20 mg PO BID 10/29/24 03/03/25 release furosemide 40 mg tablet 80 mg PO BID 10/29/24 03/03/25 metformin 500 mg tablet 500 mg PO ONCE 10/29/24 03/03/25 Previous Rx's ?Medication ?Instructions ?Recorded hinged knee brace #1 ea 02/14/23 cholecalciferol (vitamin D3) 1,250 50,000 unit PO Q7D #12 caps 02/26/25 mcg (50,000 unit) capsule ciprofloxacin HCl 500 mg tablet 500 mg PO BID #14 tabs 03/03/25 (Cipro) metronidazole 500 mg tablet 500 mg PO Q8H 7 days #21 tabs 03/03/25 ondansetron 4 mg disintegrating 4 mg PO Q6H PRN nausea and 03/03/25 tablet vomiting #14 tabs Allergies Allergy/AdvReac Type Severity Reaction Status Date / Time No Known Allergies Allergy Verified 02/26/25 09:46 Review of Systems Const: Denies: fever(s), chills, body aches or change in appetite ENMT: Denies: throat pain or dental pain Card: Denies: chest pain Resp: Denies: dyspnea GI: Reports: nausea and vomiting; Denies: abdominal pain or diarrhea Musc: Denies: neck pain or back pain Skin/Breast: Denies: rash Neuro: Denies: headache(s) PFSH ED PFSH: Medical History Sprain of collateral ligament of left knee Dementia Hypertension COPD (chronic obstructive pulmonary disease) Psychiatric care History of hypertension Hyperlipidemia History of gastroesophageal reflux (GERD) Sleep apnea Arthritis Diabetes mellitus History of fibromyalgia Generalized anxiety disorder Surgical History History of colonoscopy Hx of brain surgery Family History Other Cancer Diabetes Hypertension Social History Smoking and tobacco/nicotine status: never used tobacco/nicotine Alcohol intake: former Substance/Drug Use: current Adopted: No Caregiver/support person: No Lives independently: Yes Household members: none Housing: Manufactured/Mobile home Marital status: Number of children: 1 Number of grandchildren: 1 Highest education level completed: 11th Grade service: No Current occupational status: retired Current occupational exposures/hazards: No 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 Pets and animals: Yes (4) Pets & animals: cat(s) Leisure activites: art and other Leisure activities details: visiting with friends, work in shop Sexually active: No Do you think of yourself as: Straight/Heterosexual Current gender identity: Male Teresa/Adventism: None Special teresa needs: No Agree to transfusion: Yes Physical Exam Const: COMMON NORMALS: no acute distress, patient oriented x3 and healthy appearing HENMT: COMMON NORMALS: normocephalic and atraumatic HEAD & SCALP: normocephalic and atraumatic Eye: COMMON NORMALS: Equal, round and reactive pupils present and EOMs intact bilaterally PUPIL: Yes Equal, round and reactive pupils present Neck/C-Spine: COMMON NORMALS: full ROM and supple Chest: COMMONS NORMALS: normal inspection of the chest Resp: COMMON NORMALS: normal respiratory effort, No retractions, No use of accessory muscles and clear to auscultation bilaterally AUSCULTATION: clear to auscultation bilaterally Cardio: COMMON NORMALS: regular rate, regular rhythm and No murmurs present (Cardio) RATE: regular rate RHYTHM: regular rhythm GI: COMMON NORMALS: Normal to inspection, nondistended, normoactive bowel sounds present, Soft to palpation, non-tender and no masses PALPATION: Yes Soft to palpation Extremity: COMMON NORMALS: normal to inspection and full ROM Neuro: COMMON NORMALS: patient oriented x3, moves all extremities and no focal motor deficits Psych: COMMON NORMALS: mental status grossly normal, Normal thought process present and cooperative THOUGHT PROCESS: Normal thought process present Skin: COMMON NORMALS: no rashes or lesions noted and no wounds GENERAL SKIN EXAM: no rashes or lesions noted Course Vital Signs: Vital signs: Vital Signs Temperature 98.6 F 03/03/25 10:10 Pulse Rate 84 03/03/25 10:10 Respiratory Rate 16 03/03/25 10:10 Blood Pressure 171/72 03/03/25 10:10 Pulse Oximetry 97 03/03/25 10:10 Oxygen Delivery Me thod Room Air 03/03/25 10:10 MDM - Nausea/Vomiting/Diarrhea Medical Decision Making Patient presents here with vomiting has had some diarrhea as well CT showed colitis his exam here is benign he feels improved he is tolerated p.o. will start him on Cipro Flagyl along with Zofran will get him follow-up with surgery he is return if worsening he understands agrees to plan. Medical Records I reviewed the patient's medical records. Lab Data I reviewed the patient's lab results. 03/03/25 10:43 03/03/25 11:41 Laboratory Results WBC 11.73 10^3/uL (3.29-11.43) H 03/03/25 10:43 RBC 5.07 10^6/uL (3.85-5.65) 03/03/25 10:43 Hgb 15.50 g/dL (11.27-16.99) 03/03/25 10:43 Hct 45.2 % (37-53) 03/03/25 10:43 MCV 89.2 fl (82-101) 03/03/25 10:43 MCH 30.6 pg (27-33) 03/03/25 10:43 MCHC 34.3 g/dL (30-55) 03/03/25 10:43 RDW 16.4 % (12.1-15.1) H 03/03/25 10:43 Plt Count 183 10^3/cmm (157-399) 03/03/25 10:43 MPV Not Reportable 03/03/25 10:43 Neut % (Auto) 83.4 % 03/03/25 10:43 Lymph % (Auto) 8.4 % 03/03/25 10:43 [place] % (Auto) 7.4 % 03/03/25 10:43 Eos % (Auto) 0.0 % 03/03/25 10:43 Baso % (Auto) 0.3 % 03/03/25 10:43 Neut # (Auto) 9.78 10^3/uL (1.8-7.7) H 03/03/25 10:43 Lymph # (Auto) 1.0 10^3/uL (0.8-4.8) 03/03/25 10:43 [place] # (Auto) 0.9 10^3/uL (0.2-0.9) 03/03/25 10:43 Eos # (Auto) 0.0 10^3/uL (0.0-0.8) 03/03/25 10:43 Baso # (Auto) 0.0 10^3/uL (0.0-0.1) 03/03/25 10:43 Nucleated RBC % (auto) 0 % 03/03/25 10:43 Nucleated RBCs # 0.0 /100WBC 03/03/25 10:43 Sodium 142 mmol/L (136-145) 03/03/25 11:41 Potassium 3.5 mmol/L (3.5-5.1) 03/03/25 11:41 Chloride 100 mmol/L (98-107) 03/03/25 11:41 Carbon Dioxide 21 mmol/L (22-29) L 03/03/25 11:41 Anion Gap 24.5 (5-19) H 03/03/25 11:41 BUN 19 mg/dL (8-23) 03/03/25 11:41 Creatinine 1.1 mg/dL (0.7-1.2) 03/03/25 11:41 GFR Calculation Not Reportable 03/03/25 11:41 Glucose 77 mg/dL (65-115) 03/03/25 11:41 Calculated Osmolality 295 mOsm/kg (285-295) 03/03/25 11:41 Calcium 8.5 mg/dL (8.5-10.5) 03/03/25 11:41 Total Bilirubin 0.4 mg/dL (0.15-1.2) 03/03/25 11:41 AST 64 U/L (0-40) H 03/03/25 11:41 ALT 72 U/L (0-41) H 03/03/25 11:41 Alkaline Phosphatase 101 U/L (40-130) 03/03/25 11:41 Total Protein 6.2 g/dL (6.6-8.7) L 03/03/25 11:41 Albumin 3.7 g/dL (3.5-5.2) 03/03/25 11:41 Globulin 2.5 g/dL (1.3-4.6) 03/03/25 11:41 Lipase 11 U/L (13-60) L 03/03/25 11:41 All radiology interpretation(s) finalized by discharge EKG Data EKG 1: I personally reviewed and interpreted this EKG as follows: EKG interpretation date: 03/03/25 EKG interpretation time: 10:19 Interpretation: nsr hr [address] elevation qrs 160 qtc 472 Discharge Plan Discharge Patient Disposition: Home Clinical Impression: Colitis, Vomiting Condition: Stable Prescriptions: New metronidazole 500 mg tablet 500 mg PO Q8H 7 Days Qty: 21 0RF ciprofloxacin HCl [Cipro] 500 mg tablet 500 mg PO BID Qty: 14 0RF ondansetron 4 mg tablet,disintegrating 4 mg PO Q6H PRN (Reason: nausea and vomiting) Qty: 14 0RF No Action (DME) hinged knee brace See Rx Instructions .Route .MEDSUPPLY Qty: 1 0RF Rx Instructions: As directed cholecalciferol (vitamin D3) 1,250 mcg (50,000 unit) capsule 50,000 unit PO Q7D Qty: 12 5RF metformin 500 mg tablet 500 mg PO ONCE furosemide 40 mg tablet 80 mg PO BID omeprazole 20 mg capsule,delayed release(DR/EC) 20 mg PO QAM memantine 10 mg tablet 10 mg PO BID tamsulosin 0.4 mg capsule 0.4 mg PO QAM spironolactone 50 mg tablet 50 mg PO QAM Jardiance 25 mg tablet 25 mg PO QAM pregabalin 100 mg capsule 100 mg PO TID omega 8-wwc-juw-fish oil [Fish Oil] 1,000 mg (120 mg-180 mg) Capsule 1 cap PO BID allopurinol 100 mg tablet 200 mg PO QAM rosuvastatin 40 mg tablet 40 mg PO DAILY baclofen 20 mg tablet 20 mg PO TID PRN (Reason: muscle spasms) duloxetine 20 mg capsule,delayed release(DR/EC) 20 mg PO BID Discharge Orders: Discharge ED (Routine); Ordered 03/03/25 Ordered By: Laurita Brennan Referrals: Sami Sales MD [Physician, General Surgery] - 4-7 days Moody Moralez MD [Primary Care Provider, Family Practice] Discharge Diet: Advance as tolerated Discharge Activity: Resume usual activity Patient Instructions: Colitis (ED) Print Language: Slovak Coding Level of Care Code ED Wharf Worker for Stepan Noel
[2025-03-03] MEDS: ondansetron 2 mg/ML SDV 2 mL 4 MG IVP (10:42)
[2025-03-03 10:52] LABS: Hematocrit 45.2 % (37-53); Hemoglobin 15.50 g/dL (11.27-16.99); Mean Corpuscular HGB Conc 34.3 g/dL (30-55); Mean Corpuscular Hemoglobin 30.6 pg (27-33); Mean Corpuscular Volume 89.2 fl (82-101); Nucleated Red Blood Cells % 0 %; Platelet Count 183 10^3/cmm (157-399); Red Blood Count 5.07 10^6/uL (3.85-5.65); White Blood Count 11.73 10^3/uL (3.29-11.43)
[2025-03-03 11:05] LABS: Slide Review Slide Review Perform
[2025-03-03 12:11] LABS: Alanine Aminotransferase 72 U/L (0-41); Albumin Level 3.7 g/dL (3.5-5.2); Alkaline Phosphatase 101 U/L (40-130); Anion Gap 24.5 (5-19); Aspartate Amino Transferase 64 U/L (0-40); Blood Urea Nitrogen 19 mg/dL (8-23); Calcium 8.5 mg/dL (8.5-10.5); Carbon Dioxide 21 mmol/L (22-29); Chloride 100 mmol/L (98-107); Creatinine Clr Calc Pharmacy 51.0700; Globulin 2.5 g/dL (1.3-4.6); Glucose 77 mg/dL (65-115); Lipase 11 U/L (13-60); Osmolality Calculated 295 mOsm/kg (285-295); Potassium 3.5 mmol/L (3.5-5.1); Sodium 142 mmol/L (136-145); Total Protein 6.2 g/dL (6.6-8.7)
--- NOTE | 2025-03-03 12:45 | DCPLANNER ---
messaged gen surg for er f/u
[2025-03-03 13:06] VITALS: BP 150/65; PULSE 71; O2SAT 95
== END 2025-03-03 13:09 | disposition home or self-care (01) ==
PROVIDERS: Emergency Provider Emergency Medicine; PCP Family Medicine
DX: K52.9 Noninfective gastroenteritis and colitis, unspecified (principal); R11.10 Vomiting, unspecified; Z79.84 Long term (current) use of oral hypoglycemic drugs; J44.9 Chronic obstructive pulmonary disease, unspecified; E78.5 Hyperlipidemia, unspecified; E11.9 Type 2 diabetes mellitus without complications
CPT/HCPCS: 36415; 74177; 80053; 83690; 85025; 93005; 96374; 99285; J2405; J7030

== ENCOUNTER → 2025-03-18 08:46 | Outpatient (BNVA) | payer OTHER, MEDICAID, SELFPAY ==
[2025-02-07 08:46] VITALS: BP 173/66; BMI 39.2
== END ==
PROVIDERS: PCP Family Medicine; Visit Provider Surgery
DX: K52.9 Noninfective gastroenteritis and colitis, unspecified (principal)
CPT/HCPCS: 99214

== ENCOUNTER → 2025-04-23 08:42 | Day surgery (SDC) | payer OTHER, MEDICAID, SELFPAY ==
[2025-02-07 08:46] VITALS: BP 173/66; BMI 39.2
--- NOTE | 2025-04-23 09:02 | ANES.PREANE2 ---
Pre-Anesthetic Assessment Height/Weight: Height 1.63 m Preop Diagnosis: Screening Operation Date: 04/23/25 10:20 Proposed Procedures p Colonoscopy 14029 G0105 Z12.11(Not Applicable) - Sanjeev Marcos MD Familial anesthetic complications: none Was Beta Javid taken within 24 hours: Yes Was Clonidine taken within 24 hours: N/A Social No alcohol and No tobacco Exam alert, oriented x 3, clear to auscultation bilaterally and regular rate & rhythm Airway Cervical ROM: within normal limits Mallampati: Class III Dentition: false (upper) Pulmonary Sleep Apnea CV/HEM None reported None reported Hepatic None reported Mild elevated AST/ALT, large round abdomen. GI None reported Metabolic None reported Musc/skel Weakness Neuropsych Anxiety (PTSD) Anesthetic Plan ASA status: 3 Anesthesia: MAC Risk of > 500 ml blood loss (7ml/kg in children): No Medications/Allergies Home Medications ?Medication ?Instructions ?Recorded ?Confirmed ?Last Taken ?Type omeprazole 20 mg capsule,delayed 20 mg PO QAM 08/26/19 04/17/25 04/17/25 History release tamsulosin 0.4 mg capsule 0.4 mg PO QAM 08/26/19 04/17/25 04/17/25 History hinged knee brace #1 ea 02/14/23 04/15/25 Unknown Rx allopurinol 100 mg tablet 200 mg PO QAM 08/12/23 04/17/25 04/22/25 06:00 History omega 3-cgl-ixa-fish oil 1,000 mg 1 cap PO BID 08/12/23 04/17/25 04/17/25 History (120 mg-180 mg) capsule (Fish Oil) rosuvastatin 40 mg tablet 40 mg PO DAILY 08/12/23 04/17/25 04/17/25 History empagliflozin 25 mg tablet 25 mg PO QAM 08/15/23 04/17/25 04/16/25 History (Jardiance) spironolactone 50 mg tablet 50 mg PO QAM 08/15/23 04/17/25 04/17/25 History pregabalin 100 mg capsule 100 mg PO TID 09/13/23 04/17/25 04/17/25 History baclofen 20 mg tablet 20 mg PO TID PRN muscle spasms 10/29/24 04/17/25 04/17/25 History furosemide 40 mg tablet 80 mg PO BID 10/29/24 04/17/25 04/17/25 History cholecalciferol (vitamin D3) 1,250 50,000 unit PO Q7D #12 caps 02/26/25 04/17/25 04/12/25 Rx mcg (50,000 unit) capsule ondansetron 4 mg disintegrating 4 mg PO Q6H PRN nausea and 03/03/25 04/17/25 04/23/25 05:30 Rx tablet vomiting #14 tabs amlodipine 5 mg tablet 5 mg PO QDAY 03/18/25 04/17/25 04/23/25 05:30 History colchicine 0.6 mg tablet 0.6 mg PO BID 03/18/25 04/17/25 04/17/25 History polyethylene glycol 3350 17 17 g PO DAILY #238 grams 03/18/25 04/17/25 Unknown Rx gram/dose oral powder (Miralax) duloxetine 30 mg capsule,delayed 30 mg PO .morning #30 caps 04/15/25 04/17/25 04/17/25 Rx release memantine 10 mg tablet 10 mg PO BID #60 tabs 04/15/25 04/17/25 04/17/25 Rx Allergies Allergy/AdvReac Type Severity Reaction Status Date / Time No Known Allergies Allergy Verified 04/23/25 08:57 [facility] Anesthesia Medical History (Updated 04/15/25 @ 16:56 by Chaya Don, [facility]) Cannabis dependence Major depressive disorder, recurrent episode, moderate with anxious distress Sprain of collateral ligament of left knee Moderate late onset Alzheimer's dementia without behavioral disturbance, psychotic disturbance, mood disturbance, or anxiety Hypertension COPD (chronic obstructive pulmonary disease) Psychiatric care History of hypertension Hyperlipidemia History of gastroesophageal reflux (GERD) Sleep apnea Arthritis Diabetes mellitus History of fibromyalgia Generalized anxiety disorder Surgical History History of colonoscopy Hx of brain surgery Family History Other Cancer Diabetes Hypertension Social History Smoking and tobacco/nicotine status: never used tobacco/nicotine Alcohol intake: former Substance/Drug Use: current Adopted: No Caregiver/support person: No Lives independently: Yes Household members: none Housing: Manufactured/Mobile home Marital status: Number of children: 1 Number of grandchildren: 1 Highest education level completed: 11th Grade service: No Current occupational status: retired Current occupational exposures/hazards: No 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
[2025-04-23 09:07] VITALS: BMI 24.0
--- NOTE | 2025-04-23 10:07 | PC.NURSE ---
Pt came for colonoscopy, but reported that he was having large solid stool. After Dr Marcos spoke to him and his family, it was decided to reschedule with a alayna prep. Pt taken out by w/c to private vehicle.
== END ==
PROVIDERS: PCP Family Medicine; Visit Provider Surgery
PROC: 0DJD8ZZ Inspection of Lower Intestinal Tract, Via Natural or Artificial Opening Endoscopic (ICD-10-PCS; CPT 45378; principal; 2025-04-23 14:45)
DX: Z53.8 Procedure and treatment not carried out for other reasons (principal)